=== PATIENT | female | born 1970 | race Caucasian/White ===

== ENCOUNTER 2020-02-25 06:34 | Emergency (ER) | payer SELFPAY ==
[2020-02-25] MEDS ORDERED: DICYCLOMINE HCL INJ 20 MG/2 ML AMPULE IM ONE (08:29)
[2020-02-25] MEDS ORDERED: ONDANSETRON HCL INJ/PF 4 MG/2 ML SDV IV ONE (08:29)
[2020-02-25] MEDS ORDERED: NORMAL SALINE 1000 ML 1,000 ML IV ONE (08:29)
--- NOTE | 2020-02-25 08:30 | ER Document Report ---
ED GI/ - General Chief Complaint: Abdominal Pain Stated Complaint: NAUSEA AND WITHDRAWLS Time Seen by Provider: 02/25/20 08:12 Notes: Patient is a 49-year-old female who presents emergency department with a chief complaint of abdominal pain and right-sided chest pain that has been on and off. Patient states that she also has pain in her back. She reports that she was treated at [facility] for pneumonia, but left AGAINST MEDICAL ADVICE. She states that she has a prescription for antibiotics, but has not picked it up. She is visiting her daughter in the area. Patient has a history of heroin abuse. She states that she has not used heroin for the past 4 days. Patient states that her abdominal pain is generalized. States that she "feels like I am going through withdrawals." Patient has been IV drug user since 2016. Patient also has a history of hypothyroidism. - Related Data Allergies/Adverse Reactions: No Known Allergies Allergy (Unverified 02/25/20 09:16) Home Medications: inhaler Past Medical History - General Information source: Patient - Social History Smoking Status: Current Every Day Smoker Frequency of alcohol use: Rare Drug Abuse: Heroin Family History: Reviewed & Not Pertinent Review of Systems - Review of Systems Notes: REVIEW OF SYSTEMS: CONSTITUTIONAL : Denies recent illness. Denies recent unintentional weight loss. Denies fever, chills, or sweats. EENT: Denies eye, ear, throat, or mouth pain, discharge, or symptoms. Denies nasal or sinus congestion. CARDIOVASCULAR: See HPI. RESPIRATORY: Denies shortness of breath, cough, congestion, difficulty breathing, or wheezing. GASTROINTESTINAL: See HPI. GENITOURINARY: Denies difficulty urinating, burning, blood in urine, urgency or frequency. MUSCULOSKELETAL: Denies neck and back pain. Denies joint pain or swelling. SKIN: Denies rash, itchiness, or lesions HEMATOLOGIC : Denies easy bruising or bleeding. LYMPHATIC: Denies swollen, painful, enlarged glands. NEUROLOGICAL: Denies no numbness or tingling denies weakness. Denies headache. Denies altered mental status. Denies alteration in speech. PSYCHIATRIC: Denies stress, anxiety, alteration in sleep patterns, or depression. All other systems reviewed and negative. Physical Exam - Vital signs Vitals: Temp Pulse Resp BP Pulse Ox 97.6 F 66 18 115/79 98 02/25/20 06:41 02/25/20 06:41 02/25/20 06:41 02/25/20 06:41 02/25/20 06:41 - Notes Notes: PHYSICAL EXAMINATION: GENERAL: Appears well, healthy, well-nourished, no acute distress. HEAD: Normocephalic, atraumatic. EYES: PERRL, conjunctiva normal, all extraocular movements intact, sclera nonicteric ENT: Moist mucous membranes. NECK: Supple, no noticeable swelling, redness, rash. Normal range of motion. LUNGS: Coarse breath sounds noted throughout all lung mulligan. CARDIOVASCULAR: S1-S2, regular rate, regular rhythm. Radial pulses 2+, normal. ABDOMEN: Normoactive bowel sounds. Soft, tender generalized abdomen, no guarding, no rebound tenderness, and no masses palpated. EXTREMITIES: Normal strength and range of motion, no pitting or edema. No cyanosis. NEUROLOGICAL: Moves all extremities upon command. Strength 5/5 in all extremities. PSYCH: Normal mood, normal affect. SKIN: Warm, dry. No rash, lesions, ulcerations noted. Normal skin turgor. Course - Re-evaluation Re-evalutation: 02/25/20 11:01 Patient states that she feels better. Her urinalysis shows protein in her urine. Unremarkable. Toxicology shows opiates, consistent with her heroin use. She also has cocaine and marijuana in her urine. She admitted to using these drugs. Chemistry and hematology are pending at this time. 02/25/20 12:11 Patient is stating that she wants to leave. Joana from mental health evaluated her, but have not touched base with her. Patient is wanting to leave. She denies any suicidal or homicidal ideation. Advised the patient to go to the [facility] crisis [facility]. She is in agreement to do this. We will also give her Reglan and Bentyl. Follow-up precautions were given. Verbal discharge instructions were given to the patient. They verbalized understanding. They are stable for discharge. - Vital Signs Vital signs: Temp Pulse Resp BP Pulse Ox 98.0 F 66 19 113/78 97 02/25/20 09:13 02/25/20 06:41 02/25/20 11:01 02/25/20 11:01 02/25/20 11:01 - Laboratory Result Diagrams: 02/25/20 10:35 02/25/20 10:35 Laboratory results interpreted by me: 02/25/20 02/25/20 02/25/20 09:05 10:35 10:35 RDW 14.1 H BUN 6 L AST 42 H ALT 39 H Lipase 426.2 H Urine Protein 30 H - EKG Interpretation by Me Additional EKG results interpreted by me: 02/25/20 Sinus rated cardia. Rate 53. VT 140; QRS 98; QT 476; QTc 447. No ST elevations or depressions noted. No previous EKG for comparison. Discharge - Discharge Clinical Impression: Abdominal pain, Cocaine abuse, Heroin use, Marijuana use Condition: Stable Disposition: HOME, SELF-CARE Additional Instructions: You were seen today in the emergency department for abdominal pain chest pain. Some of your symptoms may be due to withdrawal symptoms. Please follow-up with [facility] crisis [facility] across the street. You are also being prescribed Bentyl to help with your symptoms. Take that as needed. Take Reglan as needed for nausea. Go [facility] to [facility]. This is across the street from the parking lot of the emergency department. Get your medications and go over there for help with getting clean. Prescriptions: Dicyclomine HCl [Bentyl 20 mg Tablet] 20 mg PO QID PRN #20 tablet PRN Reason: Metoclopramide HCl [Reglan 10 mg Tablet] 1 - 2 tab PO ASDIR PRN #25 tablet PRN Reason:
[2020-02-25] MEDS ORDERED: IPRATROPIUM/ALBUTEROL 0.5-2.5 MG/3 ML AMPUL NEB ONE (08:31)
[2020-02-25 09:52] LABS: AMORPHOUS SEDIMENT,URINE TRACE /HPF; APPEARANCE,URINE TURBID; BILIRUBIN,URINE NEGATIVE (NEGATIVE); COLOR,URINE AMBER; GLUCOSE, URINE NEGATIVE (NEGATIVE); KETONES,URINE NEGATIVE (NEGATIVE); LEUKOCYTE ESTERASE,URINE NEGATIVE (NEGATIVE); NITRITE,URINE NEGATIVE (NEGATIVE); PROTEIN,URINE 30 mg/dL (NEGATIVE); URINE SPECIFIC GRAVITY 1.017; UROBILINOGEN,URINE NEGATIVE mg/dL (<2.0)
[2020-02-25] MEDS ORDERED: KETOROLAC TROMETHAMINE INJ/PF 30 MG/1 ML SDV IV ONE (09:53)
[2020-02-25] MEDS ORDERED: METOCLOPRAMIDE HCL INJ/PF 10 MG/2 ML SDV IV ONE (09:54)
[2020-02-25 10:16] LABS: URINE AMPHETAMINES SCREEN NEGATIVE; URINE BARBITURATES SCREEN NEGATIVE; URINE BENZODIAZEPINES SCREEN NEGATIVE; URINE METHADONE SCREEN NEGATIVE; URINE PHENCYCLIDINE SCREEN NEGATIVE
[2020-02-25 10:17] LABS: URINE COCAINE SCREEN UNCONFIRMED POSITIVE; URINE MARIJUANA (THC) SCREEN UNCONFIRMED POSITIVE
--- NOTE | 2020-02-25 10:40 | RADIOLOGY REPORT (SQ) ---
EXAM DESCRIPTION: CHEST 2 VIEWS IMAGES COMPLETED DATE/TIME: 02/25/2020 10:21 am REASON FOR STUDY: chest pain COMPARISON: None. EXAM PARAMETERS: NUMBER OF VIEWS: two views TECHNIQUE: Digital Frontal and Lateral radiographic views of the chest acquired. RADIATION DOSE: NA LIMITATIONS: none FINDINGS: LUNGS AND PLEURA: Marked scarring in the apices. Retraction of the upper lobes. Appear c hronic. Hyperinflation. MEDIASTINUM AND HILAR STRUCTURES: No masses or contour abnormalities. HEART AND VASCULAR STRUCTURES: Heart normal size. No evidence for failure. BONES: No acute findings. HARDWARE: None in the chest. OTHER: No other significant finding. IMPRESSION: COPD with marked scarring in the apices. TECHNICAL DOCUMENTATION: JOB ID: [id number] [employer]- All Rights Reserved Reading location - IP/workstation name: [email or web address]
[2020-02-25 10:51] LABS: ABSOLUTE EOSINOPHILS # (AUTO) 0.1 10^3/uL (0.0-0.6); ABSOLUTE LYMPHOCYTES (AUTO) 1.8 10^3/uL (0.5-4.7); ABSOLUTE MONOCYTES (AUTO) 0.6 10^3/uL (0.1-1.4); ABSOLUTE NEUT (AUTO) 3.7 10^3/uL (1.7-8.2); BASOPHILS % (AUTO) 0.6 % (0-2); EOSINOPHILS % (AUTO) 1.9 % (0-6); HEMATOCRIT 43.5 % (36.0-47.0); HEMOGLOBIN 15.3 g/dL (12.0-15.5); LYMPHOCYTES % (AUTO) 28.8 % (13-45); MEAN CORPUSCULAR HEMOGLOBIN 31.8 pg (27.0-33.4); MEAN CORPUSCULAR HGB CONC 35.1 g/dL (32.0-36.0); MEAN CORPUSCULAR VOLUME 90 fl (80-97); MONOCYTES % (AUTO) 9.4 % (3-13); PLATELET COUNT 211 10^3/uL (150-450); RED BLOOD COUNT 4.81 10^6/uL (3.72-5.28); RED CELL DISTRIBUTION WIDTH 14.1 % (11.5-14.0); SEGMENTED NEUTROPHILS % (AUTO) 59.3 % (42-78); TOTAL CELLS COUNTED % (AUTO) 100 %; WHITE BLOOD COUNT 6.2 10^3/uL (4.0-10.5)
[2020-02-25 11:18] LABS: ALKALINE PHOSPHATASE 100 U/L (38-126); ANION GAP 11 (5-19); ASPARTATE AMINO TRANSFERASE 42 U/L (14-36); BILIRUBIN,DIRECT 0.3 mg/dL (0.0-0.4); BILIRUBIN,TOTAL 0.6 mg/dL (0.2-1.3); BLOOD UREA NITROGEN 6 mg/dL (7-20); CALCIUM 9.9 mg/dL (8.4-10.2); CARBON DIOXIDE 23 mmol/L (22-30); CHLORIDE 105 mmol/L (98-107); CREATINE KINASE 81 U/L (30-135); GLUCOSE 107 mg/dL (75-110); POTASSIUM 3.8 mmol/L (3.6-5.0); TOTAL PROTEIN 7.2 g/dL (6.3-8.2)
[2020-02-25 12:17] VITALS: BP 113/78
--- NOTE | 2020-02-25 19:17 | EKG REPORT ---
SEVERITY:- BORDERLINE ECG - SINUS BRADYCARDIA BORDERLINE RIGHT AXIS DEVIATION BORDERLINE T ABNORMALITIES, ANTERIOR LEADS : Confirmed by: Jimmy Durant MD 25-Feb-2020 19:16:20
--- NOTE | 2020-02-28 02:18 | PSYCHOLOGICAL NOTE ---
Psych Note - Psych Note Date seen by psych provider: 02/25/20 Time seen by psych provider: 11:23 - Evaluation from [id number]. 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 She reported she had recently been discharged from [facility] for Pneumonia after leaving against medical advice. She still had prescriptions for her antibiotics so was not taking them. She stated she was visiting her daughter in the area.She told medical staff she has a history of Intravenous heroin use, with last use 4-5 days ago, she had been at [facility] for the pneumonia and heroin withdrawal, and since she stopped has experienced nausea/vomiting/general abdominal cramping. Patient reported "I have been on heroin for awhile, I want to get clean, I did it for 9 months before, I can do it again." She stated "I moved from [place] to here to change my life." She identified trauma related to her son who has been 18 and his father being murdered, with son being shot 3 times in the back of the head. She was tearful when talking about this, appropriately so. She declined linkage to voluntary detoxification and stated "I can stay at home, there is no heroin where I am at." Her phone range during evaluation and she stated "I need to take this it's my boyfriend and he is my ride." She ended up telling him she was ready and hung up. Patient denied suicidal and homicidal ideation. She admitted to depression and commented "I want to get better and do better." She identified a Bipolar History. She reported she was last prescribed Zoloft, Klonopin (for anxiety, asthma, COPD), and Seroquel (sleep, nightmares, anger issues). Patient commented "I am Bipolar, I am an addict, and I want to be linked to services locally." She acknowledged she is not sleeping at night and commented "the Seroquel helped with my bad dreams about my son." She was informed this clinician could provide medications and both inpatient and outpatient resources. Patient said "yes please." She was informed her boyfriend may have to wait but all these things could be provided to her. Patient was alert and oriented to self, person, place, time and situation. Mood was euthymic with congruent affect for the most part, except when talking about her son's then she was depressed with tearful affect. She denied current suicidal and homicidal ideation. Patient did not appear to be responding to internal stimuli as evidenced by fair eye contact, answering questions appropriately when addressed, carrying on dialogue conversation, and being engaged in evaluation. Thought processes were linear and organized. Conversational speech was within normal limits for rate, tone and prosody. Intellectual abilities are estimated to be average. Insight, judgment and impulse control were fair as evidenced by being at least in pre-contemplative stage of change as evidenced by wanting to get back on medication for Bipolar and wanting to get sober from heroin. At 1226 Attending ED Physician noted patient asked for Suboxone and was told that cannot be done in emergency department, her ride was present so she wanted to leave, and was informed about [facility]. Clinical Presentation: Polysubstance Use Opioids Cocaine Cannabis Desire for Heroin Sobriety Bipolar history and wanting to get back on medication Desire for local linkage but not detoxification Uncomplicated Bereavement Medication recommendations made by the psychiatric medication provider Dr. Krysta BOTELLO., includes: Zyprexa 2.5MG twice a day for mood stabilization/impulse control Buspar 5MG twice a day for anxiety/calming effect/depression/sleep Propranolol 10MG at night for sleep Impression/Plan: Attending ED Physician noted patient wanted to leave and her ride was present. Since patient did not want to wait she did not get prescriptions for above medications or outpatient resources with the exception of medical staff making her aware of the [facility]. Dr. Tamayo consulted regarding the management and care of patient. Case Management: Made referral to [facility]. Would have made referral to Peer navigator Program at [facility] [place] but patient left. Would also have provided contact information for Health System (outpatient dual diagnosis treatment) and both local mobile crisis numbers. Would have provided her [facility] information as Suboxone/Subutex provider.
== END 2020-02-25 12:17 | disposition home or self-care (01) ==
LOC: ER 06:34
DX: R10.84 Generalized abdominal pain (principal); R10.817 Generalized abdominal tenderness; J18.9 Pneumonia, unspecified organism; T36.96XA Underdosing of unspecified systemic antibiotic, initial encounter; Z91.128 Patient's intentional underdosing of medication regimen for other reason; Z91.14 Patient's other noncompliance with medication regimen; R07.9 Chest pain, unspecified; M54.9 Dorsalgia, unspecified; F11.10 Opioid abuse, uncomplicated; F14.10 Cocaine abuse, uncomplicated; J44.9 Chronic obstructive pulmonary disease, unspecified; F17.200 Nicotine dependence, unspecified, uncomplicated; Z79.899 Other long term (current) drug therapy
CPT/HCPCS: 93005; 94640; 99285; 96372; 96361; 96374; 96375; 36415; 82550; 83690; 83735; 85025; 80053; 81001; 84484; 80307; 71046; 93010; J0500; J1885; J2765; J2405; J7030

== ENCOUNTER 2020-03-26 02:04 | Emergency (ER) | payer SELFPAY ==
--- NOTE | 2020-03-26 03:11 | ER Document Report ---
ED General <DAVID HSIEH - Last Filed: 03/26/20 05:53> <CHARLY KATHLEEN - Last Filed: 03/26/20 11:49> <ARRIAGA,DEEJAY Ankur - Last Filed: 03/26/20 12:30> - General Chief Complaint: Accidental Overdose Stated Complaint: POSSIBIBLE OVERDOSE Time Seen by Provider: 03/26/20 02:39 Primary Care Provider: [facility] [Outside] - Follow up as needed [facility] [Outside] - Follow up in 3-5 days [facility] [Outside] - Follow up as needed - HPI Notes: Patient brought into the emergency department via EMS for apparent overdose. Only meaningful history is obtained from EMS at this time. Evidently they the patient overdosed on heroin, was also using benzodiazepines, alcohol, and perhaps overdosed on Viagra. She was administered IM Narcan at the scene and became more responsive. The patient offers me very little in the way of history. She does admit to heroin use. She states she did not inject it, but also states she did not snort it either. She ignores the question when I asked if she is having suicidal or homicidal thoughts, if she intentionally did this to self-harm. She is trying to get out of the bed repeatedly, and answer some of her questions entirely and appropriately. (DAVID HSIEH) - Related Data Allergies/Adverse Reactions: No Known Allergies Allergy (Unverified 02/25/20 09:16) Past Medical History - General Information source: Emergency Med Personnel, [facility] Records - Social History Smoking Status: Current Every Day Smoker Chew tobacco use (# tins/day): No Frequency of alcohol use: Heavy Drug Abuse: Heroin, Prescription drugs Family History: Reviewed & Not Pertinent Patient has homicidal ideation: No <DAVID HSIEH - Last Filed: 03/26/20 05:53> Review of Systems - Review of Systems -: Yes ROS unobtainable due to patient's medical condition - Patient is markedly intoxicated <DAVID HSIEH - Last Filed: 03/26/20 05:53> Physical Exam <DAVID HSIEH - Last Filed: 03/26/20 05:53> - Vital signs Vitals: BP Pulse Ox 122/97 H 98 03/26/20 02:20 03/26/20 02:20 - Notes Notes: This is a 50-year-old female who appears older than her stated age, in no acute distress. She is drowsy but awakes easily to verbal stimuli. Vital signs reviewed, please refer to chart. Head is normocephalic, atraumatic. Pupils equal round, reactive to light. Neck is supple without meningismus. Heart is regular rate and rhythm. Lungs are clear to auscultation bilaterally. Abdomen is soft, nontender, normoactive bowel sounds throughout. Extremities without cyanosis, clubbing. Posterior calves are nontender. Peripheral pulses are equal. Skin is warm and dry. She has track reynolds up and down upper extremities, without any signs of induration or fluctuant abscess. Patient is drowsy, exhibits slurred speech, consistent with acute intoxication. She tells me she is in "[facility]" and notes that she believes it to be [facility]. She does not answer any further questions appropriately regarding orientation. No gross facial asymmetry. She does move all 4 extremities spontaneously. (DAVID HSIEH) Course - Laboratory Result Diagrams: 03/26/20 02:37 03/26/20 02:37 - Diagnostic Test Radiology reviewed: Reports reviewed <DAVID HSIEH - Last Filed: 03/26/20 05:53> - Laboratory Result Diagrams: 03/26/20 02:37 03/26/20 02:37 <CHARLY KATHLEEN - Last Filed: 03/26/20 11:49> - Laboratory Result Diagrams: 03/26/20 02:37 03/26/20 02:37 <DEEJAY ARRIAGA - Last Filed: 03/26/20 12:30> - Re-evaluation Re-evalutation: 03/26/20 03:09 Patient presents to the emergency department for evaluation via EMS. She is placed on a plant maintenance manager. Laboratory investigations and imaging are ordered. At this point I do believe the patient to be a significant risk to herself. I am unsure as to whether or not she intentionally overdosed, but she has a longstanding history of polysubstance abuse, is incredibly altered, and I do believe a candidate for involuntary evaluation at this time. 24-hour petition signed and placed in the chart. Laboratory investigations are pending at this time, we will continue to monitor. 03/26/20 05:53 During the course of her stay in the emergency department, patient became more awake and alert. She still has intermittent periods where her words are slurred and they do not make sense. She attributes this to her bipolar disorder. She is not currently taking any medications for that. She states she was not doing any drugs, then states she was doing "the pills they gave me." She states she was at her sister's house. She then told me she thought she was at [facility]. I informed the patient that she was in [place], she states "I have never been there before." The patient was in fact here about a month ago. I am still concerned about her mental status and polysubstance abuse. She is still intermittently confused. She is medically cleared at this time. Awaiting psychosocial evaluation. (DAVID HSIEH) - Vital Signs Vital signs: Temp Pulse Resp BP Pulse Ox 97.8 F 86 20 155/89 H 99 03/26/20 05:52 03/26/20 06:43 03/26/20 06:43 03/26/20 06:26 03/26/20 06:43 - Laboratory Laboratory results interpreted by me: 03/26/20 03/26/20 02:37 02:37 Hgb 16.3 H RDW 14.3 H Lymph % (Auto) 49.7 H Seg Neutrophils % 39.5 L ALT 43 H Salicylates < 1.0 L Acetaminophen < 10 L - Diagnostic Test Radiology results interpreted by me: 03/26/20 05:53 Chest X-Ray 03/26/20 03:04 IMPRESSION: No definite pneumonia. No change. Head CT 03/26/20 03:04 IMPRESSION: There is no evidence of acute intracranial pathology. (DAVID HSIEH) - EKG Interpretation by Me Additional EKG results interpreted by me: 03/26/20 05:54 Sinus mechanism with rate of 68 bpm. Borderline right axis deviation. Normal intervals. Nonspecific ST changes, but no acute elevation concerning for infarction. No old studies immediately available for comparison. (DAVID HSIEH) Discharge <DAVID HSIEH - Last Filed: 03/26/20 05:53> <CHARLY KATHLEEN - Last Filed: 03/26/20 11:49> <DEEJAY ARRIAGA - Last Filed: 03/26/20 12:30> - Discharge Clinical Impression: Polysubstance abuse Altered mental status Qualifiers: Altered mental status type: unspecified Qualified Code(s): R41.82 - Altered mental status, unspecified Accidental overdose Qualifiers: Encounter type: initial encounter Qualified Code(s): T50.901A - Poisoning by unspecified drugs, medicaments and biological substances, accidental (unintentional), initial encounter Condition: Stable Disposition: HOME, SELF-CARE Additional Instructions: You have been evaluated both medical and behavioral health teams have been deemed appropriate for discharge. You have declined assistance in detox however confirm you you would take resource information in case you change your mind. You are highly encouraged to follow through with substance use treatment. Please contact [facility] in 3 to 5 days to make an appointment. You have also been provided mobile crisis contact information. ACUTE ALCOHOL INTOXICATION and ALCOHOL ABUSE: Your evaluation revealed very high levels of alcohol. You can from drinking a large amount of alcohol rapidly! Further, there's the risk of falls, traffic accidents, and fights. A high portion (about 50 percent) of the serious injuries seen in hospital emergency rooms are caused by alcohol. Alcohol overdosage is usually due to an underlying emotional or psychiatric problem. You may benefit from counselling. If "binge" drinking is an ongoing problem for you, or if you drink ANY AMOUNT of alcohol EVERY day, you most likely have a tendency to alcoholism. You should avoid alcohol totally. We can refer you for treatment. Persons with alcohol problems are often also prone to other addictions -- you should discuss any use of medications or drugs with the doctor. You should be watched at home for the next several hours by someone who has not been drinking. Get extra fluids for the next 24 hours. Call the doctor if there is repeated vomiting, increasing headache, decreasing level of alertness, or any other worsening. COCAINE ABUSE: Cocaine causes many dangerous medical problems. Problems can occur even with "usual" amounts. Cocaine affects judgement, creating a sense of invulnerability. Cocaine users often make bad decisions that seem "great" at the time. Most cocaine users eventually will be hurt by bad job performance, damaged personal relations, crime, and unsafe sexual practices. Toxic effects of cocaine can include seizures, hallucinations, delusions, high blood pressure, heart damage, or sudden . There's always the risk of a "bad batch." But heart attacks, brain hemorrhages, or cardiac arrest can occur unpredictably even with "normal" use. Injection of cocaine is risky for abscesses, endocarditis (heart infection), pneumonia, and AIDS. Withdrawal from cocaine often causes anxiety and drug cravings. Some users become paranoid and psychotic. Many treatment programs are available, but you must make the decision to quit. Medication can be prescribed to control the symptoms of cocaine toxicity (beta blockers or benzodiazepines). Withdrawal symptoms may require tranquilizers. NARCOTIC / OPIOD ABUSE: Narcotics and opiods are pain-relieving drugs that are often abused. They are addicting. Narcotics cause euphoria, but it often takes increasing amounts to "feel good" and avoid withdrawal symptoms. Overdose of narcotics causes small pupils, coma, and decreased breathing. It's a common cause of . Purity of street narcotics is unpredictable. Injection of narcotics is risky for abscesses, endocarditis (heart infection), pneumonia, and AIDS. Withdrawal from narcotics causes goose bumps, watery mouth, sweating, nasal congestion, muscle aches, abdominal cramps, vomiting, and diarrhea. There's often restlessness and confusion. Treatment programs are available, but you must make the decision to quit. Medication (such as clonidine) can be prescribed to control the symptoms of withdrawal. FOLLOW-UP CARE: If you have been referred to a physician for follow-up care, call the physicians office for an appointment as you were instructed or within the next two days. If you experience worsening or a significant change in your symptoms, notify the physician immediately or return to the Emergency Department at any time for re-evaluation. Referrals: [facility] [Outside] - Follow up in 3-5 days [facility] [Outside] - Follow up as needed [facility] [Outside] - Follow up as needed
[2020-03-26 03:20] LABS: ABSOLUTE BASOPHILS # (AUTO) 0.1 10^3/uL (0.0-0.2); ABSOLUTE EOSINOPHILS # (AUTO) 0.2 10^3/uL (0.0-0.6); ABSOLUTE LYMPHOCYTES (AUTO) 3.4 10^3/uL (0.5-4.7); ABSOLUTE MONOCYTES (AUTO) 0.5 10^3/uL (0.1-1.4); ABSOLUTE NEUT (AUTO) 2.7 10^3/uL (1.7-8.2); BASOPHILS % (AUTO) 0.8 % (0-2); EOSINOPHILS % (AUTO) 2.5 % (0-6); HEMATOCRIT 46.8 % (36.0-47.0); HEMOGLOBIN 16.3 g/dL (12.0-15.5); LYMPHOCYTES % (AUTO) 49.7 % (13-45); MEAN CORPUSCULAR HEMOGLOBIN 31.7 pg (27.0-33.4); MEAN CORPUSCULAR HGB CONC 34.8 g/dL (32.0-36.0); MEAN CORPUSCULAR VOLUME 91 fl (80-97); MONOCYTES % (AUTO) 7.5 % (3-13); PLATELET COUNT 203 10^3/uL (150-450); RED BLOOD COUNT 5.14 10^6/uL (3.72-5.28); RED CELL DISTRIBUTION WIDTH 14.3 % (11.5-14.0); SEGMENTED NEUTROPHILS % (AUTO) 39.5 % (42-78); TOTAL CELLS COUNTED % (AUTO) 100 %; WHITE BLOOD COUNT 6.8 10^3/uL (4.0-10.5)
[2020-03-26 03:26] LABS: ALBUMIN 4.6 g/dL (3.5-5.0); ALCOHOL 180 mg/dL (NONE DETECTED); ALKALINE PHOSPHATASE 94 U/L (38-126); ANION GAP 12 (5-19); ASPARTATE AMINO TRANSFERASE 36 U/L (14-36); BILIRUBIN,DIRECT 0.2 mg/dL (0.0-0.4); BILIRUBIN,TOTAL 0.3 mg/dL (0.2-1.3); BLOOD UREA NITROGEN 9 mg/dL (7-20); CALCIUM 9.7 mg/dL (8.4-10.2); CARBON DIOXIDE 27 mmol/L (22-30); CHLORIDE 104 mmol/L (98-107); GLUCOSE 97 mg/dL (75-110); POTASSIUM 3.9 mmol/L (3.6-5.0); TOTAL PROTEIN 8.2 g/dL (6.3-8.2)
[2020-03-26 03:28] LABS: ACETAMINOPHEN < 10 ug/mL (10-30); SALICYLATE < 1.0 mg/dL (2.0-20.0)
[2020-03-26 03:32] LABS: APPEARANCE,URINE CLEAR; BILIRUBIN,URINE NEGATIVE (NEGATIVE); COLOR,URINE STRAW; GLUCOSE, URINE NEGATIVE (NEGATIVE); KETONES,URINE NEGATIVE (NEGATIVE); LEUKOCYTE ESTERASE,URINE NEGATIVE (NEGATIVE); NITRITE,URINE NEGATIVE (NEGATIVE); PROTEIN,URINE NEGATIVE (NEGATIVE); URINE SPECIFIC GRAVITY 1.003; UROBILINOGEN,URINE NEGATIVE mg/dL (<2.0)
[2020-03-26 03:50] LABS: URINE AMPHETAMINES SCREEN NEGATIVE; URINE BARBITURATES SCREEN NEGATIVE; URINE BENZODIAZEPINES SCREEN NEGATIVE; URINE MARIJUANA (THC) SCREEN NEGATIVE; URINE METHADONE SCREEN NEGATIVE; URINE PHENCYCLIDINE SCREEN NEGATIVE
[2020-03-26 03:53] LABS: URINE COCAINE SCREEN UNCONFIRMED POSITIVE
--- NOTE | 2020-03-26 05:36 | RADIOLOGY REPORT (SQ) ---
CLINICAL HISTORY: overdose COMPARISON: 02/25/2020. 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 Lungs are hyperinflated. There are chronic biapical scarring. There is no pleural effusion. There is no pneumothorax. There are no acute osseous findings. IMPRESSION: No definite pneumonia. No change.
--- NOTE | 2020-03-26 05:39 | RADIOLOGY REPORT (SQ) ---
EXAM: CT head without IV contrast CLINICAL DATA: 50 years Female altered mental status TECHNICAL DATA: Multiple axial CT images of the brain were performed followed by sagittal and coronal reconstructed images. The CT study is performed according to ALARA (as low as reasonably achievable) or ALARA/IMAGE GENTLY, with automatic adjustment of mA and/or kV according to patient size. Performed on: 03/26/2020 at 4:46 AM Comparisons: None. FINDINGS: Brain: There is no evidence of mass, acute mass effect or midline shift. There are no acute extra-axial fluid collections. There is no evidence of acute intracranial hemorrhage. The cerebral sulci and ventricles are normal in size and configuration..There are no focal abnormal areas of increased or decreased attenuation. Paranasal Sinuses and Mastoids: There is mild mucosal thickening of the paranasal sinuses. The mastoid air cells are clear. Orbits: The orbital contents are grossly unremarkable. Bones: No acute osseous abnormalities are identified. Soft Tissues: No focal soft tissue abnormalities are identified. IMPRESSION: There is no evidence of acute intracranial pathology.
--- NOTE | 2020-03-26 07:34 | EKG REPORT ---
SEVERITY:- BORDERLINE ECG - SINUS RHYTHM BORDERLINE RIGHT AXIS DEVIATION LA ABNORMALITY : Confirmed by: Elijah Leggett MD 26-Mar-2020 07:34:03
--- NOTE | 2020-03-26 11:22 | ER Document Report ---
Doctor's Note Notes: 03/26/20 11:21 S: Assumed care of patient from the nighttime provider team. Patient apparently came in last night with a presumed overdose. Potentially she had taken heroin, possibly Viagra, and perhaps some other medicines. Patient apparently was given Narcan at that time and she became more responsive over the nighttime. She would not answer the nighttime physician about suicidal ideation. She states this morning that she feels much better and she does not have any suicidal ideation. She has no HI or hallucinations. She does admit to a headache. When offered Tylenol for her headache she declines it. O: Constitutional: Looks older than stated age, alert and oriented x4 Neck: Supple, no lymphadenopathy Cardio: Normal rate and rhythm, no rubs, gallops, murmurs Pulmonology: Clear to auscultation throughout with no wheezes, rhonchi, rales Psych: Mildly withdrawn. She states that she does not have SI today. A/P: Patient has been seen by behavioral health team. I am awaiting recommendations from them. Patient aware of this current status. 03/26/20 Selected Entries 03/26/20 03/26/20 06:26 06:43 Pulse Rate [ 86 Left Finger] Respiratory 20 Rate Blood Pressure 155/89 H Blood Pressure 111 Mean O2 Sat by Pulse 99 Oximetry 03/26/20 12:30 Patient was seen and evaluated by behavioral health team. She also states then that she does not have suicidal ideation as well as no HI or hallucinations. She was offered detox for polysubstance abuse however she declined. She was also given outpatient services as well. Her IVC paperwork from overnight has been rescinded and she will be discharged home.
--- NOTE | 2020-03-26 11:45 | PSYCHOLOGICAL NOTE ---
Psych Note - Psych Note Date seen by psych provider: 03/26/20 Time seen by psych provider: 10:50 - 1100 Psych Note: Reason for Consult:overdose Consent Permissions: none provided Patient arrived to [facility] ED via EMS for concerns of AMS. Patient was under the influence of multiple substances to include alcohol. Patient reports she is unsure what she took last night but does not think she took viagra; "I drank a few beers last night...I don't think I took viagra...I ...I honestly don't know what I took..." Patient denies this was an attempts to harm herself. Patient reports her daughter is coming home for the holidays and she has to call her today to find out what time she is coming. Patient declines assistance for detox stating she does not need to detox from anything. When reminded she was drinking alcohol, patient confirms and again declined assistance for detox stating 'Na, I'm good. Thank you though." Patient is alert and orientated to person, place, time and circumstance. Mood is currently euthymic with congruent affect. Patient denies suicidal and homicidal ideation. Delusions are absent and behaviors congruent with an intact reality based presentation i.e. organized and linear thought process. Eye contact was well-maintained. Conversational speech is within normal rate, tone and prosody. Intellectual abilities appear to be within the average range. Attention and concentration are currently good. Insight, judgment, impulse control are currently poor due to substance abuse. Clinical Presentation: polysubstance abuse IVC Criteria per [place] GS 122C Dangerous to others Within the relevant past the individual No has inflicted or attempted to inflict or threatened to inflict serious bodily harm on another AND No that there is a reasonable probability that this conduct will be repeated as there is an absence of supervision or structure to prevent. OR No has acted in such a way as to create a substantial risk of serious bodily harm to another AND No that there is a reasonable probability that this conduct will be repeated as there is an absence of supervision or structure to prevent. OR No has engaged in extreme destruction of property AND NO that there is a reasonable probability that this conduct will be repeated as there is an absence of supervision or structure to prevent. Previous episodes of dangerousness to others, when applicable, may be considered when determining reasonable probability of future dangerous conduct. Clear, cogent, and convincing evidence that an individual has committed a homicide in the relevant past is prima facie evidence of dangerousness to others. Dangerous to self Within the relevant past the individual has done any of the following: acted in such a way as to show ALL of the following: No The individual would be unable without care, supervision, and the continued assistance of others not otherwise available, to exercise self- control, judgment, and discretion in the conduct of the individual's daily responsibilities and social relations or to satisfy the individual's need for nourishment, personal or medical care, snf, or self-protection and safety. AND No There is a reasonable probability of the individual suffering serious physical debilitation within the near future unless adequate treatment is given. A showing of behavior that is grossly irrational, of actions that the individual is unable to control, of behavior that is grossly inappropriate to the situati on, or of other evidence of severely impaired insight and judgment shall create a prima facie inference that the individual is unable to care for himself or herself. OR No has attempted suicide or threatened suicide AND No that there is a reasonable probability of suicide unless adequate treatment is given as there is an absence of supervision or structure to prevent suicide of patient who has made an attempt, serious gesture or threat. OR No has mutilated himself or herself or attempted to mutilate himself or herself AND No that there is a reasonable probability of serious self-mutilation unless adequate treatment is given as there is an absence of supervision or structure to prevent. NOTE: Previous episodes of dangerousness to self, when applicable, may be considered when determining reasonable probability of physical debilitation, suicide, or self-mutilation. Impression\\plan: Patient is recommended for rescind and is cleared from acute psychiatric services; paperwork is signed and placed in patient's chart. Patient presented altered after possible overdose. Patient denies attempting to harm herself stating that she is uncertain exactly what she took last night however reports she does remember drinking "a few beers." Patient denies any thoughts of wanting to harm herself or others. At this time there is no indication that patient's overdose was anything other than accidental. Patient declines assistance with detox however was willing to take resource information if she changes her mind. Psychoeducation was provided in the hope patient would seek substance use treatment; probability is poor. Patient reports she can contact her boyfriend for transportation home. Dr. Tamayo was consulted to care management of this patient; attending physicians in agreement with recommendations and disposition.
[2020-03-26 13:12] VITALS: BP 145/88
== END 2020-03-26 13:11 | disposition home or self-care (01) ==
LOC: ER 02:04
DX: T40.1X1A Poisoning by heroin, accidental (unintentional), initial encounter (principal); F19.10 Other psychoactive substance abuse, uncomplicated; R41.82 Altered mental status, unspecified; Y92.009 Unspecified place in unspecified non-institutional (private) residence as the place of occurrence of the external cause
CPT/HCPCS: 36415; 70450; 71045; 80053; 80307; 81001; 84703; 85025; 93005; 93010; 99285

== ENCOUNTER 2020-04-29 12:54 | Emergency (ER) | payer SELFPAY ==
[2020-04-29] MEDS ORDERED: HALOPERIDOL LACTATE INJ 5 MG/1 ML VIAL IV ONE (14:03)
[2020-04-29] MEDS ORDERED: DEXAMETHASONE SOD PHOS INJ 10 MG/1 ML VIAL IV ONE (14:03)
[2020-04-29] MEDS ORDERED: MORPHINE SULFATE 10 MG/ML INJ IV ONE (14:04)
--- NOTE | 2020-04-29 14:04 | ER Document Report ---
ED Neck/Back Problem - General Chief Complaint: Back Pain Stated Complaint: BACK PAIN Time Seen by Provider: 04/29/20 13:53 Mode of Arrival: Medic Information source: Patient Notes: 04/29/20 13:15 - ED Nursing Note by MADELYN STRICKLAND Num: [id number] : 1970 Patient Age: [age] y/o female on stretcher to [facility] via EMS, C/C lumbar area back pain with nu mbness/tingling to R foot that began last night while moving furniture in her home. States she was twisting/bending, when injury occurred. Pain bacame progressively worse, so called EMS. Took Advil 600mg lat 6am today with no relief. No daily meds, NKDA. Pt AOX4, rates pain 5/5 R lower back, dorsalis pedis pulse +2 RLE. EMS staff administered: 1215 100mcg FentanylIV 30mg TOradolIV 1217 4mg ZOfran [id number] Fentanyl 1235 50mcg FentanylIV 1241 1mg Dilaudid 1242 4mg ZofranIV MY NOTES 50-year-old female arrived by EMS after she felt a pop in her right lower back on Wednesday as she was lifting some [employer] tree material and some packages. 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 She is a positive smoker. She denies any prior history of Covid trauma to low back ankylosing spondylitis chlamydia or gonorrhea osteoporosis but does admit to feeling pain and numbness to her right lateral foot that began to be worse last night. She is reports she had to lay on the floor all night and could not make it to the bathroom because of pain. Patient did take Advil 600 mg today. She also received a total of 200 of fentanyl 1 mg of Dilaudid 30 mg of Toradol and 8 mg of Zofran per EMS without resolution of her pain. She reports she had a 10 out of 10 pain prior to the medications EMS gave her and now she has a 8 out of 10 pain. Time at examination was approximately 1400 TRAVEL OUTSIDE OF THE [place] IN LAST 30 DAYS: Yes - HPI Patient complains to provider of: Pain, Injury, Lower back. No: Neck, Upper back Onset: Other - 2 days ago Where: Home. No: Indoors, Neighbor's, [employer], School Onset: Sudden Timing: Constant Quality of pain: Achy, Stabbing Severity: Severe Pain Level: 5 Context: Lifting - While moving [employer] tree and packages this weekend Recent injury: Possibly Associated symptoms: Numbness/tingling - To the right lower extremity and toes pain down right thigh patient points anteriorly and laterally, Radiation to leg, Sensory loss, Lower back pain, Other - Patient laid on floor all night and could not make it to the bathroom because of pain.. denies: Chest pain, Abdominal pain, Chills, Constipation, Fever, Incontinence, Like prior neck/back pain, Radiation to arm, Radiation to chest, Upper back pain - Related Data Allergies/Adverse Reactions: No Known Allergies Allergy (Verified 04/29/20 13:08) Past Medical History - General Information source: Patient - Social History Smoking Status: Current Every Day Smoker Cigarette use (# per day): Yes Chew tobacco use (# tins/day): No Smoking Education Provided: Yes Frequency of alcohol use: Occasional Drug Abuse: None Lives with: Family Family History: Reviewed & Not Pertinent Patient has suicidal ideation: No Patient has homicidal ideation: No Pulmonary Medical History: Reports: Hx COPD Review of Systems - Review of Systems Constitutional: See HPI, Malaise, Weakness. denies: Weight gain, Weight loss, Recent illness EENT: No symptoms reported Cardiovascular: No symptoms reported Respiratory: No symptoms reported Gastrointestinal: No symptoms reported Genitourinary: No symptoms reported Female Genitourinary: No symptoms reported Musculoskeletal: See HPI, Back pain Skin: No symptoms reported Hematologic/Lymphatic: No symptoms reported Neurological/Psychological: No symptoms reported Physical Exam - Vital signs Vitals: Temp Pulse Resp BP Pulse Ox 97.8 F 70 20 115/83 98 04/29/20 13:04 04/29/20 13:04 04/29/20 13:04 04/29/20 13:04 04/29/20 13:04 Interpretation: Normal - General General appearance: Appears well, Alert - HEENT Head: Normocephalic, Atraumatic Eyes: Normal Pupils: PERRL - Respiratory Respiratory status: No respiratory distress Chest status: Nontender Breath sounds: Normal Chest palpation: Normal - Cardiovascular Rhythm: Regular Heart sounds: Normal auscultation Murmur: No - Abdominal Inspection: Normal Distension: No distension Bowel sounds: Normal Tenderness: Nontender Organomegaly: No organomegaly - Rectal Hemorrhoids: Other - Deferred - Genitourinary Bimanuel exam: Other - Deferred - Back Back: Tender - Right SI right sided flank and L to area and perisacral area. Positive straight leg lift greater than 5 degrees. Patient is laying on her left side legs are flexed around 15 degrees. She has positive patellar reflexes bilaterally good sensation to bilateral feet positive dorsalis pedis pulses - Extremities General upper extremity: Normal inspection, Nontender, Normal color, Normal ROM, Normal temperature General lower extremity: Tender - Tender right SI and right lower extremity on range of motion flexion extension greater than 10 degrees., Normal color, Normal ROM, Normal temperature, Normal weight bearing. No: Iris's sign - Neurological Neuro grossly intact: Yes Cognition: Normal Orientation: AAOx4 Princess Coma Scale Eye Opening: Spontaneous Princess Coma Scale Verbal: Oriented Danese Coma Scale Motor: Obeys Commands Princess Coma Scale Total: 15 Speech: Normal Motor strength normal: LUE, RUE, LLE, RLE Sensory: Normal - Psychological Associated symptoms: Normal affect, Normal mood - Skin Skin Temperature: Warm Skin Moisture: Dry Skin Color: Normal Course - Vital Signs Vital signs: Temp Pulse Resp BP Pulse Ox 97.8 F 70 20 115/83 98 04/29/20 13:04 04/29/20 13:04 04/29/20 13:04 04/29/20 13:04 04/29/20 13:04 - Laboratory Results Critical Laboratory Results Reviewed: Yes Attending or Supervising Physician who Reviewed Labs: AVINASH COE JR - Radiology Results Radiology Results Interpreted: 04/29/20 15:10 Dr. uCllen radiologist read both pelvis sacrum coccyx and chest x-ray as negative 04/29/20 17:27 his case was read by radiologist Dr. Vazquez. Critical Radiology Results Reviewed: Yes - Patient had a disc protrusion L4-L5 1.3 cm severe foraminal narrowing and also at L3-L4 ligamentum flavum thickening Attending or Supervising Physician who Reviewed Radiology: AVINASH COE JR Critical Care Note - Critical Care Note Comments: This case was read by radiologist Dr. Vazquez Discharge - Discharge Clinical Impression: Right sciatic nerve pain Low back pain Qualifiers: Chronicity: acute Back pain laterality: midline Sciatica presence: with sciatica Sciatica laterality: sciatica of right side Qualified Code(s): M54.41 - Lumbago with sciatica, right side Condition: Stable Disposition: HOME, SELF-CARE Instructions: Low Back Pain ([facility]), Muscle Strain ([facility]) Additional Instructions: Follow-up with neurosurgeon of choice. Return to ER as needed. Take medicines as directed. Avoid lifting bending or twisting until seen by neurologist personal doctor or neurosurgeon. Return to ER as needed encourage fluids avoid driving or dangerous machinery while using any of the medicines we have written as prescription. Prescriptions: Etodolac [Lodine] 400 mg PO DAILY #10 tablet Chlorzoxazone [Parafon Forte Dsc 500 Mg Tablet] 500 mg PO TID PRN #20 tablet PRN Reason: Pain Scale Of 1
--- NOTE | 2020-04-29 14:53 | RADIOLOGY REPORT (SQ) ---
EXAM DESCRIPTION: PELVIS AP IMAGES COMPLETED DATE/TIME: 04/29/2020 2:45 pm REASON FOR STUDY: lbp COMPARISON: None. NUMBER OF VIEWS: One view TECHNIQUE: AP Pelvis LIMITATIONS: None. FINDINGS: MINERALIZATION: Normal. HIPS: No acute fracture or dislocation. No worrisome bone lesions. PELVIS AND SACRUM: No acute fracture or dislocation. No worrisome bone lesions. PUBIS AND ISCHIUM: No acute fracture. LOWER LUMBAR SPINE: No significant findings as visualized. SOFT TISSUES: No findings. OTHER: No other significant finding. IMPRESSION: NEGATIVE STUDY OF THE PELVIS. COMMENT: Pelvic fractures are often occult on plain radiographs. If strong clinical suspicion for f racture, recommend CT or MR. TECHNICAL DOCUMENTATION: JOB ID: [id number] 2010 [employer]- All Rights Reserved Reading location - IP/workstation name: [email or web address]
--- NOTE | 2020-04-29 14:54 | RADIOLOGY REPORT (SQ) ---
EXAM DESCRIPTION: SACRUM AND COCCYX IMAGES COMPLETED DATE/TIME: 04/29/2020 2:46 pm REASON FOR STUDY: back pain r sciatica COMPARISON: None. NUMBER OF VIEWS: Three views. TECHNIQUE: AP, lateral, and tilt views of the sacrum and coccyx. LIMITATIONS: None. FINDINGS: MINERALIZATION: Normal. BONES: No acute fracture or dislocation. No worrisome bone lesions. SOFT TISSUES: No soft tissue swelling. No foreign body. OTHER: No other significant finding. IMPRESSION: NEGATIVE STUDY OF THE SACRUM AND COCCYX. TECHNICAL DOCUMENTATION: JOB ID: [id number] 2010 [employer]- All Rights Reserved Reading location - IP/workstation name: [email or web address]
--- NOTE | 2020-04-29 14:57 | RADIOLOGY REPORT (SQ) ---
EXAM DESCRIPTION: CHEST 2 VIEWS IMAGES COMPLETED DATE/TIME: 04/29/2020 2:46 pm REASON FOR STUDY: back pain COMPARISON: 03/26/2020 02/25/2020 EXAM PARAMETERS: NUMBER OF VIEWS: two views TECHNIQUE: Digital Frontal and Lateral radiographic views of the chest acquired. RADIATION DOSE: NA LIMITATIONS: none FINDINGS: LUNGS AND PLEURA: Bilateral apical scarring. Hyperexpansion of the lungs. No acute infil trate or effusion. MEDIASTINUM AND HILAR STRUCTURES: No masses or contour abnormalities. HEART AND VASCULAR STRUCTURES: Heart normal size. No evidence for failure. BONES: No acute findings. HARDWARE: None in the chest. OTHER: No other significant finding. IMPRESSION: Chronic lung changes with no acute cardiopulmonary finding. TECHNICAL DOCUMENTATION: JOB ID: [id number] 2010 [employer]- All Rights Reserved Reading location - IP/workstation name: [email or web address]
--- NOTE | 2020-04-29 16:48 | RADIOLOGY REPORT (SQ) ---
EXAM DESCRIPTION: MRI LUMBAR SPINE WITHOUT IMAGES COMPLETED DATE/TIME: 04/29/2020 4:08 pm REASON FOR STUDY: back pain right thigh leg feet pain refer COMPARISON: None. TECHNIQUE: Sagittal and Axial imaging includes T1, T2, STIR and gradient echo sequences. Coronal T2/ HASTE imaging. LIMITATIONS: None. FINDINGS: VISUALIZED UPPER ABDOMEN: Limited evaluation. No acute or suspicious findings suggested. SEGMENTATION: No transitional anatomy. The lowest well-developed disc space is labeled L5-S1. ALIGNMENT: Anatomic. VERTEBRAE: Intact. BONE MARROW: Normal. No marrow replacement or reactive changes. DISC SIGNAL: Disc desiccation at L4-5 and L5-S1. POSTERIOR ELEMENTS: Generally intact. No pars defect evident. HARDWARE: None in the spine. CORD AND CONUS: Normal in size and signal intensity. Conus medullaris terminates at L1. SOFT TISSUES: No aortic aneurysm seen. No bulky retroperitoneal adenopathy or mass. No paraspinal mas s or fluid. L1-L2: No significant spinal stenosis or exit foraminal stenosis. L2-L3: No significant spinal stenosis or exit foraminal stenosis. L3-L4: Small circumferential disc bulge without significant spinal canal stenosis or neural foraminal narrowing. Mild ligamentum flavum thickening. L4-L5: Disc desiccation and height loss with asymmetric circumferential disc protrusion, on the left. There is effacement of the lateral recess with contact of the traversing nerve roots on the left. The disc extends approximately 13 mm in cranial caudal dimension. There is moderate to severe left n eural foraminal narrowing secondary to disc and facet hypertrophy and mild right neural foraminal winsome rowing. L5-S1: Disc desiccation height loss with small circumferential disc bulge. No high-grade spinal opal l stenosis or neural foraminal narrowing. LOWER THORACIC: Incompletely imaged. No stenosis seen. SACRUM: Visualized upper sacrum intact. OTHER: No other significant findings. IMPRESSION: 1. L4-5 Disc desiccation and height loss with asymmetric circumferential disc protrusio n on the left resulting in lateral recess narrowing and contact of the traversing nerve roots. Assoc iated moderate to severe left neural foraminal narrowing secondary to disc and facet disease 2. Mild additional level specific findings as above. TECHNICAL DOCUMENTATION: JOB ID: [id number] [employer]- All Rights Reserved Reading location - IP/workstation name: [email or web address]
[2020-04-29] MEDS ORDERED: METHOCARBAMOL INJ/PF 1000 MG/10 ML SDV IV ONE (16:59)
[2020-04-29 17:45] VITALS: BP 111/54
== END 2020-04-29 17:46 | disposition home or self-care (01) ==
LOC: ER 12:54
DX: S33.141A Dislocation of L4/L5 lumbar vertebra, initial encounter (principal); X50.9XXA Other and unspecified overexertion or strenuous movements or postures, initial encounter; Y92.009 Unspecified place in unspecified non-institutional (private) residence as the place of occurrence of the external cause; F17.210 Nicotine dependence, cigarettes, uncomplicated; J44.9 Chronic obstructive pulmonary disease, unspecified; R53.81 Other malaise; R53.1 Weakness
CPT/HCPCS: 99285; 96375; 96365; 72148; 71046; 72220; 72170; J1630; J2800; J2270; J1100

== ENCOUNTER 2020-05-22 23:06 | Inpatient (IN) | payer BC ==
[2020-05-22] MEDS ORDERED: KETOROLAC TROMETHAMINE INJ/PF 30 MG/1 ML SDV IV ONE (23:37)
[2020-05-22] MEDS ORDERED: NORMAL SALINE 1000 ML 1,000 ML IV ONE ×2 (23:38)
[2020-05-22] MEDS ORDERED: ONDANSETRON HCL INJ/PF 4 MG/2 ML SDV IV ONE (23:38)
--- NOTE | 2020-05-22 23:39 | ER Document Report ---
ED General - General Chief Complaint: Low Back Pain Stated Complaint: BACK PAIN Time Seen by Provider: 05/22/20 23:28 Notes: Patient is a 50-year-old female who comes to the emergency department for chief complaint of lower back pain. She states back pain is severe and she gets spasms. She states that she has trouble getting up and walking because of the pain and her legs feel wobbly. She states that she has been told that she has herniated disks and muscle spasms and she thinks this is the problem. She also states that she vomited twice earlier and had multiple episodes of diarrhea, nonbloody. She denies fever, any trauma. She states she is not currently on any medications and does not the primary care. She denies ever using IV drugs, denies smoking, denies alcohol. TRAVEL OUTSIDE OF THE [place] IN LAST 30 DAYS: Yes - Related Data Allergies/Adverse Reactions: No Known Allergies Allergy (Verified 04/29/20 13:08) Past Medical History - General Information source: Patient - Social History Smoking Status: Current Every Day Smoker Frequency of alcohol use: Occasional Lives with: Family Family History: Reviewed & Not Pertinent Pulmonary Medical History: Reports: Hx COPD, Other - Spontaneous pneumothorax Review of Systems - Review of Systems Constitutional: See HPI EENT: No symptoms reported Cardiovascular: No symptoms reported Respiratory: No symptoms reported Gastrointestinal: No symptoms reported Genitourinary: No symptoms reported Female Genitourinary: No symptoms reported Musculoskeletal: See HPI Skin: No symptoms reported Hematologic/Lymphatic: No symptoms reported Neurological/Psychological: No symptoms reported Physical Exam - Vital signs Vitals: Resp 25 H 05/22/20 23:10 - Notes Notes: GENERAL: Patient is somewhat ill-appearing, appears uncomfortable, restless HEAD: Normocephalic, atraumatic. EYES: Pupils equal, round, and reactive to light. Extraocular movements intact. ENT: Oral mucosa dry, tongue midline. Very poor dentition. Oropharynx unremarkable. Airway patent. NECK: Full range of motion. Supple. Trachea midline. No lymphadenopathy. LUNGS: Decreased breath sounds bilaterally, scattered rhonchi, episodes of congested coughing. No tachypnea or respiratory distress HEART: Borderline tachycardic, normal rhythm, no murmur ABDOMEN: Soft, non-tender. Non-distended. EXTREMITIES: Moves all 4 extremities spontaneously. No edema, normal radial and dorsalis pedis pulses bilaterally. No cyanosis. BACK: no cervical, thoracic, lumbar midline tenderness. No saddle anesthesia, normal distal neurovascular exam. Moves all extremities in full range of motion. NEUROLOGICAL: Alert and oriented x3. Normal speech. Cranial nerves II through XII grossly intact. Strength 5/5 in all extremities. PSYCH: Restless but otherwise unremarkable SKIN: Warm, dry, normal turgor. No rashes or lesions noted. Course - Re-evaluation Re-evalutation: Patient borderline tachycardic, initially hypotensive but this responded immediately to IV fluids to 101 systolic. She reports chronic back pain which is worse than usual. She does not have any neurological deficits. Abdomen is soft. Patient does have intermittent congested coughing episodes with some scattered rhonchi. She is not persistently hypoxic but occasionally will milton aturate down to 90% and was placed on 2 L nasal cannula. On reevaluation blood pressure started to downtrend, she is receiving second liter of normal saline bolus. Chest x-ray showing possible pneumonia, patient started on Rocephin and azithromycin for suspected community-acquired pneumonia. Urinalysis obtained and is borderline. CBC does not show leukocytosis but does show concerning 6% bandemia left shift. Chemistry nonspecific. Lactic acid is elevated at 2.7. Troponin unremarkable. Patient has hypokalemia at 2.9 and hypomagnesemia, both will be replaced. QTc is not prolonged. Drug screen is positive for marijuana, cocaine, but not opiates or benzos. I discussed with patient, will discuss with hospitalist for admission. Patient states agreement. Blood pressure currently improved after second bolus. 05/23/20 01:52 Blood pressure is soft again with map of 68. Dr. Bazzi did see the patient, systolic pressure in the 80s currently, he recommends IV fluid bolus of 1 L, and vancomycin, and let him know. He is concerned patient might need the ICU for septic shock. Patient has decompensated, she will be closely monitored. Patient now having blood pressure consistently in the 70s systolic despite third bolus of normal saline. Map is consistently below 65 now. I did discuss with patient, she is reluctant to line her back because of her chronic back pain, however she agreed to with a small dose of fentanyl so I can perform the central line. This was performed without incident. Patient started on Levophed. Patient will require ICU admission for septic shock. Updated Dr. Morillo and Dr. Bazzi. 05/23/20 Discussed with Mg Grant NP, patient accepted to the ICU. - Vital Signs Vital signs: Temp Pulse Resp BP Pulse Ox 99.1 F 108 H 22 H 73/55 L 93 05/23/20 04:47 05/22/20 23:48 05/23/20 04:40 05/23/20 04:40 05/23/20 04:40 - Laboratory Results Result Diagrams: 05/22/20 23:25 05/22/20 23:25 Laboratory Results Interpreted: 05/22/20 05/22/20 05/22/20 23:25 23:25 23:25 WBC 2.3 L RDW 14.7 H Plt Count 119 L Band Neutrophils % 6 H Abs Neuts (Manual) 1.4 L Sodium 132.6 L Potassium 2.9 L* Anion Gap 3 L Lactic Acid Magnesium 1.3 L Direct Bilirubin 0.5 H AST 95 H ALT 43 H Alkaline Phosphatase 201 H Total Protein 5.7 L Albumin 3.2 L Ur Leukocyte Esterase 05/22/20 05/23/20 23:45 00:11 WBC RDW Plt Count Band Neutrophils % Abs Neuts (Manual) Sodium Potassium Anion Gap Lactic Acid 2.7 H Magnesium Direct Bilirubin AST ALT Alkaline Phosphatase Total Protein Albumin Ur Leukocyte Esterase LARGE H Critical Laboratory Results Reviewed: Yes Attending or Supervising Physician who Reviewed Labs: Dr. Morillo - Radiology Results Critical Radiology Results Reviewed: No Critical Results - EKG Interpretation by Me Additional EKG results interpreted by me: EKG shows sinus rhythm and a rate of 93, minimal ST depression noted inferiorly, no reciprocal changes, no significant T wave inversions or ST segment changes in consecutive leads. QTc 473. Procedures - Central Line Right Internal jugular Consent obtained: Yes Central line pre-insertion: Sterile PPE donned, Chloraprep applied, Sterile drapes applied Central line lumen type: Triple Anesthetic type: 1% Lidocaine mL's of anesthesia: 3 Ultrasound guided: Yes Line secured with sutures: Yes Central line post-insertion: Blood return from lumens, Biopatch applied, Sutured, Sterile dressing applied, Position confirmed w/ CXR Number of attempts: 1 Complications: No Critical Care Note - Critical Care Note Total time excluding time spent on procedures (mins): 45 - Septic shock Comments: Please allow 45 minutes of critical care time for evaluation and management of this critically ill patient excluding time spent on procedures. Interventions included antibiotics, IV fluid resuscitation, and vasopressors for septic shock with pneumonia. Interventions also included electrolyte replacement with potassium and magnesium. Time spent performing multiple reevaluations, discus sing with hospitalist, discussing with patient, discussing with ICU care for admission to the ICU. Discharge - Discharge Clinical Impression: Tachycardia, Hypoxia, Bandemia, Polysubstance abuse, Septic shock, Hypokalemia, Hypomagnesemia Hypotension Qualifiers: Hypotension type: unspecified hypotension type Qualified Code(s): I95.9 - Hypotension, unspecified Pneumonia Qualifiers: Pneumonia type: due to unspecified organism Laterality: left Lung location: lower lobe of lung Qualified Code(s): J18.9 - Pneumonia, unspecified organism Back pain Qualifiers: Back pain location: back pain in unspecified location Chronicity: chronic Back pain laterality: bilateral Qualified Code(s): M54.9 - Dorsalgia, unspecified Condition: Serious Disposition: ADMITTED INPATIENT Admitting Provider: Viola (Cathode Maker) - Mg Grant NP Unit Admitted: ICU
[2020-05-22 23:52] LABS: ALBUMIN 3.2 g/dL (3.5-5.0); ALCOHOL < 10 mg/dL (NONE DETECTED); ALKALINE PHOSPHATASE 201 U/L (38-126); ASPARTATE AMINO TRANSFERASE 95 U/L (14-36); BILIRUBIN,DIRECT 0.5 mg/dL (0.0-0.4); BILIRUBIN,TOTAL 1.2 mg/dL (0.2-1.3); BLOOD UREA NITROGEN 9 mg/dL (7-20); CALCIUM 8.4 mg/dL (8.4-10.2); GLUCOSE 95 mg/dL (75-110); TOTAL PROTEIN 5.7 g/dL (6.3-8.2)
[2020-05-22 23:54] LABS: POTASSIUM 2.9 mmol/L (3.6-5.0)
[2020-05-22 23:56] LABS: CARBON DIOXIDE 26 mmol/L (22-30); CHLORIDE 104 mmol/L (98-107)
[2020-05-22 23:57] LABS: ANION GAP 3 (5-19)
[2020-05-23 00:08] LABS: APPEARANCE,URINE CLOUDY; BILIRUBIN,URINE NEGATIVE (NEGATIVE); COLOR,URINE YELLOW; GLUCOSE, URINE NEGATIVE (NEGATIVE); KETONES,URINE NEGATIVE (NEGATIVE); LEUKOCYTE ESTERASE,URINE LARGE (NEGATIVE); NITRITE,URINE NEGATIVE (NEGATIVE); PROTEIN,URINE NEGATIVE (NEGATIVE); URINE SPECIFIC GRAVITY 1.005; UROBILINOGEN,URINE NEGATIVE mg/dL (<2.0)
[2020-05-23 00:10] LABS: HEMATOCRIT 38.5 % (36.0-47.0); HEMOGLOBIN 13.5 g/dL (12.0-15.5); MEAN CORPUSCULAR HEMOGLOBIN 32.2 pg (27.0-33.4); MEAN CORPUSCULAR VOLUME 92 fl (80-97); PLATELET COUNT 119 10^3/uL (150-450); RED BLOOD COUNT 4.19 10^6/uL (3.72-5.28); RED CELL DISTRIBUTION WIDTH 14.7 % (11.5-14.0); WHITE BLOOD COUNT 2.3 10^3/uL (4.0-10.5)
[2020-05-23 00:23] LABS: URINE BARBITURATES SCREEN NEGATIVE; URINE BENZODIAZEPINES SCREEN NEGATIVE; URINE METHADONE SCREEN NEGATIVE; URINE PHENCYCLIDINE SCREEN NEGATIVE
[2020-05-23 00:24] LABS: VENOUS BLOOD BASE EXCESS -0.6 mmol/L; VENOUS BLOOD HCO3 24.8 mmol/L (20-32); VENOUS BLOOD PCO2 43.9 mmHg (35-63); VENOUS BLOOD PH 7.37 (7.30-7.42)
[2020-05-23 00:25] LABS: URINE COCAINE SCREEN UNCONFIRMED POSITIVE
[2020-05-23 00:26] LABS: URINE MARIJUANA (THC) SCREEN UNCONFIRMED POSITIVE
[2020-05-23 00:29] LABS: ABSOLUTE LYMPHOCYTES# (MANUAL) 0.6 10^3/uL (0.5-4.7); ABSOLUTE MONOCYTES # (MANUAL) 0.3 10^3/uL (0.1-1.4); BAND NEUTROPHILS % (MANUAL) 6 % (3-5); BASOPHILS % (MANUAL) 0 % (0-2); EOSINOPHILS % (MANUAL) 1 % (0-6); LYMPHOCYTES % (MANUAL) 26 % (13-45); MONOCYTES % (MANUAL) 12 % (3-13); SEGMENTED NEUTROPHILS % (MAN) 54 % (42-78); TOTAL CELLS COUNTED 100
[2020-05-23 00:31] LABS: BURR CELLS SLIGHT; PLATELET COMMENT DECREASED; TEAR DROP CELLS SLIGHT; TOXIC GRANULATION SLIGHT; TOXIC VACUOLATION PRESENT
--- NOTE | 2020-05-23 00:31 | RADIOLOGY REPORT (SQ) ---
CLINICAL HISTORY: hypotension, tachycardia COMPARISON: 03/26/2020. TECHNIQUE: XR CHEST 1 VIEW 05/22/2020 11:37 PM SOAP SLABBER FINDINGS: Cardiac silhouette is normal in size. There is possible developing left basilar airspace disease. There is extensive biapical pleural parenchymal scarring. There is no pneumothorax. There are no acute osseous findings. IMPRESSION: Possible developing left basilar pneumonia.
[2020-05-23] MEDS ORDERED: AZITHROMYCIN INJ 500 MG VIAL IV ONE (00:38)
[2020-05-23] MEDS ORDERED: CEFTRIAXONE 1 GM/D5W RTU 1 GM/50 ML RTUPB IV ONE (00:38)
[2020-05-23 00:53] LABS: URINE AMPHETAMINES SCREEN UNCONFIRMED POSITIVE
--- OUTSIDE RECORDS SUMMARY | 2020-05-23 01:31 | XMS REPORT ---
:1970 Author Organization Formerly [facility] Address [address] [place] [address] Care Team Providers Name Role Phone PCP, PER PATIENT Primary Care Physician Unavailable RUPALI Attending Clinician Unavailable CHAYITO SANCHEZ Attending Clinician Unavailable YULI GUAMAN Attending Clinician Unavailable JAY ARANA Attending Clinician Unavailable George SANCHEZ Attending Clinician Unavailable Cierar ROSAS Attending Clinician Unavailable GENARO LOVE Attending Clinician Unavailable GARRETT HAMILTON Attending Clinician Unavailable DENNIS STARK Attending Clinician Unavailable BECKY PINON Attending Clinician Unavailable GALI TIRADO Attending Clinician Unavailable FRANKLIN MCDONALD Attending Clinician Unavailable SAEED POWER Attending Clinician Unavailable CHE LLOYD Attending Clinician Unavailable VICTORINA HERNANDEZ Attending Clinician Unavailable JAYLEEN SHELL Attending Clinician Unavailable BARBARA GOMEZ Attending Clinician Unavailable KENYATTA LUCAS Attending Clinician Unavailable DEEJAY REYES Attending Clinician Unavailable GEORGE MATTHEW Attending Clinician Unavailable CELESTINO SÁNCHEZ Attending Clinician Unavailable Lj COLEY Attending Clinician Unavailable RUPALI Admitting Clinician Unavailable STUART BRAR Admitting Clinician Unavailable Ankur WRAY Admitting Clinician Unavailable ARIELLA MOODY Admitting Clinician Unavailable GARRETT HAMILTON Admitting Clinician Unavailable Allergies, Adverse Reactions, Alerts Allergy Allergy Type Status Severity Reaction(s) Onset Inactive Treat ing Comments Name Date Date Clinician Adhesive Propensity Active Low Rash 2018-04 to adverse -08 reactions 00:00:0 0 Medications Ordered Filled Start Stop Current Ordering Indication Dosage Frequency Signature Comments Components Medication Medication Date Date Medication? Clinician (SIG) Name Name clonidine 2020-1 2020- Yes .05mg 0.05 mg, (CATAPRES) 0-27 10-27 Oral, tablet 0.05 00:00: 23:59 Every 12 mg 00 :00 hours PRN, COWS >11, Starting 02/27/20 at 0000, For 1 day
Hold if SBP <100 or DBP <60 or HR <60. Do not exceed 0.8 mg of clonidine per 24 hr (1.2 mg if pt >90 kg)
clonidine 2019-05 Yes .05mg 0.05 mg, (CATAPRES) 0-25 10-26 Oral, tablet 0.05 00:00: 23:59 Every 6 mg 00 :00 hours PRN, COWS >11, Starting 02/25/20 at 0000, For 2 days<br&gt ;Hold if SBP <100 or DBP <60 or HR <60. Do not exceed 0.8 mg of clonidine per 24 hr (1.2 mg if pt >90 kg)
HYDROmorpho 2019-05 Yes 2mg 2 mg, ne 0-23 Oral, (DILAUDID) 13:48: Every 4 tablet 2 mg 26 hours PRN, severe pain, Starting Wed02/23/20 at 1348 nicotine 2019-05 Yes 2mg 2 mg, polacrilex 0-23 Buccal, As (NICORETTE) 13:48: needed, gum 2 mg 02 smoking cessation, Starting Wed02/23/20 at 1348
No t to exceed 24 pieces/24 hours&nbsp ;Chew slowly until tingles, then park gum between cheek and gum. Repeat process until most of tingle is gone.
thiamine 2019-05- Yes 100mg 100 mg, tablet 100 0- 10-25 Oral, mg 09:00: 08:59 Daily, 00 :00 First dose on Wed02/23/20 at 0900, For 2 doses
d ay 2 and day 3 with food (CIWA)
nicotine 2019-05 Yes 1{patch 1 patch, (NICODERM 0-23 } Transderma CQ) 21 00:30: l, mg/24 hr 1 00 Administer patch over 24 Hours, Daily, First dose (after last modificati on) on Wed02/23/20 at 0030
Ro boyer applicatio n site. Do not cover patch.
vancomycin 2019-05 Yes 1250mg Q12H 1,250 mg, (VANCOCIN) 0-22 Intravenou IVPB 1250 19:30: s, at 200 mg/250 mL 00 mL/hr, NS Every 12 hours, First dose on Tina 02/22/20 at 1930 clonidine 2019-05 2020- No .1mg 0.1 mg, (CATAPRES) 0-22 10-25 Oral, tablet 0.1 15:22: 15:21 Every 6 mg 52 :52 hours PRN, COWS >11, Starting Tina 02/22/20 at 1522, For 3 days
Ho ld if SBP <100 or DBP <60 or HR <60. Do not exceed 0.8 mg of clonidine per 24 hr (1.2 mg if pt >90 kg)
cyclobenzap 2019-05 Yes 10mg 10 mg, rine Oral, (FLEXERIL) 15:22: Every 8 tablet 10 10 hours PRN, mg muscle spasms, Starting Tina 02/22/20 at 1522 diphenhydrA 2019-05 Yes 50mg 50 mg, MINE Oral, (BENADRYL) 15:22: Nightly capsule 50 07 PRN, mg insomnia, Starting Tina 02/22/20 at 1522
Ma y repeat in 1h x 1
loperamide 2019-05 Yes 2mg 2 mg, (IMODIUM) Oral, As capsule 2 15:22: needed, mg 03 diarrhea, Starting Tina 02/22/20 at 1522
Do not exceed 16 mg/day&nbs p;Do not exceed 16 mg/day or 8 capsules/2 4 hours
dicyclomine 2019-05 Yes 10mg 10-20 mg, (BENTYL) 022 Oral, capsule 15:21: Every 6 10-20 mg 57 hours PRN, abdominal cramping, Starting Tina 02/22/20 at 1521 promethazin 2019-05 Yes 12.5mg 12.5 mg, e 022 Oral, (PHENERGAN) 15:21: Every 6 tablet 12.5 51 hours PRN, mg nausea, vomiting, unresponsi ve to ondansetro n, Starting Tina 02/22/20 at 1521 ondansetron 2019-05 Yes 4mg 4 mg, (ZOFRAN) 0 Intravenou injection 4 15:21: s, Every 8 mg 47 hours PRN, nausea, vomiting, if unable to take po ondansetro n, Starting [facility] 02/22/20 at 1521
If route ordered is Intravenou s, give IV push per drug reference guidelines .
ondansetron 2019-05 Yes 4mg 4 mg, (ZOFRAN 0-22 Oral, ODT) 15:21: Every 8 disintegrat 43 hours PRN, ing tablet nausea, 4 mg vomiting, Starting Tina 02/22/20 at 1521 acetaminoph 2019-05 Yes 650mg 650 mg, en 0 Oral, (TYLENOL) 15:21: Every 6 tablet 650 21 hours PRN, mg pain unresponsi ve to ibuprofen, Starting Tina 02/22/20 at 152 ibuprofen 2019-05 Yes 600mg 600 mg, (MOTRIN) 0 Oral, tablet 600 15:21: Every 6 mg 19 hours PRN, mild pain, Starting [facility] 02/22/20 at 1521
Ta ke medication WITH FOOD.
enoxaparin 2019-05 Yes 40mg 40 mg, (LOVENOX) Subcutaneo syringe 40 09:00: us, Daily, mg 00 First dose on Wed02/22/20 at 0900 ipratropium 2019-05 Yes 3mL 3 mL, -albuteroL Nebulizati (DUONEB) 08:00: on, 4 0.5-2.5 00 times mg/3 mL daily nebulizer while solution 3 awake, mL First dose on Tina 02/22/20 at 0800 cefepime 2019-05 No 2g Q12H 2 g, (MAXIPIME) 02-28 Intravenou IV 2 g in 08:00: 08:59 s, at 200 100 mL 00 :00 mL/hr, normal Every 12 saline MBP hours, (connected) First dose on Tina 02/22/20 at 0800, For 7 days vancomycin 2019-05 No 1500mg 1,500 mg, (VANCOCIN) 02-21 Intravenou IVPB 1500 07:30: 09:54 s, at mg/500 mL 00 :00 333.3 NS mL/hr, Once, [facility] 02/22/20 at 0730, For 1 dose
Ph armacy to dose.
thiamine 2019-05- No 100mg 100 mg, (B-1) 002-21 Intravenou injection 06:45: 06:35 s, Once, 100 mg 00 :00 Tina 02/22/20 at 0645, For 1 dose
Da y 1 over 5 min undiluted, prior to any dextrose infusion (CIWA)&nbs p;If route ordered is Intravenou s, give IV push per drug reference guidelines .
LORazepam 2019-05 Yes 2mg 2-4 mg, (ATIVAN) Intravenou injection 06:21: s, Every 2-4 mg 49 30 min PRN, CIWA score >15 (RASS >+1) OR: CIWA 8-15 but unable to take PO/PT, Starting Tina 02/22/20 at 0621
Re assess RASS and CIWA (if able) 30 min after each dose If route ordered is Intravenou s, give IV push per drug reference guidelines .
LORazepam 2019-05 Yes 2mg 2-4 mg, (ATIVAN) 0 Oral, tablet 2-4 06:21: Every 1 mg 49 hour prn, CIWA score 8-15, Starting Tina 02/22/20 at 0621
Re assess RASS and CIWA (if able) 1hr after each dose. If unable to administer PO/PT then use IV PRN order<br&g t; morphine 2019-05- No 2mg 2-4 mg, injection 02-22 Intravenou syringe 2 06:21: 13:49 s, Every 4 mg/mL 28 :17 hours PRN, severe pain, Starting Tina 02/22/20 at 0621, For 5 days<br&gt ;If route ordered is Intravenou s, give IV push per drug reference guidelines .
melatonin 2019-05 Yes 3mg 3 mg, tablet 3 mg 0-22 Oral, 06:11: Nightly 58 PRN, insomnia, Starting Tina 02/22/20 at 0611 magnesium 2019- Yes 30mL 2,400 mg hydroxide 0 (30 mL), (MILK OF 06:11: Oral, MAGNESIA) 32 Every 12 400 mg/5 mL hours PRN, suspension constipati 2,400 mg on, Starting Tina 02/22/20 at 0611 guaifenesin 2019-05 Yes 200mg 200 mg, (ROBITUSSIN 0- Oral, ) syrup 200 06:11: Every 4 mg 28 hours PRN, cough, Starting Tina 02/22/20 at 0611 aluminum-ma 2019-05 Yes 20mL 20 mL, gnesium 0-22 Oral, hydroxide-s 06:11: Every 4 imethicone 25 hours PRN, (MAALOX) indigestio 200-200-20 n, mg/5 mL Starting suspension Tina 20 mL 02/22/20 at 0611
Gi ve 1-2 hours apart from oral drugs.
ondansetron 2019-05 Yes 4mg 4 mg, (ZOFRAN) 0 Intravenou injection 4 06:11: s, Every 6 mg 23 hours PRN, nausea, Starting Tina 02/22/20 at 0611
Vitaly campbell unable to take orally&nbs p;If route ordered is Intravenou s, give IV push per drug reference guidelines .
ipratropium 2019-05 Yes 3mL 3 mL, -albuteroL Nebulizati (DUONEB) 06:10: on, Every 0.5-2.5 29 4 hours mg/3 mL PRN, nebulizer wheezing, solution 3 shortness mL of breath, Starting Tina 02/22/20 at 0610 fentaNYL 2019-05- No 50ug 50 mcg, (PF) 02-21 Intravenou (SUBLIMAZE) 02:36: 03:03 s, Once, injection 00 :00 Tina 50 mcg 02/22/20 at 0236, For 1 dose
If route ordered is Intravenou s, give IV push per drug reference guidelines .
clindamycin 2019-05- No 600mg 600 mg, (CLEOCIN) 002-21 Intravenou 600 mg in 23:16: 00:56 s, at 100 sodium 00 :00 mL/hr, chloride Once, Wed 0.9 % (NS) 02/21/20 100 mL IVPB at 2317, For 1 dose
In dication: Documented beta-lacta m allergy azithromyci 2019-05 No 500mg 500 mg, n 02-21 Intravenou (ZITHROMAX) 23:12: 02:00 s, 500 mg in 00 :00 Administer sodium over 60 chloride Minutes, 0.9 % (NS) Once, Wed 250 mL IVPB 02/21/20 at 2312, For 1 dose ceftriaxone 2019-05 No 1g 1 g, (ROCEPHIN) 02-20 Intravenou injection 1 23:12: 23:55 s, Once, g 00 :00 02/21/20 at 2312, For 1 dose
Fo r IV push admin only: Dilute 1 g vial with 10 mL sterile water and administer over 3-5 minutes.&n bsp;For IM injection, add 2.1 mL of lidocaine 1 % or sterile water to cefTRIAXon e 1 gram vial. Final concentrat ion = 350 mg/mL.<br& gt; iohexoL 2019-05 No 100mL 100 mL, (OMNIPAQUE) 02-20 Intravenou 350 mg 22:34: 22:41 s, Once in iodine/mL 00 :00 radiology, solution Wed 100 mL 02/21/20 at 2234, For 1 dose morphine 2019-05 No 4mg 4 mg, injection 4 02-20 Intravenou mg/mL 21:13: 21:25 s, Once, 00 :00 02/21/20 at 2113, For 1 dose
If route ordered is Intravenou s, give IV push per drug reference guidelines .
doxycycline 2019-05 No pneumonia 100mg 100 mg, (VIBRA-TABS 02-20 Oral, ) 05:57: 06:03 Once, Wed tablet/caps 00 :00 02/21/20 ule 100 mg at 0557, For 1 dose
Gi ve 1 Hour Before or 2 Hours After Food. "DO NOT GIVE WITH: FE, CALCIUM, MAGNESIUM, ALUMINUM, ZINC
ST AT, Indication s: pneumonia iohexoL 2019-05- No 75mL 75 mL, (OMNIPAQUE) 02-20 Intravenou 350 mg 05:34: 05:34 s, Once in iodine/mL 27 :00 imaging, solution 75 contrast, mL Starting 02/21/20 at 0534, For 1 dose
Ro utine lidocaine 2019-05 No 1{appli Topical, 2 (XYLOCAINE) 0-21 cation} times a 5 % 01:00: day, First ointment 1 00 dose on application 02/21/20 at 0100, Until Discontinu ed
Appl y to right chest wall
lidocaine 4 2019-05 Yes 1{patch Place 1 Huong ce 1 % patch 021 } patch on patch on 00:00: the skin the skin 00 daily. daily. doxycycline 2019-05 Pneumonia 100mg Take 1 Ta ke 1 (VIBRAMYCIN 003-02 of right capsule cap randy ) 100 MG 00:00: 23:59 lower lobe (100 mg (10 0 mg capsule 00 :00 due to total) by total) by infectious mouth Two mouth Two organism (2) times (2) leatha es a day for a day for 10 days. 10 days. sulfamethox No skin and 1{tbl} 160 mg of azole-trime 10-21 skin trimethopr thoprim 19:39: 20:02 structure im (1 (BACTRIM 00 :00 infection tablet), DS) 800-160 Oral, mg tablet Once, Sun 160 mg of 10/22/19 at trimethopri 1939, For m 1 dose
ST AT, Indication s: skin and skin structure infection lidocaine-E No 30mL 30 mL, PINEPHrine 10-21 Infiltrati (XYLOCAINE 18:28: 18:34 on, Once, W/EPI) 1 00 :00 Sun %-1:100,000 10/22/19 at injection 1828, For 30 mL 1 dose
Vi al to bedside for procedure< br>STAT ketorolac No 30mg 30 mg, (TORADOL) 10-21 Intramuscu injection 18:28: 18:33 lar, Once, 30 mg 00 :00 10/22/19 at 1828, For 1 dose oxyCODONE-a 2019- No 2{tbl} 2 tablet, cetaminophe 10-21 Oral, n 18:27: 18:33 Once, Sun (PERCOCET) 00 :00 10/22/19 at 5-325 mg 1828, For tablet 2 1 tablet dose
AD ULT MAX: NOT TO EXCEED 4GM ACETAMINOP HEN IN 24HRS
S TAT oxyCODONE-a 2019-0 Yes 1{tbl} Take 1 Take 1 cetaminophe 6-21 tablet by tabl et by n 00:00: mouth mouth (PERCOCET) 00 every four ever y 5-325 mg (4) hours four (4 ) per tablet as needed hours as for pain needed for up to for pain 6 doses. for up to 6 doses. ibuprofen 2019-0 Yes 600mg Take 1 Take 1 (MOTRIN) 6-21 tablet tablet 600 MG 00:00: (600 mg (600 mg tablet 00 total) by total) by mouth mouth every six every six (6) hours (6) hours as needed as needed for pain. for pain. sulfamethox 2020- No Abscess of Take 2 T pretty 2 azole-trime 10-21 left upper tablets t ablets thoprim 00:00: 23:59 extremity (320 mg of (3 20 mg (BACTRIM 00 :00 trimethopr of DS) 800-160 im total) trim ethop mg per by mouth rim tablet Two (2) total) by times a mouth Two day for 10 (2) times days. a day for 10 days. ketorolac 2019- No 15mg 15 mg, (TORADOL) 2-11 02-11 Intravenou injection 12:00: 12:25 s, Once, 15 mg 00 :00 Wed06/13/19 at 1200, For 1 dose sertraline 0 Yes 50mg Take 1 Take 1 (ZOLOFT) 50 2-11 tablet (50 tab let MG tablet 00:00: mg total) (50 m g 00 by mouth total) by daily. mouth daily. levothyroxi 2019-0 Yes Hypothyroid 75ug Take 1 Take 1 ne 2-11 ism, tablet (75 tablet (SYNTHROID) 00:00: unspecified mcg tot al) (75 mcg 75 MCG 00 type by mouth total) by tablet daily. mouth daily. tiotropium 2019-0 Yes 2{puff} Inhale 2 Inh yosi 2 bromide 2-11 puffs once puffs (SPIRIVA 00:00: daily. once RESPIMAT) 00 Take every daily . 2.5 day for Take mcg/actuati COPD every da y on for COPD inhalation mist albuterol 2019-0 Yes 2{puff} Inhale 2 Inha le 2 HFA 90 2-11 puffs puffs mcg/actuati 00:00: every four ev shital on inhaler 00 (4) hours four (4) as needed hours as for needed wheezing. for wheezing. QUEtiapine 2019-0 Yes 100mg Take 1 Take 1 (SEROQUEL) 2-11 tablet tablet 100 MG 00:00: (100 mg (100 mg tablet 00 total) by total) by mouth mouth nightly. nightly. gabapentin 0 Yes 300mg Take 1 Take 1 (NEURONTIN) 2-11 capsule capsul e 300 MG 00:00: (300 mg (300 mg capsule 00 total) by total) b y mouth mouth Three (3) Three (3) times a times a day. day. inhalationa Yes 1{each} 1 each by 1 each by l spacing 2-11 Miscellane Misce llan device 00:00: ous route eous (OPTICHAMBE 00 Take as route R DEIDRA directed. Take a s [facility]) Sp[facility] directed. diclofenac Yes Lumbar back 2g Apply 2 Apply 2 sodium 2-11 pain grams grams (VOLTAREN) 00:00: topically topi fani 1 % gel 00 4 (four) 4 (four) times a times a day as day as needed for needed arthritis for or pain. arthritis or pain. thiamine 2020- No 100mg Take 1 Take 1 (B-1) 100 2-11 02-10 tablet tablet MG tablet 00:00: 23:59 (100 mg (100 mg 00 :00 total) by total) by mouth mouth daily. daily. ondansetron No 4mg 4 mg, (ZOFRAN-ODT 2-10 Oral, ) 14:44: Every 12 disintegrat 07 hours PRN, ing tablet nausea, 4 mg vomiting, Starting 06/12/19 at 1444
Ro utine potassium 2019- 2020- No 40meq 40 mEq, chloride 2-10 02-10 Oral, (KLOR-CON) 10:00: 13:16 Once, Mon CR tablet 00 :00 06/12/19 at 40 mEq 1000, For 1 dose
Ro utine sertraline No 50mg 50 mg, (ZOLOFT) 2 Oral, tablet 50 15:00: Daily mg 00 (standard) , First dose on 06/11/19 at 1500
Ro utine gabapentin 2019-0 No 300mg 300 mg, (NEURONTIN) 06-11 Oral, 3 capsule 300 14:00: times a mg 00 day (standard) , First dose on 06/11/19 at 1400
Ro utine promethazin 2019- No 12.5mg 12.5 mg, e 06-11 02-09 Oral, (PHENERGAN) 14:00: 13:51 Once, Sun tablet 12.5 00 :00 06/11/19 at mg 1400, For 1 dose
Ro utine budesonide- 0 No 2{puff} 2 puff, formoteroL 06-11 Inhalation (SYMBICORT) 11:00: , 2 times 80-4.5 00 daily mcg/actuati (RT), on inhaler First dose 2 puff on 06/11/19 at 1100
Ri nse mouth after administra tion
Ro utine umeclidiniu No 1{puff} 1 puff, m (INCRUSE 06-11 Inhalation ELLIPTA) 11:00: , Daily 62.5 00 (RT), mcg/actuati First dose on inhaler on Sun 1 puff 06/11/19 at 1100
Ro utine LORazepam No 2mg [Order 1 (ATIVAN) 06-11 Start] tablet 2 mg 10:09: Name: 04 LORazepam (ATIVAN) tablet 2 mg Signed Summary: 2 mg, Oral, Every 4 hours PRN, other, CIWA-Ar Score 8 -15 (Mild Symptoms), Starting 06/11/19 at 1009
CI WA-Ar Score 8 -15 (Mild Symptoms) - Symptom Triggered Asse ss sedation level after each dose given (goal CIWA-Ar < 8 and patient calm and alert) Mo nitor respirator y rate with each assessment and hold medication for RR < 12
Ro utine [Order 1 End] [Order 2 Start] Name: LORazepam (ATIVAN) tablet 4 mg Signed Summary: 4 mg, Oral, Every 4 hours PRN, other, CIWA-Ar Score 16 - 25 (Moderate Symptoms), Starting 06/11/19 at 1009
CI WA-Ar Score 16 - 25 (Moderate Symptoms) - Symptom Triggered Asse ss sedation level after each dose given (goal CIWA-Ar < 8 and patient calm and alert) Mo nitor respirator y rate with each assessment and hold medication for RR < 12
Ro utine [Order 2 End] [Order 3 Start] Name: LORazepam (ATIVAN) tablet 4 mg Signed Summary: 4 mg, Oral, Every 30 min PRN, other, CIWA-Ar Score > 25 (RESCUE) x 4 doses, Starting 06/11/19 at 1009
CI WA-Ar Score > 25 (Severe Symptoms) - Symptom-Tr iggered&nb sp;Every 30 minutes prn x 4 doses, then begin every 2 hours prn Asse ss sedation level after each dose given (goal CIWA-Ar < 8 and patient calm and alert) Mo nitor respirator y rate with each assessment and hold medication for RR < 12
Ro utine [Order 3 End] [Order 4 Start] Name: LORazepam (ATIVAN) tablet 4 mg Signed Summary: 4 mg, Oral, Every 2 hours PRN, other, CIWA-Ar Score > 25 (Severe Symptoms), Starting 06/11/19 at 1009
CI WA-Ar Score > 25 (Severe Symptoms) - Symptom-Tr iggered Asse ss sedation level after each dose given (goal CIWA-Ar < 8 and patient calm and alert) Mo nitor respirator y rate with each assessment and hold medication for RR < 12
Ro utine [Order 4 End] enoxaparin No Venous 40mg 40 mg, (LOVENOX) 2-09 Thromboembo Subcutaneo syringe 40 09:00: lism (VTE) us, Every mg 00 Prophylaxis 24 hours, Indication s: Venous Thromboemb olism (VTE) Prophylaxi s, First dose on 06/11/19 at 0900
Gi ve by deep SUBQ injection; alternate injection sites
predniSONE 2019- No 40mg 40 mg, (DELTASONE) 06-11 02-09 Oral, tablet 40 08:00: 10:09 Daily, mg 00 :16 First dose on 06/11/19 at 0800, For 5 doses
a dminister with food or milk
Ro utine cefTRIAXone No bloodstream 1g 1 g, (ROCEPHIN) 06-1110 Intravenou 1 g in 06:00: 15:38 s, at 200 sodium 00 :41 mL/hr, chloride Every 24 0.9 % (NS) hours, 100 mL First dose IVPB-connec on Sun tor bag 06/11/19 at 0600, For 5 doses<br&g t;Activate prior to use
STA T, Indication s: bloodstrea m ibuprofen No 400mg 400 mg, (MOTRIN) 2 Oral, tablet 400 04:00: Every 8 mg 00 hours PRN, pain,mild (1-3), pain,moder ate (4-6), Starting 06/11/19 at 0400
Give with Food or Milk
Ro utine QUEtiapine No 100mg 100 mg, (SEROquel) 06-11 Oral, tablet 100 02:00: Nightly, mg 00 First dose on 06/11/19 at 0200
Ro utine ipratropium No 500ug 500 mcg, (ATROVENT) 2 Nebulizati 0.02 % 01:40: on, Every nebulizer 04 4 hours solution PRN, 500 mcg shortness of breath, Starting 06/11/19 at 0140
Ro utine albuterol No 2.5mg 2.5 mg, 2.5 mg /3 2- Nebulizati mL (0.083 01:39: on, Every %) 54 4 hours nebulizer PRN, solution wheezing, 2.5 mg Starting 06/11/19 at 0139
Ro utine diclofenac 2019- No 2g 2 g, sodium 209 Topical, 4 (VOLTAREN) 01:00: times a 1 % gel 2 g 00 day, First dose on 06/11/19 at 0100
ap ply to chest or other areas of pain.
R outine acetaminoph No 1000mg 1,000 mg, en 06-11 Oral, (TYLENOL) 01:00: Every 8 tablet 00 hours, 1,000 mg First dose on 06/11/19 at 0100
AD ULT MAX: NOT TO EXCEED 4GM ACETAMINOP HEN IN 24HRS
R outine ipratropium 2019- No 500ug 500 mcg, (ATROVENT) 06-11 Nebulizati 0.02 % 01:00: 01:40 on, Every nebulizer 00 :15 4 hours, solution First dose 500 mcg on 06/11/19 at 0100
Ro utine sodium 2019- No 100mL/h 100 mL/hr, chloride 06-10 Intravenou (NS) 0.9 % 22:20: 10:25 s, infusion 00 :00 Continuous , Starting 06/10/19 at 2220, For 12 hours
R outine MORPhine 4 2019- No 4mg 4 mg, mg/mL 06-10 Intravenou injection 4 21:35: 21:52 s, Once, mg 00 :00 06/10/19 at 2135, For 1 dose
ST AT ketorolac 2019- No 15mg 15 mg, (TORADOL) 06-10 Intravenou injection 21:35: 21:51 s, Once, 15 mg 00 :00 06/10/19 at 2135, For 1 dose lactated 2019- No 1000mL 1,000 mL, ringers 06-10 Intravenou bolus 1,000 19:17: 21:35 s, mL 00 :00 Administer over 0.25 Hours, Once, 06/10/19 at 1917, For [address] ease infuse as rapidly as possible<b r>STAT cefepime 2019- No skin and 2g 2 g, (MAXIPIME) 06-10 skin Intravenou 2 g in 19:17: 20:39 structure s, at 200 dextrose 00 :00 infection mL/hr, 100 mL IVPB Once, Sat (premix) 06/10/19 at 1916, For 1 dose
ST AT, Indication s: skin and skin structure infection vancomycin pneumonia 1500mg 1,500 mg, (VANCOCIN) 06-10 Intravenou 1,500 mg in 19:17: 22:26 s, at 370 sodium 00 :00 mL/hr, chloride Once, Sat (NS) 0.9 % 06/10/19 at 500 mL IVPB 1916, For 1 dose
ST AT, Indication s: pneumonia promethazin No 12.5mg 12.5 mg, e 06-10 Intravenou (PHENERGAN) 18:00: 18:27 s, Once, 12.5 mg in 00 :00 06/10/19 sodium at 1800, chloride For 1 (NS) 0.9 % dose
ST 25 mL AT infusion lactated No 1000mL 1,000 mL, ringers 06-10 Intravenou bolus 1,000 17:56: 18:10 s, mL 00 :00 Administer over 0.25 Hours, Once, 06/10/19 at 1756, For [address] ease infuse as rapidly as possible<b r>STAT lactated No 1000mL 1,000 mL, ringers 06-10 Intravenou bolus 1,000 16:30: 17:32 s, mL 00 :00 Administer over 0.25 Hours, Once, 06/10/19 at 1630, For [address] ease infuse as rapidly as possible<b r>STAT iohexol No 75mL 75 mL, (OMNIPAQUE) 06-10 Intravenou 350 mg 15:52: 16:08 s, Once in iodine/mL 44 :00 imaging, solution 75 contrast, mL Starting 06/10/19 at 1552, For 1 dose
Ro utine lactated No 1000mL 1,000 mL, ringers 06-10 Intravenou bolus 1,000 14:19: 15:34 s, mL 00 :00 Administer over 0.25 Hours, Once, 06/10/19 at 1419, For [address] ease infuse as rapidly as possible<b r>STAT acetaminoph 2019-2019- No 1000mg 1,000 mg, en 06-10 Oral, (TYLENOL) 14:04: 14:32 Once, Sat tablet 00 :00 06/10/19 at 1,000 mg 1404, For 1 dose
AD ULT MAX: NOT TO EXCEED 4GM ACETAMINOP HEN IN 24HRS
S TAT ketorolac 2019-2019- No 30mg 30 mg, (TORADOL) 06-10 Intravenou injection 14:04: 14:30 s, Once, 30 mg 00 :00 06/10/19 at 1404, For 1 dose potassium 2019-2019- No 40meq 40 mEq, chloride 06-10 Oral, (KLOR-CON) 13:05: 14:26 Once, Sat packet 40 00 :00 06/10/19 at mEq 1305, For 1 dose
Mi x in 4-5oz of water before administra tion.Flush feeding tube with 15-30mL water before and after administra tion.
S TAT methylPREDN 2019-2019- No 125mg 125 mg, ISolone 06-10 Intravenou sodium 12:52: 13:07 s, Once, succinate 00 :00 06/10/19 (PF) at 1252, (Solu-MEDRO For 1 L) dose
ST injection AT 125 mg sodium 2019-2019- No 1000mL 1,000 mL, chloride 06-10 Intravenou 0.9% (NS 11:50: 14:33 s, BOLUS) 00 :00 Administer bolus 1,000 over 1 mL Hours, Once, 06/10/19 at 1150, For 1 dose
ST AT albuterol 2019-0 No 5mg 5 mg, 2.5 mg /3 06-10 Nebulizati mL (0.083 11:02: on, Once, %) 00 06/10/19 nebulizer at 1102, solution 5 For 1 mg dose
ST AT ipratropium 2019-0 2020- No 500ug 500 mcg, (ATROVENT) 06-10 Nebulizati 0.02 % 11:02: 12:00 on, Once, nebulizer 00 :00 06/10/19 solution at 1102, 500 mcg For 1 dose
ST AT dexAMETHaso 2020-0 2020- No 12mg 12 mg, ne 06-10 Oral, (DECADRON) 11:02: 12:51 Every 12 tablet 12 00 :36 hours mg scheduled, First dose on 06/10/19 at 1102
Suresh bro RCRA: Please see appropriat e institutio nal hazardous medication policy.
Routine albuterol 2019-0 No 5mg 5 mg, 2.5 mg /3 06-10 Nebulizati mL (0.083 10:45: on, Once, %) 00 06/10/19 nebulizer at 1045, solution 5 For 1 mg dose
ST AT ipratropium 2019-0 2020- No 500ug 500 mcg, (ATROVENT) 06-10 Nebulizati 0.02 % 10:45: 10:53 on, Once, nebulizer 00 :00 06/10/19 solution at 1045, 500 mcg For [address] dose
[facility] AT albuterol 2020-0 No 5mg 5 mg, 2.5 mg /3 06-10 Nebulizati mL (0.083 09:48: on, Once, %) 00 06/10/19 nebulizer at 0948, solution 5 For 1 mg dose
ST AT ipratropium 2019-0 2020- No 500ug 500 mcg, (ATROVENT) 06-10 Nebulizati 0.02 % 09:48: 09:54 on, Once, nebulizer 00 :00 06/10/19 solution at 0948, 500 mcg For 1 dose
ST AT Dicyclomine 2019-0 Yes HAYDEE V. 10 TWICE A HCl *+ 2- DANIEL BOTELLO DAY as (Bentyl *+) 00:00: needed for 10 MG 00 abdominal CAPSULE pain Loperamide 2019-0 Yes HAYDEE V. 1 NEEDED HCl/Simethi 2- DANIEL BOTELLO as needed cone 00:00: for (Imodium 00 diarrhea Multi-Sympt om Rel Cplt) 1 EACH TABLET ONDANSETRON Yes HAYDEE V. 4 EVERY 6 HCL *+ 2-02 DANIEL BOTELLO HOURS (Zofran Odt 00:00: NEEDED as *+) 4 MG 00 needed for TAB.RAPDIS NAUSEA PROMETHAZIN Yes HAYDEE V. 25 EVERY 6 E HCL*+ 2-02 DANIEL BOTELLO HOURS as (Phenergan 00:00: needed for *+) 25 MG 00 NAUSEA AND TABLET VOMITING levothyroxi No 75ug 75 mcg, ne 05-09 Oral, (SYNTHROID) 17:03: daily, tablet 75 00 First dose mcg on Wed05/09/19 at 1703
ST AT sodium 1000mL 1,000 mL, chloride 05-09 Intravenou 0.9% (NS 16:57: 19:08 s, BOLUS) 00 :00 Administer bolus 1,000 over 1 mL Hours, Once, Wed05/09/19 at 1657, For 1 dose
ST AT levothyroxi Hypothyroid 75ug Take 1 Take 1 ne 05-09 ism, tablet (75 tablet (SYNTHROID) 00:00: 00:00 unspecified mcg tot al) (75 mcg 75 MCG 00 :00 type by mouth total) by tablet daily. mouth daily. levothyroxi No Hypothyroid 75ug Take 1 Take 1 ne 05-09 ism, tablet (75 tablet (SYNTHROID) 00:00: 00:00 unspecified mcg tot al) (75 mcg 75 MCG 00 :00 type by mouth total) by tablet daily. mouth daily. predniSONE 2018-05- No 20mg 20 mg, (DELTASONE) 003-09 Oral, tablet 20 08:00: 07:59 Daily, mg 00 :00 First dose on Wed03/02/19 at 0800, For 7 days
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
Ro reyna predniSONE 2018-05- No Take 2 Take 2 (DELTASONE) 0-28 03-07 tablets tablet s 20 MG 00:00: 23:59 (40 mg (40 mg tablet 00 :00 total) by total) by mouth mouth daily for daily for 5 days, 5 days, THEN 1 THEN 1 tablet (20 tablet mg total) (20 mg daily for total) 7 days. daily for 7 days. QUEtiapine 2018-05- No 150mg Take 1.5 Take 1.5 (SEROQUEL) 0-11 tablets tablets 100 MG 00:00: 00:00 (150 mg (150 mg tablet 00 :00 total) by total) by mouth mouth nightly. nightly. albuterol 2018-05- No 2{puff} Inhale 2 Inha le 2 HFA 90 006-13 puffs by puffs by mcg/actuati 00:00: 00:00 mouth mouth on inhaler 00 :00 every 4 every 4 hours as hours as needed for needed wheezing. for wheezing. lamoTRIgine 2018-05 No 200mg Take 1 Take 1 (LAMICTAL) 006-13 tablet tablet 200 MG 00:00: 00:00 (200 mg (200 mg tablet 00 :00 total) by total) by mouth mouth daily. daily. tiotropium 2018-05 No 2{puff} Inhale 2 Inh yosi 2 bromide 0-11 puffs puffs (SPIRIVA 00:00: 00:00 daily. daily. RESPIMAT) 00 :00 Take every Take 2.5 day for every day mcg/actuati COPD for COPD on inhalation mist levothyroxi 2018-05- No Hypothyroid 75ug Take 1 Take 1 ne 0-07 ism, tablet (75 tablet (SYNTHROID, 00:00: 00:00 unspecified mcg tot al) (75 mcg LEVOTHROID) 00 :00 type by mouth total ) by 75 MCG daily. mouth tablet daily. buprenorphi 2018-05 No 1{tbl} Place 1 Plac e 1 ne-naloxone 003-03 tablet tablet (SUBOXONE) 00:00: 23:59 under the unde r the 8-2 mg Subl 00 :00 tongue two ton phyllis (2) times two (2) a day. for times a 7 days day. for 7 days lidocaine 2018-05 No 15mL 15 mL, (XYLOCAINE) 0-24 Mouth, 2% viscous 19:21: Every 4 mucosal 44 hours PRN, solution tongue pain, Starting Tina 02/23/19 at 1921
Ro utine predniSONE 2018-05 2019- No 40mg 40 mg, (DELTASONE) 0-24 03-02 Oral, tablet 40 08:00: 07:59 Daily, mg 00 :00 First dose on Tina 02/23/19 at 0800, For 7 doses
a dminister with food or milk
Ro utine ipratropium 2018-05 No 500ug 500 mcg, (ATROVENT) 0-21 Nebulizati 0.02 % 16:39: on, 2 nebulizer 16 times solution daily 500 mcg (RT), First dose (after last modificati on) on 02/20/19 at 2000
Ro utine albuterol 2018-05 No 2.5mg 2.5 mg, 2.5 mg /3 0- Nebulizati mL (0.083 16:38: on, 2 %) 24 times nebulizer daily solution (RT), 2.5 mg First dose (after last modificati on) on 02/20/19 at 2000
Ro utine naproxen 2018-05 No 375mg 375 mg, (NAPROSYN) 0-21 Oral, 2 tablet 375 12:33: times a mg 38 day PRN, pain,mild (1-3), other, or moderate pain (4-7), Starting 02/20/19 at 1233
Wi th meals
R outine polyethylen 2018-05 No 17g 17 g, e glycol 0-20 Oral, 2 (MIRALAX) 18:00: times a packet 17 g 00 day (standard) , First dose (after last modificati on) on 02/19/19 at 1800
Hold for diarrhea&n bsp;Mix in 8 ounces of appropriat e fluid prior to administra tion<br&gt ;Routine hydroxyzine 2018-05 No 50mg 50 mg, (ATARAX) 0-19 Oral, capsule/tab 16:00: Every 6 let 50 mg 00 hours PRN, sleep, anxiety, Starting 02/18/19 at 1600
Ro utine nicotine 2018-05 No 2mg 2 mg, polacrilex 0-19 Buccal, (NICORETTE) 15:31: Every 1 lozenge 2 30 hour prn, mg smoking cessation, Starting 02/18/19 at 1531
Us e second line RCRA: Dispose drug and drug packaging in [facility] nat waste container.
Routin e docusate 2018-05 No 100mg 100 mg, sodium 0-17 Oral, (COLACE) 09:00: Daily capsule 100 00 (standard) mg , First dose (after last modificati on) on Wed02/16/19 at 0900<br&gt ;Routine polyethylen 2018-05- No 17g 17 g, e glycol 0-17 10-20 Oral, 2 (MIRALAX) 09:00: 17:28 times a packet 17 g 00 :45 day (standard) , First dose (after last modificati on) on Wed02/16/19 at 0900
Hold for diarrhea&n bsp;Mix in 8 ounces of appropriat e fluid prior to administra tion<br&gt ;Routine predniSONE 2018-05- No 60mg 60 mg, (DELTASONE) 0-17 10-23 Oral, tablet 60 08:00: 08:28 Daily, mg 00 :00 First dose (after last modificati on) on Wed02/16/19 at 0800, For 7 doses<br&g t;administ er with food or milk
Ro utine albuterol 2018-05- No 2.5mg 2.5 mg, 2.5 mg /3 0- Nebulizati mL (0.083 12:00: 16:40 on, 4 %) 00 :04 times nebulizer daily solution (RT), 2.5 mg First dose (after last modificati on) on Wed02/15/19 at 1200
Ro utine ipratropium 2018-05- No 500ug 500 mcg, (ATROVENT) 0-16 - Nebulizati 0.02 % 12:00: 16:40 on, 4 nebulizer 00 :05 times solution daily 500 mcg (RT), First dose on Wed02/15/19 at 1200
Ro utine ibuprofen 2018-05- No 600mg 600 mg, (ADVIL,MOTR 0-15 10-21 Oral, IN) tablet 14:00: 12:33 Every 8 600 mg 00 :55 hours scheduled, First dose on Wed02/14/19 at 1400
Gi ve with Food or Milk
Ro utine polyethylen 2018-05- No 17g 17 g, e glycol 0-15 10-17 Oral, (MIRALAX) 14:00: 06:24 Daily packet 17 g 00 :20 (standard) , First dose (after last modificati on) on Wed02/14/19 at 1400
Ho ld for diarrhea&n bsp;Mix in 8 ounces of appropriat e fluid prior to administra tion
Ro utine acetaminoph 2018-05 No 650mg 650 mg, en 0-15 Oral, 4 (TYLENOL) 12:00: times a tablet 650 00 day, First mg dose (after last modificati on) on Wed02/14/19 at 1200
AD ULT MAX: NOT TO EXCEED 4GM ACETAMINOP HEN IN 24HRS
R outine famotidine 2018-05 No 20mg 20 mg, (PEPCID) 0-15 Oral, 2 tablet 20 12:00: times a mg 00 day (AC), First dose on Wed02/14/19 at 1200
Ro utine albuterol 2018-05- No 2.5mg 2.5 mg, 2.5 mg /3 0-15 10-16 Nebulizati mL (0.083 08:00: 10:07 on, 2 %) 00 :39 times nebulizer daily solution (RT), 2.5 mg First dose on Wed02/14/19 at 0800
Ro utine cefdinir 2018-05- No community 300mg 300 mg, (OMNICEF) 0-14 10-16 acquired Oral, capsule 300 21:00: 21:00 bacterial Every 12 mg 00 :00 pneumonia hours scheduled, First dose on Wed02/13/19 at 2100, For 5 doses
R outine, Indication s: community acquired bacterial pneumonia predniSONE 2018-05- No 40mg 40 mg, (DELTASONE) 0-14 10-16 Oral, tablet 40 15:00: 09:57 Daily, mg 00 :42 First dose on Wed02/13/19 at 1500, For 5 days
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
Ro utine enoxaparin 2018-05- No Venous 40mg 40 mg, (LOVENOX) 0-14 10- Thromboembo Subcutaneo syringe 40 14:00: 12:00 lism (VTE) us, Every mg 00 :33 Prophylaxis 24 hours scheduled, Indication s: Venous Thromboemb olism (VTE) Prophylaxi s, First dose on Wed02/13/19 at 1400
Gi ve by deep SUBQ injection; alternate injection sites<b r> azithromyci 2018-05- No pneumonia 500mg 500 mg, n 0-14 10-15 Oral, (ZITHROMAX) 14:00: 08:21 Every 24 tablet 500 00 :00 hours mg scheduled, First dose on Wed02/13/19 at 1400, For 2 days
Ro utine, Indication s: pneumonia ketorolac 2018-05- No 15mg 15 mg, (TORADOL) 0-13 02- Intravenou injection 11:44: 13:41 s, Once as 15 mg 52 :00 needed, pain,moder ate (4-6), pain,sever e (7-10), Starting Wed02/13/19 at 1144, For 1 dose azithromyci 2018-05- No respiratory 500mg 500 mg, n 0-13 10-14 , not Intravenou (ZITHROMAX) 16:00: 13:39 pneumonia s, at 280 500 mg in 00 :57 mL/hr, sodium Every 24 chloride hours, (NS) 0.9 % First dose 250 mL IVPB on Wed02/12/19 at 1600, For 2 doses<b r>Routine, Indication s: respirator y, not pneumonia lidocaine 2019 No 1{patch 1 patch, (LIDODERM) 0-13 } Transderma 5 % patch 1 10:00: l, Daily patch 00 (standard) , First dose on Wed02/12/19 at 1000
ap ply to anterior chest for 12 hours only each day (then remove patch)
Routine ketorolac 2018-05- No 15mg 15 mg, (TORADOL) 0-12 02- Intravenou injection 09:27: 10:01 s, Once as 15 mg 14 :00 needed, pain,moder ate (4-6), pain,sever e (7-10), Starting 02/12/19 at 0927, For 1 dose heparin 2018-05- No 5000U 5,000 (porcine) 0-12 10-14 Units, injection 16:00: 13:42 Subcutaneo 5,000 Units 00 :08 us, Every 8 hours, First dose on 02/11/19 at 1600
HI GH ALERT MEDICATION
Routin e sodium 2018-05 No 4mL 4 mL, chloride 3 0-12 Nebulizati % nebulizer 15:29: on, Every solution 4 26 8 hours mL PRN, other, Sputum for afb, Starting [facility] 02/11/19 at 1529
Ro utine nicotine 2018-05 No 1{patch 1 patch, (NICODERM 0-12 } Transderma CQ) 21 09:00: l, mg/24 hr 00 Administer patch 1 over 24 patch Hours, Daily (standard) , First dose on [facility] 02/11/19 at 0900
RCRA: Dispose drug and drug packaging in [facility] [employer] waste container.
ketorolac 2018-05- No 15mg 15 mg, (TORADOL) 0-11 10-11 Intravenou injection 22:00: 23:18 s, Once, 15 mg 00 :00 02/10/19 at 2200, For 1 dose nicotine 2018-05 No 2mg 2 mg, polacrilex 0-11 Buccal, (NICORETTE) 21:41: Every 2 gum 2 mg 52 hours PRN, smoking cessation, Starting Wed02/10/19 at 2141
RC RA: Dispose drug and drug packaging in [facility] [employer] waste container.
Routin e calcium 2018-05 No 200 mg of carbonate 0-11 [place] (TUMS) 21:41: calcium, chewable 05 Oral, 3 tablet 200 times a mg of [place] day PRN, calcium indigestio n, Starting Wed02/10/19 at 2141
50 0 mg calcium carbonate = 200 mg elemental calcium = 1 tablet
Routine simethicone 2018-05 No 80mg 80 mg, (MYLICON) 0-11 Oral, chewable 21:40: Every 6 tablet 80 43 hours PRN, mg gas, Starting Wed02/10/19 at 2140
Ro utine ketorolac 2018-05- No 15mg 15 mg, (TORADOL) 002-10 Intravenou injection 15:00: 14:52 s, Once, 15 mg 00 :00 Wed02/10/19 at 1500, For 1 dose gabapentin 2018-05 No 600mg Take 600 Take 600 (NEURONTIN) 0-11 mg by mg by 600 MG 14:11: mouth mouth tablet 27 Three (3) Three (3) times a times a day. day. cefepime 2018-05- No pneumonia 2g 2 g, (MAXIPIME) 002-13 Intravenou 2 g in 12:00: 13:39 s, at 200 dextrose 00 :57 mL/hr, 100 mL IVPB Every 8 (premix) hours scheduled, First dose (after last modificati on) on Wed02/10/19 at 1200, For 7 days
Ro utine, Indication s: pneumonia vancomycin 2018-05- No pneumonia 1250mg 1,250 mg, (VANCOCIN) 002-12 Intravenou 1,250 mg in 10:00: 18:51 s, at 230 sodium 00 :22 mL/hr, chloride Every 8 (NS) 0.9 % hours, 250 mL IVPB First dose on Wed02/10/19 at 1000, For 7 days
Routine, Indication s: pneumonia levothyroxi 2018-05 No 75ug 75 mcg, ne 0-11 Oral, (SYNTHROID, 09:00: Daily LEVOTHROID) 00 (standard) tablet 75 , First mcg dose on Wed02/10/19 at 0900
Ro utine lamoTRIgine 2018-05 No 200mg 200 mg, (LaMICtal) 0-11 Oral, tablet 200 09:00: Daily mg 00 (standard) , First dose on Wed02/10/19 at 0900
Ro utine cetirizine 2018-05 No 10mg 10 mg, (ZyrTEC) 0-11 Oral, tablet 10 09:00: Daily mg 00 (standard) , First dose on Wed02/10/19 at 0900
Ro utine umeclidiniu 2018-05- No 1{puff} 1 puff, m (INCRUSE 0-11 10-16 Inhalation ELLIPTA) 08:00: 10:08 , Daily 62.5 00 :52 (RT), mcg/actuati First dose on inhaler on Wed 1 puff 02/10/19 at 0800 iohexol 2018-05- No 75mL 75 mL, (OMNIPAQUE) 0-11 10-11 Intravenou 350 mg 04:43: 04:44 s, Once in iodine/mL 39 :00 imaging, solution 75 contrast, mL Starting Wed02/10/19 at 0443, For 1 dose
Ro utine gabapentin 2018-05 No 600mg 600 mg, (NEURONTIN) 0-10 Oral, 3 capsule 600 23:00: times a mg 00 day (standard) , First dose on Tina 02/09/19 at 2300
Ro utine fluticasone 2018-05 No 1{puff} 1 puff, propion-benjy 0-10 Inhalation meterol 23:00: , 2 times (ADVAIR) 00 daily 100-50 (RT), mcg/dose First dose diskus on Wed inhaler 1 02/09/19 puff at 2300
Ro utine buprenorphi 2018-05 No 8mg 8 mg, ne-naloxone 0-10 Sublingual (SUBOXONE) 23:00: , 2 times 8-2 mg SL 00 a day film 8 mg (standard) , First dose on Tina 02/09/[address] ease observe patient until tablet/van m is fully dissolved& nbsp;Disso lve Under Tongue
Routine enoxaparin 2018-05- No Venous 40mg 40 mg, (LOVENOX) 0-10 10-12 Thromboembo Subcutaneo syringe 40 23:00: 09:01 lism (VTE) us, Every mg 00 :47 Prophylaxis 24 hours, Indication s: Venous Thromboemb olism (VTE) Prophylaxi s, First dose on Tina 02/09/19 at 2300
Gi ve by deep SUBQ injection; alternate injection sites
cefepime 2018-05- No pneumonia 2g 2 g, (MAXIPIME) 0-10 10-11 Intravenou 2 g in 23:00: 07:27 s, at 200 dextrose 00 :10 mL/hr, 100 mL IVPB Every 8 (premix) hours, First dose on Tina 02/09/19 at 2300, For 5 days<br&gt ;Routine, Indication s: pneumonia potassium 2018-05- No 40meq 40 mEq, chloride 0-10 10-10 Oral, (KLOR-CON) 23:00: 23:43 Once, Tina CR tablet 00 :00 02/09/19 40 mEq at 2300, For 1 dose
Ro utine hydroxyzine 2018-05- No 50mg 50 mg, (ATARAX) 0-10 10-19 Oral, capsule/tab 22:43: 15:31 Nightly let 50 mg 30 :43 PRN, sleep, anxiety, Starting Tina 02/09/19 at 2243
Ro utine albuterol 2018-05- No 2.5mg 2.5 mg, 2.5 mg /3 0- 10-16 Nebulizati mL (0.083 22:43: 09:55 on, Every %) 29 :19 6 hours nebulizer PRN, solution wheezing, 2.5 mg Starting Tina 02/09/19 at 2243
Ro utine acetaminoph 2018-05- No 650mg 650 mg, en 0-10 10-15 Oral, (TYLENOL) 22:43: 11:46 Every 6 tablet 650 29 :13 hours PRN, mg pain,mild (1-3), Starting Tina 02/09/19 at 2243
AD ULT MAX: NOT TO EXCEED 4GM ACETAMINOP HEN IN 24HRS
R outine ketorolac 2018-05- No 15mg 15 mg, (TORADOL) 0-10 10-10 Intravenou injection 18:30: 18:35 s, Once, 15 mg 00 :00 Tina 02/09/19 at 1830, For 1 dose azithromyci 2018-05- No pneumonia 500mg 500 mg, n 0-10 10-10 Intravenou (ZITHROMAX) 17:21: 20:52 s, at 280 500 mg in 00 :00 mL/hr, sodium Once, Tina chloride 02/09/19 (NS) 0.9 % at 1721, 250 mL IVPB For 1 dose
ST AT, Indication s: pneumonia cefTRIAXone 2018-05- pneumonia 1g 1 g, (ROCEPHIN) 0-10 10-10 Intravenou 1 g in 17:21: 18:44 s, at 200 sodium 00 :00 mL/hr, chloride Once, Tina 0.9 % (NS) 02/09/19 100 mL at 1721, IVPB-connec For 1 tor bag dose
Ac tivate prior to use
STA T, Indication s: pneumonia levothyroxi 2018-05- Hypothyroid 75ug Take 1. 5 Take 1.5 ne 002 10-25 ism, tablets tablets (SYNTHROID, 00:00: 00:00 unspecified (75 mcg (75 mcg LEVOTHROID) 00 :00 type total) by luis gradna) by 50 MCG mouth mouth tablet daily. daily. ibuprofen Lumbar back 800mg Take 1 Ta ke 1 (ADVIL,MOTR 01-30 pain tablet tablet IN) 800 MG 00:00: 23:59 (800 mg (800 m g tablet 00 :00 total) by total) by mouth mouth every every eight (8) eight (8) hours as hours as needed for needed pain. for pain. fluticasone 2019- No COPD with 1{each} Inhale 1 Inhale 1 propion-benjy 01-30 acute inhalation inh alatio meterol 00:00: 00:00 exacerbatio Two (2) n T wo (2) (ADVAIR 00 :00 n ([facility]) times a time s a DISKUS) day. day. 100-50 mcg/dose diskus cetirizine 2019- No Asthma, 10mg Take 1 Take 1 (ZYRTEC) 10 01-30 unspecified tablet ( 10 tablet MG tablet 00:00: 00:00 asthma mg total) (10 mg 00 :00 severity, by mouth total) by unspecified daily. mouth whether daily. complicated , unspecified whether persistent diclofenac 2019- Lumbar back 2g Apply 2 Apply 2 sodium 01-30 pain grams grams (VOLTAREN) 00:00: 00:00 topically topi fani 1 % gel 00 :00 4 (four) 4 (four) times a times a day as day as needed for needed arthritis for or pain. arthritis or pain. guaiFENesin 2018- No Asthma, 600mg Take 1 Take 1 (MUCINEX) 01-30 10-11 unspecified tablet tab let 600 mg 12 00:00: 00:00 asthma (600 mg (600 m g hr tablet 00 :00 severity, total) by to lashonda) by unspecified mouth mouth whether every every complicated twelve twelve , (12) (12) unspecified hours. hours. whether persistent predniSONE No 40mg Take 2 Take 2 (DELTASONE) 01-26 10-11 tablets tablet s 20 MG 00:00: 00:00 (40 mg (40 mg tablet 00 :00 total) by total) by mouth mouth daily. for daily. 3 days For for 3 COPD days For exacerbati COPD on exacerbat ion levoFLOXaci 2018- No pneumonia 750mg Take 1 Ta ke 1 n 01-2611 tablet tablet (LEVAQUIN) 00:00: 00:00 (750 mg (750 m g 750 MG 00 :00 total) by total) by tablet mouth mouth daily. for daily. 2 days For for 2 pneumonia days For pneumonia buprenorphi No 1{film} Place 1 Huong ce 1 ne-naloxone 01-25 Film under Van m (SUBOXONE) 13:40: the tongue und er the 8-2 mg 54 Two (2) tongue sublingual times a Two (2) film day. times a day. busPIRone 2019- No 15mg Take 15 mg Take 15 (BUSPAR) 15 01-25 by mouth mg by MG tablet 13:40: 00:00 Three (3) mouth 54 :00 times a Three (3) day. times a day. hydrOXYzine 2019- No 50mg Take 50 mg Ta ke 50 (ATARAX) 50 01-25 by mouth mg by MG tablet 13:40: 00:00 every six mouth 54 :00 (6) hours every six as needed (6) hours for as needed anxiety. for anxiety. lamoTRIgine 2018- No 200mg Take 200 Take 200 (LAMICTAL) 01-25 1025 mg by mg by 200 MG 13:40: 00:00 mouth mouth tablet 54 :00 daily. daily. tiotropium No 18ug 18 mcg, (SPIRIVA) 01-25 Inhalation 18 mcg 10:00: , Daily inhalation 00 (RT), capsule 18 First dose mcg on Wed01/25/19 at 1000
do not administer via ventilator
Routin e lamoTRIgine No 200mg 200 mg, (LaMICtal) 01-25 Oral, tablet 200 09:00: Daily mg 00 (standard) , First dose on Wed01/25/19 at 0900
Ro utine levothyroxi No 50ug 50 mcg, ne 01-25 Oral, (SYNTHROID, 06:00: daily, LEVOTHROID) 00 First dose tablet 50 on Wed mcg 01/25/19 at 0600
Ro utine albuterol 2019- No 2.5mg Inhale 3 Inhale 3 2.5 mg /3 01-25 mL (2.5 mg mL (2 .5 mL (0.083 00:00: 23:59 total) by mg to lashonda) %) 00 :00 nebulizati by nebulizer on every nebuliz at solution six (6) ion every hours as six (6) needed for hours as wheezing. needed for wheezing. tiotropium 2019- No 18ug Place [address] 1 (SPIRIVA) 01-25 capsule capsule 18 mcg 00:00: 23:59 (18 mcg (18 mcg inhalation 00 :00 total) total) capsule into into inhaler inhaler and inhale and once inhale daily. For once COPD daily. maintenanc For COPD e therapy maintenan ce therapy nicotine 2018- No 1{patch Place [address] 1 (NICODERM 01-25 10-11 } patch on patch o n CQ) 21 00:00: 00:00 the skin the skin mg/24 hr 00 :00 daily. For daily. patch tobacco For cessation. tobacco REMOVE OLD cessation PATH . REMOVE BEFORE OLD PATH APPLYING BEFORE NEW PATCH APPLYING NEW PATCH diclofenac 2019- No 2g Apply 2 g Appl y 2 g sodium 01-2530 topically topically (VOLTAREN) 00:00: 00:00 4 (four) 4 (fo ur) 1 % gel 00 :00 times a times a day as day as needed for needed arthritis for or pain. arthritis or pain. melatonin No 3mg 3 mg, tablet 3 mg 01-25 Oral, 00:00: 23:35 Once, Wed 00 :00 01/25/19 at 0000, For 1 dose
Ro utine busPIRone No 15mg 15 mg, (BUSPAR) 01-24 Oral, 3 tablet 15 21:00: times a mg 00 day (standard) , First dose on Wed01/24/19 at 2100
Ro utine ibuprofen No 600mg 600 mg, (ADVIL,MOTR 01-24 Oral, IN) tablet 17:00: 16:54 Once, e 600 mg 00 :00 01/24/19 at 1700, For 1 dose
Gi ve with Food or Milk
Ro utine gabapentin No 300mg 300 mg, (NEURONTIN) 01-24 Oral, 3 capsule 300 14:00: times a mg 00 day (standard) , First dose on Wed01/24/19 at 1400
Ro utine buprenorphi No 8mg 8 mg, ne-naloxone 01-24 Sublingual (SUBOXONE) 14:00: , 2 times 2-0.5 mg SL 00 a day, film 8 mg First dose on Wed01/24/19 [address] ease observe patient until tablet/van m is fully dissolved& nbsp;Keep under the tongue until film dissolves completely ; film should not be chewed, swallowed or moved after placement. If more than one film is needed, the additional film should be placed under the tongue on the opposite side from the first film.
R outine guaiFENesin No 400mg 400 mg, (HUMIBID 3) 01-24 Oral, tablet 400 12:09: Every 4 mg 43 hours PRN, cough, congestion , Starting Wed01/24/19 at 1209
Ro utine hydrOXYzine No 50mg Take 50 mg Ta ke 50 (VISTARIL) 01-24 by mouth mg by 50 MG 10:48: 00:00 Three (3) mouth capsule 58 :00 times a Three (3) day as times a needed for day as itching. needed for itching. albuterol No 2.5mg 2.5 mg, 2.5 mg /3 01-24 Nebulizati mL (0.083 10:00: on, Every %) 00 6 hours nebulizer (RT), solution First dose 2.5 mg on Wed01/24/19 at 1000
Ro utine loratadine No 10mg 10 mg, (CLARITIN) 01-24 Oral, tablet 10 09:00: Daily mg 00 (standard) , First dose on Wed01/24/19 at 0900
Ro utine enoxaparin No Venous 40mg 40 mg, (LOVENOX) 01-24 Thromboembo Subcutaneo syringe 40 09:00: lism (VTE) us, Every mg 00 Prophylaxis 24 hours, Indication s: Venous Thromboemb olism (VTE) Prophylaxi s, First dose on Wed01/24/19 at 0900
Gi ve by deep SUBQ injection; alternate injection sites
levoFLOXaci No pneumonia 750mg 750 mg, n 01-24 Oral, (LEVAQUIN) 09:00: 08:59 Every 24 tablet 750 00 :00 hours mg scheduled, First dose on Wed01/24/19 at 0900, For 4 days
Ro utine, Indication s: pneumonia predniSONE No 40mg 40 mg, (DELTASONE) 01-24 Oral, tablet 40 08:00: 07:59 Daily, mg 00 :00 First dose on Wed01/24/19 at 0800, For 5 days
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
Ro utine ibuprofen No 600mg 600 mg, (ADVIL,MOTR 01-24 Oral, IN) tablet 01:00: 01:15 Once, Tue 600 mg 00 :00 01/24/19 at 0100, For 1 dose
Gi ve with Food or Milk
Ro utine influenza No .5mL 0.5 mL, vaccine 01-23 Intramuscu quad 20:32: lar, (FLUARIX, 18 During FLULAVAL, hospitaliz FLUZONE) (6 ation, MOS & UP) Starting Wed01/23/19 at 2031, For 1 dose
SH PRETTY WELL; contains egg product, latex-free , preservati ve-free
Routine nicotine No 1{patch 1 patch, (NICODERM 01-23 } Transderma CQ) 14 20:00: l, mg/24 hr 00 Administer patch 1 over 24 patch Hours, Daily (standard) , First dose on Wed01/23/19 at 1999
Offer nicotine gum or lozenge as needed for breakthrou gh nicotine cravings.& nbsp;RCRA: Dispose drug and drug packaging in [facility] waste container.
ipratropium No 500ug 500 mcg, (ATROVENT) 01-23 Nebulizati 0.02 % 20:00: 08:37 on, Every nebulizer 00 :27 6 hours solution (RT), 500 mcg First dose on Wed01/23/19 at 1999
Ro utine nicotine No 2mg [Order 1 polacrilex 01-23 Start] (NICORETTE) 19:54: Name: gum 2 mg 38 nicotine polacrilex (NICORETTE ) gum 2 mg Signed Summary: 2 mg, Buccal, Every 1 hour prn, smoking cessation, Starting Wed01/23/19 at 1953
Us e gum first.&nbs p; If patient does not tolerate gum, use the nicotine lozenge.&n bsp;RCRA: Dispose drug and drug packaging in [facility] waste container.
Routin e [Order 1 End] [Order 2 Start] Name: nicotine polacrilex (NICORETTE ) lozenge 2 mg Signed Summary: 2 mg, Buccal, Every 1 hour prn, smoking cessation, Starting Wed01/23/19 at 1953
Us e gum first.&nbs p; If patient does not tolerate gum, use the nicotine lozenge.&n bsp;RCRA: Dispose drug and drug packaging in [facility] waste container.
Routin e [Order 2 End] acetaminoph No 500mg 500 mg, en 01-23 Oral, (TYLENOL) 19:54: Every 6 tablet 500 37 hours PRN, mg pain,mild (1-3), pain,moder ate (4-6), headache, fever (>38.0), Starting Wed01/23/19 at 1954
AD ULT MAX: NOT TO EXCEED 4GM ACETAMINOP HEN IN 24HRS
R outine levofloxaci No pneumonia 750mg 750 mg, n 01-23 Intravenou (LEVAQUIN) 14:21: 17:02 s, at 100 750 mg/150 00 :00 mL/hr, mL IVPB 750 Once, Mon mg 01/23/19 at 1422, For 1 dose
ST AT, Indication s: pneumonia albuterol No 5mg 5 mg, 2.5 mg /3 01-23 Nebulizati mL (0.083 13:17: on, Once, %) Wed nebulizer 01/23/19 at solution 5 1317, For mg 1 dose
ST AT ipratropium 2018- No 500ug 500 mcg, (ATROVENT) 01-23 Nebulizati 0.02 % 13:17: 14:12 on, Once, nebulizer 00 :00 [facility] solution 01/23/19 at 500 mcg 1317, For 1 dose
ST AT sodium 2018- No 1000mL 1,000 mL, chloride 01-23 Intravenou 0.9% (NS 13:17: 15:14 s, BOLUS) 00 :00 Administer bolus 1,000 over 1 mL Hours, Once, [facility] 01/23/19 at 1317, For [address] ease infuse as rapidly as is practical< br>Routine albuterol No 5mg 5 mg, 2.5 mg /3 01-23 Nebulizati mL (0.083 12:09: on, Once, %) Wed nebulizer 01/23/19 at solution 5 1209, For mg 1 dose
ST AT ipratropium 2018- No 500ug 500 mcg, (ATROVENT) 01-23 Nebulizati 0.02 % 12:09: 12:22 on, Once, nebulizer 00 :00 Mon solution 01/23/19 at 500 mcg 1209, For 1 dose
ST AT inhalationa 2019- No 1{each} 1 each, l spacing 01-07 Inhalation device Spcr 20:05: 20:34 , Once, 1 each 00 :00 01/07/19 at 2005, For 1 dose albuterol No 2{puff} 2 puff, (PROVENTIL 01-07 Inhalation HFA;VENTOLI 20:04: , Every 6 N HFA) 90 05 hours PRN, mcg/actuati wheezing, on inhaler Starting 2 puff 01/07/19 at 2004
Sh pretty Well
Ro utine albuterol No 5mg 5 mg, 2.5 mg /3 01-07 Nebulizati mL (0.083 18:27: on, Once, %) 00 01/07/19 nebulizer at 1827, solution 5 For 1 mg dose
ST AT azithromyci 2018- No respiratory 500mg 500 mg, n 01-07 , not Oral, (ZITHROMAX) 18:27: 18:39 pneumonia Once, Sat tablet 500 00 :00 01/07/19 at mg 1827, For 1 dose
ST AT, Indication s: respirator y, not pneumonia predniSONE 2018- No 60mg 60 mg, (DELTASONE) 01-07 Oral, tablet 60 18:27: 18:39 Once, Sat mg 00 :00 01/07/19 at 1827, For 1 dose
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
ST AT ipratropium 2018- No 500ug 500 mcg, (ATROVENT) 01-07 Nebulizati 0.02 % 18:27: 18:39 on, Once, nebulizer 00 :00 01/07/19 solution at 1827, 500 mcg For 1 dose
ST AT albuterol 5 2019- No 2.5mg Inhale 0.5 In escobar mg/mL 01-07 mL (2.5 mg 0.5 mL nebulizer 00:00: 23:59 total) by (2.5 mg solution 00 :00 nebulizati total) by on every nebulizat six (6) ion every hours as six (6) needed for hours as wheezing. needed for wheezing. albuterol 2018- No 2{puff} Inhale 2 Inha le 2 HFA 90 01-07 puffs by puffs by mcg/actuati 00:00: 00:00 mouth mouth on inhaler 00 :00 every 4 every 4 hours as hours as needed for needed wheezing. for wheezing. gabapentin 2018- No 600mg Take 2 Take 2 (NEURONTIN) 01-07 capsules capsu les 300 MG 00:00: 00:00 (600 mg (600 mg capsule 00 :00 total) by total) b y mouth mouth Three (3) Three (3) times a times a day. day. gabapentin 2018- No 600mg Take 1 Take 1 (NEURONTIN) 01-07 tablet tablet 600 MG 00:00: 23:59 (600 mg (600 mg tablet 00 :00 total) by total) by mouth mouth Three (3) Three (3) times a times a day. day. levothyroxi 2018- No 50ug Take 1 Take 1 ne 01-07 tablet (50 tablet (SYNTHROID, 00:00: 00:00 mcg total) (5 0 mcg LEVOTHROID) 00 :00 by mouth total ) by 50 MCG daily. mouth tablet daily. fluticasone 2018- No 1{puff} Inhale 1 In escobar 1 propion-benjy 01-07 puff Two puff Two meterol 00:00: 00:00 (2) times (2) leatha es (ADVAIR 00 :00 a day. a day. DISKUS) 100-50 mcg/dose diskus ibuprofen 2018- No Fever, 800mg Take 1 Take 1 (ADVIL,MOTR 01-07 unspecified tablet t ablet IN) 800 MG 00:00: 15:41 fever cause (800 mg (800 mg tablet 00 :51 total) by total) by mouth mouth every every eight (8) eight (8) hours as hours as needed for needed pain for pain albuterol 2018- No 2.5mg Inhale 3 Inhale 3 2.5 mg /3 9-07 09-25 mL (2.5 mg mL (2 .5 mL (0.083 00:00: 00:00 total) by mg to lashonda) %) 00 :00 nebulizati by nebulizer on every nebuliz at solution six (6) ion every hours as six (6) needed for hours as wheezing. needed for wheezing. predniSONE 2018- No Take 3 Take 3 (DELTASONE) 01-07 tablets tablet s 20 MG 00:00: 00:00 daily for daily for tablet 00 :00 2 days, 2 2 days, 2 tablets tablets daily for daily for 2 days 2 days then 1 then 1 tablet tablet daily for daily for 2 days 2 days azithromyci 2018- No Take 1 Take 1 n 01-07 tablet by tablet by (ZITHROMAX) 00:00: 00:00 mouth mouth 250 MG 00 :00 daily daily tablet diclofenac No 2g 2 g, sodium 7-15 Topical, 4 (VOLTAREN) 12:00: times a 1 % gel 2 g 00 day, First dose on Wed11/14/18 at 1200
ap ply to left hip
Rou joelle ketorolac 2018- No 15mg 15 mg, (TORADOL) 11-14 Intramuscu injection 10:07: 10:59 lar, Once, 15 mg 00 :00 Wed11/14/18 at 1007, For 1 dose lidocaine 2018- No Topical, (LMX) 4 % 11-14 Once, 1 cream 10:06: 11:00 dose, Wed 00 :00 11/14/18 at 1007
Ap ply to left hip and back
SYNTHROID 2018- No 50ug TAKE 1 TAKE 1 50 mcg 7-15 10-11 TABLET BY TABLET BY tablet 00:00: 00:00 MOUTH ONCE MOUTH 00 :00 DAILY ONCE DAILY diclofenac 2018- No 2g APPLY 2 APPLY 2 sodium 7-15 10-11 GRAMS TO GRAMS TO (VOLTAREN) 00:00: 00:00 AFFECTED AFFEC GINNY 1 % gel 00 :00 AREA(S) 4 AREA(S) 4 TIMES TIMES DAILY DAILY levothyroxi 2018- No 50ug Take 1 Take 1 ne 11-14 tablet (50 tablet (SYNTHROID) 00:00: 00:00 mcg total) (5 0 mcg 50 MCG 00 :00 by mouth total) by tablet daily. mouth daily. diclofenac No 2g Apply 2 g Appl y 2 g sodium 11-14 topically topically (VOLTAREN) 00:00: 00:00 Four (4) Four (4) 1 % gel 00 :00 times a times a day. day. miscellaneo No Mixed Please Please us medical 10-11 stress and provide pr ovide supply Misc 00:00: urge incontinen in contine 00 urinary ce nce incontinenc supplies suppl ies e ibuprofen No 800mg TAKE 1 TAKE 1 (ADVIL,MOTR 10-11 TABLET BY TABL ET BY IN) 800 MG 00:00: 00:00 MOUTH MOUTH tablet 00 :00 EVERY 8 EVERY 8 HOURS HOURS NEEDED FOR NEEDED PAIN FOR PAIN ibuprofen Fever, 800mg Take 1 Take 1 (ADVIL,MOTR 10-11 unspecified tablet t ablet IN) 800 MG 00:00: 00:00 fever cause (800 mg (800 mg tablet 00 :00 total) by total) by mouth mouth every every eight (8) eight (8) hours as hours as needed for needed pain. for for pain. up to 30 for up to doses 30 doses ipratropium No 500ug 500 mcg, (ATROVENT) 10-06 Nebulizati 0.02 % 15:54: on, nebulizer 00 Continuous solution , Starting 500 mcg Tina 10/06/18 at 1554
ST AT albuterol No 10mg 10 mg, nebulizer 10-06 Nebulizati solution 10 15:54: on, mg 00 Continuous , Starting Tina 10/06/18 at 1554
ST AT azithromyci 2018- No 500mg 500 mg, n 10-06 Oral, (ZITHROMAX) 15:54: 16:56 Once, Tina tablet 500 00 :00 10/06/18 at mg 1554, For 1 dose
In dication for use: respirator y, not pneumonia< br>STAT predniSONE 2018- No 40mg 40 mg, (DELTASONE) 10-06 Oral, tablet 40 15:54: 16:56 Once, Tina mg 00 :00 10/06/18 at 1554, For 1 dose
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
ST AT albuterol 2019- No 1{puff} Inhale 1 Inha le 1 HFA 90 10-06 06-05 puff every puff mcg/actuati 00:00: 23:59 six (6) every six on inhaler 00 :00 hours as (6) ho urs needed for as needed wheezing. for wheezing. fluticasone 2018- No 1{puff} INHALE ONE INHALE propion-benjy 10-06 PUFF TWICE ONE PUFF meterol 00:00: 00:00 DAILY TWICE (ADVAIR) 00 :00 DAILY 100-50 mcg/dose diskus albuterol 2019- No 1{puff} INHALE 1 INHA LE 1 HFA 90 10-06-11 PUFF EVERY PUFF mcg/actuati 00:00: 00:00 6 HOURS EV SHITAL 6 on inhaler 00 :00 NEEDED FOR HOUR S WHEEZING NEEDED FOR WHEEZING azithromyci 2019- No TAKE 2 TAKE 2 n 10-06 TABLETS TABLETS (ZITHROMAX) 00:00: 00:00 ONCE ONCE 250 MG 00 :00 TODAY, TODAY, tablet THEN 1 THEN 1 TABLET TABLET ONCE DAILY ONCE DAILY predniSONE 2019- No TAKE 3 TAKE 3 (DELTASONE) 10-06 TABLETS TABLET S 20 MG 00:00: 00:00 (60MG) BY (60MG) BY tablet 00 :00 MOUTH MOUTH DAILY FOR DAILY FOR 2 DAYS 2 DAYS THEN TAKE THEN TAKE 2 TABLETS 2 TABLETS (40MG) BY (40MG) BY MOUTH MOUTH DAILY FOR DAILY FOR 2 DAYS 2 DAYS THEN TAKE THEN TAKE ONE TABLET ONE DAILY FOR TABLET 2 DAYS DAILY FOR 2 DAYS fluticasone 2018- No 1{puff} Inhale 1 In escobar 1 propion-benjy 10-06-07 puff Two puff Two meterol 00:00: 00:00 (2) times (2) leatha es (ADVAIR 00 :00 a day. a day. DISKUS) 100-50 mcg/dose diskus predniSONE 2019-0 2019- No 3 po daily 3 p o (DELTASONE) 10-06 for 2 daily fo r 20 MG 00:00: 00:00 days, then 2 days, tablet 00 :00 2 po daily then 2 p o for 2 daily for days, then 2 days, 1 po daily then 1 po for 2 days daily for 2 days albuterol 2018- No 1{puff} Inhale 1 Inha le 1 HFA 90 10-06 puff every puff mcg/actuati 00:00: 00:00 six (6) every six on inhaler 00 :00 hours as (6) ho urs needed for as needed wheezing. for wheezing. azithromyci 2018- No 250mg Take 1 Take 1 n 10-06 tablet tablet (ZITHROMAX 00:00: 23:59 (250 mg (250 m g Z-DL) 250 00 :00 total) by total ) by MG tablet mouth mouth daily. for daily. 5 days 2 for 5 by mouth days 2 by today the mouth 1 by mouth today the daily for 1 by 4 days mouth daily for 4 days azithromyci No Chronic Take two Ta ke two n 4-02 obstructive pills on pills on (ZITHROMAX) 00:00: pulmonary the first the first 250 MG 00 disease, day and day and tablet unspecified then one then one COPD type pill every pill ([facility] [place] [facility]) day until every day you run until you out. run out. albuterol 2019- No Asthma, 1{puff} Inhale 1-2 Inhale (PROVENTIL 08-02 04- unspecified puffs 1-2 puffs HFA;VENTOLI 00:00: 23:59 asthma every four e very N HFA) 90 00 :00 severity, (4) hours fo ur (4) mcg/actuati unspecified as neede d hours as on inhaler whether for needed complicated wheezing for , or wheezing unspecified shortness or whether of breath. shortne ss persistent of breath. tiotropium 2018- No PLACE [address] PLACE 1 (SPIRIVA) 08-02 CAPSULE CAPSULE 18 mcg 00:00: 00:00 INTO INTO inhalation 00 :00 INHALER INHALER capsule AND INHALE AND ONCE DAILY INHALE ONCE DAILY mometasone 2018- No 1{puff} INHALE 1 INH YOSI 1 220 mcg (60 08-02 PUFF TWICE PUF F doses) AePB 00:00: 00:00 DAILY TWICE 00 :00 DAILY salmeterol No 1{puff} INHALE 1 INH YOSI 1 (SEREVENT) 08-02 PUFF TWICE PUFF 50 mcg/dose 00:00: 00:00 DAILY TWICE diskus 00 :00 DAILY inhaler azithromyci TAKE 2 TAKE 2 n 08-02 TABLETS TABLETS (ZITHROMAX) 00:00: 00:00 ONCE ONCE 250 MG 00 :00 TODAY, TODAY, tablet THEN 1 THEN 1 TABLET TABLET ONCE DAILY ONCE FOR 4 DAYS DAILY FOR 4 DAYS predniSONE 40mg TAKE 2 TAKE 2 (DELTASONE) 08-02 TABLETS BY TAB LETS 20 MG 00:00: 00:00 MOUTH ONCE BY MOUTH tablet 00 :00 DAILY FOR ONCE 5 DAYS DAILY FOR 5 DAYS tiotropium 2018- No Asthma, 18ug Place 1 Plac e 1 (SPIRIVA 08-02 unspecified capsule cap randy WITH 00:00: 00:00 asthma (18 mcg (18 mcg HANDIHALER) 00 :00 severity, total) tot al) 18 mcg unspecified into into inhalation whether inhaler inhal er capsule complicated and inhale a nd , daily. inhale unspecified daily. whether persistent salmeterol No Asthma, 1{puff} Inhale 1 I nhale 1 (SEREVENT 08-02 unspecified puff Two p uff Two DISKUS) 50 00:00: 00:00 asthma (2) times (2) times mcg/dose 00 :00 severity, a day. a day. diskus unspecified inhaler whether complicated , unspecified whether persistent mometasone 2018- No Chronic 1{puff} Inhale 1 I nhale 1 (ASMANEX) 08-02 obstructive puff Two p uff Two 220 mcg (14 00:00: 00:00 pulmonary (2) times (2) times doses) 00 :00 disease, a day. a day. inhaler unspecified COPD type ([facility]) albuterol Asthma, 1{puff} Inhale 1-2 Inhale (PROVENTIL 08-02 unspecified puffs 1-2 puffs HFA;VENTOLI 00:00: 00:00 asthma every four e very N HFA) 90 00 :00 severity, (4) hours fo ur (4) mcg/actuati unspecified as neede d hours as on inhaler whether for needed complicated wheezing for , or wheezing unspecified shortness or whether of breath. shortne ss persistent of breath. azithromyci Chronic Take two Ta ke two n 08-02 obstructive pills on pills on (ZITHROMAX) 00:00: 00:00 pulmonary the first the first 250 MG 00 :00 disease, day and day and tablet unspecified then one then one COPD type pill every pill ([facility] [place]) day until every day you run until you out. run out. predniSONE Chronic 40MG Take 2 Take 2 (DELTASONE) 08-02 obstructive tablets tablets 20 MG 00:00: 23:59 pulmonary (40 mg (40 mg tablet 00 :00 disease, total) by total) by unspecified mouth mouth COPD type daily. for daily . ([facility] [place] [facility]) 5 doses for 5 doses mometasone Asthma, 220ug Inhale 220 I nhale (ASMANEX 08-02 unspecified mcg daily. 220 mcg TWISTHALER) 00:00: 00:00 asthma daily. 110 mcg (30 00 :00 severity, doses) AePB unspecified whether complicated , unspecified whether persistent azithromyci No TAKE 2 TAKE 2 n 2-28 10-11 TABLETS BY TABLETS (ZITHROMAX) 00:00: 00:00 MOUTH ON BY M OUTH 250 MG 00 :00 DAY 1 THEN ON DAY 1 tablet TAKE 1 THEN TAKE TABLET BY 1 TABLET MOUTH ONCE BY MOUTH DAILY ONCE UNTIL DAILY GONE. UNTIL GONE. predniSONE TAKE 3 TAKE 3 (DELTASONE) 2-28 10-11 TABLETS BY TAB LETS 20 MG 00:00: 00:00 MOUTH BY MOUTH tablet 00 :00 DAILY FOR DAILY FOR 2 DAYS , 2 DAYS , TAKE 2 TAKE 2 TABLETS TABLETS DAILY FOR DAILY FOR 2 DAYS , 2 DAYS , TAKE 1 TAKE 1 TABLET TABLET DAILY FOR DAILY FOR 2 DAYS 2 DAYS predniSONE 2019- No 3 po daily 3 p o (DELTASONE) 06-30 for 2 daily fo r 20 MG 00:00: 00:00 days, then 2 days, tablet 00 :00 2 po daily then 2 p o for 2 daily for days, then 2 days, 1 po daily then 1 po for 2 days daily for 2 days azithromyci 2018- No 250MG Take 1 Take 1 n 06-30 tablet tablet (ZITHROMAX) 00:00: 23:59 (250 mg (250 mg 250 MG 00 :00 total) by total) by tablet mouth mouth daily. for daily. 5 days for 5 Take first days Take 2 tablets first 2 together, tablets then 1 together, every day then 1 until every day finished. until finished. azithromyci 2018- No 250MG Take 1 Take 1 n 06-30 tablet tablet (ZITHROMAX) 00:00: 00:00 (250 mg (250 mg 250 MG 00 :00 total) by total) by tablet mouth mouth daily. for daily. 5 days for 5 Take first days Take 2 tablets first 2 together, tablets then 1 together, every day then 1 until every day finished. until finished. predniSONE 2019- No 3 po daily 3 p o (DELTASONE) 06-30 for 2 daily fo r 20 MG 00:00: 00:00 days, then 2 days, tablet 00 :00 2 po daily then 2 p o for 2 daily for days, then 2 days, 1 po daily then 1 po for 2 days daily for 2 days albuterol 2018- No 2{puff} INHALE 2 INHA LE 2 HFA 90 06-11 PUFFS PUFFS mcg/actuati 00:00: 00:00 EVERY 4 EVERY 4 on inhaler 00 :00 HOURS HOURS NEEDED FOR NEEDED WHEEZING FOR WHEEZING doxycycline 2019- No 100mg TAKE 1 TAKE 1 (VIBRAMYCIN 06-11 CAPSULE BY [facility] ) 100 MG 00:00: 00:00 MOUTH BY MOUTH capsule 00 :00 TWICE TWICE DAILY FOR DAILY FOR 10 DAYS 10 DAYS albuterol 2019- No 2{puff} Inhale 2 Inha le 2 (PROVENTIL 2-09 04-02 puffs puffs HFA;VENTOLI 00:00: 00:00 every four ev shital N HFA) 90 00 :00 (4) hours four ( 4) mcg/actuati as needed hour s as on inhaler for needed wheezing. for wheezing. albuterol 2019- No 2{puff} Inhale 2 Inha le 2 (PROVENTIL 06-11 04-02 puffs puffs HFA;VENTOLI 00:00: 00:00 every four ev shital N HFA) 90 00 :00 (4) hours four ( 4) mcg/actuati as needed hour s as on inhaler for needed wheezing. for wheezing. doxycycline 2019- No 100MG Take 1 Take 1 (VIBRAMYCIN 06-11 capsule capsul e ) 100 MG 00:00: 23:59 (100 mg (100 mg capsule 00 :00 total) by total) b y mouth Two mouth Two (2) times (2) times a day. for a day. 10 days for 10 days sertraline 2019- No 150mg TAKE 1 & TAKE 1 & (ZOLOFT) 1-30 02- 1/2 1/2 100 MG 00:00: 00:00 TABLETS BY TABLETS tablet 00 :00 MOUTH ONCE BY MOUTH DAILY ONCE DAILY QUEtiapine 2019- No 150mg TAKE 1 & TAKE 1 & (SEROQUEL) -30 10- 1/2 1/2 100 MG 00:00: 00:00 TABLETS BY TABLETS tablet 00 :00 MOUTH ONCE BY MOUTH DAILY ONCE DAILY albuterol 2019- No 2{puff} INHALE 2 INHA LE 2 HFA 90 1-30 10-11 PUFFS PUFFS mcg/actuati 00:00: 00:00 EVERY 4 EVERY 4 on inhaler 00 :00 HOURS HOURS NEEDED NEEDED hydrOXYzine 2019- No 25mg TAKE 1 TAKE 1 (ATARAX) 25 1-30 10-11 TABLET BY TABL ET BY MG tablet 00:00: 00:00 MOUTH MOUTH 00 :00 EVERY 8 EVERY 8 HOURS HOURS NEEDED NEEDED SYNTHROID 2018- 2019- No 50ug TAKE 1 TAKE 1 50 mcg 1-30 10-11 TABLET BY TABLET BY tablet 00:00: 00:00 MOUTH ONCE MOUTH 00 :00 DAILY IN ONCE THE DAILY IN MORNING THE MORNING fluticasone 2018- No 1{puff} INHALE ONE INHALE propion-benjy 30 10-11 PUFF BY ONE PU FF meterol 00:00: 00:00 MOUTH BY MOUTH (ADVAIR) 00 :00 TWICE TWICE 250-50 DAILY DAILY mcg/dose diskus sertraline 2018- No 150mg Take 1.5 Take 1.5 (ZOLOFT) 1-24 10-11 tablets tablets 100 MG 00:00: 00:00 (150 mg (150 mg tablet 00 :00 total) by total) by mouth mouth daily. for daily. 14 days for 14 days QUEtiapine 2018- No TAKE ONE TAKE ONE (SEROQUEL) 1-24 10-11 AND A HALF AND A 100 MG 00:00: 00:00 TABLETS HALF tablet 00 :00 (150 MG) TABLETS BY MOUTH (150 MG) NIGHTLY BY MOUTH NIGHTLY sertraline 2018- No TAKE ONE TAKE ONE (ZOLOFT) 24 10-11 AND A HALF AND A 100 MG 00:00: 00:00 TABLETS HALF tablet 00 :00 (150 MG ) TABLETS BY MOUTH (150 MG ) ONCE DAILY BY MOUTH ONCE DAILY SYNTHROID 2018- No 50ug TAKE 1 TAKE 1 50 mcg 24 10-11 TABLET BY TABLET BY tablet 00:00: 00:00 MOUTH ONCE MOUTH 00 :00 DAILY ONCE DAILY hydrOXYzine 2018- No 25mg TAKE 1 TAKE 1 (ATARAX) 25 05-26 10-11 TABLET BY TABL ET BY MG tablet 00:00: 00:00 MOUTH MOUTH 00 :00 EVERY 8 EVERY 8 HOURS HOURS NEEDED FOR NEEDED ANXIETY FOR ANXIETY QUEtiapine 2018- No 150mg Take 1.5 Take 1.5 (SEROQUEL) 24 09-24 tablets tablets 100 MG 00:00: 00:00 (150 mg (150 mg tablet 00 :00 total) by total) by mouth mouth nightly. nightly. for 14 for 14 days days hydrOXYzine 2018- No 25mg Take 1 Take 1 (ATARAX) 25 1-24 09-24 tablet (25 tab let MG tablet 00:00: 00:00 mg total) (25 m g 00 :00 by mouth total) by every mouth eight (8) every hours as eight (8) needed for hours as anxiety. needed for anxiety. levothyroxi 2018- No 50ug Take 1 Take 1 ne 24 09-07 tablet (50 tablet (SYNTHROID, 00:00: 00:00 mcg total) (5 0 mcg LEVOTHROID) 00 :00 by mouth total ) by 50 MCG daily. for mouth tablet 14 days daily. for 14 days levothyroxi 2018- No 50ug Take 50 Take 50 ne 03 01-03 mcg by mcg by (SYNTHROID, 17:18: 00:00 mouth mouth LEVOTHROID) 19 :00 daily. daily. 50 MCG tablet hydrOXYzine No 100MG Take 100 Take 100 (ATARAX) 50 05-05 01-03 mg by mg by MG tablet 17:18: 00:00 mouth mouth 19 :00 nightly. nightly. gabapentin 2018- No 600MG Take 600 Take 600 (NEURONTIN) 05-05 01-03 mg by mg by 600 MG 17:18: 00:00 mouth mouth tablet 19 :00 Three (3) Three (3) times a times a day. day. SYNTHROID 2018- No 50ug TAKE 1 TAKE 1 50 mcg 1-03 10-11 TABLET BY TABLET BY tablet 00:00: 00:00 MOUTH ONCE MOUTH 00 :00 DAILY ONCE DAILY hydrOXYzine 2018- No 100mg TAKE 2 TAKE 2 (ATARAX) 50 1-03 10-11 TABLETS BY TAB LETS MG tablet 00:00: 00:00 MOUTH BY MOUTH 00 :00 NIGHTLY NIGHTLY gabapentin 2018- No 600mg TAKE 2 TAKE 2 (NEURONTIN) 1-03 10-11 CAPSULES CAPSU LES 300 MG 00:00: 00:00 BY MOUTH 3 BY MOUT H capsule 00 :00 TIMES 3 TIMES DAILY DAILY predniSONE 2018- No TAKE ONE TAKE ONE (DELTASONE) 1-03 10-11 TABLET TABLET 50 MG 00:00: 00:00 DAILY DAILY tablet 00 :00 PLEASE PLEASE START START TOMORROW TOMORROW START START (05/06/18) (05/06/18) YOU YOU RECEIVED RECEIVED YOUR FIRST YOUR DOSE IN FIRST THE ER DOSE IN TODAY THE ER TODAY albuterol 2018- No INHALE 1 INHALE 1 HFA 90 05-0511 TO 2 PUFFS TO 2 mcg/actuati 00:00: 00:00 BY MOUTH PUFF S BY on inhaler 00 :00 EVERY 4 MOUTH HOURS EVERY 4 NEEDED FOR HOURS WHEEZING NEEDED AND FOR SHORTNESS WHEEZING OF BREATH AND SHORTNESS OF BREATH gabapentin 2019- No 600mg Take 1 Take 1 (NEURONTIN) 05-05 09-07 tablet tablet 600 MG 00:00: 00:00 (600 mg (600 mg tablet 00 :00 total) by total) by mouth mouth Three (3) Three (3) times a times a day. day. albuterol 2019- No 1{puff} Inhale 1-2 In escobar (PROVENTIL 1-03 04-02 puffs 1-2 puffs HFA;VENTOLI 00:00: 00:00 every four ev shital N HFA) 90 00 :00 (4) hours four ( 4) mcg/actuati as needed hour s as on inhaler for needed wheezing for or wheezing shortness or of breath. shortness of breath. albuterol 2018- No 1{puff} Inhale 1-2 In escobar (PROVENTIL -03 04-02 puffs 1-2 puffs HFA;VENTOLI 00:00: 00:00 every four ev shital N HFA) 90 00 :00 (4) hours four ( 4) mcg/actuati as needed hour s as on inhaler for needed wheezing for or wheezing shortness or of breath. shortness of breath. predniSONE 2018- No 50MG Take 1 Take 1 (DELTASONE) 05-05 tablet (50 tab let 50 MG 00:00: 00:00 mg total) (50 mg tablet 00 :00 by mouth total) by daily. mouth Please daily. start Please tomorrow start 05/06/18 as tomorrow you 05/06/18 as received you your first received dose in your the ER first today dose in the ER today hydrOXYzine 2019- No 100MG Take 2 Take 2 (ATARAX) 50 05-05 01-24 tablets tablet s MG tablet 00:00: 00:00 (100 mg (100 mg 00 :00 total) by total) by mouth mouth nightly. nightly. levothyroxi 2019-0 2019- No 50ug Take 1 Take 1 ne 05-05 tablet (50 tablet (SYNTHROID, 00:00: 00:00 mcg total) (5 0 mcg LEVOTHROID) 00 :00 by mouth total ) by 50 MCG daily. mouth tablet daily. gabapentin No 600MG Take 1 Take 1 (NEURONTIN) 05-05 tablet tablet 600 MG 00:00: 00:00 (600 mg (600 mg tablet 00 :00 total) by total) by mouth mouth Three (3) Three (3) times a times a day. for 7 day. for days 7 days hydrOXYzine No 100MG Take 2 Take 2 (ATARAX) 50 05-05 tablets tablet s MG tablet 00:00: 00:00 (100 mg (100 mg 00 :00 total) by total) by mouth mouth nightly. nightly. for 7 days for 7 days levothyroxi No 50ug Take 1 Take 1 ne 05-05 tablet (50 tablet (SYNTHROID, 00:00: 00:00 mcg total) (5 0 mcg LEVOTHROID) 00 :00 by mouth total ) by 50 MCG daily. for mouth tablet 7 days daily. for 7 days ibuprofen 2017-05 No 800mg TAKE 1 TAKE 1 (ADVIL,MOTR 2-18 10-11 TABLET BY TABL ET BY IN) 800 MG 00:00: 00:00 MOUTH MOUTH tablet 00 :00 EVERY 8 EVERY 8 HOURS HOURS NEEDED FOR NEEDED PAIN FOR PAIN predniSONE 2017-05 No TAKE 3 TAKE 3 (DELTASONE) 06-20-11 TABLETS TABLET S 20 MG 00:00: 00:00 DAILY BY DAILY BY tablet 00 :00 MOUTH FOR MOUTH FOR 2 DAYS 2 DAYS THEN TAKE THEN TAKE 2 TABLETS 2 TABLETS DAILY FOR DAILY FOR 2 DAYS 2 DAYS THEN TAKE THEN TAKE 1 TABLET 1 TABLET DAILY FOR DAILY FOR 2 DAYS 2 DAYS ibuprofen 2017-05 No 800mg Take 1 Take 1 (ADVIL,MOTR 2-18 06-11 tablet tablet IN) 800 MG 00:00: 00:00 (800 mg (800 m g tablet 00 :00 total) by total) by mouth mouth every every eight (8) eight (8) hours as hours as needed for needed pain. for for pain. up to 30 for up to doses 30 doses predniSONE 2017-05- No 3 po daily 3 p o (DELTASONE) 06-20-28 for 2 daily fo r 20 MG 00:00: 00:00 days, then 2 days, tablet 00 :00 2 po daily then 2 p o for 2 daily for days, then 2 days, 1 po daily then 1 po for 2 days daily for 2 days buprenorphi 2017-[address] ne-naloxone 06-10 under the unde r the (SUBOXONE) 08:29: 00:00 tongue tongue 2-0.5 mg 46 :00 daily. daily. Subl buprenorphi 2017-05- No 4mg Place [address] bucky 4 ne HCl 06-10 under the mg under (SUBUTEX) 2 08:29: 00:00 tongue Two th e mg Subl SL 46 :00 (2) times tongu e tablet a day. Two (2) times a day. QUEtiapine 2017-05 No 50MG Take 50 mg Connor e 50 (SEROQUEL) 06-10 by mouth mg by 50 MG 08:29: 00:00 nightly. mouth tablet 46 :00 nightly. sertraline 2017-05 No 50MG Take 50 mg Connor e 50 (ZOLOFT) 50 06-10 by mouth mg by MG tablet 08:29: 00:00 daily. mouth 45 :00 daily. azithromyci 2017-05- No TAKE 1/2 TAKE 1/2 n 06-10- TABLET TABLET (ZITHROMAX) 00:00: 00:00 (250 MG (250 MG 500 MG 00 :00 TOTAL) BY TOTAL) BY tablet MOUTH ONCE MOUTH DAILY FOR ONCE 4 DAYS DAILY FOR 4 DAYS predniSONE 2017-05- No 40mg TAKE 2 TAKE 2 (DELTASONE) 06-10-11 TABLETS BY TAB LETS 20 MG 00:00: 00:00 MOUTH BY MOUTH tablet 00 :00 DAILY FOR DAILY FOR 4 DAYS 4 DAYS azithromyci 2017-05- No 250MG Take 1 Take 1 n 06-10 12-12 tablet tablet (ZITHROMAX) 00:00: 23:59 (250 mg (250 mg 250 MG 00 :00 total) by total) by tablet mouth mouth daily. for daily. 4 doses for 4 Take first doses 2 tablets Take together, first 2 then 1 tablets every day together, until then 1 finished. every day until finished. predniSONE 2017-05- No 40MG Take 2 Take 2 (DELTASONE) 06-10 12-12 tablets tablet s 20 MG 00:00: 23:59 (40 mg (40 mg tablet 00 :00 total) by total) by mouth mouth daily. for daily. 4 days for 4 days albuterol 2018- No 5mg Inhale 6 Inhale 6 2.5 mg /3 3- 04-02 mL (5 mg mL (5 m g mL (0.083 00:00: 00:00 total) by total ) by %) 00 :00 nebulizati nebulizat nebulizer on once. ion onc e. solution for 1 dose for 1 dose albuterol 2018- No 2{puff} Inhale 2 Inha le 2 (PROVENTIL 3-06 04-02 puffs puffs HFA;VENTOLI 00:00: 00:00 every four ev shital N HFA) 90 00 :00 (4) hours four ( 4) mcg/actuati as needed hour s as on inhaler for needed wheezing. for wheezing. albuterol 2019- No 2{puff} Inhale 2 Inha le 2 (PROVENTIL 3-06 04-02 puffs puffs HFA;VENTOLI 00:00: 00:00 every four ev shital N HFA) 90 00 :00 (4) hours four ( 4) mcg/actuati as needed hour s as on inhaler for needed wheezing. for wheezing. albuterol 2019- No 2{puff} Inhale 2 Inha le 2 (PROVENTIL 3-06 03-06 puffs puffs HFA;VENTOLI 00:00: 23:59 every four ev shital N HFA) 90 00 :00 (4) hours four ( 4) mcg/actuati as needed hour s as on inhaler for needed wheezing. for wheezing. albuterol 2018- No 2{puff} Q4H Inhale 2 Inha le 2 (PROVENTIL 5-22 05-22 puffs puffs HFA;VENTOLI 00:00: 23:59 every four ev shital N HFA) 90 00 :00 (4) hours four ( 4) mcg/actuati as needed hour s as on inhaler for needed wheezing. for wheezing. albuterol 2017- 2018- No 2{puff} Q4H Inhale 2 Inha le 2 (PROVENTIL 5-22 05-22 puffs puffs HFA;VENTOLI 00:00: 23:59 every four ev shital N HFA) 90 00 :00 (4) hours four ( 4) mcg/actuati as needed hour s as on inhaler for needed wheezing. for wheezing. albuterol 2017- 2018- No 2{puff} Q4H Inhale 2 Inha le 2 (PROVENTIL 5-22 03-06 puffs puffs HFA;VENTOLI 00:00: 00:00 every four ev shital N HFA) 90 00 :00 (4) hours four ( 4) mcg/actuati as needed hour s as on inhaler for needed wheezing. for wheezing. lidocaine 2017- 2017- No 1{patch Q24H Place [address] 1 (LIDODERM) 09-21 } patch on patch on 5 % patch 00:00: 23:59 the skin the sk in 00 :00 daily. daily. Apply to Apply to affected affected area for area for 12 hours 12 hours only each only each day (then day (then remove remove patch) patch) lidocaine 2016- 2017- No 1{patch Q24H Place [address] 1 (LIDODERM) 09-21 } patch on patch on 5 % patch 00:00: 23:59 the skin the sk in 00 :00 daily. daily. Apply to Apply to affected affected area for area for 12 hours 12 hours only each only each day (then day (then remove remove patch) patch) lidocaine 2016- 2017- No 1{patch Q24H Place [address] 1 (LIDODERM) 09-21 } patch on patch on 5 % patch 00:00: 23:59 the skin the sk in 00 :00 daily. daily. Apply to Apply to affected affected area for area for 12 hours 12 hours only each only each day (then day (then remove remove patch) patch) carisoprodo 2016- 2017- No 250MG Take 1 Take 1 l (SOMA) 09-21-25 tablet tablet 250 mg 00:00: 23:59 (250 mg (250 mg tablet 00 :00 total) by total) by mouth Four mouth (4) times Four (4) a day. for times a 3 days day. for 3 days carisoprodo 2016- No 250MG Take 1 Take 1 l (SOMA) 5-22 05-25 tablet tablet 250 mg 00:00: 23:59 (250 mg (250 mg tablet 00 :00 total) by total) by mouth Four mouth (4) times Four (4) a day. for times a 3 days day. for 3 days carisoprodo No 250MG Take 1 Take 1 l (SOMA) 5-22 05-25 tablet tablet 250 mg 00:00: 23:59 (250 mg (250 mg tablet 00 :00 total) by total) by mouth Four mouth (4) times Four (4) a day. for times a 3 days day. for 3 days clonazePAM 2015-05 No .5MG Q.5D Take 1 Take 1 (KLONOPIN) 0-09 tablet tablet 0.5 MG 00:00: (0.5 mg (0.5 mg tablet 00 total) by total) by mouth two mouth two (2) times (2) times a day as a day as needed for needed anxiety. for for up to anxiety. 7 days for up to 7 days clonazePAM 2015-05 No .5MG Q.5D Take 1 Take 1 (KLONOPIN) 0-09 tablet tablet 0.5 MG 00:00: (0.5 mg (0.5 mg tablet 00 total) by total) by mouth two mouth two (2) times (2) times a day as a day as needed for needed anxiety. for for up to anxiety. 7 days for up to 7 days clonazePAM 2015-05- No .5MG Q.5D Take 1 Take 1 (KLONOPIN) 0-09 03-06 tablet tablet 0.5 MG 00:00: 00:00 (0.5 mg (0.5 mg tablet 00 :00 total) by total) by mouth two mouth two (2) times (2) times a day as a day as needed for needed anxiety. for for up to anxiety. 7 days for up to 7 days albuterol 2015-05- No 2{puff} Q4H Inhale 2 Inha le 2 (PROVENTIL 0- 10-09 puffs puffs HFA;VENTOLI 00:00: 23:59 every four ev shital N HFA) 90 00 :00 (4) hours four ( 4) mcg/actuati as needed hour s as on inhaler for needed wheezing. for wheezing. albuterol 2015-05- No 2{puff} Q4H Inhale 2 Inha le 2 (PROVENTIL 0 05-22 puffs puffs HFA;VENTOLI 00:00: 00:00 every four ev shital N HFA) 90 00 :00 (4) hours four ( 4) mcg/actuati as needed hour s as on inhaler for needed wheezing. for wheezing. clonazePAM 2015-05- No .5MG Q.5D Take 1 Take 1 (KLONOPIN) 0-16 tablet tablet 0.5 MG 00:00: 23:59 (0.5 mg (0.5 mg tablet 00 :00 total) by total) by mouth two mouth two (2) times (2) times a day as a day as needed for needed anxiety. for for up to anxiety. 7 days for up to 7 days azithromyci 2015-05- No 250MG Take 1 Take 1 n 0- 10-14 tablet tablet (ZITHROMAX 00:00: 23:59 (250 mg (250 m g Z-DL) 250 00 :00 total) by total ) by MG tablet mouth mouth daily. for daily. 5 days 2 for 5 by mouth days 2 by today the mouth 1 by mouth today the daily for 1 by 4 days mouth daily for 4 days azithromyci 2015-05 No 250MG Take 1 Take 1 n 014 tablet tablet (ZITHROMAX 00:00: 23:59 (250 mg (250 m g Z-DL) 250 00 :00 total) by total ) by MG tablet mouth mouth daily. for daily. 5 days 2 for 5 by mouth days 2 by today the mouth 1 by mouth today the daily for 1 by 4 days mouth daily for 4 days Problems Condition Condition Condition Status Onset Resolution Last Treatin g Comments Name Details Category Date Date Treatment Clinician Date Bronchopneu Bronchopneu 34669349 Active 2019-05 monia monia 0-21 00:00: 00 Abdominal Abdominal Problem Active pain pain 2-02 01:58: 00 Diarrhea Diarrhea Problem Active 06-04 01:58: 00 Opiate Opiate 34156178 Active 2018-052019-06-13 Last misuse misuse 17:03:09 Assessm en 00:00: t & Plan : 00 Care manageme n t to assist patient with pharmacy nuria krueger for ongoing MAT with suboxone . Lumbar back Lumbar back [id number] Active 2019-01-30 Last pain pain 01-30 15:41:19 Assessm en 00:00: t & Plan : 00 2/2 DDD. Stable, well-con t rolled with tylenol and NSAI D therapie s . Continue these medicati o ns and conserva t melissa manageme n t. Consider PT. Tobacco use Tobacco use 12003665 Active 2019-06-12 Last disorder disorder 01-24 13:33:50 Asses smen 00:00: t & Plan : 00 1/2 ppd. Using NR T patches, recommen d continue d use. Declines gum or lozenges . Continue to monitor and support. Consider Nicotine Dependen Joe garcia referral . Pneumonia Pneumonia 54607111 Active 2019-02-10 Last 01-23 08:40:40 Assessm en 00:00: t & Plan : 00 Completi n g abx appropri a tely. Hypoxia Hypoxia [id number] Active 2019-01-2301-23 17:34:33 00:00: 00 Hypothyroid Hypothyroid Condition Active 2019-06-11 Last ism ism 08-02 02:11:50 Assessm en 00:00: t & Plan : 00 Formatti n g of loly s note might be differen t from the original . Lab Results Componen t Value Date TSH 8.900 (H ) 01/24/20 1 9 Increase synthroi d to 75 mc g daily an d recheck TSH in 6 weeks to 3 months . 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 On spiriva and advair maintena n ce therapie s , but recently ran out of advair. Normal O 2 sat in office today. Symptoma t ically improvin g since discharg e .Has not had formal PFTs, bu t has orders i n for these. - Continue spiriva and advair maintena n ce inhalers - Albutero l prn - Antihist a mine - Guaifene s in for cough - Consider singulai r given asthma overlap - Number provided to call and schedule PFTs - Reviewed asthma/C O PD actio n plan - Work not e provided - Follow-u p in 4 weeks with PCP Procedures Procedure Date / Time Performed Performing Clinician Genaro krueger 682 2020-02-23 06:21:00 Milan Turk 854 2020-02-23 06:21:00 BrittneyisaacMilan wilcox 874 2020-02-23 06:21:00 Milan Turk 1698 2020-02-23 06:21:00 Milan Turk [id number] 4931-10-23 06:21:00 Milan Turk ECHO W DOPPLER COMPLETE WO 2020-02-22 12:25:12 Milan Turk ar CONTRAST [id number] 5032-10-21 23:24:00 Naun See CTA CHEST PULMONARY EMBOLISM 2020-02-21 22:48:17 OCarrieChristopheNaun V gely WITH IV CONTRAST ECG 12-LEAD 2020-02-21 21:33:19 FabiChristopheNaun XR CHEST PORTABLE 2020-02-21 21:23:09 ONaun Celisughan 678 2020-02-21 21:16:00 OVimal Naun To 1696 2020-02-21 21:16:00 OVimal Naun To 1736 2020-02-21 21:16:00 O'Naun Saeedughan [id number] 2020-02-21 21:16:00 Naun Seeughan [id number] 1764-10-21 21:16:00 Pedrito Naun [facility] 2020-02-21 20:40:32 Provider, [place] CTA CHEST PE 2020-02-21 05:34:13 Tessie Cruz RAPID INFLUENZA PCR 2020-02-21 02:41:00 Tessie Cruz COVID-19 PCR 2020-02-21 01:52:00 Tessie Cruz ETHANOL 2020-02-21 01:39:00 Tessie Cruz XR CHEST PORTABLE 2020-02-21 00:59:34 Tessie Cruz COMPREHENSIVE METABOLIC PANEL 2020-02-21 00:22:00 Simi Burgess CBC W/ AUTO DIFF 2020-02-21 00:22:00 Carson Burgess TROPONIN I 2020-02-21 00:22:00 Carson Burgess URINALYSIS 2019-06-13 11:54:00 Abran Joy BASIC METABOLIC PANEL 2019-06-13 07:19:00 Joey Pettit CBC 2019-06-13 07:19:00 Joey Pettit ECG 12-LEAD 2019-06-12 10:13:27 Abran Joy BASIC METABOLIC PANEL 2019-06-12 05:47:00 Joey Pettit CBC 2019-06-12 05:47:00 Joey Pettit PERIPHERAL INTRAVENOUS DEVICE 2019-06-11 23:15:14 Wisam Mcmullen BY KAY Hardin VANCOMYCIN, RANDOM 2019-06-11 19:44:00 Antonia Wray RESPIRATORY PATHOGEN PANEL 2019-06-11 12:07:00 Barbara Guadarrama W COLORFLOW 2019-06-11 11:33:56 Rosemary Matson SPECTRAL DOPPLER BASIC METABOLIC PANEL 2019-06-11 06:42:00 Alexandria Matsonecca A HEPATIC FUNCTION PANEL 2019-06-11 06:42:00 Fransisco Matsonca A CBC 2019-06-11 06:42:00 Rosemary Matson PROTIME-INR 2019-06-11 06:42:00 Fransisco Matsonca A APTT 2019-06-11 06:42:00 Rosemary Matson A HEPATITIS B SURFACE ANTIGEN 2019-06-11 06:42:00 Rosemary Matson LACTATE, VENOUS, WHOLE BLOOD 2019-06-11 06:42:00 Rosemary Matson LACTATE, VENOUS, WHOLE BLOOD 2019-06-10 22:24:00 Rosemary Matson BLOOD CULTURE 2019-06-10 20:19:00 Lesly Cummings CRITICAL CARE 2019-06-10 19:51:00 Manuel Hernandez BLOOD CULTURE 2019-06-10 18:46:00 Lesly Cummings LACTATE, VENOUS, WHOLE BLOOD 2019-06-10 18:45:00 Lesly Cummings ECG 12-LEAD 2019-06-10 18:25:07 Lesly Cummings T4, FREE 2019-06-10 18:10:00 Meseret Mcmahon TSH 2019-06-10 18:10:00 Lesly Cummings T3, FREE 2019-06-10 18:10:00 Meseret Mcmahon TROPONIN I 2019-06-10 18:10:00 Lesly Cummings HIV ANTIGEN/ANTIBODY COMBO 2019-06-10 18:10:00 Meseret Mcmahon CTA CHEST PE 2019-06-10 16:07:29 Miguel Rosas BLOOD GAS CRITICAL CARE PANEL, 2019-06-10 15:45:00 Ratna Cummings VENOUS TOXICOLOGY SCREEN, URINE 2019-06-10 15:41:00 Miguel Rosas , URINE 2019-06-10 15:41:00 Miguel Rosas LEGIONELLA ANTIGEN, URINE 2019-06-10 15:41:00 Miguel Rosas BASIC METABOLIC PANEL 2019-06-10 12:12:00 Miguel Rosas HCG QUANTITATIVE, BLOOD 2019-06-10 12:12:00 Miguel Rosas BLOOD CULTURE 2019-06-10 12:12:00 Lesly Cummings TROPONIN I 2019-06-10 12:12:00 Miguel Rosas CBC W/ AUTO DIFF 2019-06-10 12:11:00 Miguel Rosas D-DIMER, QUANTITATIVE 2019-06-10 12:11:00 Miguel Rosas PROTIME-INR 2019-06-10 12:11:00 Miguel Rosas BLOOD GAS CRITICAL CARE PANEL, 2019-06-10 12:11:00 Miguel Rosas VENOUS RAPID INFLUENZA PCR 2019-06-10 11:18:[address] CHEST WO CONTRAST 2019-06-10 10:46:00 Miguel Rosas TOXICOLOGY SCREEN, URINE 2019-05-10 00:47:00 Comfort Obrien URINALYSIS WITH CULTURE REFLEX 2019-05-10 00:47:00 Comfort Obrien michelle ECG 12-LEAD 2019-05-09 21:50:42 Rivera, Leidy Granda COMPREHENSIVE METABOLIC PANEL 2019-05-09 21:27:00 Comfort Obrien Ma charline SALICYLATE LEVEL 2019-05-09 21:27:00 Rivera, Leidy L ACETAMINOPHEN LEVEL 2019-05-09 21:27:00 Rivera, Leidy L ETHANOL 2019-05-09 21:27:00 Rivera, Leidy L LIPASE 2019-05-09 21:27:00 Comfort Obrien T4, FREE 2019-05-09 21:27:00 Miguel Rosas TSH 2019-05-09 21:27:00 Rivera, Leidy L T3 2019-05-09 21:27:00 Miguel Rosas CBC W/ AUTO DIFF 2019-05-09 21:27:00 Comfort Obrien XR TRAUMA HIP RIGHT 2019-05-09 20:18:33 Comfort Obrien BASIC METABOLIC PANEL 2019-02-21 09:45:00 Stefania Mims Kenyatta MAGNESIUM 2019-02-21 09:45:00 Stefania Mims CBC 2019-02-21 09:45:00 Stefania Mims Kenyatta BASIC METABOLIC PANEL 2019-02-20 09:20:00 Stefania Mims Kenyatta MAGNESIUM 2019-02-20 09:20:00 Stefania Mims Kenyatta CBC 2019-02-20 09:20:00 Stefania Mims Kenyatta BASIC METABOLIC PANEL 2019-02-19 08:55:00 Stefania Mims Kenyatta MAGNESIUM 2019-02-19 08:55:00 Stefania Mims Kenyatta CBC 2019-02-19 08:55:00 Stefania Mims Kenyatta BASIC METABOLIC PANEL 2019-02-18 10:08:00 Stefania Mims Kenyatta MAGNESIUM 2019-02-18 10:08:00 Stefania Mims Kenyatta CBC 2019-02-18 10:08:00 Stefania Mims Kenyatta BASIC METABOLIC PANEL 2019-02-17 10:15:00 Stefania Mims Kenyatta MAGNESIUM 2019-02-17 10:15:00 Stefania Mims Kenyatta CBC 2019-02-17 10:15:00 Stefania Mims Kenyatta PNEUMOCYSTIS SMEAR BY DFA 2019-02-16 18:56:00 Michael Fernandez CYTOLOGY - BRONCHOAVEOLAR 2019-02-16 18:56:00 Michael Fernandez LAVAGE RESPIRATORY PATHOGEN PANEL 2019-02-16 18:56:00 Michael Fernandez BODY FLUID CELL COUNT 2019-02-16 18:55:00 Michael Fernandez BRONCHIAL CULTURE 2019-02-16 18:55:00 Michael Fernandez LEGIONELLA CULTURE 2019-02-16 18:55:00 Michael Fernandez AF[employer] SMEAR 2019-02-16 18:55:00 Michael Fernandez ASPERGILLUS GALACTOMANNAN 2019-02-16 18:55:00 Michael Fernandez AG,BAL BRONCHOSCOPY 2019-02-16 17:52:35 Provider, Not In System BRONCHOSCOPY, RIGID OR 2019-02-16 17:30:00 Alycia Crane FLEXIBLE, INCLUDE FLUOROSCOPIC GUIDANCE WHEN PERFORMED; W/BRONCHIAL ALVEOLAR LAVAGE BASIC METABOLIC PANEL 2019-02-16 08:48:00 Stefania Mims Kenyatta MAGNESIUM 2019-02-16 08:48:00 Stefania Mims Kenyatta CBC 2019-02-16 08:48:00 Stefania Mims Kenyatta XR CHEST PA AND LATERAL 2019-02-15 15:01:46 Mery Blanca BASIC METABOLIC PANEL 2019-02-15 09:55:00 Stefania Mims Kenyatta MAGNESIUM 2019-02-15 09:55:00 Stefania Mims Kenyatta CBC 2019-02-15 09:55:00 Stefania Mims Kenyatta BASIC METABOLIC PANEL 2019-02-14 10:13:00 Stefania Mims Kenyatta MAGNESIUM 2019-02-14 10:13:00 Stefania Mims Kenaytta ROSSI 2019-02-14 10:13:00 Mery Blanca CBC 2019-02-14 10:13:00 Stefania Mims Kenyatta EXTRACTABLE NUCLEAR ANTIGEN 2019-02-14 10:13:00 Mery Blanca [employer] SMEAR 2019-02-13 22:21:00 Myrex, Palee L VANCOMYCIN, RANDOM 2019-02-13 19:50:00 Stefania Mims Kenyatta PERIPHERAL INTRAVENOUS DEVICE 2019-02-13 17:33:23 Yariel Mims Kenyatta BY VAT BASIC METABOLIC PANEL 2019-02-13 09:52:00 Stefania Mims Kenyatta MAGNESIUM 2019-02-13 09:52:00 Stefania Mims Kenyatta CBC 2019-02-13 09:52:00 Stefania Mims [employer] [employer] SMEAR 2019-02-12 19:55:00 Myrex, Palee L PERIPHERAL INTRAVENOUS DEVICE 2019-02-12 18:42:52 Yariel Mims Kenyatta BY VAT ECG 12-LEAD 2019-02-12 12:37:05 Mery Blanca BASIC METABOLIC PANEL 2019-02-12 09:35:00 Stefania Mims Kenyatta MAGNESIUM 2019-02-12 09:35:00 Stefania Mims Kenyatta CBC 2019-02-12 09:35:00 Stefania Mims [place] [employer] SMEAR 2019-02-12 09:30:00 Myrex, Palee L VANCOMYCIN, TROUGH 2019-02-11 21:07:00 Stefania Mims AF[employer] SMEAR 2019-02-11 19:11:00 PeñaexTom PERIPHERAL INTRAVENOUS DEVICE 2019-02-11 12:57:35 Yariel Mims BY VAT BASIC METABOLIC PANEL 2019-02-11 09:24:00 Stefania Mims MAGNESIUM 2019-02-11 09:24:00 Stefania Mims CBC 2019-02-11 09:24:00 Stefania Mims LOWER RESPIRATORY CULTURE 2019-02-10 23:57:00 Mery Blanca TOXICOLOGY SCREEN, URINE 2019-02-10 19:10:00 Stefania Mims RESPIRATORY PATHOGEN PANEL 2019-02-10 18:00:00 Leonor Mims ECG 12-LEAD 2019-02-10 13:54:38 Stefania Mims BLOOD GAS, VENOUS 2019-02-10 13:51:00 Stefania Mims LACTATE, VENOUS, WHOLE BLOOD 2019-02-10 13:51:[address] CHEST W CONTRAST 2019-02-10 08:42:31 Abadie, Sepideh QUANTIFERON TB GOLD PLUS 2019-02-10 03:35:00 Stefania Mims BLOOD CULTURE 2019-02-09 22:02:00 Vic Vela XR CHEST PA AND LATERAL 2019-02-09 19:07:31 Kolby Pinon COMPREHENSIVE METABOLIC PANEL 2019-02-09 18:06:00 Lon Stark CBC W/ AUTO DIFF 2019-02-09 18:06:00 Lon Stark HEPATITIS C RNA, QUANTITATIVE, 2019-02-09 18:06:00 Romana Carmona loren PCR HCG QUANTITATIVE, BLOOD 2019-02-09 18:06:00 Mesfin Joy HEPATITIS C ANTIBODY 2019-02-09 18:06:00 Abadie Sepideh HIV ANTIGEN/ANTIBODY COMBO 2019-02-09 18:06:00 Abadie, Sepideh EXTRA TUBES 2019-02-09 18:06:00 Lon Stark LAVENDER EDTA EXTRA TUBE 2019-02-09 18:06:00 Lon Stark PINK EXTRA TUBE 2019-02-09 18:06:00 Lon Stark BASIC METABOLIC PANEL 2019-01-25 10:59:00 Joey Pettit CBC 2019-01-25 10:59:00 Joey Pettit BASIC METABOLIC PANEL 2019-01-24 11:20:00 Joey Pettit E MAGNESIUM 2019-01-24 11:20:00 Joey Pettit T4, FREE 2019-01-24 11:20:00 Joey Pettit CBC 2019-01-24 11:20:00 Joey Pettit TOXICOLOGY SCREEN, URINE 2019-01-24 00:58:00 Joey Pettit LOWER RESPIRATORY CULTURE 2019-01-24 00:58:00 Joey Pettit BLOOD CULTURE 2019-01-23 19:28:00 Alethea Motta ECG 12-LEAD 2019-01-23 18:31:35 Alethea Motta XR CHEST PA AND LATERAL 2019-01-23 18:02:34 Alethea Motta le RAPID INFLUENZA PCR 2019-01-23 16:28:00 Alethea Motta COMPREHENSIVE METABOLIC PANEL 2019-01-23 16:15:00 Alethea Motta BLOOD GAS, VENOUS 2019-01-23 16:15:00 Alethea Motta TSH 2019-01-23 16:15:00 Joey Pettit CBC W/ AUTO DIFF 2019-01-23 16:15:00 Alethea Motta LACTATE, VENOUS, WHOLE BLOOD 2019-01-23 16:15:00 Alethea Motta ichsridhar TROPONIN I 2019-01-23 16:15:00 Alethea Motta PRO-BNP 2019-01-23 16:15:00 Alethea Motta EXTRA TUBES 2019-01-23 16:15:00 Lore Robbins EDTA EXTRA TUBE 2019-01-23 16:15:00 Lore Robbins n ROYAL BLUE EXTRA TUBE 2019-01-23 16:15:00 Lore Robbins ED EKG INTERPRETATION 2019-01-08 00:08:53 Kolby Pinon itt XR CHEST PA AND LATERAL 2019-01-07 21:52:32 Lon Stark XR HIP 2 VIEWS LEFT 2018-11-14 14:34:07 Ruddy Tim COMPREHENSIVE METABOLIC PANEL 2018-10-11 19:18:00 Brigid Chan TSH 2018-10-11 19:18:00 Shanika Chan CBC W/ AUTO DIFF 2018-10-11 19:18:00 Shanika Chan BLOOD CULTURE 2018-10-11 19:18:00 Shanika Chan HEPATITIS C ANTIBODY 2018-10-11 19:18:00 Shanika Chan HIV ANTIGEN/ANTIBODY COMBO 2018-10-11 19:18:00 Shanika Chan URINE CULTURE 2018-10-11 19:08:00 Shanika Chan URINALYSIS WITH CULTURE REFLEX 2018-10-11 19:08:00 Sharon Chan XR CHEST PA AND LATERAL 2018-10-06 20:14:18 Marco Antonio Mcdonald XR CHEST PA AND LATERAL 2018-08-02 20:41:06 Kong Aggarwal COMPREHENSIVE METABOLIC PANEL 2018-06-30 17:48:00 Victorina Grijalva CBC W/ AUTO DIFF 2018-06-30 17:48:00 Victorina Grijalva RAPID INFLUENZA PCR 2018-06-30 17:48:00 Victorina Grijalva XR CHEST PA AND LATERAL 2018-06-30 15:47:44 Victorina Grijalva CBC W/ AUTO DIFF 2018-06-11 16:08:00 Sanjeev West XR CHEST PA AND LATERAL 2018-06-11 16:01:[address] ABDOMEN PELVIS W CONTRAST 2018-06-11 15:54:03 Deangelo West , URINE 2018-06-11 14:16:00 Sanjeev West URINALYSIS WITH CULTURE REFLEX 2018-06-11 14:16:00 Wes West COMPREHENSIVE METABOLIC PANEL 2018-06-11 14:15:00 Reilly West J LIPASE 2018-06-11 14:15:00 Sanjeev West MAGNESIUM 2018-06-11 14:15:00 Sanjeev West RAPID INFLUENZA PCR 2018-06-11 13:48:00 Kolby Moody RAPID INFLUENZA PCR 2018-05-05 16:32:00 Shanna Gomez ECG 12-LEAD 2018-05-05 16:25:24 Shanna Gomez XR CHEST PA AND LATERAL 2018-05-05 15:06:24 Shanna Gomez XR CHEST PA AND LATERAL 2018-04-19 17:39:46 Ninfa Keenan , URINE 2018-04-19 16:05:00 SoraidabeckyNinfa URINALYSIS WITH CULTURE REFLEX 2018-04-19 15:41:00 Reilly Guzman ECG 12-LEAD 2018-04-09 10:10:29 Juanita Horta XR CHEST PA AND LATERAL 2018-04-09 09:11:04 Juanita Horta COMPREHENSIVE METABOLIC PANEL 2018-04-09 08:56:00 Juanita Horta achel CBC W/ AUTO DIFF 2018-04-09 08:56:00 Juanita Horta CTA CHEST PE 2017-07-05 23:26:44 Bill Minor XR CHEST PA AND LATERAL 2017-07-05 20:25:31 Bill Lloyd Results Test Description Test Time Test Comments Text Results Atomic Results Result Comments CMP 2020-02-23 06:57:00 Test Item Value Reference Range Comments Sodium (test code = 2951-2) 140 mmol/L 136-145 Potassium (test code = 2823-3) 3.4 mmol/L 3.5-5.1 Chloride (test code = 2075-0) 109 mmol/L 99-108 CO2 (test code = 1963-8) 24 mmol/L 21-31 BUN (test code = 3094-0) 5 mg/dL 7-25 Creatinine (test code = 2160-0) 0.55 mg/dL 0.51-1 Glucose, Random (test code = 2345-7) 122 mg/dL 70-199 Calcium, Total (test code = 24468-3) 8.7 mg/dL 8.8-10.6 Osmolality (calculated) (test code = 23799-2) 278 27 0 - 295 mOsm/kg Anion Gap (test code = 98769-5) 7 3-11 Albumin (test code = 1751-7) 3.2 g/dL 3.5-5.7 Bilirubin, Total (test code = 1975-2) 0.3 mg/dL 0.3-1 Alkaline Phosphatase (test code = 6768-6) 77 34 - 1 04 IU/L ALT (test code = 1742-6) 19 7 - 52 IU/L AST (test code = 1920-8) 13 13 - 39 IU/L Protein, Total (test code = 2885-2) 6.5 g/dL 6.4-8.9 Albumin/Globulin Ratio (test code = 1759-0) 1.0 1.2- 2.3 Lab Interpretation (test code = 99089-3) Abnormal Magnesium [id number] 06:57:00 Test Item Value Reference Range Comments Magnesium (test code = 48089-5) 1.9 mg/dL 1.6-2.7 [id number] 06:57:00 Test Item Value Reference Range Comments Phosphorus (test code = 2777-1) 4.1 mg/dL 2.5-5 EGFR (MDRD)2020-02-23 06:57:00 Test Item Value Reference Range Comments EGFR (test code = 431) >60 mL/min/1.73m2 Interpret melissa Ranges for Patients with Chronic Kidney D isease: eGFR: >60 mL/min Normal eGFR : 30-59 mL/min Moderately Dec reased eGFR: 15-29 mL/min Severel y Decreased eGFR: <15 mL/min Kidn ey Failure Note: These GFR calculation do not apply in acute situations when GFR is changing rapidly or in patients o n dialysis. See additional infor naye on pathology website. [id number] 06:39:00 Test Item Value Reference Range Comments WBC (test code = 6690-2) 5.2 K/uL 3.6-11.2 RBC (test code = 789-8) 4.18 3.63 - 4.92 M/uL Hemoglobin (test code = 718-7) 13.3 g/dL 11.4-15 Hematocrit (test code = 4544-3) 38 % 31-42 Mean Cell Volume (test code = 787-2) 91 fL 74-96 Mean Cell Hemoglobin (test code = 785-6) 32 pg 26-33 Mean Cell Hemoglobin Concentration (test code = 35 g/dL 33-36 786-4) RDW (test code = 788-0) 14.0 % 12.3-17 Platelet Count (test code = 777-3) 187 K/uL 150-450 Mean Platelet Volume (test code = 46292-8) 7.2 fL 7.5-1 1.2 Lab Interpretation (test code = 57850-2) Abnormal Echo [id number] 12:33:52Patient: IMANI SCHRADER Rec#: [id number] ; Age: 11 1970 49y yr. Proc Date: 02/22/2020 Height: 172.7 cm / 68.0 inAccession#: [id number] Weight: 59 kg / 130.0 lbsSex: F BSA: 1.702 Reading: Russel Garcia, MDSonographer: Cynthia Sanchez Transthoracic Echocardiogram CPT Code(s):* Echocardiogram Comp with Color Flow Doppler and Spectral Doppler(34109) Indication:dyspneaBP: 132/76HR: 57 Summary: 1. The left ventricular chamber size is normal.2. There is normal left ventricular systolic function. The EF isestimated at 55-60%.3. No significant valvular regurgitation Findings Technical C omments:The study quality is fair. Left Ventricle:The left ventricular chamber size is normal. There is normal leftventricular systolic function. Global left ventricular wall motion andcontractility are within normal limits. The EF is estimated at 55-60%. Normal left ventricular diastolic filling is observed. Left Atrium:The left atrial chamber size is normal. Right Ventricle:The rightventricular cavity size is normal. The right ventricularglobal systolic function is normal. Right Atrium:The right atrium is normal. Aortic Valve:There is mild sclerosis of the aortic valve cusps. There is no evidenceof aortic regurgitation. Mitral Valve:The mitral valve leaflets appear normal. There is a trivial amount ofmitral regurgitation. Tricuspid Valve:The tricuspid valve leaflets are morphologically normal. There istrivial tricuspid regurgitation. Pulmonic Valve:The pulmonic valve is not well visualized. There is no evidence ofpulmonic regurgitation. Pericardium:The pericardium appears normal. Aorta:There is no dilatation of the ascending aorta. Pulmonary Artery:The main pulmonary artery is not well visualized. Venous:The inferior vena cava is normal in size with >50% inspiratory collapse,suggestive of a normal right atrial pressure (3mmHg). Measurements ChambersName Value Normal Range IVSd (2D) 0.8 cm (0.6 - 1.1) LVIDd (2D) 3.7 cm - LVIDs (2D) 2.2 cm (2.2 - 4) LVIDs (2D) index 1.29 cm/m2 - LVPWd (2D) 0.8 cm (0.6 - 1.1) Ao root diameter (2D) 2.7 cm - LA dimension 2D 3 cm - LA dimension (2D) index 1.76 cm/m2 (1.5 - 2.3) LA ESV SP 4CH (MOD) 17 ml - LA ESV SP 2CH (MOD) 24 ml - LA ESV BP (MOD) 21 ml - LA ESV BP (MOD) index 12.34 ml/m2 (16 - 28) LV FS (2D) 40.54 % (20 - 80) LV mass (2D) 82.32 g - VolumesName Value Normal Range EF Teichholz (2D) 72.12 % - Interface, Cvpa Results In - 02/22/2020 12:34 PM EDTPatient: IMANI SCHRADER [facility] Rec#: [id number] ; Age: 11 1970 49y yr. Proc Date: 02/22/2020 Height: 172.7 cm / 68.0 in Weight: 59 kg / 130.0 lbs Sex: F BSA: 1.702 Reading: Russel Garcia MD Tongue Carrier: Cynthia Sanchez _ Transthoracic Echocardiogram CPT Code(s): * Echocardiogram Comp with Color Flow Doppler and Spectral Doppler (17520) Indication: dyspnea BP: 132/76 HR: 57 Summary: 1. The left ventricular chamber size is normal. 2. There is normal left ventricular systolic function. The EF is estimated at 55-60%. 3. No significant valvular regurgitation Findings Technical Comments: The study quality is fair. Left Ventricle: The left ventricular chamber size is normal. There is normal left ventricular systolic function. Global left ventricular wall motion and contractility are within normal limits. The EF is estimated at 55-60%. Normal left ventricular diastolic filling is observed. Left Atrium: The left atrial chamber size is normal. Right Ventricle: The right ventricular cavity size is normal. The right ventricular global systolic function isnormal. Right Atrium: The right atrium is normal. Aortic Valve: There is mild sclerosis of the aortic valve cusps. There is no evidence of aortic regurgitation. Mitral Valve: The mitral valve leaflets appear normal. There is a trivial amount of mitral regurgitation. Tricuspid Valve: The tricuspid valve leaflets are morphologically normal. There is trivial tricuspid regurgitation. Pulmonic Valve: The pulmonic valve is not well visualized. There is no evidence of pulmonic regurgitation. Pericardium: The pericardium appears normal. Aorta: There is no dilatation of the ascending aorta. Pulmonary Artery: The main pulmonary artery is not well visualized. Venous: The inferior vena cava is normal in size with >50% inspiratory collapse, suggestive of a normal right atrial pressure (3mmHg). MeasurementsChambers Name Value Normal Range IVSd (2D) 0.8 cm (0.6 - 1.1) LVIDd (2D) 3.7 cm - LVIDs (2D) 2.2 cm (2.2 - 4) LVIDs (2D) index 1.29 cm/m2 - LVPWd (2D) 0.8 cm (0.6 - 1.1) Ao root diameter (2D) 2.7 cm - LA dimension 2D 3 cm - LA dimension (2D) index 1.76 cm/m2 (1.5 - 2.3) LA ESV SP 4CH (MOD) 17 ml - LA ESV SP 2CH (MOD) 24 ml - LA ESV BP (MOD) 21 ml - LA ESV BP (MOD) index 12.34 ml/m2 (16 - 28) LV FS (2D) 40.54 % (20 - 80) LV mass (2D) 82.32 g - Volumes Name Value Normal Range EF Teichholz (2D) 72.12 %- XR Chest [id number] 01:00:23IMPRESSION: Pleural parenchymal opacities with bronchiectatic change in the upper lungs suggesting some fibrotic change with retraction of the ana superiorly. These findings are better characterized on CT chest same date. Please refer to these findings and additional findings on that CT study as well.PORTABLE CHEST X-RAY HISTORY: Productive cough. Back pain. COMPARISON: CT chest 02/21/2020 TECHNIQUE: Portable single view of the chest. FINDINGS:Chest findings better evaluated on CT. RIGHT upper lobe pleural parenchymal opacity with bronchiectatic change. Similar findings at the LEFT upper lung to a lesser degree. The ana are retracted superiorly compatible with scarring. Cardiac silhouette size is within normal limits. No acute fracture evident. Interface, Imaging Results In - 02/22/2020 1:03 AM EDTPORTABLE CHEST X-RAY HISTORY: Productive cough. Back pain. COMPARISON: CT chest 02/21/2020 TECHNIQUE: Portable single view of the chest. FINDINGS: Chest findings better evaluated on CT. RIGHT upper lobe pleural parenchymal opacity with bronchiectatic change. Similar findings at the LEFT upper lung to a lesser degree. The ana are retracted superiorly compatible with scarring. Cardiac silhouette size is within normal limits. No acute fracture evident. IMPRESSION: Pleural parenchymal opacities with bronchiectatic change in the upper lungs suggesting some fibrotic change with retraction of the ana superiorly. These findings are better characterized on CT chest same date. Please refer to thesefindings and additional findings on that CT study as well. Xpert COVID19 [id number] 00:47:00 Test Item Value Reference Range Comments SARS-CoV-2 (test code = NEGATIVE Negative This is a molecular real-time 88279-2) RT-PCR test for the qualitative detection of nuc leic acid from SARS-CoV-2. is test has been authorized by [facility] under an EUA for use by a uthorized laboratories. SARS-CoV-2 RNA Resp Ql [id number]+[id number] 00:00:00 Test Item Value Reference Range Comments SARS-CoV-2 RNA Resp Ql Negative [facility] Case ID: MARKUS+probe (test code = COVID_104 [id number] 45335-3) CTA Chest Pulmonary Embolism With IV [id number] 22:55:31IMPRESSION: 1. No pulmonary embolism.2. Progressive massive fibrosis, with upper lobe fibrotic change architectural distortion, and bronchial dilatation.3. Airspace opacity in the anterior aspectof the RIGHT lower lobe suggestive of acute bronchopneumonia.4. Patchy centrilobular nodularity atthe LEFT base, with mucus filled bronchi may be due to aspiration or infectious bronchiolitis.5. Enlarged subcarinal lymph node and small bilateral hilar lymph nodes likely reactive to underlying lung disease.CTA CHEST, PE PROTOCOL: HISTORY: Chest pain; elevated d dimer COMPARISON: None INTRAVENOUS CONTRAST: 100 mL of Omnipaque 350. TECHNIQUE: Postcontrast angiographic images were obtained of the chest. 3-D images (volume rendered, surface rendered, and/or MIP images) were produced, and stored on PACS. DICOM format image data available to non-affiliated external healthcare facilities or entities on a secure, media free, reciprocally searchable basis with patient authorization for at least a 12 month period after the study. Dose reduction technique was used on this scan by utilizing automated exposure control, adjustment of the mA and/or kV according to the patient size. DLP: 173 mGy-cm. FINDINGS: [employer] Images: [employer] images demonstrate biapical fibrosis. Cardiovascular: The pulmonary arteries are well-opacified, and there are no defects. Heart size is normal. Normal caliber thoracic aorta. Pulmonary: Large regions of fibrosis are noted in both lung apices, with associated traction bronchiectasis, and superior retraction of the a focal region patchy airspace opacity is demonstrated in the anterior aspect of the RIGHT lower lobe. Mucous fills bronchi at the LEFT lung base, with multipleregions of centrilobular nodularity. Mosaic attenuation is noted lungs. Mild centrilobular nodularity demonstrated in the RIGHT lower lobe and lingula. Mediastinum: Tiny hiatal hernia. Mildly enlarged subcarinal lymph node measuring 2.4 cm. Small hilar lymph nodes demonstrated. Thoracic cage: No acuteosseous lesions demonstrated. Upper Abdomen: Gallbladder resected. Interface, Imaging Results In - 02/21/2020 10:58 PM EDTCTA CHEST, PE PROTOCOL: HISTORY: Chest pain; elevated d dimer COMPARISON: None INTRAVENOUS CONTRAST: 100 mL of Omnipaque 350. TECHNIQUE: Postcontrast angiographic images were obtained of the chest. 3-D images (volume rendered, surface rendered, and/or MIP images) were produced, and stored on PACS. DICOM format image data available to non-affiliated external healthcare facilities or entities on a secure, media free, reciprocally searchable basis with patient authorization for at least a 12 month period after the study. Dose reduction technique was used on this scan by utilizing automated exposure control, adjustment of the mA and/or kV according to the patient size. DLP: 173 mGy-cm. FINDINGS: [employer] Images: [employer] images demonstrate biapical fibrosis. Cardiovascular: The pulmonary arteries are well-opacified, and there are no defects. Heart size is normal. Normal caliber thoracic aorta. Pulmonary: Large regions of fibrosis are noted in both lung apices, with associated traction bronchiectasis, and superior retraction of the a focal region patchy airspace opacity is demonstrated in the anterior aspect of the RIGHT lower lobe. Mucous fills bronchi at the LEFT lung base, with multiple regions of centrilobular nodularity. Mosaic attenuation is noted lungs. Mild centrilobular nodularity demonstrated in the RIGHT lower lobe and lingula. Mediastinum: Tiny hiatal hernia. Mildly enlarged subcarinal lymph node measuring 2.4 cm. Small hilar lymph nodes demonstrated. Thoracic cage: No acute osseous lesions demonstrated. Upper Abdomen: Gallbladder resected. IMPRESSION: 1. No pulmonary embolism. 2. Progressive massive fibrosis, with upper lobe fibrotic change architectural distortion, and bronchial dilatation. 3. Airspace opacity in the anterior aspect of the RIGHT lower lobe suggestive of acute bronchopneumonia. 4. Patchy centrilobular nodularity at the LEFT base, with mucus filled bronchi may be due to aspiration or infectious bronchiolitis. 5. Enlarged subcarinal lymph node and small bilateral hilar lymph nodes likely reactive to underlying lung disease. [id number] 21:46:00 Test Item Value Reference Range Comments Troponin-I (test code = 84534-1) <0.03 <0.05 ng/mL [id number] 21:45:00 Test Item Value Reference Range Comments Sodium (test code = 2951-2) 139 mmol/L 136-145 Potassium (test code = 2823-3) 3.5 mmol/L 3.5-5.1 Chloride (test code = 2075-0) 104 mmol/L 99-108 CO2 (test code = 1963-8) 28 mmol/L 21-31 BUN (test code = 3094-0) 7 mg/dL 7-25 Creatinine (test code = 2160-0) 0.58 mg/dL 0.51-1 Glucose, Random (test code = 2345-7) 98 mg/dL 70-199 Calcium, Total (test code = 86098-7) 9.1 mg/dL 8.8-10.6 Osmolality (calculated) (test code = 68756-6) 275 27 0 - 295 mOsm/kg Anion Gap (test code = 55442-3) 7 3-11 EGFR (MDRD)2020-02-21 21:45:00 Test Item Value Reference Range Comments EGFR (test code = 431) >60 mL/min/1.73m2 Interpret melissa Ranges for Patients with Chronic Kidney D isease: eGFR: >60 mL/min Normal eGFR : 30-59 mL/min Moderately Dec reased eGFR: 15-29 mL/min Severel y Decreased eGFR: <15 mL/min Kidn ey Failure Note: These GFR calculation do not apply in acute situations when GFR is changing rapidly or in patients o n dialysis. See additional infor naye on pathology website. D-dimer, [id number] 21:34:00 Test Item Value Reference Range Comments D-Dimer, Quantitative (test 498 <231 ng/mL DDU This is a latex enhanced code = 9535806) immunoassay whic h is FDA approved for use in conjunction with a Clinical Pretest Probabil ity (PTP) Assessment model to exclude venous thromboem bolism (VTE) in outpatients s uspected of deep vein thromb osis (DVT) and pulmonary emboli sm (PE). The cut off value fo r this exclusion is 230 ng/mL DDU. In addition to DVT or PE, elevated D-dimer levels can alsobe found in a number of conditions inclu ding DIC, ,infect ion, trauma, inflammation,car cinoma, hospitalization, and in normal individuals Lab Interpretation (test code Abnormal = 45890-2) ECG 12 lead;2020-02-21 21:33:24Normal sinus rhythmPoor R-wave progressionNo previous ECGs availableConfirmed by NAUN SEE ([id number]) on 02/21/2020 9:33:19 PMVentricular Rate: 61Atrial Rate: 61P-R Interval: 132QRS Duration: 88Q-T Int erval: 426QTC Calculation(Bazett): 428P Esopus: 88R Esopus: 99T Esopus: 78Interface, Olpe Results In - 02/21/2020 9:33 PM EDTVentricular Rate: 61 Atrial Rate: 61 P-R Interval: 132 QRS Duration: 88 Q-T Interval: 426 QTC Calculation(Bazett): 428 P Esopus: 88 R Esopus: 99 T Esopus: 78 Impression: Normal sinus rhythmPoor R-wave progression No previous ECGs available Confirmed by NAUN SEE ([id number]) on 02/21/2020 9:33:19 PMCBC with [id number] 21:25:00 Test Item Value Reference Range Comments Differential Percent (test code = 474) Diff % Differential Absolute (test code = 475) Diff Absolute WBC (test code = 6690-2) 5.3 K/uL 3.6-11.2 RBC (test code = 789-8) 4.68 3.63 - 4.92 M/uL Hemoglobin (test code = 718-7) 14.5 g/dL 11.4-15 Hematocrit (test code = 4544-3) 43 % 31-42 Mean Cell Volume (test code = 787-2) 91 fL 74-96 Mean Cell Hemoglobin (test code = 785-6) 31 pg 26-33 Mean Cell Hemoglobin Concentration (test code 34 g/dL 33 -36 = 786-4) RDW (test code = 788-0) 13.8 % 12.3-17 Platelet Count (test code = 777-3) 188 K/uL 150-450 Mean Platelet Volume (test code = 49063-6) 7.4 fL 7.5-1 1.2 Neutrophils (test code = 65739-1) 56 % 37-80 Lymphocytes (test code = 94819-3) 33 % 10-50 Monocytes (test code = 64553-6) 8 % 0-12 Eosinophils (test code = 83140-2) 2 % 0-7 Basophils (test code = 94778-5) 1 % 0-2 Neutrophils Absolute (test code = 476) 3.0 K/uL 1.3-9 Lymphocytes Absolute (test code = 477) 1.8 K/uL 0.4-5.6 Monocytes Absolute (test code = 478) 0.4 K/uL 0-1.3 Eosinophils Absolute (test code = 479) 0.1 K/uL 0-0.8 Basophils Absolute (test code = 480) 0.1 K/uL 0-0.2 Nucleated RBCS (test code = 99042-9) 0 /100 WBC Lab Interpretation (test code = 66939-6) Abnormal Rapid Influenza PCR (02/21/2020 2:41 AM EDT)2020-02-21 02:41:00 Test Item Value Reference Range Comments Influenza A (test code = Influenza A) Negative Negative Influenza B (test code = Influenza B) Negative Negative COVID-19 PCR (02/21/2020 1:52 AM EDT)2020-02-21 01:52:00 Test Item Value Reference Range Comments SARS-CoV-2 PCR (test code = SARS-CoV-2 PCR) Negative Nega tive Ethanol,Blood (02/21/2020 1:39 AM EDT)2020-02-21 01:39:00 Test Item Value Reference Range Comments Alcohol, Ethyl (test code = Alcohol, Ethyl) <10.0 Unde fined mg/dL Troponin I (02/21/2020 12:22 AM EDT)2020-02-21 00:22:00 Test Item Value Reference Range Comments Troponin I (test code = Troponin I) <0.034 <0.034 ng/mL Comprehensive Metabolic Panel (02/21/2020 12:22 AM EDT)2020-02-21 00:22:00 Test Item Value Reference Range Comments Sodium (test code = Sodium) 140 mmol/L 135 - 145 mmol/L Potassium (test code = Potassium) 3.8 mmol/L 3.5 - 5.0 mmol /L Chloride (test code = Chloride) 101 mmol/L 98 - 107 mmol/L Anion Gap (test code = Anion Gap) 9 mmol/L 7 - 15 mmol/L CO2 (test code = CO2) 30.0 mmol/L 22.0 - 30.0 mmol/L BUN (test code = BUN) 7 mg/dL 7 - 21 mg/dL Creatinine (test code = Creatinine) 0.58 mg/dL 0.60 - 1.00 mg/dL BUN/Creatinine Ratio (test code = 12 BUN/Creatinine Ratio) EGFR CKD-EPI Non-, Female >90 >=60 m L/min/1.73m2 (test code = EGFR CKD-EPI Non-, Female) EGFR CKD-EPI , Female (test >90 >=60 mL/min/1.73m2 code = EGFR CKD-EPI , Female) Glucose (test code = Glucose) 118 mg/dL 70 - 179 mg/dL Calcium (test code = Calcium) 8.6 mg/dL 8.5 - 10.2 mg/dL Albumin (test code = Albumin) 4.0 g/dL 3.5 - 5.0 g/dL Total Protein (test code = Total Protein) 7.1 g/dL 6.5 - 8.3 g/dL Total Bilirubin (test code = Total Bilirubin) 0.5 mg/dL 0. 0 - 1.2 mg/dL AST (test code = AST) 38 U/L 14 - 38 U/L ALT (test code = ALT) 42 U/L <35 U/L Alkaline Phosphatase (test code = Alkaline 91 U/L 38 - 126 U/L Phosphatase) CBC w/ Differential (02/21/2020 12:22 AM EDT)2020-02-21 00:22:00 Test Item Value Reference Range Comments WBC (test code = WBC) 6.9 10*9/L 4.5 - 11.0 10*9/L RBC (test code = RBC) 4.55 10*12/L 4.00 - 5.20 10*12/L HGB (test code = HGB) 14.1 g/dL 12.0 - 16.0 g/dL HCT (test code = HCT) 43.6 % 36.0 - 46.0 % MCV (test code = MCV) 95.7 fL 80.0 - 100.0 fL MCH (test code = MCH) 31.1 pg 26.0 - 34.0 pg MCHC (test code = MCHC) 32.5 g/dL 31.0 - 37.0 g/dL RDW (test code = RDW) 14.6 % 12.0 - 15.0 % MPV (test code = MPV) 7.8 fL 7.0 - 10.0 fL Platelet (test code = Platelet) 217 10*9/L 150 - 440 10*9/L Neutrophils % (test code = Neutrophils %) 62.5 % Lymphocytes % (test code = Lymphocytes %) 25.5 % Monocytes % (test code = Monocytes %) 5.0 % Eosinophils % (test code = Eosinophils %) 4.2 % Basophils % (test code = Basophils %) 0.6 % Absolute Neutrophils (test code = Absolute 4.3 10*9/L 2.0 - 7.5 10*9/L Neutrophils) Absolute Lymphocytes (test code = Absolute 1.8 10*9/L 1.5 - 5.0 10*9/L Lymphocytes) Absolute Monocytes (test code = Absolute 0.4 10*9/L 0.2 - 0 .8 10*9/L Monocytes) Absolute Eosinophils (test code = Absolute 0.3 10*9/L 0.0 - 0.4 10*9/L Eosinophils) Absolute Basophils (test code = Absolute 0.0 10*9/L 0.0 - 0 .1 10*9/L Basophils) Large Unstained Cells (test code = Large 2 % 0 - 4 % Unstained Cells) Macrocytosis (test code = Macrocytosis) Slight Not Pres ent SARS-CoV-2 RNA Resp Ql [id number] 00:00:00 Test Item Value Reference Range Comments SARS-CoV-2 RNA Resp Ql Negative [facility] Case ID: MARKUS+probe (test code = COVID_104 [id number] 59034-5) #[id number] 11:54:00 Test Item Value Reference Range Comments Color, UA (test code = Color, UA) Colorless Clarity, UA (test code = Clarity, UA) Clear Specific [place], UA (test code = Specific 1.008 1.003 -1.030 [place], UA) pH, UA (test code = pH, UA) 7.5 5.0-9.0 Leukocyte Esterase, UA (test code = Leukocyte Negative Ne gative Esterase, UA) Nitrite, UA (test code = Nitrite, UA) Negative Negative Protein, UA (test code = Protein, UA) Negative Negative Glucose, UA (test code = Glucose, UA) Negative Negative Ketones, UA (test code = Ketones, UA) Negative Negative Urobilinogen, UA (test code = Urobilinogen, 0.2 mg/dL 0.2 mg/dL, 1.0 mg/dL UA) Bilirubin, UA (test code = Bilirubin, UA) Negative Negati ve Blood, UA (test code = Blood, UA) Negative Negative RBC, UA (test code = RBC, UA) 1 /HPF <=4 /HPF WBC, UA (test code = WBC, UA) 1 /HPF 0- 5 /HPF Squam Epithel, UA (test code = Squam Epithel, 1 /HPF 0- 5 /HPF UA) Bacteria, UA (test code = Bacteria, UA) None Seen None See n /HPF Mucus, UA (test code = Mucus, UA) Rare None Seen /HPF #[id number] 07:19:00 Test Item Value Reference Range Comments WBC (test code = WBC) 5.2 10*9/L 4.5- 11.0 10*9/L RBC (test code = RBC) 3.76 10*12/L 4.00- 5.20 10*12/L HGB (test code = HGB) 11.4 g/dL 12.0- 16.0 g/dL HCT (test code = HCT) 33.4 % 36.0- 46.0 % MCV (test code = MCV) 89.0 fL 80.0- 100.0 fL MCH (test code = MCH) 30.4 pg 26.0- 34.0 pg MCHC (test code = MCHC) 34.2 g/dL 31.0- 37.0 g/dL RDW (test code = RDW) 14.6 % 12.0- 15.0 % MPV (test code = MPV) 7.2 fL 7.0- 10.0 fL Platelet (test code = Platelet) 208 10*9/L 150- 440 10*9/L #[id number] 07:19:00 Test Item Value Reference Range Comments Sodium (test code = Sodium) 143 mmol/L 135- 145 mmol/L Potassium (test code = Potassium) 3.5 mmol/L 3.5- 5.0 mmol/ L Chloride (test code = Chloride) 111 mmol/L 98- 107 mmol/L CO2 (test code = CO2) 25.0 mmol/L 22.0- 30.0 mmol/L Anion Gap (test code = Anion Gap) 7 mmol/L 7- 15 mmol/L BUN (test code = BUN) 3 mg/dL 7- 21 mg/dL Creatinine (test code = Creatinine) 0.63 mg/dL 0.60- 1.00 m g/dL BUN/Creatinine Ratio (test code = 5 BUN/Creatinine Ratio) EGFR CKD-EPI Non-, Female >90 >=60 m L/min/1.73m2 (test code = EGFR CKD-EPI Non-, Female) EGFR CKD-EPI , Female (test >90 >=60 mL/min/1.73m2 code = EGFR CKD-EPI , Female) Glucose (test code = Glucose) 91 mg/dL 70- 179 mg/dL Calcium (test code = Calcium) 9.0 mg/dL 8.5- 10.2 mg/dL #[id number] 10:13:27 Test Item Value Reference Range Comments EKG Systolic BP (test code = EKG Systolic BP) EKG Diastolic BP (test code = EKG Diastolic BP) EKG Ventricular Rate (test code = EKG Ventricular 55 BPM Rate) EKG Atrial Rate (test code = EKG Atrial Rate) 55 BPM EKG P-R Interval (test code = EKG P-R Interval) 130 ms EKG QRS Duration (test code = EKG QRS Duration) 86 ms EKG Q-T Interval (test code = EKG Q-T Interval) 474 ms EKG QTC Calculation (test code = EKG QTC 453 ms Calculation) EKG Calculated P Esopus (test code = EKG Calculated 68 degrees P Esopus) EKG Calculated R Esopus (test code = EKG Calculated 68 degrees R Esopus) EKG Calculated T Esopus (test code = EKG Calculated 27 degrees T Esopus) QTC Fredericia (test code = QTC Fredericia) 460 ms #[id number] 05:47:00 Test Item Value Reference Range Comments WBC (test code = WBC) 5.9 10*9/L 4.5- 11.0 10*9/L RBC (test code = RBC) 3.43 10*12/L 4.00- 5.20 10*12/L HGB (test code = HGB) 10.4 g/dL 12.0- 16.0 g/dL HCT (test code = HCT) 31.2 % 36.0- 46.0 % MCV (test code = MCV) 90.8 fL 80.0- 100.0 fL MCH (test code = MCH) 30.2 pg 26.0- 34.0 pg MCHC (test code = MCHC) 33.2 g/dL 31.0- 37.0 g/dL RDW (test code = RDW) 14.7 % 12.0- 15.0 % MPV (test code = MPV) 7.6 fL 7.0- 10.0 fL Platelet (test code = Platelet) 199 10*9/L 150- 440 10*9/L #[id number] 05:47:00 Test Item Value Reference Range Comments Sodium (test code = Sodium) 146 mmol/L 135- 145 mmol/L Potassium (test code = Potassium) 3.0 mmol/L 3.5- 5.0 mmol/ L Chloride (test code = Chloride) 116 mmol/L 98- 107 mmol/L CO2 (test code = CO2) 25.0 mmol/L 22.0- 30.0 mmol/L Anion Gap (test code = Anion Gap) 5 mmol/L 7- 15 mmol/L BUN (test code = BUN) 7 mg/dL 7- 21 mg/dL Creatinine (test code = Creatinine) 0.54 mg/dL 0.60- 1.00 m g/dL BUN/Creatinine Ratio (test code = 13 BUN/Creatinine Ratio) EGFR CKD-EPI Non-, Female >90 >=60 m L/min/1.73m2 (test code = EGFR CKD-EPI Non-, Female) EGFR CKD-EPI , Female (test >90 >=60 mL/min/1.73m2 code = EGFR CKD-EPI , Female) Glucose (test code = Glucose) 113 mg/dL 70- 179 mg/dL Calcium (test code = Calcium) 8.5 mg/dL 8.5- 10.2 mg/dL #[id number] 19:44:00 Test Item Value Reference Range Comments Vancomycin Rm (test code = Vancomycin Rm) 15.4 ug/mL Undefi roque ug/mL #[id number] 19:27:48 Test Item Value Reference Range Comments LV Diastolic Diameter PLAX (test code = LV 5.0 cm Diastolic Diameter PLAX) LV Systolic Diameter PLAX (test code = LV Systolic 3.0 cm Diameter PLAX) IVS Diastolic Thickness (test code = IVS Diastolic 0.5 cm Thickness) LVPW Diastolic Thickness (test code = LVPW 0.7 cm Diastolic Thickness) Aortic Root Diameter (test code = Aortic Root 3.1 cm Diameter) LA Systolic Diameter LX (test code = LA Systolic 3.6 cm Diameter LX) LA Area 4C View (test code = LA Area 4C View) 14.3 cm2 LA Area 2C View (test code = LA Area 2C View) 12.9 cm2 LA Volume (test code = LA Volume) 42.4 cm3 AV Peak Velocity (test code = AV Peak Velocity) 1.4 m/s AV Peak Gradient (test code = AV Peak Gradient) 7.5 Mitral E Point Velocity (test code = Mitral E 0.0 m/s Point Velocity) Mitral A Point Velocity (test code = Mitral A 0.0 m/s Point Velocity) Mitral E to A Ratio (test code = Mitral E to A 1.2 Ratio) TR Peak Velocity (test code = TR Peak Velocity) 2.2 m/s PV Peak Velocity (test code = PV Peak Velocity) 0.9 m/s LV E' Lateral Velocity (test code = LV E' Lateral 0.1 m/s Velocity) Pulmonary Artery Systolic Pressure (test code = 19.0 mmHg Pulmonary Artery Systolic Pressure) PV peak gradient (test code = PV peak gradient) 3.41 mmHg #[id number] 12:07:00 Test Item Value Reference Range Comments Adenovirus (test code = Adenovirus) Not Detected Not Detected Coronavirus HKU1 (test code = Coronavirus HKU1) Not Detected Not Detected Coronavirus NL63 (test code = Coronavirus NL63) Not Detected Not Detected Coronavirus 229E (test code = Coronavirus 229E) Not Detected Not Detected Coronavirus OC43 (test code = Coronavirus OC43) Not Detected Not Detected Metapneumovirus (test code = Metapneumovirus) Not Detected No t Detected Rhinovirus/Enterovirus (test code = Not Detected Not Detected Rhinovirus/Enterovirus) Influenza A (test code = Influenza A) Not Detected Not Detect ed Influenza A/H1 (test code = Influenza A/H1) Not Detected Not Detected Influenza A/H3 (test code = Influenza A/H3) Not Detected Not Detected Influenza A/H1-2009 (test code = Influenza Not Detected Not D etected A/H1-2009) Influenza B (test code = Influenza B) Not Detected Not Detect ed Parainfluenza 1 (test code = Parainfluenza 1) Not Detected No t Detected Parainfluenza 2 (test code = Parainfluenza 2) Not Detected No t Detected Parainfluenza 3 (test code = Parainfluenza 3) Not Detected No t Detected Parainfluenza 4 (test code = Parainfluenza 4) Not Detected No t Detected RSV (test code = RSV) Not Detected Not Detected Bordetella pertussis (test code = Bordetella Not Detected Not Detected pertussis) Bordetella parapertussis (test code = Not Detected Not Detect ed Bordetella parapertussis) Chlamydophila (Chlamydia) pneumoniae (test code Not Detected Not Detected = Chlamydophila (Chlamydia) pneumoniae) Mycoplasma pneumoniae (test code = Mycoplasma Not Detected No t Detected pneumoniae) #[id number] 06:42:00 Test Item Value Reference Range Comments Sodium (test code = Sodium) 143 mmol/L 135- 145 mmol/L Potassium (test code = Potassium) 3.6 mmol/L 3.5- 5.0 mmol/ L Chloride (test code = Chloride) 114 mmol/L 98- 107 mmol/L CO2 (test code = CO2) 26.0 mmol/L 22.0- 30.0 mmol/L Anion Gap (test code = Anion Gap) 3 mmol/L 7- 15 mmol/L BUN (test code = BUN) 9 mg/dL 7- 21 mg/dL Creatinine (test code = Creatinine) 0.50 mg/dL 0.60- 1.00 m g/dL BUN/Creatinine Ratio (test code = 18 BUN/Creatinine Ratio) EGFR CKD-EPI Non-, Female >90 >=60 m L/min/1.73m2 (test code = EGFR CKD-EPI Non-, Female) EGFR CKD-EPI , Female (test >90 >=60 mL/min/1.73m2 code = EGFR CKD-EPI , Female) Glucose (test code = Glucose) 161 mg/dL 70- 179 mg/dL Calcium (test code = Calcium) 8.8 mg/dL 8.5- 10.2 mg/dL #[id number] 06:42:00 Test Item Value Reference Range Comments WBC (test code = WBC) 7.0 10*9/L 4.5- 11.0 10*9/L RBC (test code = RBC) 3.51 10*12/L 4.00- 5.20 10*12/L HGB (test code = HGB) 10.8 g/dL 12.0- 16.0 g/dL HCT (test code = HCT) 31.0 % 36.0- 46.0 % MCV (test code = MCV) 88.3 fL 80.0- 100.0 fL MCH (test code = MCH) 30.8 pg 26.0- 34.0 pg MCHC (test code = MCHC) 34.8 g/dL 31.0- 37.0 g/dL RDW (test code = RDW) 14.0 % 12.0- 15.0 % MPV (test code = MPV) 7.6 fL 7.0- 10.0 fL Platelet (test code = Platelet) 181 10*9/L 150- 440 10*9/L #[id number] 06:42:00 Test Item Value Reference Range Comments Lactate, Venous (test code = Lactate, Venous) 1.7 mmol/L 0. 5- 1.8 mmol/L #[id number] 06:42:00 Test Item Value Reference Range Comments Hep B Surface Ag (test code = Hep B Surface Ag) Nonreactive Nonreactive #[id number] 06:42:00 Test Item Value Reference Range Comments Albumin (test code = Albumin) 3.0 g/dL 3.5- 5.0 g/dL Total Protein (test code = Total Protein) 5.7 g/dL 6.5- 8 .3 g/dL Total Bilirubin (test code = Total Bilirubin) 0.1 mg/dL 0. 0- 1.2 mg/dL Bilirubin, Direct (test code = Bilirubin, Direct) <0.10 0.00- 0.40 mg/dL AST (test code = AST) 14 U/L 14- 38 U/L ALT (test code = ALT) 14 U/L <35 U/L Alkaline Phosphatase (test code = Alkaline 55 U/L 38- 1 26 U/L Phosphatase) #[id number] 06:42:00 Test Item Value Reference Range Comments PT (test code = PT) 11.2 sec 10.2- 13.1 sec INR (test code = INR) 0.97 #[id number] 06:42:00 Test Item Value Reference Range Comments APTT (test code = APTT) 28.9 sec 25.9- 39.5 sec Heparin Correlation (test code = Heparin <0.2 Correlation) #[id number] 00:00:00Peripheral Intravenous Device by Vascular Access Team (06/11/2019 11:15 PM EST)NarrativePerformed Claudia Maurer RN 06/11/2019 11:16 PM VENOUS ACCESS ULTRASOUND PROCEDURE NOTE Indications: Poor venous access. The Venous Access Team has assessed this patient for the placement of a PIV. Ultrasound guidance was necessary to obtain access. Procedure Details:Risks, benefits and alternatives discussed with patient. Identity of the patient was confirmed via name, medical record number and date of . The availability of the correct equipment was verified. The vein wasidentified for ultrasound catheter insertion. Field was prepared with necessary supplies and equipment. Probe cover and sterile gel utilized. Insertion site was prepped with chlorhexidine solution and allowed to dry. The catheter extension was primed with normal saline.A(n) 22 g x 1.75 inch catheter was placed in the left forearm with 1 attempt(s). Catheter aspirated, 3 mL blood return present. The catheter was then flushed with 10 mL of normal saline. Insertion site cleansed, and dressing applied per residential concierge guidelines. The catheter was inserted with difficulty due to patient agitation by Nancy Maurer RN. Radha RN was notified. Thank you, Nancy Maurer RN VenousAccess Team [phone] Workup / Procedure Time: 45 minutes See vein image below:#[id number] 22:24:00 Test Item Value Reference Range Comments Lactate, Venous (test code = Lactate, Venous) 1.6 mmol/L 0. 5- 1.8 mmol/L #[id number] 18:45:00 Test Item Value Reference Range Comments Lactate, Venous (test code = Lactate, Venous) 2.8 mmol/L 0. 5- 1.8 mmol/L #[id number] 18:25:07 Test Item Value Reference Range Comments EKG Systolic BP (test code = EKG Systolic BP) EKG Diastolic BP (test code = EKG Diastolic BP) EKG Ventricular Rate (test code = EKG Ventricular 64 BPM Rate) EKG Atrial Rate (test code = EKG Atrial Rate) 64 BPM EKG P-R Interval (test code = EKG P-R Interval) 130 ms EKG QRS Duration (test code = EKG QRS Duration) 88 ms EKG Q-T Interval (test code = EKG Q-T Interval) 496 ms EKG QTC Calculation (test code = EKG QTC 511 ms Calculation) EKG Calculated P Esopus (test code = EKG Calculated 79 degrees P Esopus) EKG Calculated R Esopus (test code = EKG Calculated 71 degrees R Esopus) EKG Calculated T Esopus (test code = EKG Calculated 59 degrees T Esopus) QTC Fredericia (test code = QTC Fredericia) 506 ms #[id number] 18:10:00 Test Item Value Reference Range Comments Troponin I (test code = Troponin I) <0.034 <0.034 ng/mL #[id number] 18:10:00 Test Item Value Reference Range Comments TSH (test code = TSH) 4.446 uIU/mL 0.600- 3.300 uIU/mL #[id number] 18:10:00 Test Item Value Reference Range Comments HIV Antigen/Antibody Combo (test code = HIV Nonreactive Nonr eactive Antigen/Antibody Combo) #[id number] 18:10:00 Test Item Value Reference Range Comments Free T4 (test code = Free T4) 0.88 ng/dL 0.71- 1.40 ng/dL #[id number] 18:10:00 Test Item Value Reference Range Comments T3, Free (test code = T3, Free) 3.39 pg/mL 2.71- 6.16 pg/mL #[id number] 16:42:18CTA Chest W Contrast (06/10/2019 4:07 PM EST)SpecimenImpressionsPerformed At No evidence of pulmonary embolism. No other same-day changes including bilateral lower lobe bronchial wall thickening, nodular and micronodular opacities which may represent infectious bronchiolitis. Stable upper lobe predominant bronchiectasis, architectural distortion and consolidation representing chronic lung disease.[facility] [place] RADNarrativePerformed AtEXAM: CTA CHEST W CONTRASTDATE: 06/10/2019 4:07 PMACCESSION: [id number]: 06/10/2019 4:42 PMINTERPRETATION LOCATION: [facility] CLINICAL INDICATION: 49 years old Female with elevated D - dimer. Patient already had chest CT for PNA however now reports L chest pain ; PE argenis pected, intermediate prob, positive D - dimer COMPARISON: Same day CT of the chest and priors TECHNIQUE: A spiral CTA scan was obtained with IV contrast from the lung apices to the lung bases. Images were reconstructed in the axial plane. Multiplanar reformatted and MIP images were provided. FINDINGS: PULMONARY ARTERIES: No pulmonary embolism. AIRWAYS, LUNGS, PLEURA: Clear central tracheobronchialtree. Similar mild bronchial wall thickening, mucoid impacted airways and scattered nodular/micronodular opacities in bilateral lower lobes. Bilateral upper lobe predominant bronchiectasis, architectural distortion and consolidations, unchanged. No pleural effusion. MEDIASTINUM: Normal heart size. No pericardial effusion. Normal caliber thoracic aorta. Stable mediastinal and inferior paraaorticlymphadenopathy measuring up to 1 cm. IMAGED ABDOMEN: Unremarkable. SOFT TISSUES: Unremarkable. BONES: Unremarkable. [facility] [place] RADProcedure NoteInterface, Rad Results In - 06/10/2019 6:16 PM ESTEXAM: CTA CHEST W CONTRAST DATE: 06/10/2019 4:07 PM DICTATED: 06/10/2019 4:42 PM INTERPRETATION LOCATION: [facility] CLINICAL INDICATION: 49 years old Female with elevated D - dimer. Patient already had chest CT for PNA however now reports L chest pain ; PE suspected, intermediate prob, positive D - dimer COMPARISON: Same day CT of the chest and priors TECHNIQUE: A spiral CTA scan was obtained with IV contrast from the lung apices to the lung bases. Images were reconstructed in the axial plane. Multiplanar reformatted and MIP images were provided. FINDINGS: PULMONARY ARTERIES: No pulmonary embolism. AIRWAYS, LUNGS, PLEURA: Clear central tracheobronchial tree. Similar mild bronchial wall thi ckening, mucoid impacted airways and scattered nodular/micronodular opacities in bilateral lower lobes. Bilateral upper lobe predominant bronchiectasis, architectural distortion and consolidations, unchanged. No pleural effusion. MEDIASTINUM: Normal heart size. No pericardial effusion. Normal caliber thoracic aorta. Stable mediastinal and inferior paraaortic lymphadenopathy measuring up to 1 cm. IMAGED ABDOMEN: Unremarkable. SOFT TISSUES: Unremarkable. BONES: Unremarkable. IMPRESSION: No evidence ofpulmonary embolism. No other same-day changes including bilateral lower lobe bronchial wall thickening, nodular and micronodular opacities which may represent infectious bronchiolitis. Stable upper lobe predominant bronchiectasis, architectural distortion and consolidation representing chronic lung disease.Performing OrganizationAddressCity/State/ZipcodePhone [facility] [id number] [place] [address]#[id number] 15:45:00 Test Item Value Reference Range Comments Specimen Source (test code = Specimen Venous Source) FIO2 Venous (test code = FIO2 Venous) Not Specified pH, Venous (test code = pH, Venous) 7.34 7.32-7.43 pCO2, Giovanni (test code = pCO2, Giovanni) 49 mm Hg 40- 60 mm Hg pO2, Giovanni (test code = pO2, Giovanni) 45 mm Hg 30- 55 mm Hg HCO3, Giovanni (test code = HCO3, Giovanni) 25 mmol/L 22- 27 mmol/L Base Excess, Giovanni (test code = Base Excess, 0.2 -2.0- 2.0 Giovanni) O2 Saturation, Venous (test code = O2 78.0 % 40.0- 85.0 % Saturation, Venous) Sodium Whole Blood (test code = Sodium Whole 139 mmol/L 135 - 145 mmol/L Blood) Potassium, Bld (test code = Potassium, Bld) 3.5 mmol/L 3.4- 4.6 mmol/L Calcium, Ionized Venous (test code = 4.53 mg/dL 4.40- 5.40 mg/dL Calcium, Ionized Venous) Glucose Whole Blood (test code = Glucose 150 mg/dL 70- 179 mg/dL Whole Blood) Lactate, Venous (test code = Lactate, 2.3 mmol/L 0.5- 1.8 m mol/L Venous) Hgb, blood gas (test code = Hgb, blood gas) 12.00 g/dL 12.0 0- 16.00 g/dL #[id number] 15:41:00 Test Item Value Reference Range Comments Legionella, Urinary Antigen (test code = Negative Negativ e Legionella, Urinary Antigen) #[id number] 15:41:00 Test Item Value Reference Range Comments Test, Urine (test code = Test, Negative Negative Urine) #[id number] 15:41:00 Test Item Value Reference Range Comments Amphetamine Screen, Ur (test code = Amphetamine <500 ng/mL Not Applicable Screen, Ur) Barbiturate Screen, Ur (test code = Barbiturate <200 ng/mL Not Applicable Screen, Ur) Benzodiazepine Screen, Urine (test code = =/>200 ng/mL Not Ap plicable Benzodiazepine Screen, Urine) Cannabinoid Scrn, Ur (test code = Cannabinoid =/>20 ng/mL No t Applicable Scrn, Ur) Methadone Screen, Urine (test code = Methadone <300 ng/mL N ot Applicable Screen, Urine) Cocaine(Metab.)Screen, Urine (test code = =/>150 ng/mL Not Ap plicable Cocaine(Metab.)Screen, Urine) Opiate Scrn, Ur (test code = Opiate Scrn, Ur) <300 ng/mL No t Applicable #[id number] 14:25:17CT Chest Wo Contrast (06/10/2019 10:46 AM EST)SpecimenAddendaAddendum by Miah Purdy MD on 06/10/2019 2:25 PM Please note the last line in the addendum is: Stable mediastinal and inferior para-aortic lymphadenopathy measuring up to 1 cm.ImpressionsPerformed AtImproving bilateral patchy groundglass pulmonary parenchymal opacities which are nonspecific however could represent improving inflammation versus atypical infection. Stable upper lobe predominant bronchiectasis, architectural distor tion and consolidation likely representing chronic lung disease. ADDENDUM by Dr.Muthu Rajwinder BOTELLO(06/10/2019 2:17 PM): On review, the following additional findings were noted: New mild bronchial wall thickening, mucoid impacted airways, scattered nodular opacities and micronodules in bilateral lower lobes; this may represent new infectious bronchiolitis. Recommend follow-up CT in 6-8 weeks to ensure clearing. Stable mediastinal and right inferior paratracheal lymphadenopathy measuring up to 1 cm.[facility] [place] RADNarrativePerformed AtEXAM: CT CHEST WO CONTRASTDATE: 06/10/2019 10:46 AMACCESSION: [id number]: 06/10/2019 11:18 AMINTERPRETATION LOCATION: [facility] [place] CLINICAL INDICATION: 49 years old Female with eval bronchiectasis and prior groundglass opacities ; Bronchiectasis COMPARISON: CT of the chest from 02/10/2019 TECHNIQUE: A spiral CT scan was obtained without IV contrast f rom the thoracic inlet through the hemidiaphragms. Images were reconstructed in the axial plane. Coronal and sagittal reformatted images of the chest were also provided for further evaluation of the lung parenchyma. FINDINGS: AIRWAYS, LUNGS, PLEURA: Clear central tracheobronchial tree. Bilateral upper lobe predominant bronchiectasis, architectural distortion and consolidations, similar to prior study. Improved patchy subpleural and peribronchial vascular groundglass opacities. No new lung consolidation. No pleural effusion. MEDIASTINUM: Normal heart size. No pericardial effusion. Normal caliber thoracic aorta. Mediastinal adenopathy measuring up to 0.7 cm in the pretracheal region (2:23),previously 0.8 cm. IMAGED ABDOMEN: Sequelae of cholecystectomy. SOFT TISSUES: Unremarkable. BONES: Unremarkable. [facility] [place]Procedure NoteInterface, Rad Results In - 06/10/2019 2:23 PM ESTEXAM: CT CHEST WOCONTRAST DATE: 06/10/2019 10:46 AM DICTATED: 06/10/2019 11:18 AM INTERPRETATION LOCATION: [facility] CLINICAL INDICATION: 49 years old Female with eval bronchiectasis and prior groundglass opacities ; Bronchiectasis COMPARISON: CT of the chest from 02/10/2019 TECHNIQUE: A spiral CT scan was obtained without IV contrast from the thoracic inlet through the hemidiaphragms. Images were reconstructed in the axial plane. Coronal and sagittal reformatted images of the chest were also provided for further evaluation of the lung parenchyma. FINDINGS: AIRWAYS, LUNGS, PLEURA: Clear central tracheobronchial tree. Bilateral upper lobe predominant bronchiectasis, architectural distortion and consolidations, similar to prior study. Improved patchy subpleural and peribronchial vascular groundglass opacities. No new lung consolidation. No pleural effusion. MEDIASTINUM: Normal heart size. Nopericardial effusion. Normal caliber thoracic aorta. Mediastinal adenopathy measuring up to 0.7 cm in the pretracheal region (2:23), previously 0.8 cm. IMAGED ABDOMEN: Sequelae of cholecystectomy. SOFTTISSUES: Unremarkable. BONES: Unremarkable. IMPRESSION: Improving bilateral patchy groundglass pulmonary parenchymal opacities which are nonspecific however could represent improving inflammation versus atypical infection. Stable upper lobe predominant bronchiectasis, architectural distortion and consolidation likely representing chronic lung disease. ADDENDUM by Dr.Muthu Rajwinder BOTELLO(06/10/2019 2:17 PM): On review, the following additional findings were noted: New mild bronchial wall thickening, mucoid impacted airways, scattered nodular opacities and micronodules in bilateral lower lobes; this may represent new infectious bronchiolitis. Recommend follow-up CT in 6-8 weeks to ensure clearing. Stable mediastinal and right inferior paratracheal lymphadenopathy measuring up to 1 c m.Performing OrganizationAddressCity/State/ZipcodePhone NumberCLAIBORNE COUNTY MED[facility] [id number] [facility] [place] [address]#[id number] 12:12:00 Test Item Value Reference Range Comments Sodium (test code = Sodium) 141 mmol/L 135- 145 mmol/L Potassium (test code = Potassium) 3.2 mmol/L 3.5- 5.0 mmol/ L Chloride (test code = Chloride) 103 mmol/L 98- 107 mmol/L CO2 (test code = CO2) 26.0 mmol/L 22.0- 30.0 mmol/L Anion Gap (test code = Anion Gap) 12 mmol/L 7- 15 mmol/L BUN (test code = BUN) 13 mg/dL 7- 21 mg/dL Creatinine (test code = Creatinine) 0.65 mg/dL 0.60- 1.00 m g/dL BUN/Creatinine Ratio (test code = 20 BUN/Creatinine Ratio) EGFR CKD-EPI Non-, Female >90 >=60 m L/min/1.73m2 (test code = EGFR CKD-EPI Non-, Female) EGFR CKD-EPI , Female (test >90 >=60 mL/min/1.73m2 code = EGFR CKD-EPI , Female) Glucose (test code = Glucose) 116 mg/dL 70- 179 mg/dL Calcium (test code = Calcium) 9.7 mg/dL 8.5- 10.2 mg/dL #[id number] 12:12:00 Test Item Value Reference Range Comments Troponin I (test code = Troponin I) <0.034 <0.034 ng/mL #[id number] 12:12:00 Test Item Value Reference Range Comments hCG Quant, Blood (test code = hCG Quant, Blood) <5.0 0.0- 5.0 IU/L #[id number] 12:11:00 Test Item Value Reference Range Comments Specimen Source (test code = Specimen Source) Venous FIO2 Venous (test code = FIO2 Venous) Room Air pH, Venous (test code = pH, Venous) 7.33 7.32-7.43 pCO2, Giovanni (test code = pCO2, Giovanni) 57 mm Hg 40- 60 mm Hg pO2, Giovanni (test code = pO2, Giovanni) 24 mm Hg 30- 55 mm Hg HCO3, Giovanni (test code = HCO3, Giovanni) 29 mmol/L 22- 27 mmol/L Base Excess, Giovanni (test code = Base Excess, Giovanni) 3.6 -2.0-2.0 O2 Saturation, Venous (test code = O2 43.6 % 40.0- 85.0 % Saturation, Venous) Sodium Whole Blood (test code = Sodium Whole 141 mmol/L 135 - 145 mmol/L Blood) Potassium, Bld (test code = Potassium, Bld) 3.1 mmol/L 3.4- 4.6 mmol/L Calcium, Ionized Venous (test code = Calcium, 5.01 mg/dL 4. 40- 5.40 mg/dL Ionized Venous) Glucose Whole Blood (test code = Glucose Whole 123 mg/dL 7 0- 179 mg/dL Blood) Lactate, Venous (test code = Lactate, Venous) 1.2 mmol/L 0. 5- 1.8 mmol/L Hgb, blood gas (test code = Hgb, blood gas) 14.30 g/dL 12.0 0- 16.00 g/dL #[id number] 12:11:00 Test Item Value Reference Range Comments PT (test code = PT) 11.7 sec 10.2- 13.1 sec INR (test code = INR) 1.02 #[id number] 12:11:00 Test Item Value Reference Range Comments WBC (test code = WBC) 6.7 10*9/L 4.5- 11.0 10*9/L RBC (test code = RBC) 4.45 10*12/L 4.00- 5.20 10*12/L HGB (test code = HGB) 13.6 g/dL 12.0- 16.0 g/dL HCT (test code = HCT) 40.1 % 36.0- 46.0 % MCV (test code = MCV) 90.0 fL 80.0- 100.0 fL MCH (test code = MCH) 30.6 pg 26.0- 34.0 pg MCHC (test code = MCHC) 34.0 g/dL 31.0- 37.0 g/dL RDW (test code = RDW) 14.3 % 12.0- 15.0 % MPV (test code = MPV) 7.3 fL 7.0- 10.0 fL Platelet (test code = Platelet) 243 10*9/L 150- 440 10*9/L Neutrophils % (test code = Neutrophils %) 66.9 % Lymphocytes % (test code = Lymphocytes %) 26.3 % Monocytes % (test code = Monocytes %) 2.4 % Eosinophils % (test code = Eosinophils %) 1.9 % Basophils % (test code = Basophils %) 0.2 % Absolute Neutrophils (test code = Absolute 4.5 10*9/L 2.0- 7.5 10*9/L Neutrophils) Absolute Lymphocytes (test code = Absolute 1.8 10*9/L 1.5- 5.0 10*9/L Lymphocytes) Absolute Monocytes (test code = Absolute 0.2 10*9/L 0.2- 0. 8 10*9/L Monocytes) Absolute Eosinophils (test code = Absolute 0.1 10*9/L 0.0- 0.4 10*9/L Eosinophils) Absolute Basophils (test code = Absolute 0.0 10*9/L 0.0- 0. 1 10*9/L Basophils) Large Unstained Cells (test code = Large 2 % 0- 4 % Unstained Cells) #[id number] 12:11:00 Test Item Value Reference Range Comments D-Dimer (test code = D-Dimer) 278 ng/mL DDU <230 ng/mL DDU #[id number] 11:18:00 Test Item Value Reference Range Comments Influenza A (test code = Influenza A) Negative Negative Influenza B (test code = Influenza B) Negative Negative #[id number] 00:00:00CRITICAL CARE (06/10/2019 7:51 PM EST)NarrativePerformed AtManuel Hernandez MD 06/10/2019 7:51 PMCritical CarePerformed by: Manuel Hernandez MDAuthorized by: Manuel Hernandez MD Critical care provider statement: Critical care time (minutes): 34 Critical care time was exclusive of: Separately billable procedures and treating other patients and teaching time Critical care was necessary to treat or prevent imminent or life-threatening deterioration of the following conditions: Shock and sepsis Critical care was time spent personally by me on the following activities: Blood draw for specimens, development of treatment plan with patient or surrogate, discussions with consultants, evaluation of patient's response to treatment, examination of patient, obtaining history from patient or surrogate, interpretation of cardiac output measurements, ordering and performing treatments and interventions, ordering and review of laboratory studies, ordering and reviewof radiographic studies, pulse oximetry, re-evaluation of patient's condition and review of old charts I assumed direction of critical care for this patient from another provider in my specialty: no [facility] POINT OF CARE TESTINGPerforming OrganizationAddressCity/State/ZipcodePhone NumberF[facility] POINT OF CARE [id number] [place] [phone] - Color of Urine by Auto 2019-06-04 01:24:00 Test Item Value Reference Range Comments Color of Urine by Auto (test code = 00456-6) Straw Lab - Urine clarity by refractometry [id number] 01:24:00 Test Item Value Reference Range Comments Urine clarity by refractometry automated (test code = Clear CLEAR 17497-6) Lab - Specific gravity by [id number] 01:24:00 Test Item Value Reference Range Comments Specific gravity by refractometry (test code = 1.021 1 .003-1.030 50634-7) Lab - Urine glucose detection by test [id number] 01:24:00 Test Item Value Reference Range Comments Urine glucose detection by test strip (test code = Negative NEGATIVE 72591-8) Lab - Urine total bilirubin detection by automated test [id number] 01:24:00 Test Item Value Reference Range Comments Urine total bilirubin detection by automated test Negative NEGATIVE strip (test code = 71667-3) Lab - Urine ketones detection by automated test [id number] 01:24:00 Test Item Value Reference Range Comments Urine ketones detection by automated test strip Negative NEGATIVE (test code = 50005-3) Lab - Urine erythrocytes count by automated test strip (number/volume)2019-06-04 01:24:00 Test Item Value Reference Range Comments Urine erythrocytes count by automated test strip Negative NEGATIVE (number/volume) (test code = 95768-6) Lab - Urine pH measurement by automated test [id number] 01:24:00 Test Item Value Reference Range Comments Urine pH measurement by automated test strip (test 5.0 5.0-8.0 code = 10997-1) Lab - Urine protein detection by automated test [id number] 01:24:00 Test Item Value Reference Range Comments Urine protein detection by automated test strip Negative NEGATIVE (test code = 10035-8) Lab - Urine urobilinogen detection by automated test [id number] 01:24:00 Test Item Value Reference Range Comments Urine urobilinogen detection by automated test strip < 2.0 0.2-8.0 (test code = 41526-7) Lab - Urine nitrite detection by automated test [id number] 01:24:00 Test Item Value Reference Range Comments Urine nitrite detection by automated test strip Negative NEGATIVE (test code = 90836-5) Lab - Urine leukocyte esterase detection by automated test [id number] 01:24:00 Test Item Value Reference Range Comments Urine leukocyte esterase detection by automated Negative NEGATIVE test strip (test code = 62547-3) Lab - Automated urine sediment leukocyte count by microscopy (number/high power field)2019-06-04 01:24:00 Test Item Value Reference Range Comments Automated urine sediment leukocyte count by microscopy 0-5 0-5 (number/high power field) (test code = 5821-4) Lab - Automated urine sediment erythrocyte count by microscopy (number/high power field)2019-06-04 01:24:00 Test Item Value Reference Range Comments Automated urine sediment erythrocyte count by 0-5 NO NE SEEN microscopy (number/high power field) (test code = 44445-5) Lab - Automated squamous epithelial cells count in urine sediment (number/area) 2019-06-04 01:24:00 Test Item Value Reference Range Comments Automated squamous epithelial cells count in urine 0-5 0-5 sediment (number/area) (test code = 08786-7) Lab - Urine sediment bacteria count by microscopy (number/high power field) 2019-06-04 01:24:00 Test Item Value Reference Range Comments Urine sediment bacteria count by microscopy NONE SEEN NONE SEEN (number/high power field) (test code = 5769-5) Lab - Microscopic analysis of urine for mucous yiylahq8015-76-98:24:00 Test Item Value Reference Range Comments Microscopic analysis of urine for mucous threads (test TRACE NONE SEEN code = XCJ2238) Lab - Serum or plasma chloride measurement (moles/volume)2019-06-03 23:44:00 Test Item Value Reference Range Comments Serum or plasma chloride measurement 100 mmol/L 98-107 (moles/volume) (test code = 2075-0) Lab - Carbon dioxide measurement (moles/volume)2019-06-03 23:44:00 Test Item Value Reference Range Comments Carbon dioxide measurement (moles/volume) (test 23.3 mmol/L - code = 02217-4) Lab - Serum or plasma glucose measurement (mass/volume)2019-06-03 23:44:00 Test Item Value Reference Range Comments Serum or plasma glucose measurement (mass/volume) 97 mg/dL 70-120 (test code = 2345-7) Lab - Serum or plasma urea nitrogen measurement (mass/volume)2019-06-03 23:44:00 Test Item Value Reference Range Comments Serum or plasma urea nitrogen measurement 10 mg/dL 6-20 (mass/volume) (test code = 3094-0) Lab - Serum or plasma creatinine measurement (mass/volume)2019-06-03 23:44:00 Test Item Value Reference Range Comments Serum or plasma creatinine measurement 0.8 mg/dL 0.5-1.0 (mass/volume) (test code = 2160-0) Lab - Serum or plasma urea nitrogen/creatinine mass [id number] 23:44:00 Test Item Value Reference Range Comments Serum or plasma urea nitrogen/creatinine mass 12.50 mg/dL 12 .00-20.00 ratio (test code = 3097-3) Lab - Serum or plasma calcium measurement (mass/volume)2019-06-03 23:44:00 Test Item Value Reference Range Comments Serum or plasma calcium measurement (mass/volume) 9.1 mg/dL 8.4-10.6 (test code = 24611-6) Lab - Serum or plasma alkaline phosphatase measurement (enzymatic activity/volume)2019-06-03 23:44:00 Test Item Value Reference Range Comments Serum or plasma alkaline phosphatase measurement 82 U/L 35-104 (enzymatic activity/volume) (test code = 6768-6) Lab - Serum or plasma aspartate aminotransferase measurement with P-5'-P (enzymatic activity/volume)2019-06-03 23:44:00 Test Item Value Reference Range Comments Serum or plasma aspartate aminotransferase 12 U/L 9-37 measurement with P-5'-P (enzymatic activity/volume) (test code = 70215-6) Lab - Serum or plasma alanine aminotransferase measurement with P-5'-P (enzymatic activity/volume)2019-06-03 23:44:00 Test Item Value Reference Range Comments Serum or plasma alanine aminotransferase measurement 13 U/L 8-54 with P-5'-P (enzymatic activity/volume) (test code = 1743-4) Lab - Serum or plasma total bilirubin measurement (mass/volume)2019-06-03 23:44:00 Test Item Value Reference Range Comments Serum or plasma total bilirubin measurement 0.29 mg/dL 0.00 -1.00 (mass/volume) (test code = 1975-2) Lab - Serum or plasma protein measurement (mass/volume)2019-06-03 23:44:00 Test Item Value Reference Range Comments Serum or plasma protein measurement (mass/volume) 7.4 g/dL 6.4-8.2 (test code = 2885-2) Lab - Serum or plasma albumin measurement by bromocresol purple (BCP) dye binding method (mass/volume)2019-06-03 23:44:00 Test Item Value Reference Range Comments Serum or plasma albumin measurement by bromocresol 4.2 g/dL 3.5-5.2 purple (BCP) dye binding method (mass/volume) (test code = 92214-4) Lab - Serum globulin measurement by calculation (mass/volume)2019-06-03 23:44:00 Test Item Value Reference Range Comments Serum globulin measurement by calculation 3.2 mg/dL 2.3-3. 5 (mass/volume) (test code = 70498-1) Lab - Serum or plasma albumin/globulin mass [id number] 23:44:00 Test Item Value Reference Range Comments Serum or plasma albumin/globulin mass ratio (test 1.0 g/dL 1.1-1.9 code = 1759-0) Lab - Serum or plasma anion [id number] 23:44:00 Test Item Value Reference Range Comments Serum or plasma anion gap (test code = 40086-8) 19.0 mmol/L Lab - Osmolality of Serum or Plasma by dqonlqlgovx5433-15-20 23:44:00 Test Item Value Reference Range Comments Osmolality of Serum or Plasma by calculation 274.0 mOsm/kg 285 -295 (test code = 51172-1) Lab - Serum or plasma lipase measurement (enzymatic activity/volume)2019-06-03 23:44:00 Test Item Value Reference Range Comments Serum or plasma lipase measurement (enzymatic 75 U/L 0- 60 activity/volume) (test code = 3040-3) Lab - Estimated glomerular filtration rate (GFR) izivfarpaymrc3888-34-32 23:44:00 Test Item Value Reference Range Comments Estimated glomerular filtration rate (GFR) 81.4 RATIO determination (test code = 44721-8) NORMAL GFR SHOULD BE >60MLS/MIN/AVERAGE BODY SURFACE AREALab - SPECIMEN LIPEMIC OR ICTERUS?2019-06-03 23:44:00 Test Item Value Reference Range Comments SPECIMEN LIPEMIC OR ICTERUS? (test code = SPECIMEN NO LIPEMIC OR ICTERUS?) Lab - Automated blood leukocyte count (number/volume)2019-06-03 23:44:00 Test Item Value Reference Range Comments Automated blood leukocyte count (number/volume) 7.40 10^3/uL 3.5-10.30 (test code = 6690-2) Lab - Automated blood nucleated erythrocyte count (count/volume)2019-06-03 23:44:00 Test Item Value Reference Range Comments Automated blood nucleated erythrocyte count 0.00 10^3/uL (count/volume) (test code = 771-6) Lab - Blood erythrocytes automated count (number/volume)2019-06-03 23:44:00 Test Item Value Reference Range Comments Blood erythrocytes automated count 4.73 10^6/uL 3.70-5.20 (number/volume) (test code = 789-8) Lab - Blood hemoglobin measurement (mass/volume)2019-06-03 23:44:00 Test Item Value Reference Range Comments Blood hemoglobin measurement (mass/volume) (test 14.40 g/dL 10.90-15.20 code = 718-7) Lab - Hct VFr [id number] 23:44:00 Test Item Value Reference Range Comments Hct VFr Bld (test code = 17787-0) 41.50 % 33.60-46.60 Lab - Automated erythrocyte mean corpuscular volume (MCV) cogvxtiznza4495-46-97 23:44:00 Test Item Value Reference Range Comments Automated erythrocyte mean corpuscular volume (MCV) 87.80 fL 81.10-97.60 measurement (test code = 787-2) Lab - Automated erythrocyte mean corpuscular hemoglobin (mass per erythrocyte) 2019-06-03 23:44:00 Test Item Value Reference Range Comments Automated erythrocyte mean corpuscular 30.40 pg/cell 26.50-32. 20 hemoglobin (mass per erythrocyte) (test code = 785-6) Lab - Automated erythrocyte mean corpuscular hemoglobin concentration measurement (mass/volume)2019-06-03 23:44:00 Test Item Value Reference Range Comments Automated erythrocyte mean corpuscular hemoglobin 34.60 g/dL 33.00-37.00 concentration measurement (mass/volume) (test code = 786-4) Lab - Automated blood platelet count (count/volume)2019-06-03 23:44:00 Test Item Value Reference Range Comments Automated blood platelet count (count/volume) 223 10^3/uL 14 6-400 (test code = 777-3) Lab - Automated blood platelet mean volume bsnfdnwncvp7062-90-45 23:44:00 Test Item Value Reference Range Comments Automated blood platelet mean volume measurement 7.5 fL 7.0-10.1 (test code = 87200-3) Lab - Automated erythrocyte distribution width zdkla1976-32-87 23:44:00 Test Item Value Reference Range Comments Automated erythrocyte distribution width ratio (test 14.2 % 11.4-16.4 code = 788-0) Lab - Automated blood neutrophil count as percentage of total leukocytes 2019-06-03 23:44:00 Test Item Value Reference Range Comments Automated blood neutrophil count as percentage of 54.1 % 39-79 total leukocytes (test code = 770-8) Lab - Automated blood lymphocyte count as percentage of total leukocytes 2019-06-03 23:44:00 Test Item Value Reference Range Comments Automated blood lymphocyte count as percentage of 38.5 % 14-47 total leukocytes (test code = 736-9) Lab - Automated blood monocyte count as percentage of total yzjxjjkprh6583-31-07 23:44:00 Test Item Value Reference Range Comments Automated blood monocyte count as percentage of total 5.3 % 4-12 leukocytes (test code = 5905-5) Lab - Automated blood eosinophil count as percentage of total leukocytes 2019-06-03 23:44:00 Test Item Value Reference Range Comments Automated blood eosinophil count as percentage of 1.6 % 0-6 total leukocytes (test code = 713-8) Lab - Automated blood basophil count as percentage of total hwofktquhz5209-79-86 23:44:00 Test Item Value Reference Range Comments Automated blood basophil count as percentage of total 0.5 % 0-1 leukocytes (test code = 706-2) Lab - Absolute monocyte ixsyz1581-57-24 23:44:00 Test Item Value Reference Range Comments Absolute monocyte count (test code = RRI0243) 0.4 10^3/uL 0. 3-0.9 Lab - Absolute lymphocyte count by flow weswbsfeh5886-37-05 23:44:00 Test Item Value Reference Range Comments Absolute lymphocyte count by flow cytometry 2.9 10^3/uL 0.9- 2.9 (test code = 86385-1) Lab - Automated blood eosinophil sebwl8814-15-50 23:44:00 Test Item Value Reference Range Comments Automated blood eosinophil count (test code = 0.1 10^3/uL 0. 1-0.5 711-2) Lab - Automated absolute basophil cubnr0204-30-60 23:44:00 Test Item Value Reference Range Comments Automated absolute basophil count (test code = 0.0 10^3/uL 0 .0-0.3 704-7) Lab - Blood prothrombin time (PT) by coagulation xmjgu6716-10-44 23:44:00 Test Item Value Reference Range Comments Blood prothrombin time (PT) by coagulation assay 11.2 SEC 9.4-13.8 (test code = 5964-2) Lab - INR [id number] 23:44:00 Test Item Value Reference Range Comments INR PPP (test code = 6301-6) 0.93 0.84-1.16 Lab - Serum or plasma sodium measurement (moles/volume)2019-06-03 23:44:00 Test Item Value Reference Range Comments Serum or plasma sodium measurement (moles/volume) 138 mmol/L 136-145 (test code = 2951-2) Lab - Serum or plasma potassium measurement (moles/volume)2019-06-03 23:44:00 Test Item Value Reference Range Comments Serum or plasma potassium measurement 3.7 mmol/L 3.5-5.1 (moles/volume) (test code = 2823-3) #[id number] 19:47:00 Test Item Value Reference Range Comments Color, UA (test code = Color, UA) Colorless Clarity, UA (test code = Clarity, UA) Clear Specific [place], UA (test code = Specific 1.004 1.003 -1.030 [place], UA) pH, UA (test code = pH, UA) 5.5 5.0-9.0 Leukocyte Esterase, UA (test code = Leukocyte Negative Ne gative Esterase, UA) Nitrite, UA (test code = Nitrite, UA) Negative Negative Protein, UA (test code = Protein, UA) Negative Negative Glucose, UA (test code = Glucose, UA) Negative Negative Ketones, UA (test code = Ketones, UA) Negative Negative Urobilinogen, UA (test code = Urobilinogen, 0.2 mg/dL 0.2 mg/dL, 1.0 mg/dL UA) Bilirubin, UA (test code = Bilirubin, UA) Negative Negati ve Blood, UA (test code = Blood, UA) Negative Negative RBC, UA (test code = RBC, UA) <1 <=4 /HPF WBC, UA (test code = WBC, UA) <1 0- 5 /HPF Squam Epithel, UA (test code = Squam Epithel, 1 /HPF 0- 5 /HPF UA) Bacteria, UA (test code = Bacteria, UA) None Seen None See n /HPF #[id number] 19:47:00 Test Item Value Reference Range Comments Amphetamine Screen, Ur (test code = Amphetamine <500 ng/mL Not Applicable Screen, Ur) Barbiturate Screen, Ur (test code = Barbiturate <200 ng/mL Not Applicable Screen, Ur) Benzodiazepine Screen, Urine (test code = <200 ng/mL Not Ap plicable Benzodiazepine Screen, Urine) Cannabinoid Scrn, Ur (test code = Cannabinoid =/>20 ng/mL No t Applicable Scrn, Ur) Methadone Screen, Urine (test code = Methadone <300 ng/mL N ot Applicable Screen, Urine) Cocaine(Metab.)Screen, Urine (test code = =/>150 ng/mL Not Ap plicable Cocaine(Metab.)Screen, Urine) Opiate Scrn, Ur (test code = Opiate Scrn, Ur) =/>300 ng/mL No t Applicable #[id number] 16:50:42 Test Item Value Reference Range Comments EKG Systolic BP (test code = EKG Systolic BP) EKG Diastolic BP (test code = EKG Diastolic BP) EKG Ventricular Rate (test code = EKG Ventricular 43 BPM Rate) EKG Atrial Rate (test code = EKG Atrial Rate) 43 BPM EKG P-R Interval (test code = EKG P-R Interval) 140 ms EKG QRS Duration (test code = EKG QRS Duration) 86 ms EKG Q-T Interval (test code = EKG Q-T Interval) 504 ms EKG QTC Calculation (test code = EKG QTC 425 ms Calculation) EKG Calculated P [place] (test code = EKG Calculated 77 degrees P [place]) EKG Calculated R [place] (test code = EKG Calculated 82 degrees R [place]) EKG Calculated T [place] (test code = EKG Calculated 50 degrees T [place]) QTC Fredericia (test code = QTC Fredericia) 451 ms #[id number] 16:27:00 Test Item Value Reference Range Comments Sodium (test code = Sodium) 138 mmol/L 135- 145 mmol/L Potassium (test code = Potassium) 4.2 mmol/L 3.5- 5.0 mmol/ L Chloride (test code = Chloride) 101 mmol/L 98- 107 mmol/L CO2 (test code = CO2) 27.0 mmol/L 22.0- 30.0 mmol/L BUN (test code = BUN) 8 mg/dL 7- 21 mg/dL Creatinine (test code = Creatinine) 0.68 mg/dL 0.60- 1.00 m g/dL BUN/Creatinine Ratio (test code = 12 BUN/Creatinine Ratio) EGFR CKD-EPI Non-, Female >90 >=60 m L/min/1.73m2 (test code = EGFR CKD-EPI Non-, Female) EGFR CKD-EPI , Female (test >90 >=60 mL/min/1.73m2 code = EGFR CKD-EPI , Female) Glucose (test code = Glucose) 86 mg/dL 70- 179 mg/dL Calcium (test code = Calcium) 9.5 mg/dL 8.5- 10.2 mg/dL Albumin (test code = Albumin) 4.3 g/dL 3.5- 5.0 g/dL Total Protein (test code = Total Protein) 7.7 g/dL 6.5- 8 .3 g/dL Total Bilirubin (test code = Total Bilirubin) 0.6 mg/dL 0. 0- 1.2 mg/dL AST (test code = AST) 31 U/L 14- 38 U/L ALT (test code = ALT) 16 U/L <35 U/L Alkaline Phosphatase (test code = Alkaline 74 U/L 38- 1 26 U/L Phosphatase) Anion Gap (test code = Anion Gap) 10 mmol/L 7- 15 mmol/L #[id number] 16:27:00 Test Item Value Reference Range Comments Lipase (test code = Lipase) 76 U/L 44- 232 U/L #[id number] 16:27:00 Test Item Value Reference Range Comments WBC (test code = WBC) 6.4 10*9/L 4.5- 11.0 10*9/L RBC (test code = RBC) 5.06 10*12/L 4.00- 5.20 10*12/L HGB (test code = HGB) 15.2 g/dL 12.0- 16.0 g/dL HCT (test code = HCT) 46.5 % 36.0- 46.0 % MCV (test code = MCV) 92.0 fL 80.0- 100.0 fL MCH (test code = MCH) 30.0 pg 26.0- 34.0 pg MCHC (test code = MCHC) 32.6 g/dL 31.0- 37.0 g/dL RDW (test code = RDW) 15.7 % 12.0- 15.0 % MPV (test code = MPV) 8.2 fL 7.0- 10.0 fL Platelet (test code = Platelet) 246 10*9/L 150- 440 10*9/L Neutrophils % (test code = Neutrophils %) 48.9 % Lymphocytes % (test code = Lymphocytes %) 39.9 % Monocytes % (test code = Monocytes %) 4.6 % Eosinophils % (test code = Eosinophils %) 2.7 % Basophils % (test code = Basophils %) 1.1 % Absolute Neutrophils (test code = Absolute 3.1 10*9/L 2.0- 7.5 10*9/L Neutrophils) Absolute Lymphocytes (test code = Absolute 2.5 10*9/L 1.5- 5.0 10*9/L Lymphocytes) Absolute Monocytes (test code = Absolute 0.3 10*9/L 0.2- 0. 8 10*9/L Monocytes) Absolute Eosinophils (test code = Absolute 0.2 10*9/L 0.0- 0.4 10*9/L Eosinophils) Absolute Basophils (test code = Absolute 0.1 10*9/L 0.0- 0. 1 10*9/L Basophils) Large Unstained Cells (test code = Large 3 % 0- 4 % Unstained Cells) #[id number] 16:27:00 Test Item Value Reference Range Comments Alcohol, Ethyl (test code = Alcohol, Ethyl) <10.0 Unde fined mg/dL #[id number] 16:27:00 Test Item Value Reference Range Comments Salicylate Lvl (test code = Salicylate Lvl) <10.0 <300 .0 ug/mL #[id number] 16:27:00 Test Item Value Reference Range Comments Acetaminophen Level (test code = Acetaminophen Level) <10.0 <=30.0 ug/ml #[id number] 16:27:00 Test Item Value Reference Range Comments TSH (test code = TSH) 39.160 uIU/mL 0.600- 3.300 uIU/mL #[id number] 16:27:00 Test Item Value Reference Range Comments Free T4 (test code = Free T4) 0.63 ng/dL 0.71- 1.40 ng/dL #[id number] 16:27:00 Test Item Value Reference Range Comments T3, Total (test code = T3, Total) 1.3 ng/mL 1.0- 1.7 ng/mL #[id number] 15:21:43XR Trauma Hip Right (05/09/2019 3:18 PM EST)SpecimenImpressionsPerformed AtNo acute osseous abnormality of the right hip.[facility] [place]NarrativePerformed AtEXAM: XR TRAUMA HIP RIGHTDATE: 05/09/2019 3:18 PMACCESSION: [id number]: 05/09/2019 3:21 PMINTERPRETATION LOCATION: [facility] CLINICAL INDICATION: 49 years old Female with fall COMPARISON: Left hip radiograph dated 11/14/2018 TECHNIQUE: AP views of the pelvis and right femur and cross table lateral views of the right femur. FINDINGS: Inferior AP pelvis is overpenetrated. No acute fracture. Bone density is preserved. The bilateral sacroiliac joints, hip joints, pubic symphysis, and right knee are approximated. There is mild bilateral hip joint space narrowing with associated degenerative acetabular osseous overgrowth, which is similar to prior exam. No soft tissue abnormality. Mild colonic stool burden. [facility] [place]Procedure NoteInterface, Rad Results In - 05/09/2019 3:32 PM ESTEXAM: XR TRAUMA HIP RIGHT DATE: 05/09/2019 3:18 PM DICTATED: 05/09/2019 3:21 PM INTERPRETATION LOCATION: [facility] CLINICAL INDICATION: 49 years old Female with fall COMPARISON: Left hip radiograph dated 11/14/2018 TECHNIQUE: AP views of the pelvis and right femur and cross table lateral views of the right femur. FINDINGS: Inferior AP pelvis is overpenetrated. No acute fracture. Bone density is preserved. The bilateral sacroiliac joints, hip join ts, pubic symphysis, and right knee are approximated. There is mild bilateral hip joint space narrowing with associated degenerative acetabular osseous overgrowth, which is similar to prior exam. No soft tissue abnormality. Mild colonic stool burden. IMPRESSION: No acute osseous abnormality of the right hip.Performing OrganizationAddressCity/State/ZipcodePhone [facility] [id number] [facility] [place] [address]#[id number] 05:45:00 Test Item Value Reference Range Comments Magnesium (test code = Magnesium) 2.0 mg/dL 1.6- 2.2 mg/dL #[id number] 05:45:00 Test Item Value Reference Range Comments Sodium (test code = Sodium) 139 mmol/L 135- 145 mmol/L Potassium (test code = Potassium) 4.1 mmol/L 3.5- 5.0 mmol/ L Chloride (test code = Chloride) 99 mmol/L 98- 107 mmol/L CO2 (test code = CO2) 30.0 mmol/L 22.0- 30.0 mmol/L Anion Gap (test code = Anion Gap) 10 mmol/L 7- 15 mmol/L BUN (test code = BUN) 19 mg/dL 7- 21 mg/dL Creatinine (test code = Creatinine) 0.69 mg/dL 0.60- 1.00 m g/dL BUN/Creatinine Ratio (test code = 28 BUN/Creatinine Ratio) EGFR CKD-EPI Non-, Female >90 >=60 m L/min/1.73m2 (test code = EGFR CKD-EPI Non-, Female) EGFR CKD-EPI , Female (test >90 >=60 mL/min/1.73m2 code = EGFR CKD-EPI , Female) Glucose (test code = Glucose) 81 mg/dL 65- 179 mg/dL Calcium (test code = Calcium) 9.2 mg/dL 8.5- 10.2 mg/dL #[id number] 05:45:00 Test Item Value Reference Range Comments WBC (test code = WBC) 12.5 10*9/L 4.5- 11.0 10*9/L RBC (test code = RBC) 3.97 10*12/L 4.00- 5.20 10*12/L HGB (test code = HGB) 11.6 g/dL 12.0- 16.0 g/dL HCT (test code = HCT) 36.8 % 36.0- 46.0 % MCV (test code = MCV) 92.7 fL 80.0- 100.0 fL MCH (test code = MCH) 29.2 pg 26.0- 34.0 pg MCHC (test code = MCHC) 31.5 g/dL 31.0- 37.0 g/dL RDW (test code = RDW) 16.1 % 12.0- 15.0 % MPV (test code = MPV) 7.4 fL 7.0- 10.0 fL Platelet (test code = Platelet) 333 10*9/L 150- 440 10*9/L #[id number] 05:20:00 Test Item Value Reference Range Comments Magnesium (test code = Magnesium) 2.0 mg/dL 1.6- 2.2 mg/dL #[id number] 05:20:00 Test Item Value Reference Range Comments Sodium (test code = Sodium) 139 mmol/L 135- 145 mmol/L Potassium (test code = Potassium) 4.2 mmol/L 3.5- 5.0 mmol/ L Chloride (test code = Chloride) 101 mmol/L 98- 107 mmol/L CO2 (test code = CO2) 29.0 mmol/L 22.0- 30.0 mmol/L Anion Gap (test code = Anion Gap) 9 mmol/L 7- 15 mmol/L BUN (test code = BUN) 17 mg/dL 7- 21 mg/dL Creatinine (test code = Creatinine) 0.71 mg/dL 0.60- 1.00 m g/dL BUN/Creatinine Ratio (test code = 24 BUN/Creatinine Ratio) EGFR CKD-EPI Non-, Female >90 >=60 m L/min/1.73m2 (test code = EGFR CKD-EPI Non-, Female) EGFR CKD-EPI , Female (test >90 >=60 mL/min/1.73m2 code = EGFR CKD-EPI , Female) Glucose (test code = Glucose) 90 mg/dL 65- 179 mg/dL Calcium (test code = Calcium) 9.1 mg/dL 8.5- 10.2 mg/dL #[id number] 05:20:00 Test Item Value Reference Range Comments WBC (test code = WBC) 12.0 10*9/L 4.5- 11.0 10*9/L RBC (test code = RBC) 3.89 10*12/L 4.00- 5.20 10*12/L HGB (test code = HGB) 11.4 g/dL 12.0- 16.0 g/dL HCT (test code = HCT) 35.5 % 36.0- 46.0 % MCV (test code = MCV) 91.4 fL 80.0- 100.0 fL MCH (test code = MCH) 29.3 pg 26.0- 34.0 pg MCHC (test code = MCHC) 32.1 g/dL 31.0- 37.0 g/dL RDW (test code = RDW) 16.0 % 12.0- 15.0 % MPV (test code = MPV) 6.8 fL 7.0- 10.0 fL Platelet (test code = Platelet) 338 10*9/L 150- 440 10*9/L #[id number] 04:55:00 Test Item Value Reference Range Comments Magnesium (test code = Magnesium) 2.1 mg/dL 1.6- 2.2 mg/dL #[id number] 04:55:00 Test Item Value Reference Range Comments Sodium (test code = Sodium) 138 mmol/L 135- 145 mmol/L Potassium (test code = Potassium) 4.1 mmol/L 3.5- 5.0 mmol/ L Chloride (test code = Chloride) 101 mmol/L 98- 107 mmol/L CO2 (test code = CO2) 30.0 mmol/L 22.0- 30.0 mmol/L Anion Gap (test code = Anion Gap) 7 mmol/L 7- 15 mmol/L BUN (test code = BUN) 13 mg/dL 7- 21 mg/dL Creatinine (test code = Creatinine) 0.67 mg/dL 0.60- 1.00 m g/dL BUN/Creatinine Ratio (test code = 19 BUN/Creatinine Ratio) EGFR CKD-EPI Non-, Female >90 >=60 m L/min/1.73m2 (test code = EGFR CKD-EPI Non-, Female) EGFR CKD-EPI , Female (test >90 >=60 mL/min/1.73m2 code = EGFR CKD-EPI , Female) Glucose (test code = Glucose) 111 mg/dL 65- 179 mg/dL Calcium (test code = Calcium) 9.3 mg/dL 8.5- 10.2 mg/dL #[id number] 04:55:00 Test Item Value Reference Range Comments WBC (test code = WBC) 11.7 10*9/L 4.5- 11.0 10*9/L RBC (test code = RBC) 3.88 10*12/L 4.00- 5.20 10*12/L HGB (test code = HGB) 11.5 g/dL 12.0- 16.0 g/dL HCT (test code = HCT) 35.7 % 36.0- 46.0 % MCV (test code = MCV) 91.9 fL 80.0- 100.0 fL MCH (test code = MCH) 29.6 pg 26.0- 34.0 pg MCHC (test code = MCHC) 32.2 g/dL 31.0- 37.0 g/dL RDW (test code = RDW) 15.5 % 12.0- 15.0 % MPV (test code = MPV) 7.6 fL 7.0- 10.0 fL Platelet (test code = Platelet) 327 10*9/L 150- 440 10*9/L #[id number] 06:08:00 Test Item Value Reference Range Comments Magnesium (test code = Magnesium) 2.0 mg/dL 1.6- 2.2 mg/dL #[id number] 06:08:00 Test Item Value Reference Range Comments Sodium (test code = Sodium) 137 mmol/L 135- 145 mmol/L Potassium (test code = Potassium) 4.2 mmol/L 3.5- 5.0 mmol/ L Chloride (test code = Chloride) 100 mmol/L 98- 107 mmol/L CO2 (test code = CO2) 30.0 mmol/L 22.0- 30.0 mmol/L Anion Gap (test code = Anion Gap) 7 mmol/L 7- 15 mmol/L BUN (test code = BUN) 15 mg/dL 7- 21 mg/dL Creatinine (test code = Creatinine) 0.67 mg/dL 0.60- 1.00 m g/dL BUN/Creatinine Ratio (test code = 22 BUN/Creatinine Ratio) EGFR CKD-EPI Non-, Female >90 >=60 m L/min/1.73m2 (test code = EGFR CKD-EPI Non-, Female) EGFR CKD-EPI , Female (test >90 >=60 mL/min/1.73m2 code = EGFR CKD-EPI , Female) Glucose (test code = Glucose) 99 mg/dL 65- 179 mg/dL Calcium (test code = Calcium) 9.0 mg/dL 8.5- 10.2 mg/dL #[id number] 06:08:00 Test Item Value Reference Range Comments WBC (test code = WBC) 9.8 10*9/L 4.5- 11.0 10*9/L RBC (test code = RBC) 3.88 10*12/L 4.00- 5.20 10*12/L HGB (test code = HGB) 11.3 g/dL 12.0- 16.0 g/dL HCT (test code = HCT) 34.9 % 36.0- 46.0 % MCV (test code = MCV) 90.1 fL 80.0- 100.0 fL MCH (test code = MCH) 29.1 pg 26.0- 34.0 pg MCHC (test code = MCHC) 32.3 g/dL 31.0- 37.0 g/dL RDW (test code = RDW) 15.5 % 12.0- 15.0 % MPV (test code = MPV) 6.9 fL 7.0- 10.0 fL Platelet (test code = Platelet) 327 10*9/L 150- 440 10*9/L #[id number] 06:15:00 Test Item Value Reference Range Comments Magnesium (test code = Magnesium) 2.0 mg/dL 1.6- 2.2 mg/dL #[id number] 06:15:00 Test Item Value Reference Range Comments Sodium (test code = Sodium) 139 mmol/L 135- 145 mmol/L Potassium (test code = Potassium) 3.7 mmol/L 3.5- 5.0 mmol/ L Chloride (test code = Chloride) 103 mmol/L 98- 107 mmol/L CO2 (test code = CO2) 31.0 mmol/L 22.0- 30.0 mmol/L Anion Gap (test code = Anion Gap) 5 mmol/L 7- 15 mmol/L BUN (test code = BUN) 17 mg/dL 7- 21 mg/dL Creatinine (test code = Creatinine) 0.67 mg/dL 0.60- 1.00 m g/dL BUN/Creatinine Ratio (test code = 25 BUN/Creatinine Ratio) EGFR CKD-EPI Non-, Female >90 >=60 m L/min/1.73m2 (test code = EGFR CKD-EPI Non-, Female) EGFR CKD-EPI , Female (test >90 >=60 mL/min/1.73m2 code = EGFR CKD-EPI , Female) Glucose (test code = Glucose) 113 mg/dL 65- 179 mg/dL Calcium (test code = Calcium) 8.9 mg/dL 8.5- 10.2 mg/dL #[id number] 06:15:00 Test Item Value Reference Range Comments WBC (test code = WBC) 7.5 10*9/L 4.5- 11.0 10*9/L RBC (test code = RBC) 3.99 10*12/L 4.00- 5.20 10*12/L HGB (test code = HGB) 11.6 g/dL 12.0- 16.0 g/dL HCT (test code = HCT) 36.3 % 36.0- 46.0 % MCV (test code = MCV) 90.9 fL 80.0- 100.0 fL MCH (test code = MCH) 29.2 pg 26.0- 34.0 pg MCHC (test code = MCHC) 32.1 g/dL 31.0- 37.0 g/dL RDW (test code = RDW) 15.3 % 12.0- 15.0 % MPV (test code = MPV) 7.2 fL 7.0- 10.0 fL Platelet (test code = Platelet) 317 10*9/L 150- 440 10*9/L #[id number] 14:56:00 Test Item Value Reference Range Comments Pneumocystis Smear, DFA (test code = NOT DETECTED Pneumocystis Smear, DFA) #[id number] 14:56:00 Test Item Value Reference Range Comments Case Report (test code = Case Report) Final Diagnosis (test code = Final Diagnosis) Gross Description (test code = Gross Description) Microscopic Description (test code = Microscopic Description) EMBEDDED IMAGES (test code = EMBEDDED IMAGES) Specimen Adequacy (test code = Satisfactory for evaluation Specimen Adequacy) Disclaimer (test code = Disclaimer) #[id number] 14:56:00 Test Item Value Reference Range Comments Adenovirus (test code = Adenovirus) Not Detected Not Detected Coronavirus HKU1 (test code = Coronavirus HKU1) Not Detected Not Detected Coronavirus NL63 (test code = Coronavirus NL63) Not Detected Not Detected Coronavirus 229E (test code = Coronavirus 229E) Not Detected Not Detected Coronavirus OC43 (test code = Coronavirus OC43) Not Detected Not Detected Metapneumovirus (test code = Metapneumovirus) Not Detected No t Detected Rhinovirus/Enterovirus (test code = Not Detected Not Detected Rhinovirus/Enterovirus) Influenza A (test code = Influenza A) Not Detected Not Detect ed Influenza A/H1 (test code = Influenza A/H1) Not Detected Not Detected Influenza A/H3 (test code = Influenza A/H3) Not Detected Not Detected Influenza A/H1-2009 (test code = Influenza Not Detected Not D etected A/H1-2008) Influenza B (test code = Influenza B) Not Detected Not Detect ed Parainfluenza 1 (test code = Parainfluenza 1) Not Detected No t Detected Parainfluenza 2 (test code = Parainfluenza 2) Not Detected No t Detected Parainfluenza 3 (test code = Parainfluenza 3) Not Detected No t Detected Parainfluenza 4 (test code = Parainfluenza 4) Not Detected No t Detected RSV (test code = RSV) Not Detected Not Detected Chlamydophila (Chlamydia) pneumoniae (test code Not Detected Not Detected = Chlamydophila (Chlamydia) pneumoniae) Mycoplasma pneumoniae (test code = Mycoplasma Not Detected No t Detected pneumoniae) #[id number] 14:55:00 Test Item Value Reference Range Comments Aspergillus AG, BAL Specimen (test code = Aspergillus <0.5 <0.5 AG, BAL Specimen) #[id number] 14:55:00 Test Item Value Reference Range Comments Fluid Type (test code = Fluid Type) Lavage, Bronchial Color, Fluid (test code = Color, Fluid) Straw Appearance, Fluid (test code = Appearance, Hazy Fluid) Nucleated Cells, Fluid (test code = 300 ul Undefined ul Nucleated Cells, Fluid) RBC, Fluid (test code = RBC, Fluid) 296 ul Neutrophil %, Fluid (test code = 1.0 % Neutrophil %, Fluid) [place]/Macro % , Fluid (test code = 84.0 % [place]/Macro % , Fluid) Eosinophils %, Fluid (test code = 2.0 % Eosinophils %, Fluid) Other Cells %, Fluid (test code = Other 13.0 % Cells %, Fluid) #Cells Counted BF Diff (test code = #Cells 100 Counted BF Diff) Fluid Comments (test code = Fluid Comments) #[id number] 14:55:00 Test Item Value Reference Range Comments Quantitative Bronchial Culture (test code NO GROWTH = Quantitative Bronchial Culture) Gram Stain Result (test code = Gram Stain No organisms seen Result) #[id number] 14:55:00 Test Item Value Reference Range Comments AFB Smear (test code = NO ACID FAST BACILLI SEEN- No Acid Fast B acilli Seen AFB Smear) 3 negative smears do not exclude pulmonary TB. If active pulmonary TB is suspected, continue airborne isolation until pulmonary disease is excluded by negative cultures. #[id number] 14:55:00 Test Item Value Reference Range Comments Legionella Culture (test code = Legionella NOT DETECTED Culture) #[id number] 13:52:35Bronchoscopy (02/16/2019 1:52 PM EDT)SpecimenNarrativePerformed At Patient Name: Imani Schrader Procedure Date: 02/16/2019 1:52 PMMRN: [id number] of : 1970 Admit Type: InpatientAge: 48 Room: [facility]Gender: Female Note Status: FinalizedAttending MD: ALYCIA CRANE M.D. Instrument Name: [id number] Procedure: BronchoscopyIndications: Bilateral infiltrateProviders: ALYCIA CRANE M.D. (Doctor), MICHAEL FERNANDEZ, Kellie Cerda, Kelley LEDBETTER MD: Medicines: Midazolam 12 mg IV, Fentanyl 100 mcg IV, Lidocaine applied to nares and subglottic spaceRequesting Physician:Complications: No immediate complications Procedure: Pre-Anesthesia Assessment: - A History and Physical has been performed. Patient meds and allergies have been reviewed. The risks and benefits of theprocedure and the sedation options and risks were discussed with thepatient. All questions were answered and informed consent was obtained. Patient identification and proposed procedure were verified prior to the procedure by the physician, the nurse and the medical technician assistant in the procedure room. Mental Status Examination: alert and oriented. Airway Examination: Mallampati Class II (the uvula but not tonsillar pillars visualized). Respiratory Examination: expiratory wheezes. CV Examination: normal. ASA Grade Assessment: III - A patient with severe systemic disease. After reviewing the risks and benefits, the patient was deemed in satisfactory condition to undergo the procedure. The anesthes ia plan was to use moderate sedation / analgesia (conscious sedation). Immediately prior to administration of medications, the patient was re-assessed for adequacy to receive sedatives. The heart rate, respiratory rate, oxygen saturations, blood pressure, adequacy of pulmonary ventilation, and response to care were monitored throughout the procedure. The physical status of the patient was re-assessed after the procedure. After obtaining informed consent, the Bronchoscope was introduced through the right nostril and advanced to the tracheobronchial tree of both lungs. The procedure was accomplished with ease. The patient tolerated the procedure well. The total duration of the procedure w as 7 minutes.Findings: . The patient was not adequately sedated on the above mentioned sedation medication (prob related to prior substance abuse and poor response to standard dosing of midazolam and fentanyl). Only a quick airway check was performed before BAL was obtained. The nasopharynx/oropharynx appears normal. The larynx appears normal. The vocal cords appear normal. The subglottic space is normal. The trachea is of normal caliber. The blake is sharp. The tracheobronchial tree was examined however all segmental beonchi were not visualised due to patient being awake and coughing. Bronchial mucosa and anatomy are normal; there are no endobronchial lesions. Right Lung Abnormalities: Mucus, plugging the airway, was found in the right mainstem bronchus and in the right middle lobe. The mucus was copious, mucoid and tenacious. The underlying mucosa is normal. BAL was performed in the RML medial segment (B5) of the lung and sent for cell count, bacterial culture, viral smears T culture, and fungal T AFB analysis and cytology. 150 mL of fluid were instilled. 60 mL were returned. The return was cellular, clear, cloudy and mucoid. Mucous plugs were presentin the return fluid.Impression: - The airway examination was normal. - Some mucous plugs with secretions was found in the right mainstem bronchus and in the right middle lobe. - Bronchoalveolar lavage was performed.Recommendation: - [facility] for [facility] care. - Await BAL results.Procedure Code(s): --- Professional --- 33329, Bronchoscopy, rigid or flexible, including fluoroscopic guidance, when performed; with bronchial alveola r lavage CPT copyright 2018 [employer]. All rights reserved. The codes documented in this report are preliminary and upon sr. vendor management associate review may be revised to meet current compliance requirements.Attending Participation: I was present and participated during the entire procedure, including non- lafleur portions. Electronically Signed by Nathan Crane MD ALYCIA CRANE M.D.02/16/2019 3:08:58 PMThe attending physician was present throughout the entire procedural suite including insertion, viewing, and removal. MICHAEL FERNANDEZ, Number of Addenda: 0 Note Initiated On: 02/16/2019 1:52 [facility] RADProcedure NoteInterface, Rad Results In- 02/16/2019 3:10 PM EDT __ Patient Name: Imani Schrader Procedure Date: 02/16/2019 1:52 PM Date of : 1970 Admit Type: Inpatient Age: 48 Room: [facility] Gender: Female Note Status: Finalized Attending MD: ALYCIA CRANE M.D. Instrument Name: [id number] Procedure: Bronchoscopy Indications: Bilateral infiltrate Providers: ALYCIA CRANE M.D. (Doctor), MICHAEL FERNANDEZ, Kellie Cerda, JOVANNY SHEARER, Viviane Parra Referring MD: Medicines: Midazolam 12 mg IV, Fentanyl 100 mcg IV, Lidocaine applied to nares and subglottic space Requesting Physician: Complications: No immediate complications Procedure: Pre-Anesthesia Assessment: - A History and Physical has been performed. Patient meds and allergies have been reviewed. The risks and benefits of the procedure and the sedation options and risks were discussed with the patient. All questions were answered and informed consent was obtained. Patient identification and proposed procedure were verified prior to the procedure by the physician, the nurse and the medical technician assistant in the procedure room. Mental Status Examination: alert and oriented.Airway Examination: Mallampati Class II (the uvula but not tonsillar pillars visualized). Respiratory Examination: expiratory wheezes. CV Examination: normal. ASA Grade Assessment: III - A patient with severe systemic disease. After reviewing the risks and benefits, the patient was deemed in satisfactory condition to undergo the procedure. The anesthesia plan was to use moderate sedation / analgesia (conscious sedation). Immediately prior to administration of medications, the patient was re-assessedfor adequacy to receive sedatives. The heart rate, respiratory rate, oxygen saturations, blood pressure, adequacy of pulmonary ventilation, and response to care were monitored throughout the procedure.The physical status of the patient was re-assessed after the procedure. After obtaining informed consent, the Bronchoscope was introduced through the right nostril and advanced to the tracheobronchial tree of both lungs. The procedure was accomplished with ease. The patient tolerated the procedure well. The total duration of the procedure was 7 minutes. Findings: . The patient was not adequately sedated on the above mentioned sedation medication (prob related to prior substance abuse and poor response to standard dosing of midazolam and fentanyl). Only a quick airway check was performed before BAL was obtained. The nasopharynx/oropharynx appears normal. The larynx appears normal. The vocal cords appear normal. The subglottic space is normal. The trachea is of normal caliber. The blake is sharp. The tracheobronchial tree was examined however all segmental beonchi were not visualised due to patient being awake and coughing. Bronchial mucosa and anatomy are normal; there are no endobronchial lesions. Right Lung Abnormalities: Mucus, plugging the airway, was found in the right mainstem bronchus and in the right middle lobe. The mucus was copious, mucoid and tenacious. The underlying mucosa is normal. BAL was performed in the RML medial segment (B5) of the lung and sent for cell count, bacterialculture, viral smears T culture, and fungal T AFB analysis and cytology. 150 mL of fluid were instilled. 60 mL were returned. The return was cellular, clear, cloudy and mucoid. Mucous plugs were present in the return fluid. Impression: - The airway examination was normal. - Some mucous plugs with secretions was found in the right mainstem bronchus and in the right middle lobe. - Bronchoalveolar lavage was performed. Recommendation: - Return patient to [facility] for [facility] care. - Await BAL results. Procedure Code(s): --- Professional --- 29392, Bronchoscopy, rigid or flexible, including fluoroscopic guidance, when performed; with bronchial alveolar lavage CPT copyright 2018 [employer]. All rights reserved. The codes documented in this report are preliminary and upon sr. vendor management associate review may be revised to meet current compliance requirements. Attending Participation: I was present and participated during the entire procedure, including non-lafleur portions. Electronically Signed by Nathan Crane MD ALYCIA CRANE M.D. 02/16/2019 3:08:58 PM The attending physician was present throughout the entire procedural suite including insertion, viewing, and removal. MICHAEL FERNANDEZ, Number of Addenda: 0 Note Initiated On: 02/16/2019 1:52 P MPerforming OrganizationAddressCity/State/ZipcodePhone Number[facility] [id number] [place] [address]#[id number] 04:48:00 Test Item Value Reference Range Comments Magnesium (test code = Magnesium) 2.2 mg/dL 1.6- 2.2 mg/dL #[id number] 04:48:00 Test Item Value Reference Range Comments Sodium (test code = Sodium) 139 mmol/L 135- 145 mmol/L Potassium (test code = Potassium) 4.1 mmol/L 3.5- 5.0 mmol/ L Chloride (test code = Chloride) 103 mmol/L 98- 107 mmol/L CO2 (test code = CO2) 33.0 mmol/L 22.0- 30.0 mmol/L Anion Gap (test code = Anion Gap) 3 mmol/L 7- 15 mmol/L BUN (test code = BUN) 14 mg/dL 7- 21 mg/dL Creatinine (test code = Creatinine) 0.63 mg/dL 0.60- 1.00 m g/dL BUN/Creatinine Ratio (test code = 22 BUN/Creatinine Ratio) EGFR CKD-EPI Non-, Female >90 >=60 m L/min/1.73m2 (test code = EGFR CKD-EPI Non-, Female) EGFR CKD-EPI , Female (test >90 >=60 mL/min/1.73m2 code = EGFR CKD-EPI , Female) Glucose (test code = Glucose) 91 mg/dL 65- 179 mg/dL Calcium (test code = Calcium) 8.9 mg/dL 8.5- 10.2 mg/dL #[id number] 04:48:00 Test Item Value Reference Range Comments WBC (test code = WBC) 8.0 10*9/L 4.5- 11.0 10*9/L RBC (test code = RBC) 3.77 10*12/L 4.00- 5.20 10*12/L HGB (test code = HGB) 11.1 g/dL 12.0- 16.0 g/dL HCT (test code = HCT) 33.8 % 36.0- 46.0 % MCV (test code = MCV) 89.7 fL 80.0- 100.0 fL MCH (test code = MCH) 29.3 pg 26.0- 34.0 pg MCHC (test code = MCHC) 32.7 g/dL 31.0- 37.0 g/dL RDW (test code = RDW) 15.1 % 12.0- 15.0 % MPV (test code = MPV) 7.4 fL 7.0- 10.0 fL Platelet (test code = Platelet) 283 10*9/L 150- 440 10*9/L #[id number] 11:05:04XR Chest 2 views (02/15/2019 11:01 AM EDT)SpecimenImpressionsPerformed At Patchy airspace opacities,similar to prior.[facility] [place] RADNarrativePerformed AtEXAM: XR CHEST 2 VIEWSDATE: 02/15/2019 11:01 AMACCESSION: [id number]: 02/15/2019 11:05 AMINTERPRETATION LOCATION: [facility] CLINICAL INDICATION: 48 years old Female with SHORTNESS OF BREATH COMPARISON: 02/10/2019 CT; 02/09/2019 radiograph TECHNIQUE: PA and Lateral Chest Radiographs. FINDINGS: Bilateral upper lobe scarring and bronchiectasis, similar to prior. Stable hazy right and left lower middle lobe opacities. No pleural effusion or pneumothorax. Unremarkable cardiomediastinal silhouette. [facility] [place] RADProcedure NoteInterface, Rad Results In- 02/15/2019 11:14 AM EDTEXAM: XR CHEST 2 VIEWS DATE: 02/15/2019 11:01 AM DICTATED: 02/15/2019 11:05 AM INTERPRETATION LOCATION: [facility] CLINICAL INDICATION: 48 years old Female with SHORTNESS OF BREATH COMPARISON: 02/10/2019 CT; 02/09/2019 radiograph TECHNIQUE: PA and Lateral Chest Radiographs. FINDINGS: Bilateral upper lobe scarring and bronchiectasis, similar to prior.Stable hazy right and left lower middle lobe opacities. No pleural effusion or pneumothorax. Unremark able cardiomediastinal silhouette. IMPRESSION: Patchy airspace opacities, similar to prior.Performing OrganizationAddressCity/State/ZipcodePhone Number[facility] [id number] [facility] [place] [address]#[id number] 05:55:00 Test Item Value Reference Range Comments Magnesium (test code = Magnesium) 2.0 mg/dL 1.6- 2.2 mg/dL #[id number] 05:55:00 Test Item Value Reference Range Comments Sodium (test code = Sodium) 141 mmol/L 135- 145 mmol/L Potassium (test code = Potassium) 3.6 mmol/L 3.5- 5.0 mmol/ L Chloride (test code = Chloride) 107 mmol/L 98- 107 mmol/L CO2 (test code = CO2) 30.0 mmol/L 22.0- 30.0 mmol/L Anion Gap (test code = Anion Gap) 4 mmol/L 7- 15 mmol/L BUN (test code = BUN) 10 mg/dL 7- 21 mg/dL Creatinine (test code = Creatinine) 0.66 mg/dL 0.60- 1.00 m g/dL BUN/Creatinine Ratio (test code = 15 BUN/Creatinine Ratio) EGFR CKD-EPI Non-, Female >90 >=60 m L/min/1.73m2 (test code = EGFR CKD-EPI Non-, Female) EGFR CKD-EPI , Female (test >90 >=60 mL/min/1.73m2 code = EGFR CKD-EPI , Female) Glucose (test code = Glucose) 102 mg/dL 65- 179 mg/dL Calcium (test code = Calcium) 8.7 mg/dL 8.5- 10.2 mg/dL #[id number] 05:55:00 Test Item Value Reference Range Comments WBC (test code = WBC) 6.7 10*9/L 4.5- 11.0 10*9/L RBC (test code = RBC) 3.85 10*12/L 4.00- 5.20 10*12/L HGB (test code = HGB) 11.2 g/dL 12.0- 16.0 g/dL HCT (test code = HCT) 34.3 % 36.0- 46.0 % MCV (test code = MCV) 89.1 fL 80.0- 100.0 fL MCH (test code = MCH) 29.1 pg 26.0- 34.0 pg MCHC (test code = MCHC) 32.6 g/dL 31.0- 37.0 g/dL RDW (test code = RDW) 14.9 % 12.0- 15.0 % MPV (test code = MPV) 7.1 fL 7.0- 10.0 fL Platelet (test code = Platelet) 258 10*9/L 150- 440 10*9/L #[id number] 06:13:00 Test Item Value Reference Range Comments Magnesium (test code = Magnesium) 2.0 mg/dL 1.6- 2.2 mg/dL #[id number] 06:13:00 Test Item Value Reference Range Comments Sodium (test code = Sodium) 138 mmol/L 135- 145 mmol/L Potassium (test code = Potassium) 3.8 mmol/L 3.5- 5.0 mmol/ L Chloride (test code = Chloride) 103 mmol/L 98- 107 mmol/L CO2 (test code = CO2) 27.0 mmol/L 22.0- 30.0 mmol/L Anion Gap (test code = Anion Gap) 8 mmol/L 7- 15 mmol/L BUN (test code = BUN) 9 mg/dL 7- 21 mg/dL Creatinine (test code = Creatinine) 0.55 mg/dL 0.60- 1.00 m g/dL BUN/Creatinine Ratio (test code = 16 BUN/Creatinine Ratio) EGFR CKD-EPI Non-, Female >90 >=60 m L/min/1.73m2 (test code = EGFR CKD-EPI Non-, Female) EGFR CKD-EPI , Female (test >90 >=60 mL/min/1.73m2 code = EGFR CKD-EPI , Female) Glucose (test code = Glucose) 118 mg/dL 65- 179 mg/dL Calcium (test code = Calcium) 8.7 mg/dL 8.5- 10.2 mg/dL #[id number] 06:13:00 Test Item Value Reference Range Comments WBC (test code = WBC) 7.2 10*9/L 4.5- 11.0 10*9/L RBC (test code = RBC) 3.79 10*12/L 4.00- 5.20 10*12/L HGB (test code = HGB) 11.1 g/dL 12.0- 16.0 g/dL HCT (test code = HCT) 33.4 % 36.0- 46.0 % MCV (test code = MCV) 88.0 fL 80.0- 100.0 fL MCH (test code = MCH) 29.2 pg 26.0- 34.0 pg MCHC (test code = MCHC) 33.2 g/dL 31.0- 37.0 g/dL RDW (test code = RDW) 14.9 % 12.0- 15.0 % MPV (test code = MPV) 7.4 fL 7.0- 10.0 fL Platelet (test code = Platelet) 277 10*9/L 150- 440 10*9/L #[id number] 06:13:00 Test Item Value Reference Range Comments GUILLERMO Screen (test code = GUILLERMO Screen) 0.30 GUILLERMO Units <0.70 GUILLERMO Un its #[id number] 06:13:00 Test Item Value Reference Range Comments Antinuclear Antibodies (ROSSI) (test code = Positive Negati ve Antinuclear Antibodies (ROSSI)) ROSSI Pattern 1 (test code = ROSSI Pattern 1) Speckled ROSSI Titer 1 (test code = ROSSI Titer 1) 1:80 ROSSI Pattern 2 (test code = ROSSI Pattern 2) Homogenous ROSSI Titer 2 (test code = ROSSI Titer 2) 1:80 #[id number] 18:21:00 Test Item Value Reference Range Comments AFB Smear (test code = NO ACID FAST BACILLI SEEN- No Acid Fast B acilli Seen AFB Smear) 3 negative smears do not exclude pulmonary TB. If active pulmonary TB is suspected, continue airborne isolation until pulmonary disease is excluded by negative cultures. #[id number] 15:50:00 Test Item Value Reference Range Comments Vancomycin Rm (test code = Vancomycin Rm) 18.0 ug/mL Undefi roque ug/mL #[id number] 05:52:00 Test Item Value Reference Range Comments Magnesium (test code = Magnesium) 1.9 mg/dL 1.6- 2.2 mg/dL #[id number] 05:52:00 Test Item Value Reference Range Comments Sodium (test code = Sodium) 138 mmol/L 135- 145 mmol/L Potassium (test code = Potassium) 3.7 mmol/L 3.5- 5.0 mmol/ L Chloride (test code = Chloride) 107 mmol/L 98- 107 mmol/L CO2 (test code = CO2) 28.0 mmol/L 22.0- 30.0 mmol/L Anion Gap (test code = Anion Gap) 3 mmol/L 7- 15 mmol/L BUN (test code = BUN) 8 mg/dL 7- 21 mg/dL Creatinine (test code = Creatinine) 0.57 mg/dL 0.60- 1.00 m g/dL BUN/Creatinine Ratio (test code = 14 BUN/Creatinine Ratio) EGFR CKD-EPI Non-, Female >90 >=60 m L/min/1.73m2 (test code = EGFR CKD-EPI Non-, Female) EGFR CKD-EPI , Female (test >90 >=60 mL/min/1.73m2 code = EGFR CKD-EPI , Female) Glucose (test code = Glucose) 105 mg/dL 65- 179 mg/dL Calcium (test code = Calcium) 8.6 mg/dL 8.5- 10.2 mg/dL #[id number] 05:52:00 Test Item Value Reference Range Comments WBC (test code = WBC) 5.0 10*9/L 4.5- 11.0 10*9/L RBC (test code = RBC) 3.81 10*12/L 4.00- 5.20 10*12/L HGB (test code = HGB) 11.2 g/dL 12.0- 16.0 g/dL HCT (test code = HCT) 33.6 % 36.0- 46.0 % MCV (test code = MCV) 88.3 fL 80.0- 100.0 fL MCH (test code = MCH) 29.4 pg 26.0- 34.0 pg MCHC (test code = MCHC) 33.3 g/dL 31.0- 37.0 g/dL RDW (test code = RDW) 14.9 % 12.0- 15.0 % MPV (test code = MPV) 7.4 fL 7.0- 10.0 fL Platelet (test code = Platelet) 240 10*9/L 150- 440 10*9/L #[id number] 00:00:00Peripheral Intravenous Device by Vascular Access Team (02/13/2019 1:33 PM EDT)NarrativePerformed Minh Estevez RN 02/13/2019 1:34 PMOrder was placed for a "PIV by Venous Access Team (VAT)". Patient was assessed for placement of a PIV. Access was obtained. Blood return noted. Dressing intact and device well secured. Flushed with normal saline. Pt advised to inform RN of any s/sof discomfort at the PIV site. Workup / Procedure Time: 15 minutes Vanita RICHTER was notified. Thank you, Celine Estevez RN Venous Access Team#[id number] 2019-02-12 15:55:00 Test Item Value Reference Range Comments AFB Smear (test code = NO ACID FAST BACILLI SEEN- No Acid Fast B acilli Seen AFB Smear) 3 negative smears do not exclude pulmonary TB. If active pulmonary TB is suspected, continue airborne isolation until pulmonary disease is excluded by negative cultures. #[id number] 08:37:05 Test Item Value Reference Range Comments EKG Systolic BP (test code = EKG Systolic BP) EKG Diastolic BP (test code = EKG Diastolic BP) EKG Ventricular Rate (test code = EKG Ventricular 59 BPM Rate) EKG Atrial Rate (test code = EKG Atrial Rate) 59 BPM EKG P-R Interval (test code = EKG P-R Interval) 130 ms EKG QRS Duration (test code = EKG QRS Duration) 84 ms EKG Q-T Interval (test code = EKG Q-T Interval) 440 ms EKG QTC Calculation (test code = EKG QTC 435 ms Calculation) EKG Calculated P Esopus (test code = EKG Calculated 59 degrees P Esopus) EKG Calculated R Esopus (test code = EKG Calculated 45 degrees R Esopus) EKG Calculated T Esopus (test code = EKG Calculated 45 degrees T Esopus) QTC Fredericia (test code = QTC Fredericia) 437 ms #[id number] 05:35:00 Test Item Value Reference Range Comments Magnesium (test code = Magnesium) 1.9 mg/dL 1.6- 2.2 mg/dL #[id number] 05:35:00 Test Item Value Reference Range Comments Sodium (test code = Sodium) 139 mmol/L 135- 145 mmol/L Potassium (test code = Potassium) 3.7 mmol/L 3.5- 5.0 mmol/ L Chloride (test code = Chloride) 103 mmol/L 98- 107 mmol/L CO2 (test code = CO2) 31.0 mmol/L 22.0- 30.0 mmol/L Anion Gap (test code = Anion Gap) 5 mmol/L 7- 15 mmol/L BUN (test code = BUN) 10 mg/dL 7- 21 mg/dL Creatinine (test code = Creatinine) 0.65 mg/dL 0.60- 1.00 m g/dL BUN/Creatinine Ratio (test code = 15 BUN/Creatinine Ratio) EGFR CKD-EPI Non-, Female >90 >=60 m L/min/1.73m2 (test code = EGFR CKD-EPI Non-, Female) EGFR CKD-EPI , Female (test >90 >=60 mL/min/1.73m2 code = EGFR CKD-EPI , Female) Glucose (test code = Glucose) 101 mg/dL 65- 179 mg/dL Calcium (test code = Calcium) 8.7 mg/dL 8.5- 10.2 mg/dL #[id number] 05:35:00 Test Item Value Reference Range Comments WBC (test code = WBC) 5.8 10*9/L 4.5- 11.0 10*9/L RBC (test code = RBC) 4.00 10*12/L 4.00- 5.20 10*12/L HGB (test code = HGB) 11.7 g/dL 12.0- 16.0 g/dL HCT (test code = HCT) 35.4 % 36.0- 46.0 % MCV (test code = MCV) 88.6 fL 80.0- 100.0 fL MCH (test code = MCH) 29.2 pg 26.0- 34.0 pg MCHC (test code = MCHC) 33.0 g/dL 31.0- 37.0 g/dL RDW (test code = RDW) 15.2 % 12.0- 15.0 % MPV (test code = MPV) 7.5 fL 7.0- 10.0 fL Platelet (test code = Platelet) 279 10*9/L 150- 440 10*9/L #[id number] 05:30:00 Test Item Value Reference Range Comments AFB Smear (test code = NO ACID FAST BACILLI SEEN- No Acid Fast B acilli Seen AFB Smear) 3 negative smears do not exclude pulmonary TB. If active pulmonary TB is suspected, continue airborne isolation until pulmonary disease is excluded by negative cultures. #[id number] 00:00:00Peripheral Intravenous Device by Vascular Access Team (02/12/2019 2:42 PM EDT)NarrativePerformed Shivani Sosa RN 02/12/2019 2:43 PMOrder was placed for PIV by Venous Access Team (VAT). Patient was assessed for placement of a PIV. Access was obtained. Blood return noted. Dressingintact and device well secured. Flushed with normal saline. Pt advised to inform RN of any s/s of discomfort at the PIV site. Workup / Procedure Time: 30 minutes The primary RN was notified. Thank you, Patricia Guaman RN Venous Access Team#[id number] 2019-02-11 17:07:00 Test Item Value Reference Range Comments Vancomycin Tr (test code = Vancomycin Tr) 18.3 ug/mL 10.0- 20.0 ug/mL #[id number] 15:11:00 Test Item Value Reference Range Comments AFB Smear (test code = NO ACID FAST BACILLI SEEN- No Acid Fast B acilli Seen AFB Smear) 3 negative smears do not exclude pulmonary TB. If active pulmonary TB is suspected, continue airborne isolation until pulmonary disease is excluded by negative cultures. #[id number] 05:24:00 Test Item Value Reference Range Comments Magnesium (test code = Magnesium) 2.0 mg/dL 1.6- 2.2 mg/dL #[id number] 05:24:00 Test Item Value Reference Range Comments Sodium (test code = Sodium) 139 mmol/L 135- 145 mmol/L Potassium (test code = Potassium) 3.6 mmol/L 3.5- 5.0 mmol/ L Chloride (test code = Chloride) 103 mmol/L 98- 107 mmol/L CO2 (test code = CO2) 29.0 mmol/L 22.0- 30.0 mmol/L Anion Gap (test code = Anion Gap) 7 mmol/L 7- 15 mmol/L BUN (test code = BUN) 7 mg/dL 7- 21 mg/dL Creatinine (test code = Creatinine) 0.64 mg/dL 0.60- 1.00 m g/dL BUN/Creatinine Ratio (test code = 11 BUN/Creatinine Ratio) EGFR CKD-EPI Non-, Female >90 >=60 m L/min/1.73m2 (test code = EGFR CKD-EPI Non-, Female) EGFR CKD-EPI , Female (test >90 >=60 mL/min/1.73m2 code = EGFR CKD-EPI , Female) Glucose (test code = Glucose) 113 mg/dL 65- 179 mg/dL Calcium (test code = Calcium) 8.5 mg/dL 8.5- 10.2 mg/dL #[id number] 05:24:00 Test Item Value Reference Range Comments WBC (test code = WBC) 5.9 10*9/L 4.5- 11.0 10*9/L RBC (test code = RBC) 4.07 10*12/L 4.00- 5.20 10*12/L HGB (test code = HGB) 11.9 g/dL 12.0- 16.0 g/dL HCT (test code = HCT) 35.9 % 36.0- 46.0 % MCV (test code = MCV) 88.0 fL 80.0- 100.0 fL MCH (test code = MCH) 29.3 pg 26.0- 34.0 pg MCHC (test code = MCHC) 33.3 g/dL 31.0- 37.0 g/dL RDW (test code = RDW) 15.4 % 12.0- 15.0 % MPV (test code = MPV) 6.7 fL 7.0- 10.0 fL Platelet (test code = Platelet) 275 10*9/L 150- 440 10*9/L #[id number] 00:00:00Peripheral Intravenous Device by Vascular Access Team (02/11/2019 8:57 AM EDT)NarrativePerformed John Jean RN 02/11/2019 9:00 AMOrder was placed for a "PIV by Venous Access Team (VAT)". Patient was assessed for placement of a PIV. Access was obtained. Blood return noted. Dressing intact and device well secured. Flushed with normal saline. Pt advised to inform RN of any s/s of discomfort at the PIV site. Workup / Procedure Time: 30 minutes Thank you, Flora Jean RN Venous Access Team#[id number] 19:57:00 Test Item Value Reference Range Comments Lower Respiratory Culture Specimen Not Processed (test code = Lower Respiratory Culture) Gram Stain (test code = Gram Unacceptable for Culture, Stain) Smear Results Suggest Poor Specimen Quality #[id number] 15:10:00 Test Item Value Reference Range Comments Amphetamine Screen, Ur (test code = Amphetamine <500 ng/mL Not Applicable Screen, Ur) Barbiturate Screen, Ur (test code = Barbiturate <200 ng/mL Not Applicable Screen, Ur) Benzodiazepine Screen, Urine (test code = <200 ng/mL Not Ap plicable Benzodiazepine Screen, Urine) Cannabinoid Scrn, Ur (test code = Cannabinoid <20 ng/mL No t Applicable Scrn, Ur) Methadone Screen, Urine (test code = Methadone <300 ng/mL N ot Applicable Screen, Urine) Cocaine(Metab.)Screen, Urine (test code = <150 ng/mL Not Ap plicable Cocaine(Metab.)Screen, Urine) Opiate Scrn, Ur (test code = Opiate Scrn, Ur) <300 ng/mL No t Applicable #[id number] 14:00:00 Test Item Value Reference Range Comments Adenovirus (test code = Adenovirus) Not Detected Not Detected Coronavirus HKU1 (test code = Coronavirus HKU1) Not Detected Not Detected Coronavirus NL63 (test code = Coronavirus NL63) Not Detected Not Detected Coronavirus 229E (test code = Coronavirus 229E) Not Detected Not Detected Coronavirus OC43 (test code = Coronavirus OC43) Not Detected Not Detected Metapneumovirus (test code = Metapneumovirus) Not Detected No t Detected Rhinovirus/Enterovirus (test code = Not Detected Not Detected Rhinovirus/Enterovirus) Influenza A (test code = Influenza A) Not Detected Not Detect ed Influenza A/H1 (test code = Influenza A/H1) Not Detected Not Detected Influenza A/H3 (test code = Influenza A/H3) Not Detected Not Detected Influenza A/H1-2009 (test code = Influenza Not Detected Not D etected A/H1-2009) Influenza B (test code = Influenza B) Not Detected Not Detect ed Parainfluenza 1 (test code = Parainfluenza 1) Not Detected No t Detected Parainfluenza 2 (test code = Parainfluenza 2) Not Detected No t Detected Parainfluenza 3 (test code = Parainfluenza 3) Not Detected No t Detected Parainfluenza 4 (test code = Parainfluenza 4) Not Detected No t Detected RSV (test code = RSV) Not Detected Not Detected Bordetella pertussis (test code = Bordetella Not Detected Not Detected pertussis) Bordetella parapertussis (test code = Not Detected Not Detect ed Bordetella parapertussis) Chlamydophila (Chlamydia) pneumoniae (test code Not Detected Not Detected = Chlamydophila (Chlamydia) pneumoniae) Mycoplasma pneumoniae (test code = Mycoplasma Not Detected No t Detected pneumoniae) #[id number] 09:54:38 Test Item Value Reference Range Comments EKG Systolic BP (test code = EKG Systolic BP) EKG Diastolic BP (test code = EKG Diastolic BP) EKG Ventricular Rate (test code = EKG Ventricular 55 BPM Rate) EKG Atrial Rate (test code = EKG Atrial Rate) 55 BPM EKG P-R Interval (test code = EKG P-R Interval) 144 ms EKG QRS Duration (test code = EKG QRS Duration) 88 ms EKG Q-T Interval (test code = EKG Q-T Interval) 486 ms EKG QTC Calculation (test code = EKG QTC 464 ms Calculation) EKG Calculated P Esopus (test code = EKG Calculated 74 degrees P Esopus) EKG Calculated R Esopus (test code = EKG Calculated 52 degrees R Esopus) EKG Calculated T Esopus (test code = EKG Calculated 42 degrees T Esopus) QTC Fredericia (test code = QTC Fredericia) 472 ms #[id number] 09:51:00 Test Item Value Reference Range Comments Lactate, Venous (test code = Lactate, Venous) 1.5 mmol/L 0. 5- 1.8 mmol/L #[id number] 09:51:00 Test Item Value Reference Range Comments Specimen Source (test code = Specimen Source) Venous FIO2 Venous (test code = FIO2 Venous) 2L pH, Venous (test code = pH, Venous) 7.37 7.32-7.43 pCO2, Giovanni (test code = pCO2, Giovanni) 50 mm Hg 40- 60 mm Hg pO2, Giovanni (test code = pO2, Gioavnni) 51 mm Hg 30- 55 mm Hg HCO3, Giovanni (test code = HCO3, Giovanni) 28 mmol/L 22- 27 mmol/L Base Excess, Giovanni (test code = Base Excess, Giovanni) 3.2 -2.0-2.0 O2 Saturation, Venous (test code = O2 Saturation, 83.9 % 40.0- 85.0 % Venous) #[id number] 05:10:47CT Chest W Contrast (02/10/2019 4:42 AM EDT)SpecimenImpressionsPerformed AtStable appearing upper lobe predominant bronchiectasis, consolidation and architectural distortion likely representing chroniclung disease. Differential includes sarcoidosis, mycobacterial infection including tuberculosis, chronic hypersensitivity pneumonitis. Bilateral patchy groundglass pulmonary parenchymal opacities along likely represent atypical infection. Pulmonary edema is less likely given absence of pleural effusion normal heart size. Recommend follow-up chest CT in 4-8 weeks to document resolution.[facility] [place] RADNarrativePerformed AtEXAM: CT CHEST W CONTRASTDATE: 02/10/2019 4:42 AMACCESSION: [id number]: 02/10/2019 5:10 AMINTERPRETATION LOCATION: [facility] [place] CLINICAL INDICATION: 48 years old Female with recurrent pna, h/o bronchiectasis COMPARISON: CTA of the chest 07/05/2017 TECHNIQUE: A spiral CT scan wasobtained with IV contrast from the thoracic inlet through the hemidiaphragms. Images were reconstructed in the axial plane. Coronal and sagittal reformatted images of the chest were also provided forfurther evaluation of the lung parenchyma. FINDINGS: AIRWAYS, LUNGS, PLEURA: Bilateral upper lobe predominant bronchiectasis and architectural parenchymal distortion and upper lobe predominant consolidations are again noted. Patchy groundglass opacities are noted without pleural effusions, new from prior MEDIASTINUM: Normal heart size. No pericardial effusion. Normal caliber thoracic aorta. Mediastinal adenopathy, measuring up to 4.3 cm. IMAGED ABDOMEN: Sequela of cholecystectomy SOFT TISSUES: BONES: Unremarkable. [facility] [place] RADProcedure NoteInterface, Rad Results In - 02/10/2019 10:33 AM EDTEXAM: CT CHEST W CONTRAST DATE: 02/10/2019 4:42 AM DICTATED: 02/10/2019 5:10 AM INTERPRETATION LOCATION: [facility] [place] CLINICAL INDICATION: 48 years old Female with recurrent pna, h/o bronchiectasis COMPARISON: CTA of the chest 07/05/2017 TECHNIQUE: A spiral CT scan was obtained with IV contrast from the thoracic inlet through the hemidiaphragms. Images were reconstructed in the axial plane. Coronal and sagittal reformatted images of the chest were also provided for further evaluation ofthe lung parenchyma. FINDINGS: AIRWAYS, LUNGS, PLEURA: Bilateral upper lobe predominant bronchiectasis and architectural parenchymal distortion and upper lobe predominant consolidations are again noted. Patchy groundglass opacities are noted without pleural effusions, new from prior MEDIASTINUM: Normal heart size. No pericardial effusion. Normal caliber thoracic aorta. Mediastinal adenopathy, measuring up to 4.3 cm. IMAGED ABDOMEN: Sequela of cholecystectomy SOFT TISSUES: BONES: Unremarkable. IMPRESS ION: Stable appearing upper lobe predominant bronchiectasis, consolidation and architectural distortion likely representing chronic lung disease. Differential includes sarcoidosis, mycobacterial infection including tuberculosis, chronic hypersensitivity pneumonitis. Bilateral patchy groundglass pulmonary parenchymal opacities along likely represent atypical infection. Pulmonary edema is less likely given absence of pleural effusion normal heart size. Recommend follow-up chest CT in 4-8 weeks to document resolution.Performing OrganizationAddressCity/State/ZipcodePhone Number[facility] [place] [address] [place] [address]#[id number] 23:35:00 Test Item Value Reference Range Comments Quantiferon TB Gold (test code = Quantiferon TB Negative Negative Gold) Quantiferon NIL Value (test code = Quantiferon 1.29 IU/mL NIL Value) Quantiferon Mitogen Minus Nil (test code = 3.46 IU/mL Quantiferon Mitogen Minus Nil) Quantiferon Antigen Minus Nil (test code = -0.51 IU/mL Quantiferon Antigen Minus Nil) Quantiferon Antigen 2 minus NIL (test code = -0.14 IU/mL Quantiferon Antigen 2 minus NIL) #[id number] 18:02:00 Test Item Value Reference Range Comments Blood Culture, Routine (test code = No Growth at 5 days Blood Culture, Routine) #[id number] 18:02:00 Test Item Value Reference Range Comments Blood Culture, Routine (test code = No Growth at 5 days Blood Culture, Routine) #[id number] 15:22:22XR Chest 2 views (02/09/2019 3:07 PM EDT)SpecimenImpressionsPerformed At Right middle lobe pneumonicconsolidation. Recommend follow-up chest radiograph after treatment to ensure resolution.[facility] [place] RADNarrativePerformed AtEXAM: XR CHEST 2 VIEWSDATE: 02/09/2019 3:07 PMACCESSION: [id number]: 02/09/2019 3:22 PMINTERPRETATION LOCATION: [facility] CLINICAL INDICATION: 48 years old Female with SHORTNESS OF BREATH COMPARISON: 01/23/2019 TECHNIQUE: PA and Lateral Chest Radiographs. FINDINGS: Focalright middle lobe opacity. Bilateral upper lobe scarring, as previously noted. No pleural effusion or pneumothorax. Unremarkable cardiomediastinal silhouette. [facility] [place] RADProcedure NoteInterface, Rad Results In - 02/09/2019 3:29 PM EDTEXAM: XR CHEST 2 VIEWS DATE: 02/09/2019 3:07 PM 02/09/2019 3:22 PM INTERPRETATION LOCATION: [facility] CLINICAL INDICATION: 48 years old Female with SHORTNESS OF BREATH COMPARISON: 01/23/2019 TECHNIQUE: PA and Lateral Chest Radiographs. FINDINGS: Focal right middle lobe opacity. Bilateral upper lobe scarring, as previously noted. No pleural effusion or pneumothorax. Unremarkable cardiomediastinal silhouette. IMPRESSION: Right middle lobepneumonic consolidation. Recommend follow-up chest radiograph after treatment to ensure resolution.Performing OrganizationAddressCity/State/ZipcodePhone Number[facility] [place] [id number] [facility] [place] [address]#[id number] 14:06:00 Test Item Value Reference Range Comments Sodium (test code = Sodium) 136 mmol/L 135- 145 mmol/L Potassium (test code = Potassium) 3.2 mmol/L 3.5- 5.0 mmol/ L Chloride (test code = Chloride) 98 mmol/L 98- 107 mmol/L CO2 (test code = CO2) 28.0 mmol/L 22.0- 30.0 mmol/L BUN (test code = BUN) 4 mg/dL 7- 21 mg/dL Creatinine (test code = Creatinine) 0.59 mg/dL 0.60- 1.00 m g/dL BUN/Creatinine Ratio (test code = 7 BUN/Creatinine Ratio) EGFR CKD-EPI Non-, Female >90 >=60 m L/min/1.73m2 (test code = EGFR CKD-EPI Non-, Female) EGFR CKD-EPI , Female (test >90 >=60 mL/min/1.73m2 code = EGFR CKD-EPI , Female) Glucose (test code = Glucose) 106 mg/dL 65- 179 mg/dL Calcium (test code = Calcium) 8.8 mg/dL 8.5- 10.2 mg/dL Albumin (test code = Albumin) 4.1 g/dL 3.5- 5.0 g/dL Total Protein (test code = Total Protein) 7.4 g/dL 6.5- 8 .3 g/dL Total Bilirubin (test code = Total Bilirubin) 0.5 mg/dL 0. 0- 1.2 mg/dL AST (test code = AST) 31 U/L 14- 38 U/L ALT (test code = ALT) 24 U/L 15- 48 U/L Alkaline Phosphatase (test code = Alkaline 100 U/L 38- 1 26 U/L Phosphatase) Anion Gap (test code = Anion Gap) 10 mmol/L 7- 15 mmol/L #[id number] 14:06:00 Test Item Value Reference Range Comments WBC (test code = WBC) 9.9 10*9/L 4.5- 11.0 10*9/L RBC (test code = RBC) 4.53 10*12/L 4.00- 5.20 10*12/L HGB (test code = HGB) 13.5 g/dL 12.0- 16.0 g/dL HCT (test code = HCT) 39.0 % 36.0- 46.0 % MCV (test code = MCV) 86.1 fL 80.0- 100.0 fL MCH (test code = MCH) 29.8 pg 26.0- 34.0 pg MCHC (test code = MCHC) 34.6 g/dL 31.0- 37.0 g/dL RDW (test code = RDW) 15.3 % 12.0- 15.0 % MPV (test code = MPV) 6.6 fL 7.0- 10.0 fL Platelet (test code = Platelet) 379 10*9/L 150- 440 10*9/L Variable HGB Concentration (test code = Slight Not Pres ent Variable HGB Concentration) Neutrophils % (test code = Neutrophils %) 78.3 % Lymphocytes % (test code = Lymphocytes %) 14.0 % Monocytes % (test code = Monocytes %) 2.9 % Eosinophils % (test code = Eosinophils %) 1.5 % Basophils % (test code = Basophils %) 1.6 % Absolute Neutrophils (test code = Absolute 7.8 10*9/L 2.0- 7.5 10*9/L Neutrophils) Absolute Lymphocytes (test code = Absolute 1.4 10*9/L 1.5- 5.0 10*9/L Lymphocytes) Absolute Monocytes (test code = Absolute 0.3 10*9/L 0.2- 0. 8 10*9/L Monocytes) Absolute Eosinophils (test code = Absolute 0.2 10*9/L 0.0- 0.4 10*9/L Eosinophils) Absolute Basophils (test code = Absolute 0.2 10*9/L 0.0- 0. 1 10*9/L Basophils) Large Unstained Cells (test code = Large 2 % 0- 4 % Unstained Cells) #[id number] 14:06:00 Test Item Value Reference Range Comments HIV Antigen/Antibody Combo (test code = HIV Nonreactive Nonr eactive Antigen/Antibody Combo) #[id number] 14:06:00 Test Item Value Reference Range Comments Hepatitis C Ab (test code = Hepatitis C Ab) Reactive Nonr eactive #[id number] 14:06:00 Test Item Value Reference Range Comments hCG Quant, Blood (test code = hCG Quant, Blood) <5.0 0.0- 5.0 IU/L #[id number] 14:06:00 Test Item Value Reference Range Comments HCV RNA (test code = HCV RNA) Not Detected HCV RNA (IU) (test code = HCV RNA (IU)) HCV RNA Log(10) (test code = HCV RNA Log(10)) HCV RNA Comment (test code = HCV RNA Comment) #[id number] 14:06:00LIGHT BLUE CITRATE EXTRA TUBE (02/09/2019 2:06 PM EDT)SpecimenBloodNarrativePerformed AtCollected and received in lab.[facility] [employer] LABORATORIESPerforming OrganizationAddressCity/State/ZipcodePhone NumberUN[facility] [employer] [place] [address] [phone] #[id number] 14:06:00PINK EXTRA TUBE (02/09/2019 2:06 PM EDT)SpecimenBloodNarrativePerformed AtCollected and received in lab.[facility] [employer] LABORATORIESPerforming OrganizationAddressCity/State/ZipcodePhone NumberTRAN[facility] [address] [place] [address] [phone] #[id number] 06:59:00 Test Item Value Reference Range Comments WBC (test code = WBC) 7.5 10*9/L 4.5- 11.0 10*9/L RBC (test code = RBC) 3.94 10*12/L 4.00- 5.20 10*12/L HGB (test code = HGB) 11.8 g/dL 12.0- 16.0 g/dL HCT (test code = HCT) 34.8 % 36.0- 46.0 % MCV (test code = MCV) 88.4 fL 80.0- 100.0 fL MCH (test code = MCH) 29.8 pg 26.0- 34.0 pg MCHC (test code = MCHC) 33.8 g/dL 31.0- 37.0 g/dL RDW (test code = RDW) 16.1 % 12.0- 15.0 % MPV (test code = MPV) 7.2 fL 7.0- 10.0 fL Platelet (test code = Platelet) 168 10*9/L 150- 440 10*9/L #[id number] 06:59:00 Test Item Value Reference Range Comments Sodium (test code = Sodium) 139 mmol/L 135- 145 mmol/L Potassium (test code = Potassium) 3.0 mmol/L 3.5- 5.0 mmol/ L Chloride (test code = Chloride) 106 mmol/L 98- 107 mmol/L CO2 (test code = CO2) 26.0 mmol/L 22.0- 30.0 mmol/L Anion Gap (test code = Anion Gap) 7 mmol/L 9- 15 mmol/L BUN (test code = BUN) 10 mg/dL 7- 21 mg/dL Creatinine (test code = Creatinine) 0.48 mg/dL 0.60- 1.00 m g/dL BUN/Creatinine Ratio (test code = 21 BUN/Creatinine Ratio) EGFR CKD-EPI Non-, Female >90 >=60 m L/min/1.73m2 (test code = EGFR CKD-EPI Non-, Female) EGFR CKD-EPI , Female (test >90 >=60 mL/min/1.73m2 code = EGFR CKD-EPI , Female) Glucose (test code = Glucose) 127 mg/dL 65- 179 mg/dL Calcium (test code = Calcium) 8.4 mg/dL 8.5- 10.2 mg/dL #[id number] 07:20:00 Test Item Value Reference Range Comments WBC (test code = WBC) 7.6 10*9/L 4.5- 11.0 10*9/L RBC (test code = RBC) 4.16 10*12/L 4.00- 5.20 10*12/L HGB (test code = HGB) 12.7 g/dL 12.0- 16.0 g/dL HCT (test code = HCT) 37.3 % 36.0- 46.0 % MCV (test code = MCV) 89.8 fL 80.0- 100.0 fL MCH (test code = MCH) 30.4 pg 26.0- 34.0 pg MCHC (test code = MCHC) 33.9 g/dL 31.0- 37.0 g/dL RDW (test code = RDW) 16.2 % 12.0- 15.0 % MPV (test code = MPV) 7.2 fL 7.0- 10.0 fL Platelet (test code = Platelet) 149 10*9/L 150- 440 10*9/L #[id number] 07:20:00 Test Item Value Reference Range Comments Sodium (test code = Sodium) 138 mmol/L 135- 145 mmol/L Potassium (test code = Potassium) 3.8 mmol/L 3.5- 5.0 mmol/ L Chloride (test code = Chloride) 106 mmol/L 98- 107 mmol/L CO2 (test code = CO2) 26.0 mmol/L 22.0- 30.0 mmol/L Anion Gap (test code = Anion Gap) 6 mmol/L 9- 15 mmol/L BUN (test code = BUN) 11 mg/dL 7- 21 mg/dL Creatinine (test code = Creatinine) 0.54 mg/dL 0.60- 1.00 m g/dL BUN/Creatinine Ratio (test code = 20 BUN/Creatinine Ratio) EGFR CKD-EPI Non-, Female >90 >=60 m L/min/1.73m2 (test code = EGFR CKD-EPI Non-, Female) EGFR CKD-EPI , Female (test >90 >=60 mL/min/1.73m2 code = EGFR CKD-EPI , Female) Glucose (test code = Glucose) 95 mg/dL 65- 179 mg/dL Calcium (test code = Calcium) 8.6 mg/dL 8.5- 10.2 mg/dL #[id number] 07:20:00 Test Item Value Reference Range Comments Magnesium (test code = Magnesium) 2.2 mg/dL 1.6- 2.2 mg/dL #[id number] 07:20:00 Test Item Value Reference Range Comments Free T4 (test code = Free T4) 0.71 ng/dL 0.71- 1.40 ng/dL #[id number] 20:58:00 Test Item Value Reference Range Comments Amphetamine Screen, Ur (test code = Amphetamine <500 ng/mL Not Applicable Screen, Ur) Barbiturate Screen, Ur (test code = Barbiturate <200 ng/mL Not Applicable Screen, Ur) Benzodiazepine Screen, Urine (test code = <200 ng/mL Not Ap plicable Benzodiazepine Screen, Urine) Cannabinoid Scrn, Ur (test code = Cannabinoid <20 ng/mL No t Applicable Scrn, Ur) Methadone Screen, Urine (test code = Methadone <300 ng/mL N ot Applicable Screen, Urine) Cocaine(Metab.)Screen, Urine (test code = <150 ng/mL Not Ap plicable Cocaine(Metab.)Screen, Urine) Opiate Scrn, Ur (test code = Opiate Scrn, Ur) <300 ng/mL No t Applicable #[id number] 14:31:35 Test Item Value Reference Range Comments EKG Systolic BP (test code = EKG Systolic BP) EKG Diastolic BP (test code = EKG Diastolic BP) EKG Ventricular Rate (test code = EKG Ventricular 77 BPM Rate) EKG Atrial Rate (test code = EKG Atrial Rate) 77 BPM EKG P-R Interval (test code = EKG P-R Interval) 130 ms EKG QRS Duration (test code = EKG QRS Duration) 82 ms EKG Q-T Interval (test code = EKG Q-T Interval) 410 ms EKG QTC Calculation (test code = EKG QTC 463 ms Calculation) EKG Calculated P Esopus (test code = EKG Calculated 67 degrees P Esopus) EKG Calculated R Esopus (test code = EKG Calculated 66 degrees R Esopus) EKG Calculated T Esopus (test code = EKG Calculated -2 degrees T Esopus) QTC Fredericia (test code = QTC Fredericia) 445 ms #[id number] 13:58:30XR Chest 2 views (01/23/2019 2:02 PM EDT)SpecimenImpressionsPerformed At New left apical opacification and patchy left lower lobe opacities suggestive of infection.[facility] [place] RADNarrativePerformed AtEXAM: XR CHEST 2 VIEWSDATE: 01/23/2019 1:58 PMINTERPRETATION LOCATION: [facility] CLINICAL INDICATION: 48 years old Female with COUGH COMPARISON: 01/07/2019. TECHNIQUE: PA and Lateral Chest Radiographs. FINDINGS: Extensive collateral upper lobe scarring with volume loss. Interval worsening of left apical opacification and patchy left lower lobe opacities. No pleural effusion or pneumothorax. Unremarkable cardiomediastinal silhouette. [facility] [place] RADProcedure NoteInterface, Rad Results In - 01/23/2019 2:04 PM EDTEXAM: XR CHEST 2 VIEWS DATE: DICTATED: 01/23/2019 1:58 PM INTERPRETATION LOCATION: [facility] CLINICAL INDICATION: 48 years old Female with COUGH COMPARISON: 01/07/2019. TECHNIQUE: PA and Lateral Chest Radiographs. FINDINGS: Extensive collateral upper lobe scarring with volume loss. Interval worsening of left apical opacification and patchy left lower lobe opacities. No pleural effusion or pneumothorax. Unremarkable cardiomediastinal silhouette. IMPRESSION: New left apical opacification and patchy left lower lobe opacities suggestive of infection.Performing OrganizationAddressCity/State/ZipcodePhone Number[facility] [place] [id number] [place] [address]#[id number] 12:28:00 Test Item Value Reference Range Comments Influenza A (test code = Influenza A) Negative Negative Influenza B (test code = Influenza B) Negative Negative #[id number] 12:15:00 Test Item Value Reference Range Comments Sodium (test code = Sodium) 137 mmol/L 135- 145 mmol/L Potassium (test code = Potassium) 3.7 mmol/L 3.5- 5.0 mmol/ L Chloride (test code = Chloride) 108 mmol/L 98- 107 mmol/L CO2 (test code = CO2) 23.0 mmol/L 22.0- 30.0 mmol/L BUN (test code = BUN) 10 mg/dL 7- 21 mg/dL Creatinine (test code = Creatinine) 0.63 mg/dL 0.60- 1.00 m g/dL BUN/Creatinine Ratio (test code = 16 BUN/Creatinine Ratio) EGFR CKD-EPI Non-, Female >90 >=60 m L/min/1.73m2 (test code = EGFR CKD-EPI Non-, Female) EGFR CKD-EPI , Female (test >90 >=60 mL/min/1.73m2 code = EGFR CKD-EPI , Female) Glucose (test code = Glucose) 104 mg/dL 65- 179 mg/dL Calcium (test code = Calcium) 8.0 mg/dL 8.5- 10.2 mg/dL Albumin (test code = Albumin) 3.6 g/dL 3.5- 5.0 g/dL Total Protein (test code = Total Protein) 6.5 g/dL 6.5- 8 .3 g/dL Total Bilirubin (test code = Total Bilirubin) 0.5 mg/dL 0. 0- 1.2 mg/dL AST (test code = AST) 36 U/L 14- 38 U/L ALT (test code = ALT) 22 U/L 15- 48 U/L Alkaline Phosphatase (test code = Alkaline 84 U/L 38- 1 26 U/L Phosphatase) Anion Gap (test code = Anion Gap) 6 mmol/L 9- 15 mmol/L #[id number] 12:15:00 Test Item Value Reference Range Comments Lactate, Venous (test code = Lactate, Venous) 0.7 mmol/L 0. 5- 1.8 mmol/L #[id number] 12:15:00 Test Item Value Reference Range Comments WBC (test code = WBC) 8.7 10*9/L 4.5- 11.0 10*9/L RBC (test code = RBC) 3.89 10*12/L 4.00- 5.20 10*12/L HGB (test code = HGB) 11.6 g/dL 12.0- 16.0 g/dL HCT (test code = HCT) 34.4 % 36.0- 46.0 % MCV (test code = MCV) 88.5 fL 80.0- 100.0 fL MCH (test code = MCH) 29.7 pg 26.0- 34.0 pg MCHC (test code = MCHC) 33.6 g/dL 31.0- 37.0 g/dL RDW (test code = RDW) 16.1 % 12.0- 15.0 % MPV (test code = MPV) 7.4 fL 7.0- 10.0 fL Platelet (test code = Platelet) 156 10*9/L 150- 440 10*9/L Neutrophils % (test code = Neutrophils %) 75.9 % Lymphocytes % (test code = Lymphocytes %) 15.1 % Monocytes % (test code = Monocytes %) 5.1 % Eosinophils % (test code = Eosinophils %) 1.3 % Basophils % (test code = Basophils %) 0.6 % Absolute Neutrophils (test code = Absolute 6.6 10*9/L 2.0- 7.5 10*9/L Neutrophils) Absolute Lymphocytes (test code = Absolute 1.3 10*9/L 1.5- 5.0 10*9/L Lymphocytes) Absolute Monocytes (test code = Absolute 0.5 10*9/L 0.2- 0. 8 10*9/L Monocytes) Absolute Eosinophils (test code = Absolute 0.1 10*9/L 0.0- 0.4 10*9/L Eosinophils) Absolute Basophils (test code = Absolute 0.1 10*9/L 0.0- 0. 1 10*9/L Basophils) Large Unstained Cells (test code = Large 2 % 0- 4 % Unstained Cells) Anisocytosis (test code = Anisocytosis) Slight Not Pres ent #[id number] 12:15:00 Test Item Value Reference Range Comments Troponin I (test code = Troponin I) <0.034 <0.034 ng/mL #[id number] 12:15:00 Test Item Value Reference Range Comments PRO-BNP (test code = PRO-BNP) 259.0 pg/mL 0.0- 192.0 pg/mL #[id number] 12:15:00 Test Item Value Reference Range Comments Specimen Source (test code = Specimen Source) Venous FIO2 Venous (test code = FIO2 Venous) Not Specified pH, Venous (test code = pH, Venous) 7.36 7.32-7.43 pCO2, Giovanni (test code = pCO2, Giovanni) 43 mm Hg 40- 60 mm Hg pO2, Giovanni (test code = pO2, Giovanni) 61 mm Hg 30- 55 mm Hg HCO3, Giovanni (test code = HCO3, Giovanni) 23 mmol/L 22- 27 mmol/L Base Excess, Giovanni (test code = Base Excess, -1.2 -2.0- 2.0 Giovanni) O2 Saturation, Venous (test code = O2 93.1 % 40.0- 85.0 % Saturation, Venous) #[id number] 12:15:00 Test Item Value Reference Range Comments TSH (test code = TSH) 8.900 uIU/mL 0.600- 3.300 uIU/mL #[id number] 12:15:00LIGHT BLUE CIT[place] EXTRA TUBE (01/23/2019 12:15 PM EDT)SpecimenBloodNarrativePerformed AtCollected and received in lab.[facility] LABORATORIESPerforming OrganizationAddressCity/State/ZipcodePhone NumberUN[facility] LTAQHBAOWTBL[address] [place] [address] [phone] #[id number] 12:15:00ROYAL BLUE EXTRA TUBE (01/23/2019 12:15 PM EDT)SpecimenBloodNarrativePerformed AtCollected and received in lab.[facility] LABORATORIESPerforming OrganizationAddressCity/State/ZipcodePhone NumberUN[facility] [id number] [place] [address] [phone] #[id number] 18:21:01XR Chest 2 views (01/07/2019 5:52 PM EDT)SpecimenImpressionsPerformed At -Similar appearance of biapical scarring, bronchiectasis, architectural distortion and fibrosis. -No definite focal consolidation.[facility] [place] RADNarrativePerformed AtEXAM: XR CHEST 2 VIEWSDATE: 01/07/2019 5:52 PMACCESSION: [id number]: 01/07/2019 6:21 PMINTERPRETATION LOCATION: [facility] CLINICAL INDICATION: 48 years old Female with SHORTNESS OF BREATH COMPARISON: Chest radiographs on 10/06/[address] dated 07/05/2017. TECHNIQUE: PA and Lateral Chest Radiographs. FINDINGS: Similar appearance of biapical scarring, bronchiectasis, architectural distortion and fibrosis. No pleural effusion. No definite focal consolidation. No pneumothorax. Stable cardiomediastinal silhouette. No soft tissue abnormality. No acute osseous abnormality. [facility] [place] RADProcedure NoteInterface, Rad Results In - 01/07/2019 7:20 PM EDTEXAM: XR CHEST 2 VIEWS DATE: 01/07/2019 5:52 PM DICTATED: 01/07/2019 6:21 PM INTERPRETATION LOCATION: [facility] CLINICAL INDICATION: 48 years old Female with SHORTNESS OF BREATH COMPARISON: Chest radiographs on 10/06/[address] dated 07/05/2017. TECHNIQUE: PA and Lateral Chest Radiographs. FINDINGS: Similar appearance of biapical scarring, bronchiectasis, architectural distortion and fibrosis. No pleuraleffusion. No definite focal consolidation. No pneumothorax. Stable cardiomediastinal silhouette. No soft tissue abnormality. No acute osseous abnormality. IMPRESSION: -Similar appearance of biapical scarring, bronchiectasis, architectural distortion and fibrosis. -No definite focal consolidation.Performing OrganizationAddressVeterans Health Administration/State/ZipcodePhone [facility] [address]BV[address] [place] [address]#[id number] 00:00:00EKG Interpretation (01/07/2019 8:08 PM EDT)NarrativePerformed AtJAIME De La Cruz 01/07/20198:09 PMEKG InterpretationDate/Time: 01/07/2019 8:08 PMPerformed by: EDUARDO De La Cruzuthorized by: JAIME De La Cruz Previous ECG: Previous ECG:Compared to currentRate: ECG rate:68ECG rate assessment: normalRhythm: Rhythm: sinus rhythmEctopy: Ectopy: noneConduction: Conduction: normalST segments: ST segments:NormalT waves: T waves: normalF[facility]FI[facility] POINT OF CARE TESTINGPerforming OrganizationAddress City/State/ZipcodePhone NumberF[facility] POINT OF CARE [address] [place] [phone]#[id number] 10:33:28XR Hip 2 Views Left (11/14/2018 10:34 AM EDT)SpecimenImpressionsPerformed At No acute osseous abnormality of the left hip.[facility] [place] RADNarrativePerformed AtEXAM: XR HIP 2 VIEWS LEFTDATE: 11/14/2018ACCESSION: [id number]: 11/14/2018 10:33 AMINTERPRETATION LOCATION: [facility] CLINICAL INDICATION: 48years old Female with hip pain COMPARISON: None. TECHNIQUE: Supine AP views of the pelvis and left hip and frog leg lateral view of the left hip. FINDINGS: Left hip: No soft tissue swelling. No acute fracture or dislocation. Left hip joint space is normal. Mild acetabular osseous overgrowth. Partially imaged right hip demonstrates mild acetabular osseous overgrowth, otherwise, unremarkable. Sacroi liac joints and pubic symphysis are approximated. Degenerative changes of the pubic symphysis. [facility] RADProcedure NoteInterface, Rad Results In - 11/14/2018 10:52 AM EDTEXAM: XR HIP 2 VIEWS LEFT DATE: 11/14/2018 DICTATED: 11/14/2018 10:33 AM INTERPRETATION LOCATION: [facility] CLINICAL INDICATION: 48 years old Female with hip pain COMPARISON: None. TECHNIQUE: Supine AP views of the pelvis and left hip and frog leg lateral view of the left hip. FINDINGS: Left hip: No soft tissueswelling. No acute fracture or dislocation. Left hip joint space is normal. Mild acetabular osseous overgrowth. Partially imaged right hip demonstrates mild acetabular osseous overgrowth, otherwise, unremarkable. Sacroiliac joints and pubic symphysis are approximated. Degenerative changes of the pubicsymphysis. IMPRESSION: No acute osseous abnormality of the left hip.Performing OrganizationAddressCit y/State/ZipcodePhone Number[facility] [place] [id number] [facility] [place] [address] #[id number] 15:18:00 Test Item Value Reference Range Comments Sodium (test code = Sodium) 138 mmol/L 135- 145 mmol/L Potassium (test code = Potassium) 4.5 mmol/L 3.5- 5.0 mmol/ L Chloride (test code = Chloride) 101 mmol/L 98- 107 mmol/L CO2 (test code = CO2) 28.0 mmol/L 22.0- 30.0 mmol/L BUN (test code = BUN) 10 mg/dL 7- 21 mg/dL Creatinine (test code = Creatinine) 0.62 mg/dL 0.60- 1.00 m g/dL BUN/Creatinine Ratio (test code = 16 BUN/Creatinine Ratio) EGFR MDRD Non Af Amer (test code = EGFR MDRD >=60 >=6 0 mL/min/1.73m2 Non Af Amer) EGFR MDRD Af Amer (test code = EGFR MDRD Af >=60 >=60 mL/min/1.73m2 Amer) Anion Gap (test code = Anion Gap) 9 mmol/L 9- 15 mmol/L Glucose (test code = Glucose) 121 mg/dL 65- 179 mg/dL Calcium (test code = Calcium) 9.0 mg/dL 8.5- 10.2 mg/dL Albumin (test code = Albumin) 4.0 g/dL 3.5- 5.0 g/dL Total Protein (test code = Total Protein) 7.5 g/dL 6.5- 8 .3 g/dL Total Bilirubin (test code = Total Bilirubin) 0.6 mg/dL 0. 0- 1.2 mg/dL AST (test code = AST) 23 U/L 14- 38 U/L ALT (test code = ALT) 18 U/L 15- 48 U/L Alkaline Phosphatase (test code = Alkaline 103 U/L 38- 1 26 U/L Phosphatase) #[id number] 15:18:00Hepatitis C AbREACTIVE (A)NonreactiveUNCH [facility] [employer]#[id number] 2018-10-11 15:18:00 Test Item Value Reference Range Comments TSH (test code = TSH) 15.410 uIU/mL 0.600- 3.300 uIU/mL #[id number] 15:18:00 Test Item Value Reference Range Comments HIV Antigen/Antibody Combo (test code = HIV Nonreactive Nonr eactive Antigen/Antibody Combo) #[id number] 15:18:00 Test Item Value Reference Range Comments WBC (test code = WBC) 10.9 10*9/L 4.5- 11.0 10*9/L RBC (test code = RBC) 4.56 10*12/L 4.00- 5.20 10*12/L HGB (test code = HGB) 13.8 g/dL 12.0- 16.0 g/dL HCT (test code = HCT) 42.9 % 36.0- 46.0 % MCV (test code = MCV) 94.3 fL 80.0- 100.0 fL MCH (test code = MCH) 30.2 pg 26.0- 34.0 pg MCHC (test code = MCHC) 32.1 g/dL 31.0- 37.0 g/dL RDW (test code = RDW) 13.8 % 12.0- 15.0 % MPV (test code = MPV) 6.0 fL 7.0- 10.0 fL Platelet (test code = Platelet) 272 10*9/L 150- 440 10*9/L Neutrophils % (test code = Neutrophils %) 88.8 % Lymphocytes % (test code = Lymphocytes %) 7.0 % Monocytes % (test code = Monocytes %) 1.8 % Eosinophils % (test code = Eosinophils %) 1.4 % Basophils % (test code = Basophils %) 0.2 % Neutrophil Left Shift (test code = 1+ Not Present Neutrophil Left Shift) Absolute Neutrophils (test code = Absolute 9.6 10*9/L 2.0- 7.5 10*9/L Neutrophils) Absolute Lymphocytes (test code = Absolute 0.8 10*9/L 1.5- 5.0 10*9/L Lymphocytes) Absolute Monocytes (test code = Absolute 0.2 10*9/L 0.2- 0. 8 10*9/L Monocytes) Absolute Eosinophils (test code = Absolute 0.2 10*9/L 0.0- 0.4 10*9/L Eosinophils) Absolute Basophils (test code = Absolute 0.0 10*9/L 0.0- 0. 1 10*9/L Basophils) Large Unstained Cells (test code = Large 1 % 0- 4 % Unstained Cells) Hypochromasia (test code = Hypochromasia) Slight Not Pr esent #[id number] 15:08:00 Test Item Value Reference Range Comments Color, UA (test code = Color, UA) Yellow Clarity, UA (test code = Clarity, UA) Clear Specific [place], UA (test code = Specific 1.020 1.003 -1.029 [place], UA) pH, UA (test code = pH, UA) 6.5 5.0-9.0 Leukocyte Esterase, UA (test code = Leukocyte Negative Ne gative Esterase, UA) Nitrite, UA (test code = Nitrite, UA) Negative Negative Protein, UA (test code = Protein, UA) Trace Negative Glucose, UA (test code = Glucose, UA) Negative Negative Ketones, UA (test code = Ketones, UA) Trace Negative Urobilinogen, UA (test code = Urobilinogen, >=8 mg/dL 0.2 mg/dL, 1.0 mg/dL UA) Bilirubin, UA (test code = Bilirubin, UA) Small Negati ve Blood, UA (test code = Blood, UA) Negative Negative RBC, UA (test code = RBC, UA) 2 /HPF <4 /HPF WBC, UA (test code = WBC, UA) 2 /HPF 0- 5 /HPF Squam Epithel, UA (test code = Squam Epithel, 5 /HPF 0- 5 /HPF UA) Bacteria, UA (test code = Bacteria, UA) Moderate None See n /HPF Trans Epithel, UA (test code = Trans Epithel, 1 /HPF 0- 2 /HPF UA) Ca Oxalate Crystal, UA (test code = Ca None Seen Oxalate Crystal, UA) Hyaline Casts, UA (test code = Hyaline Casts, 1 /LPF <= 0 /LPF UA) Mucus, UA (test code = Mucus, UA) Many None Seen /HPF #[id number] 15:08:00 Test Item Value Reference Range Comments Urine Culture, Comprehensive (test code = Urine NO GROWTH Culture, Comprehensive) #[id number] 16:23:02XR Chest 2 views (10/06/2018 4:14 PM EDT)SpecimenImpressionsPerformed At Unchanged biapical scarring, bronchiectasis, architectural distortion and fibrosis No new consolidation.[facility] [place] RADNarrativePerformed AtEXAM: XR CHEST 2 VIEWSDATE: 10/06/2018 4:14 PMACCESSION: [id number]: 10/06/2018 4:23 PMINTERPRETATION LOCATION: [facility] CLINICAL INDICATION: 48 years old Female with COMPARISON: 08/02/2018 TECHNIQUE: PA and Lateral Chest Radiographs. FINDINGS: Unchanged biapical scarring, bronchiectasis, architectural distortion and fibrosis No pleural effusion or pneumothorax. Unremarkable cardiomediastinal silhouette. [facility] [place] RADProcedure NoteInterface, Rad Results In - 10/06/2018 4:24 PM EDTEXAM: XR CHEST2 VIEWS DATE: 10/06/2018 4:14 PM DICTATED: 10/06/2018 4:23 PM INTERPRETATION LOCATION: [facility] CLINICAL INDICATION: 48 years old Female with COMPARISON: 08/02/2018 TECHNIQUE: PA and Lateral Chest Radiographs. FINDINGS: Unchanged biapical scarring, bronchiectasis, architectural distortion and fibrosis No pleural effusion or pneumothorax. Unremarkable cardiomediastinal silhouette. IMPRESSION: Unchanged biapical scarring, bronchiectasis, architectural distortion and fibrosis No new consolidation.Performing OrganizationAddressCity/State/ZipcodePhone [facility] [id number], [place] [address]SZ Chest 2 [id number] 16:50:59XR Chest 2 views (08/02/2018 4:41 PM)ImpressionsPerformed AtStable appearing biapical pulmonary parenchymal opacities with bronchiectasis.. [facility] RADNarrativePerformed AtEXAM: XR CHEST 2 VIEWSDATE: 08/02/2018 4:41 PMACCESSION: [id number]: 08/02/2018 4:50 PMINTERPRETATION LOCATION: [facility] CLINICAL INDICATION: 48 years old Female with DYSPNEA-J44.9-Chronic obstructive pulmonary disease, unspecified COPD type ([facility]-HCC) COMPARISON: 06/30/2018 TECHNIQUE: PA and Lateral Chest Radiographs. FINDINGS: Lateral apical pulmonary parenchymal opacities with bronchiectasis, similar to previous study.The lungs are hyperinflated. No new pulmonary parenchymal opacities seen. No pleural effusion [facility] RADProcedure NoteInterface, Rad Results In - 08/02/2018 4:57 PM EDTEXAM: XR CHEST 2 VIEWS DATE: 08/02/2018 4:41 PM DICTATED: 08/02/2018 4:50 PM INTERPRETATION LOCATION: [facility] CLINICAL INDICATION: 48 years old Female with DYSPNEA-J44.9-Chronic obstructive pulmonary disease, unspecified COPD type ([facility]- HCC) COMPARISON: 06/30/2018 TECHNIQUE: PA and Lateral Chest Radiographs. FINDING S: Lateral apical pulmonary parenchymal opacities with bronchiectasis, similar to previous study. The lungs are hyperinflated. No new pulmonary parenchymal opacities seen. No pleural effusion IMPRESSION: Stable appearing biapical pulmonary parenchymal opacities with bronchiectasis.. Performing Organiza tionAddressCity/State/ZipcodePhone [facility] [id number] [facility] [place] [address]#[id number] 16:50:59XR Chest 2 views (08/02/2018 4:41 PM EDT)SpecimenImpressionsPerformed AtStable appearing biapical pulmonary parenchymal opacities with bronchiectasis.. [facility] RADNarrativePerformed AtEXAM: XR CHEST 2 VIEWSDATE: 08/02/2018 4:41 PMACCESSION: [id number]: 08/02/2018 4:50 PMINTERPRETATION LOCATION: [facility] CLINICAL INDICATION: 48 years old Female with DYSPNEA-J44.9-Chronic obstructive pulmonary disease, unspecified COPD type ([facility]-HCC) COMPARISON: 06/30/2018 TECHNIQUE: PA and Lateral Chest Radiographs. FINDINGS: Lateral apical pulmonary parenchymal opacities with bronchiectasis, similar to previous study. The lungs are hyperinflated. No new pulmonary parenchymal opacities seen. No pleural effusion [facility] RADProcedure NoteInterface, Rad Results In - 08/02/2018 4:57 PM EDTEXAM: XR CHEST 2 VIEWS DA TE: 08/02/2018 4:41 PM DICTATED: 08/02/2018 4:50 PM INTERPRETATION LOCATION: [facility] CLINICAL INDICATION: 48 years old Female with DYSPNEA-J44.9-Chronic obstructive pulmonary disease, unspecified COPD type ([facility]-HCC) COMPARISON: 06/30/2018 TECHNIQUE: PA and Lateral Chest Radiographs. FINDINGS: Lateral apical pulmonary parenchymal opacities with bronchiectasis, similar to previous study. The lungs are hyperinflated. No new pulmonary parenchymal opacities seen. No pleural effusion IMPRESSION: Stable appearing biapical pulmonary parenchymal opacities with bronchiectasis.. Performing OrganizationAddressCity/State/ZipcodePhone Number[facility] [id number] [facility].[place], [place] [address]Smrwtwjimpmcq metabolic [id number] 17:48:00 Test Item Value Reference Range Comments Sodium (test code = Sodium) 138 mmol/L 135- 145 mmol/L Potassium (test code = Potassium) 4.2 mmol/L 3.5- 5.0 mmol/ L Chloride (test code = Chloride) 103 mmol/L 98- 107 mmol/L CO2 (test code = CO2) 29.0 mmol/L 22.0- 30.0 mmol/L BUN (test code = BUN) 3 mg/dL 7- 21 mg/dL Creatinine (test code = Creatinine) 0.67 mg/dL 0.60- 1.00 m g/dL BUN/Creatinine Ratio (test code = 4 BUN/Creatinine Ratio) EGFR MDRD Non Af Amer (test code = EGFR MDRD >=60 >=6 0 mL/min/1.73m2 Non Af Amer) EGFR MDRD Af Amer (test code = EGFR MDRD Af >=60 >=60 mL/min/1.73m2 Amer) Anion Gap (test code = Anion Gap) 6 mmol/L 9- 15 mmol/L Glucose (test code = Glucose) 88 mg/dL 65- 179 mg/dL Calcium (test code = Calcium) 9.0 mg/dL 8.5- 10.2 mg/dL Albumin (test code = Albumin) 3.9 g/dL 3.5- 5.0 g/dL Total Protein (test code = Total Protein) 6.6 g/dL 6.5- 8 .3 g/dL Total Bilirubin (test code = Total Bilirubin) 0.4 mg/dL 0. 0- 1.2 mg/dL AST (test code = AST) 21 U/L 14- 38 U/L ALT (test code = ALT) 25 U/L 15- 48 U/L Alkaline Phosphatase (test code = Alkaline 79 U/L 38- 1 26 U/L Phosphatase) Rapid Influenza [id number] 17:48:00 Test Item Value Reference Range Comments Influenza A (test code = Influenza A) Negative Negative Influenza B (test code = Influenza B) Negative Negative CBC w/ [id number] 17:48:00 Test Item Value Reference Range Comments WBC (test code = WBC) 9.1 10*9/L 4.5- 11.0 10*9/L RBC (test code = RBC) 3.89 10*12/L 4.00- 5.20 10*12/L HGB (test code = HGB) 11.9 g/dL 12.0- 16.0 g/dL HCT (test code = HCT) 36.6 % 36.0- 46.0 % MCV (test code = MCV) 94.0 fL 80.0- 100.0 fL MCH (test code = MCH) 30.7 pg 26.0- 34.0 pg MCHC (test code = MCHC) 32.7 g/dL 31.0- 37.0 g/dL RDW (test code = RDW) 14.6 % 12.0- 15.0 % MPV (test code = MPV) 7.2 fL 7.0- 10.0 fL Platelet (test code = Platelet) 236 10*9/L 150- 440 10*9/L Neutrophils % (test code = Neutrophils %) 73.1 % Lymphocytes % (test code = Lymphocytes %) 18.3 % Monocytes % (test code = Monocytes %) 4.4 % Eosinophils % (test code = Eosinophils %) 1.9 % Basophils % (test code = Basophils %) 0.2 % Absolute Neutrophils (test code = Absolute 6.6 10*9/L 2.0- 7.5 10*9/L Neutrophils) Absolute Lymphocytes (test code = Absolute 1.7 10*9/L 1.5- 5.0 10*9/L Lymphocytes) Absolute Monocytes (test code = Absolute 0.4 10*9/L 0.2- 0. 8 10*9/L Monocytes) Absolute Eosinophils (test code = Absolute 0.2 10*9/L 0.0- 0.4 10*9/L Eosinophils) Absolute Basophils (test code = Absolute 0.0 10*9/L 0.0- 0. 1 10*9/L Basophils) Large Unstained Cells (test code = Large 2 % 0- 4 % Unstained Cells) Macrocytosis (test code = Macrocytosis) Slight Not Pres ent XR Chest 2 [id number] 15:56:20XR Chest 2 views (06/30/2018 3:47 PM) Impressions Performed At - Unchanged biapical predominant cystic change with architectural distortion, nodular opacities and bronchiectasis. -No new consolidation.[facility] Narrative Performed At EXAM: XR CHEST 2 VIEWS DATE: 06/30/2018 3:47 PM DICTATED: 06/30/2018 3:56 PM INTERPRETATION LOCATION: [facility] CLINICAL INDICATION: 48 years oldFemale with SHORTNESS OF BREATH- COMPARISON: Chest radiograph 06/11/2018. TECHNIQUE: PA and Lateral Chest Radiographs. FINDINGS: Unchanged apical predominant cystic changes with architectural distortion, bronchiectasis, and superior retraction of the ana. Bilateral reticular and nodular opacities most pronounced in the apices. No new pulmonary opacities. No pleural effusion or pneumothorax. Cardiom ediastinal silhouette is within normal limits. [facility] [facility] Procedure Note Interface, Rad Results In - 06/30/2018 4:19 PM EST EXAM: XR CHEST 2 VIEWS DATE: 06/30/2018 3:47 PM DICTATED: 06/30/2018 3:56 PM INTERPRETATION LOCATION: [facility] [place] CLINICAL INDICATION: 48 years old Female with SHORTNESS OF BREATH- COMPARISON: Chest radiograph 06/11/2018. TECHNIQUE: PA and Lateral Chest Radiographs. FINDINGS: Unchanged apical predominant cystic changes with architectural distortion, bronchiectasis, and superior retraction of the ana. Bilateral reticular and nodular opacities most pronounced in the apices. No new pulmonary opacities. No pleural effusion or pneumothorax. Cardiomediastinal silh ouette is within normal limits. IMPRESSION: - Unchanged biapical predominant cystic change with architectural distortion, nodular opacities and bronchiectasis. -No new consolidation. Performing Organization Address City/State/Zipcode Phone Number [facility] [address] [facility]. [place], [place] [address]RVS w/ [id number] 16:08:00 Test Item Value Reference Range Comments WBC (test code = WBC) 5.8 10*9/L 4.5- 11.0 10*9/L RBC (test code = RBC) 4.01 10*12/L 4.00- 5.20 10*12/L HGB (test code = HGB) 12.7 g/dL 12.0- 16.0 g/dL HCT (test code = HCT) 38.2 % 36.0- 46.0 % MCV (test code = MCV) 95.3 fL 80.0- 100.0 fL MCH (test code = MCH) 31.8 pg 26.0- 34.0 pg MCHC (test code = MCHC) 33.3 g/dL 31.0- 37.0 g/dL RDW (test code = RDW) 13.8 % 12.0- 15.0 % MPV (test code = MPV) 8.9 fL 7.0- 10.0 fL Platelet (test code = Platelet) 59 10*9/L 150- 440 10*9/L Neutrophils % (test code = Neutrophils %) 79.9 % Lymphocytes % (test code = Lymphocytes %) 13.0 % Monocytes % (test code = Monocytes %) 2.2 % Eosinophils % (test code = Eosinophils %) 1.8 % Basophils % (test code = Basophils %) 0.5 % Neutrophil Left Shift (test code = 2+ Not Present Neutrophil Left Shift) Absolute Neutrophils (test code = Absolute 4.6 10*9/L 2.0- 7.5 10*9/L Neutrophils) Absolute Lymphocytes (test code = Absolute 0.8 10*9/L 1.5- 5.0 10*9/L Lymphocytes) Absolute Monocytes (test code = Absolute 0.1 10*9/L 0.2- 0. 8 10*9/L Monocytes) Absolute Eosinophils (test code = Absolute 0.1 10*9/L 0.0- 0.4 10*9/L Eosinophils) Absolute Basophils (test code = Absolute 0.0 10*9/L 0.0- 0. 1 10*9/L Basophils) Large Unstained Cells (test code = Large 3 % 0- 4 % Unstained Cells) Urinalysis with Culture [id number] 14:16:00 Test Item Value Reference Range Comments Color, UA (test code = Color, UA) Yellow Clarity, UA (test code = Clarity, UA) Clear Specific [place], UA (test code = Specific 1.004 1.003 -1.030 [place], UA) pH, UA (test code = pH, UA) 5.0 5.0-9.0 Leukocyte Esterase, UA (test code = Leukocyte Negative Ne gative Esterase, UA) Nitrite, UA (test code = Nitrite, UA) Negative Negative Protein, UA (test code = Protein, UA) Negative Negative Glucose, UA (test code = Glucose, UA) Negative Negative Ketones, UA (test code = Ketones, UA) Negative Negative Urobilinogen, UA (test code = Urobilinogen, 0.2 mg/dL 0.2 mg/dL, 1.0 mg/dL UA) Bilirubin, UA (test code = Bilirubin, UA) Negative Negati ve Blood, UA (test code = Blood, UA) Negative Negative RBC, UA (test code = RBC, UA) <1 <=4 /HPF WBC, UA (test code = WBC, UA) <1 0- 5 /HPF Squam Epithel, UA (test code = Squam Epithel, 2 /HPF 0- 5 /HPF UA) Bacteria, UA (test code = Bacteria, UA) Rare None See n /HPF Mucus, UA (test code = Mucus, UA) Rare None Seen /HPF Qualitative, Urine (Sent to lab)2018-06-11 14:16:00 Test Item Value Reference Range Comments Test, Urine (test code = Test, Negative Negative Urine) Comprehensive Metabolic [id number] 14:15:00 Test Item Value Reference Range Comments Sodium (test code = Sodium) 138 mmol/L 135- 145 mmol/L Potassium (test code = Potassium) 3.5- 5.0 mmol/ L Chloride (test code = Chloride) 105 mmol/L 98- 107 mmol/L CO2 (test code = CO2) 27.0 mmol/L 22.0- 30.0 mmol/L BUN (test code = BUN) 5 mg/dL 7- 21 mg/dL Creatinine (test code = Creatinine) 0.55 mg/dL 0.60- 1.00 m g/dL BUN/Creatinine Ratio (test code = 9 BUN/Creatinine Ratio) EGFR MDRD Non Af Amer (test code = EGFR MDRD >=60 >=6 0 mL/min/1.73m2 Non Af Amer) EGFR MDRD Af Amer (test code = EGFR MDRD Af >=60 >=60 mL/min/1.73m2 Amer) Anion Gap (test code = Anion Gap) 6 mmol/L 9- 15 mmol/L Glucose (test code = Glucose) 82 mg/dL 65- 179 mg/dL Calcium (test code = Calcium) 8.8 mg/dL 8.5- 10.2 mg/dL Albumin (test code = Albumin) 3.5- 5.0 g/dL Total Protein (test code = Total Protein) 6.5- 8 .3 g/dL Total Bilirubin (test code = Total Bilirubin) 0. 0- 1.2 mg/dL AST (test code = AST) 14- 38 U/L ALT (test code = ALT) 15- 48 U/L Alkaline Phosphatase (test code = Alkaline 38- 1 26 U/L Phosphatase) Lipase [id number] 14:15:00 Test Item Value Reference Range Comments Lipase (test code = Lipase) 82 U/L 44- 232 U/L Magnesium [id number] 14:15:00 Test Item Value Reference Range Comments Magnesium (test code = Magnesium) 1.9 mg/dL 1.6- 2.2 mg/dL Rapid Influenza [id number] 13:48:00 Test Item Value Reference Range Comments Influenza A (test code = Influenza A) Negative Negative Influenza B (test code = Influenza B) Negative Negative Rapid Influenza (Flu A/B)2018-05-05 16:32:00 Test Item Value Reference Range Comments Influenza A (test code = Influenza A) Negative Negative Influenza B (test code = Influenza B) Negative Negative XR Chest 2 [id number] 15:09:24XR Chest 2 views (05/05/2018 3:06 PM) Impressions Performed At No acute airspace disease. [facility] Narrative Performed At EXAM: XR CHEST 2 VIEWS DATE: 05/05/2018 3:06 PM DICTATED:05/05/2018 3:09 PM INTERPRETATION LOCATION: [facility] CLINICAL INDICATION: 48 years old Female with COUGH-- COMPARISON: 07/05/[address] TECHNIQUE: PA and Lateral Chest Radiographs. FINDINGS: Apical predominant architecture distortion, scarring and bronchiectasis with cephalad hilar retraction, unchanged. No new or enlarging airspace opacities. No pleural effusion or pneumothorax. Unremarkable cardiomediastinal silhouette. [facility] Procedure Note Interface, Rad Results In - 05/05/2018 3:28 PM EST EXAM: XR CHEST 2 VIEWS DATE: 05/05/2018 3:06 PM DICTATED: 05/05/2018 3:09 PM INTERPRETATION LOCATION: [facility] CLINICAL INDICATION: 48 years old Female with COUGH-- COMPARISON:07/05/[address] TECHNIQUE: PA and Lateral Chest Radiographs. FINDINGS: Apical predominant architecture distortion, scarring and bronchiectasis with cephalad hilar retraction, unchanged. No new or enlarging airspace opacities. No pleural effusion or pneumothorax. Unremarkable cardiomediastinal silhouette. IMPRESSION: No acute airspace disease. Performing Organization Address City/State/Zipcode PhoneNumber [facility] [address] [facility]. [place], [place] [address]RT Chest 2 [id number] 17:46:31XR Chest 2 views (04/19/2018 5:39 PM) Impressions Performed At Fibrotic lung apices, unchanged. No acute airspace disease. [facility] Narrative Performed At EXAM: XR CHEST 2 VIEWS DATE: 04/19/2018 5:39 PMACCESSION: [id number] DICTATED: 04/19/2018 5:46 PM INTERPRETATION LOCATION: [facility] CLINICAL INDICATION: 48 years old Female with COUGH-abnormal breath sounds right mid/low lung mulligan- COMPARISON: 04/09/2018 chest radiograph and earlier TECHNIQUE: PA and Lateral Chest Radiographs. FINDINGS:Apical predominant fibrosis/scarring, unchanged. No new or enlarging consolidation. No pleural effusion or pneumothorax. Unremarkable cardiomediastinal silhouette. [facility] Procedure Note Interface, RadResults In - 04/19/2018 6:05 PM EST EXAM: XR CHEST 2 VIEWS DATE: 04/19/2018 5:39 PM DICTATED: 04/19/2018 5:46 PM INTERPRETATION LOCATION: [facility] CLINICAL INDICATION: 48 years old Female with COUGH-abnormal breath sounds right mid/low lung mulligan- COMPARISON: 04/09/2018 chest radiograph and earlier TECHNIQUE: PA and Lateral Chest Radiographs. FINDINGS: Apical predominant fibrosis/scarring, unchanged. No new or enlarging consolidation. No pleural effusion or pneumothorax. Unremarkable cardiomediastinal silhouette. IMPRESSION: Fibrotic lung apices, unchanged. No acute airspace disease. Performing Organization Address City/State/Zipcode Phone Number [facility] [address] [place], [place] [address]Qohubxldw Qualitative, Urine (Sent to lab) 2018-04-19 16:05:00 Test Item Value Reference Range Comments Test, Urine (test code = Test, Negative Negative Urine) Urinalysis with Culture [id number] 15:41:00 Test Item Value Reference Range Comments Color, UA (test code = Color, UA) Yellow Clarity, UA (test code = Clarity, UA) Clear Specific [place], UA (test code = Specific 1.016 1.003 -1.030 [place], UA) pH, UA (test code = pH, UA) 7.0 5.0-9.0 Leukocyte Esterase, UA (test code = Leukocyte Negative Ne gative Esterase, UA) Nitrite, UA (test code = Nitrite, UA) Negative Negative Protein, UA (test code = Protein, UA) Negative Negative Glucose, UA (test code = Glucose, UA) Negative Negative Ketones, UA (test code = Ketones, UA) Negative Negative Urobilinogen, UA (test code = Urobilinogen, 2.0 mg/dL 0.2 mg/dL, 1.0 mg/dL UA) Bilirubin, UA (test code = Bilirubin, UA) Negative Negati ve Blood, UA (test code = Blood, UA) Negative Negative RBC, UA (test code = RBC, UA) <1 <4 /HPF WBC, UA (test code = WBC, UA) 1 /HPF 0- 5 /HPF Squam Epithel, UA (test code = Squam Epithel, <1 0- 5 /HPF UA) Bacteria, UA (test code = Bacteria, UA) None Seen None See n /HPF XR Chest 2 [id number] 09:28:50XR Chest 2 views (04/09/2018 9:11 AM) Impressions Performed At No acute airspace disease. [facility] Narrative Performed At EXAM: XR CHEST 2 VIEWS DATE: 04/09/2018 9:11 AM DICTATED: 04/09/2018 9:28 AM INTERPRETATION LOCATION: [facility] CLINICAL INDICATION: 48 years old Female with COUGH-- COMPARISON: 07/05/2017 chest radiographs and earlier TECHNIQUE: PA and Lateral Chest Radiographs. FINDINGS: Fibrosis of the lung apices and bilateral pleural thickening is unchanged. No focal consolidation. Cardiomediastinal silhouette are within normal limits. No pleural effusion or pneumothorax. [facility] Procedure Note Interface, Rad Results In - 04/09/2018 9:58 AM EST EXAM: XR CHEST 2 VIEWS DATE: 04/09/2018 9:11 AM DICTATED: 04/09/2018 9:28 AM INTERPRETATION LOCATION: [facility] CLINICAL INDICATION: 48 years old Female with COUGH-- COMPARISON: 07/05/2017 chest radiographs and earlier TECHNIQUE: PA and Lateral Chest Radiographs. FINDINGS: Fibrosis of the lung apices and bilateral pleural thickening is unchanged. No focal consolidation. Cardiomediastinal silhouette are within normal limits. No pleural effusion or pneumothorax. IMPRESSION: No acute airspace disease. Performing Organization Address City/State/Zipcode Phone Number [facility] [address] [place], [place] [address]Qxvpaazsbjmqy Metabolic Panel 2018-04-09 08:56:00 Test Item Value Reference Range Comments Sodium (test code = Sodium) 139 mmol/L 135- 145 mmol/L Potassium (test code = Potassium) 4.0 mmol/L 3.5- 5.0 mmol/ L Chloride (test code = Chloride) 101 mmol/L 98- 107 mmol/L CO2 (test code = CO2) 29.0 mmol/L 22.0- 30.0 mmol/L BUN (test code = BUN) 6 mg/dL 7- 21 mg/dL Creatinine (test code = Creatinine) 0.57 mg/dL 0.60- 1.00 m g/dL BUN/Creatinine Ratio (test code = 11 BUN/Creatinine Ratio) EGFR MDRD Non Af Amer (test code = EGFR MDRD >=60 >=6 0 mL/min/1.73m2 Non Af Amer) EGFR MDRD Af Amer (test code = EGFR MDRD Af >=60 >=60 mL/min/1.73m2 Amer) Anion Gap (test code = Anion Gap) 9 mmol/L 9- 15 mmol/L Glucose (test code = Glucose) 97 mg/dL 65- 179 mg/dL Calcium (test code = Calcium) 8.8 mg/dL 8.5- 10.2 mg/dL Albumin (test code = Albumin) 4.3 g/dL 3.5- 5.0 g/dL Total Protein (test code = Total Protein) 7.5 g/dL 6.5- 8 .3 g/dL Total Bilirubin (test code = Total Bilirubin) 0.7 mg/dL 0. 0- 1.2 mg/dL AST (test code = AST) 26 U/L 14- 38 U/L ALT (test code = ALT) 36 U/L 15- 48 U/L Alkaline Phosphatase (test code = Alkaline 93 U/L 38- 1 26 U/L Phosphatase) CBC w/ [id number] 08:56:00 Test Item Value Reference Range Comments WBC (test code = WBC) 8.9 10*9/L 4.5- 11.0 10*9/L RBC (test code = RBC) 4.09 10*12/L 4.00- 5.20 10*12/L HGB (test code = HGB) 13.4 g/dL 12.0- 16.0 g/dL HCT (test code = HCT) 39.4 % 36.0- 46.0 % MCV (test code = MCV) 96.4 fL 80.0- 100.0 fL MCH (test code = MCH) 32.9 pg 26.0- 34.0 pg MCHC (test code = MCHC) 34.1 g/dL 31.0- 37.0 g/dL RDW (test code = RDW) 13.4 % 12.0- 15.0 % MPV (test code = MPV) 7.3 fL 7.0- 10.0 fL Platelet (test code = Platelet) 193 10*9/L 150- 440 10*9/L Absolute Neutrophils (test code = Absolute 6.5 10*9/L 2.0- 7.5 10*9/L Neutrophils) Absolute Lymphocytes (test code = Absolute 1.4 10*9/L 1.5- 5.0 10*9/L Lymphocytes) Absolute Monocytes (test code = Absolute 0.3 10*9/L 0.2- 0. 8 10*9/L Monocytes) Absolute Eosinophils (test code = Absolute 0.4 10*9/L 0.0- 0.4 10*9/L Eosinophils) Absolute Basophils (test code = Absolute 0.0 10*9/L 0.0- 0. 1 10*9/L Basophils) Large Unstained Cells (test code = Large 3 % 0- 4 % Unstained Cells) Macrocytosis (test code = Macrocytosis) Slight Not Pres ent Rapid Influenza (Flu A/B)2017-07-05 22:50:00 Test Item Value Reference Range Comments Influenza A (test code = Influenza A) Negative Negative Influenza B (test code = Influenza B) Negative Negative [id number] 22:02:00 Test Item Value Reference Range Comments PT (test code = PT) 11.0 sec 10.3- 13.3 sec INR (test code = INR) 0.94 [id number] 22:02:00 Test Item Value Reference Range Comments APTT (test code = APTT) 29.7 sec 25.1- 36.0 sec Heparin Correlation (test code = Heparin <0.2 Correlation) Basic Metabolic [id number] 20:51:00 Test Item Value Reference Range Comments Sodium (test code = Sodium) 142 mmol/L 135- 145 mmol/L Potassium (test code = Potassium) 4.3 mmol/L 3.5- 5.0 mmol/ L Chloride (test code = Chloride) 103 mmol/L 98- 107 mmol/L CO2 (test code = CO2) 25.0 mmol/L 22.0- 30.0 mmol/L BUN (test code = BUN) 10 mg/dL 7- 21 mg/dL Creatinine (test code = Creatinine) 0.63 mg/dL 0.60- 1.00 m g/dL BUN/Creatinine Ratio (test code = 16 BUN/Creatinine Ratio) GFR MDRD Non Af Amer (test code = GFR MDRD >=60 >=60 mL/min/1.73m2 Non Af Amer) GFR MDRD Af Amer (test code = GFR MDRD Af >=60 >=60 m L/min/1.73m2 Amer) Anion Gap (test code = Anion Gap) 14 mmol/L 9- 15 mmol/L Glucose (test code = Glucose) 109 mg/dL 65- 179 mg/dL Calcium (test code = Calcium) 9.5 mg/dL 8.5- 10.2 mg/dL Troponin [id number] 20:51:00 Test Item Value Reference Range Comments Troponin I (test code = Troponin I) <0.034 <0.034 ng/mL CBC w/ [id number] 20:51:00 Test Item Value Reference Range Comments WBC (test code = WBC) 10.1 10*9/L 4.5- 11.0 10*9/L RBC (test code = RBC) 4.66 10*12/L 4.00- 5.20 10*12/L HGB (test code = HGB) 14.7 g/dL 12.0- 16.0 g/dL HCT (test code = HCT) 44.0 % 36.0- 46.0 % MCV (test code = MCV) 94.4 fL 80.0- 100.0 fL MCH (test code = MCH) 31.6 pg 26.0- 34.0 pg MCHC (test code = MCHC) 33.4 g/dL 31.0- 37.0 g/dL RDW (test code = RDW) 13.0 % 12.0- 15.0 % MPV (test code = MPV) 8.1 fL 7.0- 10.0 fL Platelet (test code = Platelet) 287 10*9/L 150- 440 10*9/L Absolute Neutrophils (test code = Absolute 7.2 10*9/L 2.0- 7.5 10*9/L Neutrophils) Absolute Lymphocytes (test code = Absolute 2.0 10*9/L 1.5- 5.0 10*9/L Lymphocytes) Absolute Monocytes (test code = Absolute 0.4 10*9/L 0.2- 0. 8 10*9/L Monocytes) Absolute Eosinophils (test code = Absolute 0.2 10*9/L 0.0- 0.4 10*9/L Eosinophils) Absolute Basophils (test code = Absolute 0.1 10*9/L 0.0- 0. 1 10*9/L Basophils) Large Unstained Cells (test code = Large 3 % 0- 4 % Unstained Cells) , hCG QUANTitative, [id number] 20:51:00 Test Item Value Reference Range Comments hCG Quant, Blood (test code = hCG Quant, Blood) <5.0 0.0- 5.0 IU/L CBC w/ [id number] 20:51:00CBC w/ Differential (07/05/2017 8:51 PM) Specimen Performing Laboratory Blood [facility] Narrative The following orders were created for panel order CBC w/ Differential. Procedure Abnormality Status --------- ------ CBC w/ Differential[[id number]] NormalFinal result Please view results for these tests on the individual orders.XR Chest PA and [id number] 20:25:31XR Chest PA and Lateral (07/05/2017 8:25 PM) Specimen Performing Laboratory [facility] [address] [facility] [place] [address] Impressions -No acute airspace disease. -Chronic bilateral upper lobe fibrotic changes, similar prior. Narrative EXAM: CHEST TWO VIEW DATE: 07/05/2017 8:25 PM DICTATED: 07/05/2017 8:55 PM INTERPRETATION LOCATION: [facility] CLINICAL INDICATION: 47 years old Female with DYSPNEA-- COMPARISON: 02/09/2016 and multiple other priors TECHNIQUE:PA and lateral views of the chest. FINDINGS: Hyperinflated lungs with fibrotic bilateral upper lobe scarring. Biapical pleural thickening and apical predominant traction bronchiectasis. No focal consolidation. The cardiac and mediastinal contours are within normal limits. No pleural effusion or pneumothorax. Surgical clipsoverlying the left lateral neck Procedure Note Interface, Rad Results In - 07/05/2017 8:58 PM EST EXAM: CHEST TWO VIEW DATE: 07/05/2017 8:25 PM DICTATED: 07/05/2017 8:55 PM INTERPRE TATION LOCATION: [facility] [place] CLINICAL INDICATION: 47 years old Female with DYSPNEA-- COMPARISON: 02/09/2016 and multiple other priors TECHNIQUE:PA and lateral views of the chest. FINDINGS: Hyperinflatedlungs with fibrotic bilateral upper lobe scarring. Biapical pleural thickening and apical predominant traction bronchiectasis. No focal consolidation. The cardiac and mediastinal contours are within normal limits. No pleural effusion or pneumothorax. Surgical clips overlying the left lateral neck IMPRESSION: -No acute airspace disease. - Chronic bilateral upper lobe fibrotic changes, similar prior.CBC w/ Differential 2016-09-21 12:26:00 Test Item Value Reference Range Comments WBC (test code = WBC) 13.9 10*9/L 4.5-11.0 10*9/L RBC (test code = RBC) 4.76 10*12/L 4.00-5.20 10*12/L HGB (test code = HGB) 15.6 g/dL 12.0-16.0 g/dL HCT (test code = HCT) 44.9 % 36.0-46.0 % MCV (test code = MCV) 94.2 fL 80.0-100.0 fL MCH (test code = MCH) 32.7 pg 26.0-34.0 pg MCHC (test code = MCHC) 34.8 g/dL 31.0-37.0 g/dL RDW (test code = RDW) 14.2 % 12.0-15.0 % MPV (test code = MPV) 7.7 fL 7.0-10.0 fL Platelet (test code = Platelet) 188 10*9/L 150-440 10*9/L Absolute Neutrophils (test code = Absolute 10.8 10*9/L 2.0-7 .5 10*9/L Neutrophils) Absolute Lymphocytes (test code = Absolute 1.9 10*9/L 1.5-5 .0 10*9/L Lymphocytes) Absolute Monocytes (test code = Absolute 0.5 10*9/L 0.2-0.8 10*9/L Monocytes) Absolute Eosinophils (test code = Absolute 0.3 10*9/L 0.0-0 .4 10*9/L Eosinophils) Absolute Basophils (test code = Absolute 0.1 10*9/L 0.0-0.1 10*9/L Basophils) Large Unstained Cells (test code = Large 3 % 0-4 % Unstained Cells) CBC w/ [id number] 12:26:00CBC w/ Differential (09/21/2016 12:26 PM) Specimen Blood Narrative The following orders were createdfor panel order CBC w/ Differential. Procedure? Abnormality? Status? ---------? ------? CBC w/ Differential[[id number]]? Abnormal?Final result? Please view results for these tests on the individual orders.ED Extra Lab [id number] 12:26:00ED Extra Lab Tubes (09/21/2016 12:26 PM) Specimen Blood Narrative The following orders were created for panel order ED Extra Lab Tubes. Procedure? Abnormality? Status? ---------? ------? GOLD SST EXTRA TUBE[[id number]]? Normal?Final result? Please view results for these tests on the individual orders.GOLD SST EXTRA [id number] 12:26:00GOLD SST EXTRA TUBE (09/21/2016 12:26 PM) Specimen Blood Narrative Collected and received in lab. Urinalysis with Culture [id number] 12:10:00 Test Item Value Reference Range Comments Color, UA (test code = Color, UA) Yellow Clarity, UA (test code = Clarity, UA) Clear pH, UA (test code = pH, UA) 5.5 5.0-9.0 Leukocyte Esterase, UA (test code = Leukocyte Trace Ne gative Esterase, UA) Nitrite, UA (test code = Nitrite, UA) Negative Negative Protein, UA (test code = Protein, UA) Trace Negative Glucose, UA (test code = Glucose, UA) Negative Negative Bilirubin, UA (test code = Bilirubin, UA) Negative Negati ve RBC, UA (test code = RBC, UA) 1 /HPF <4 /HPF WBC, UA (test code = WBC, UA) 1 /HPF 0-5 /HPF Squam Epithel, UA (test code = Squam Epithel, <1 0- 5 /HPF UA) Bacteria, UA (test code = Bacteria, UA) None Seen None See n /HPF Specific [place], UA (test code = Specific 1.016 1.003 -1.030 [place], UA) Ketones, UA (test code = Ketones, UA) Negative Negative Urobilinogen, UA (test code = Urobilinogen, 0.2 mg/dL 0.2 mg/dL, 1.0 mg/dL UA) Blood, UA (test code = Blood, UA) Negative Negative Hyaline Casts, UA (test code = Hyaline Casts, 2 /LPF 0 /LPF UA) Mucus, UA (test code = Mucus, UA) Rare None Seen /HPF , [id number] 12:10:00 Test Item Value Reference Range Comments Preg Test, Ur (test code = Preg Test, Ur) Negative Negati ve Rapid Influenza (Flu A/B)2016-02-09 18:27:00 Test Item Value Reference Range Comments Influenza A (test code = Influenza A) Negative Negative Influenza B (test code = Influenza B) Negative Negative Comprehensive Metabolic [id number] 18:20:00 Test Item Value Reference Range Comments Sodium (test code = Sodium) 137 mmol/L 135-145 mmol/L Potassium (test code = Potassium) 4.1 mmol/L 3.5-5.0 mmol/L Chloride (test code = Chloride) 100 mmol/L 98-107 mmol/L CO2 (test code = CO2) 28.0 mmol/L 22.0-30.0 mmol/L BUN (test code = BUN) 7 mg/dL 7-21 mg/dL Creatinine (test code = Creatinine) 0.69 mg/dL 0.60-1.00 mg /dL BUN/Creatinine Ratio (test code = 10 BUN/Creatinine Ratio) GFR MDRD Non Af Amer (test code = GFR MDRD >=60 >=60 mL/min/1.73m2 Non Af Amer) GFR MDRD Af Amer (test code = GFR MDRD Af >=60 >=60 m L/min/1.73m2 Amer) Anion Gap (test code = Anion Gap) 9 mmol/L 9-15 mmol/L Glucose (test code = Glucose) 81 mg/dL 65-179 mg/dL Calcium (test code = Calcium) 8.8 mg/dL 8.5-10.2 mg/dL Albumin (test code = Albumin) 3.7 g/dL 3.5-5.0 g/dL Total Protein (test code = Total Protein) 7.0 g/dL 6.6-8. 0 g/dL Total Bilirubin (test code = Total Bilirubin) 0.5 mg/dL 0. 0-1.2 mg/dL AST (test code = AST) 92 U/L 14-38 U/L ALT (test code = ALT) 105 U/L 15-48 U/L Alkaline Phosphatase (test code = Alkaline 102 U/L 38-12 6 U/L Phosphatase) Troponin [id number] 18:20:00 Test Item Value Reference Range Comments Troponin I (test code = Troponin I) <0.034 <0.034 ng/mL Lipase [id number] 18:20:00 Test Item Value Reference Range Comments Lipase (test code = Lipase) 59 U/L 44-232 U/L CBC w/ [id number] 18:20:00 Test Item Value Reference Range Comments WBC (test code = WBC) 16.8 10*9/L 4.5-11.0 10*9/L RBC (test code = RBC) 4.46 10*12/L 4.00-5.20 10*12/L HGB (test code = HGB) 15.1 g/dL 12.0-16.0 g/dL HCT (test code = HCT) 43.8 % 36.0-46.0 % MCV (test code = MCV) 98.1 fL 80.0-100.0 fL MCH (test code = MCH) 33.8 pg 26.0-34.0 pg MCHC (test code = MCHC) 34.5 g/dL 31.0-37.0 g/dL RDW (test code = RDW) 13.3 % 12.0-15.0 % MPV (test code = MPV) 7.9 fL 7.0-10.0 fL Platelet (test code = Platelet) 168 10*9/L 150-440 10*9/L Neutrophil Left Shift (test code = Neutrophil 1+ No t Present Left Shift) Absolute Neutrophils (test code = Absolute 14.7 10*9/L 2.0-7 .5 10*9/L Neutrophils) Absolute Lymphocytes (test code = Absolute 1.2 10*9/L 1.5-5 .0 10*9/L Lymphocytes) Absolute Monocytes (test code = Absolute 0.4 10*9/L 0.2-0.8 10*9/L Monocytes) Absolute Eosinophils (test code = Absolute 0.2 10*9/L 0.0-0 .4 10*9/L Eosinophils) Absolute Basophils (test code = Absolute 0.1 10*9/L 0.0-0.1 10*9/L Basophils) Large Unstained Cells (test code = Large 1 % 0-4 % Unstained Cells) Macrocytosis (test code = Macrocytosis) Slight Not Pres ent CBC and [id number] 18:20:00CBC and differential (02/09/2016 6:20 PM) Specimen Blood Narrative The following orders were createdfor panel order CBC and differential. Procedure Abnormality Status --------- ------ CBC w/ Differential[[id number]] AbnormalFinal result Please view results for these tests on the individual orders.Urinalysis with Culture [id number] 18:19:00 Test Item Value Reference Range Comments Color, UA (test code = Color, UA) Yellow Clarity, UA (test code = Clarity, UA) Hazy pH, UA (test code = pH, UA) 5.0 5.0-9.0 Leukocyte Esterase, UA (test code = Leukocyte Negative Ne gative Esterase, UA) Nitrite, UA (test code = Nitrite, UA) Negative Negative Protein, UA (test code = Protein, UA) Negative Negative Glucose, UA (test code = Glucose, UA) Negative Negative Bilirubin, UA (test code = Bilirubin, UA) Negative Negati ve RBC, UA (test code = RBC, UA) <1 <4 /HPF WBC, UA (test code = WBC, UA) 1 /HPF 0-5 /HPF Squam Epithel, UA (test code = Squam Epithel, 5 /HPF 0- 5 /HPF UA) Bacteria, UA (test code = Bacteria, UA) Rare None See n /HPF Specific [place], UA (test code = Specific 1.003 1.003 -1.030 [place], UA) Ketones, UA (test code = Ketones, UA) Negative Negative Urobilinogen, UA (test code = Urobilinogen, 0.2 mg/dL 0.2 mg/dL, 1.0 mg/dL UA) Blood, UA (test code = Blood, UA) Negative Negative Mucus, UA (test code = Mucus, UA) Rare None Seen /HPF Toxicology screen, [id number] 18:19:00 Test Item Value Reference Range Comments Amphetamine Screen, Ur (test code = Amphetamine <500 ng/mL Not Applicable Screen, Ur) Barbiturate Screen, Ur (test code = Barbiturate <200 ng/mL Not Applicable Screen, Ur) Benzodiazepine Screen, Urine (test code = <200 ng/mL Not Ap plicable Benzodiazepine Screen, Urine) Cannabinoid Scrn, Ur (test code = Cannabinoid =/>20 ng/mL No t Applicable Scrn, Ur) Methadone Screen, Urine (test code = Methadone <300 ng/mL N ot Applicable Screen, Urine) Cocaine(Metab.)Screen, Urine (test code = =/>150 ng/mL Not Ap plicable Cocaine(Metab.)Screen, Urine) Opiate Scrn, Ur (test code = Opiate Scrn, Ur) =/>300 ng/mL No t Applicable XR Chest PA and [id number] 17:10:06XR Chest PA and Lateral (02/09/2016 5:10 PM) Narrative EXAM: CHEST TWO VIEW DATE: 02/09/16 17:10:06 DICTATED: 02/09/16 17:12:19 INTERPRETATION LOCATION: [facility] CLINICAL INDICATION: 45 Year Old (F):- .COUGH Patient shielded COMPARISON: 05/24/13. TECHNIQUE:Upright PAand lateral views of the chest. FINDINGS: The lungs are hyperinflated with flattening of the diaphragms, fibrotic bilateral upper lobe scarring, cephalad traction bronchiectasis extending from the ana, and biapical pleural thickening, which appears unchanged. The cardiomediastinal silhouette is within normal limits. There is no evidence for new consolidation, pulmonary edema, pleural effusion, or pne umothorax. No acute osseous abnormalities.Surgical clips are noted in left lower neck. IMPRESSION: No new consolidation or pulmonary edema. Chronic bilateral upper lobe architectural distortion, unchanged. Procedure Note Interface, Rad Results In - Sun Feb 09, 2016 5:14 PM EDT EXAM: CHEST TWO VIEW D ATE: 02/09/16 17:10:06 DICTATED: 02/09/16 17:12:19 INTERPRETATION LOCATION:[facility] CLINICAL INDICATION: 45 Year Old (F): - .COUGH Patient shielded COMPARISON: 05/24/13. TECHNIQUE:Upright PA and lateral views of the chest. FINDINGS: The lungs are hyperinflated with flattening of the diaphragms, fibrotic bilateral upper lobe scarring, cephalad traction bronchiectasis extending from the ana, and biapical pleural thickening, which appears unchanged. The cardiomediastinal silhouette is within normal limits. There is no evidence for new consolidation, pulmonary edema, pleural effusion, or pneumothorax. No acute osseous abnormalities. Surgical clips are noted in left lower neck. IMPRESSION: No new consolidation or pulmonary edema. Chronic bilateral upper lobe architectural distortion, unchanged.US Breast Biopsy VABB Needle Core [id number] 12:10:16US Breast Biopsy VABB Needle Core Left (07/11/2015 12:10 PM) Narrative EXAM INFO: [id number] 07/10?12:10:[id number] ([facility]) : US BREAST BIOPSY VABB NEEDLE CORE LEFT [id number] 07/11/15?11:49:[id number] ([facility]) : MAMMO DIGITAL DIAGNOSTIC LEFT DICTATED: 07/11/15 14:40:58 INTERPRETATION LOCATION:?[facility] CLINICAL INDICATION: Palpable left upper outer breast mass? TECHNIQUE: The procedure and risks of ultrasound-guided vacuum-assisted core biopsy and placement of metallic localizer clip of left breast mass were discussed in full with the patient. Both oral and written consents were obtained. A time-out was performed immediately prior to the procedures. VACCUM ASSISTED CORE NEEDLE BIOPSY: With u ltrasound guidance, aseptic technique, 1% lidocaine local anesthetic for the skin wheel and 1% lidocaine with epinephrine 1:100,000 at the target biopsy site, the mass of concern was sampled 4 times with the 12g Enspire vacuum- assisted device.?Immediately thereafter, with ultrasound guidance, a metallic localizer clip was placed within the mass.?Direct pressure was applied to the site immediately post procedure and hemostasis was achieved. The site was bandaged with antibiotic ointment. The patient tolerated the procedure without complication. She was given oral and written wound care instructions.POST PROCEDURE MAMMOGRAM: The clip is at the original biopsy site in the expected location of the breast mass. Dr. Guadarrama performed the procedures. IMPRESSION: Ultrasound-guided vacuum assisted core needle biopsy and localizer clip placement of left breast mass. The patient will follow up with Catalina Sánchez in the [facility] for her results.Mammo Diagnostic [id number] 11:49:13Mammo Diagnostic Left (07/11/2015 11:49 AM) Narrative EXAM INFO: [id number] 07/11/15?12:10:[id number] ([facility]) : US BREAST BIOPSY VABB NEEDLE CORE LEFT [id number] 07/11/15?11:49:[id number] ([facility]) : MAMMO DIGITAL DIAGNOSTIC LEFT DICTATED: 07/11/15 14:40:58 INTERPRETATION LOCATION:?[facility] CLINICALINDICATION: Palpable left upper outer breast mass? TECHNIQUE: The procedure and risks of ultrasound-guided vacuum-assisted core biopsy and placement of metallic localizer clip of left breast mass were discussed in full with the patient. Both oral and written consents were obtained. A time-out was performed immediately prior to the procedures. VACCUM ASSISTED CORE NEEDLE BIOPSY: With ultrasound guidance, aseptic technique, 1% lidocaine local anesthetic for the skin wheel and 1% lidocaine with epinephrine 1:100,000 at the target biopsy site, the mass of concern was sampled 4 times with the 12g Enspire vacuum-assisted device.?Immediately thereafter, with ultrasound guidance, a metallic localizer clipwas placed within the mass.?Direct pressure was applied to the site immediately post procedure and hemostasis was achieved. The site was bandaged with antibiotic ointment. The patient tolerated the proc edure without complication. She was given oral and written wound care instructions. POST PROCEDURE MAMMOGRAM: The clip is at the original biopsy site in the expected location of the breast mass. Dr. Guadarrama performed the procedures. IMPRESSION: Ultrasound-guided vacuum assisted core needle biopsy and localizer clip placement of left breast mass. The patient will follow up with Catalina Sánchez in the [facility] for her results.US Breast Limited [id number] 14:10:38US Breast Limited Bilateral (07/09/2015 2:10 PM) Narrative EXAM: MAMMO DIGITAL DIAGNOSTIC BILATERAL DATE: 07/09/15 12:37:46 DICTATED: 07/09/15 15:06:46 INTERPRETAT ION LOCATION: [facility] CLINICAL INDICATION: 45 Year Old (F): N63 - Lump of breast, left. TECHNIQUE: Full field and compression magnification digital mammograms and targeted bilateral breast ultrasound BREAST COMPOSITION: c. The breasts are heterogeneously dense, which may obscure small masses. FINDINGS: MAMMOGRAM: A metallic Bb reynolds the site of palpable concern in the upper outer left breast. There is an oval, mass with indistinct margins in the left breast, upper outer quadrant, posterior depthat the site of palpable abnormality. This measures 1.9 x 2.5 cm.?There are no associated microcalcifications. There is a 1.6 cm focal asymmetry in the 12:00 right breast, posterior depth and a 5.0 x 2.0 asymmetry in the inferior right breast, middle depth.? No suspicious calcifications, architectural distortion, asymmetries, or masses are otherwise identified in either breast. ULTRASOUND: Targeted ultrasound of the left breast area of palpable abnormality demonstrates a corresponding 2.3 x 1.1 x 1.8cm mass located at 2:00 with oval shape, parallel orientation, and circumscribed margins. 2 incidental subcentimeter anechoic circumscribed masses at 2:00 and 3:00 are compatible with benign simple cysts. Target ultrasound of the right breast, 12:00 is negative for suspicious mass or shadowing to correspond to the focal asymmetry. This is probably benign and 6 month f/u is recommended to confirm baseline normal breast tissue.?Targeted ultraosund revealed dense glandular tissue at the 6-7:00 positionfelt to correspond to the mammographic asymmetry. 6 month follow up is recommended to establish baseline appearance. COMPARISON: No prior mammograms. ASSESSMENT: BI-RADS CATEGORY 4: SUSPICIOUS. -- Leftbreast upper outer quadrant mass is low suspicion for malignancy.?Differential considerations include fibroadenoma, complicated cyst, or less likely malignancy. Recommend biopsy. -- Right breast 12:00 and inferior breast focal asymmetry without sonographic abnormality.?A 6 month follow up is recommended to confirm stability of these probably benign findings. MANAGEMENT RECOMMENDATIONS: Biopsy of palpable left breast mass should be performed in the absence of clinical contraindications. Ultrasound-guided core needle biopsy and localizer clip placement of left breast upper outer quadrant mass are luba mmended. These results and recommendations were discussed with the patient. She was given pre-biopsyverbal and written instructions and contact information for the [facility]. Procedure Note Interface, Rad Results In - Tue Jul 09, 2015 5:25 PM EST EXAM: MAMMO DIGITAL DIAGNOSTIC BILATERAL DATE: 07/09/15 12:37:46 DICTATED: 07/09/15 15:06:46 INTERPRETATION LOCATION: [facility] CLINICAL INDICATION: 45 Year Old (F): N63 - Lump of breast, left. TECHNIQUE: Full field and compression magnification digital mammograms and targeted bilateral breast ultrasound BREAST COMPOSITION: c. The breasts are heterogeneously dense, which may obscure small masses. FINDINGS: MAMMOGRAM: A metallic Bb reynolds the site of palpable concern in the upper outer left breast. There is an oval, mass with indistinct margins in the left breast, upper outer quadrant, posterior depth at the site of palpable abnormality. This measures 1.9 x 2.5 cm. There are no associated microcalcifications. There is a 1.6 cm focal asymmetry in the 12:00 right breast, posterior depth and a 5.0 x 2.0 asymmetry in the inferior right breast, middle depth. No suspicious calcifications, architectural distortion, asymmetries, or masses are otherwise identified in either breast. ULTRASOUND: Targeted ultrasound of the left breast area of palpable abnormality demonstrates a corresponding 2.3 x 1.1 x 1.8 cm mass located at 2:00 with oval shape, parallel orientation, and circumscribed margins. 2 incidental subcentimeter anechoic circumscribed masses at 2:00 and 3:00 are compatible with benign simple cysts. Target ultrasound of the right breast, 12:00 is negative for suspicious mass or shadowing to correspond to the focal asymmetry. This is probably benign and 6 month f/u is recommended to confirm baseline normal breast tissue. Targeted ultraosund revealed dense glandular tissue at the 6-7:00 position felt to correspond to the mammographic asymmetry. 6 month follow up is recommended to establish baseline appearance. COMPARISON: No prior mammograms. ASSESSMENT: BI- RADS CATEGORY 4: SUSPICIOUS. -- Left breastupper outer quadrant mass is low suspicion for malignancy. Differential considerations include fibroadenoma, complicated cyst, or less likely malignancy. Recommend biopsy. -- Right breast 12:00 and inferior breast focal asymmetry without sonographic abnormality. A 6 month follow up is recommended to confirm stability of these probably benign findings. MANAGEMENT RECOMMENDATIONS: Biopsy of palpable left breast mass should be performed in the absence of clinical contraindications. Ultrasound-guided core needle biopsy and localizer clip placement of left breast upper outer quadrant mass are recommended. These results and recommendations were discussed with the patient. She was given pre-biopsy verbaland written instructions and contact information for the [facility].Mammo Diagnostic Bilateral 2015-07-09 12:37:46Mammo Diagnostic Bilateral (07/09/2015 12:37 PM) Narrative EXAM: MAMMO DIGITAL DIAGNOSTIC BILATERAL DATE: 07/09/15 12:37:46 DICTATED: 07/09/15 15:06:46 INTERPRETATION LOCATION: [facility] CLINICAL INDICATION: 45 Year Old (F): N63 - Lump of breast, left. TECHNIQUE: Full field and compression magnification digital mammograms and targeted bilateral breast ultrasound BREAST COMPOSITION: c. The breasts are heterogeneously dense, which may obscure small masses. FINDINGS: MAMMOGRAM: A metallic Bb reynolds the site of palpable concern in the upper outer left breast. There is an oval, mass with indistinct margins in the left breast, upper outer quadrant, posterior depthat the site of palpable abnormality. This measures 1.9 x 2.5 cm.?There are no associated microcalcifications. There is a 1.6 cm focal asymmetry in the 12:00 right breast, posterior depth and a 5.0 x 2.0 asymmetry in the inferior right breast, middle depth.? No suspicious calcifications, architectural distortion, asymmetries, or masses are otherwise identified in either breast. ULTRASOUND: Targeted ultrasound of the left breast area of palpable abnormality demonstrates a corresponding 2.3 x 1.1 x 1.8cm mass located at 2:00 with oval shape, parallel orientation, and circumscribed margins. 2 incidental subcentimeter anechoic circumscribed masses at 2:00 and 3:00 are compatible with benign simple cysts. Target ultrasound of the right breast, 12:00 is negative for suspicious mass or shadowing to correspond to the focal asymmetry. This is probably benign and 6 month f/u is recommended to confirm baseline normal breast tissue.?Targeted ultraosund revealed dense glandular tissue at the 6-7:00 positionfelt to correspond to the mammographic asymmetry. 6 month follow up is recommended to establish baseline appearance. COMPARISON: No prior mammograms. ASSESSMENT: BI-RADS CATEGORY 4: SUSPICIOUS. -- Leftbreast upper outer quadrant mass is low suspicion for malignancy.?Differential considerations include fibroadenoma, complicated cyst, or less likely malignancy. Recommend biopsy. -- Right breast 12:00 and inferior breast focal asymmetry without sonographic abnormality.?A 6 month follow up is recommended to confirm stability of these probably benign findings. MANAGEMENT RECOMMENDATIONS: Biopsy of palpable left breast mass should be performed in the absence of clinical contraindications. Ultrasound-guided core needle biopsy and localizer clip placement of left breast upper outer quadrant mass are luba mmended. These results and recommendations were discussed with the patient. She was given pre-biopsyverbal and written instructions and contact information for the [facility]. Procedure Note Interface, Rad Results In - Zeke Jul 09, 2015 5:25 PM EST EXAM: MAMMO DIGITAL DIAGNOSTIC BILATERAL DATE: 07/09/15 12:37:46 DICTATED: 07/09/15 15:06:46 INTERPRETATION LOCATION: [facility] CLINICAL INDICATION: 45 Year Old (F): N63 - Lump of breast, left. TECHNIQUE: Full field and compression magnification digital mammograms and targeted bilateral breast ultrasound BREAST COMPOSITION: c. The breasts are heterogeneously dense, which may obscure small masses. FINDINGS: MAMMOGRAM: A metallic Bb reynolds the site of palpable concern in the upper outer left breast. There is an oval, mass with indistinct margins in the left breast, upper outer quadrant, posterior depth at the site of palpable abnormality. This measures 1.9 x 2.5 cm. There are no associated microcalcifications. There is a 1.6 cm focal asymmetry in the 12:00 right breast, posterior depth and a 5.0 x 2.0 asymmetry in the inferior right breast, middle depth. No suspicious calcifications, architectural distortion, asymmetries, or masses are otherwise identified in either breast. ULTRASOUND: Targeted ultrasound of the left breast area of palpable abnormality demonstrates a corresponding 2.3 x 1.1 x 1.8 cm mass located at 2:00 with oval shape, parallel orientation, and circumscribed margins. 2 incidental subcentimeter anechoic circumscribed masses at 2:00 and 3:00 are compatible with benign simple cysts. Target ultrasound of the right breast, 12:00 is negative for suspicious mass or shadowing to correspond to the focal asymmetry. This is probably benign and 6 month f/u is recommended to confirm baseline normal breast tissue. Targeted ultraosund revealed dense glandular tissue at the 6-7:00 position felt to correspond to the mammographic asymmetry. 6 month follow up is recommended to establish baseline appearance. COMPARISON: No prior mammograms. ASSESSMENT: BI- RADS CATEGORY 4: SUSPICIOUS. -- Left breastupper outer quadrant mass is low suspicion for malignancy. Differential considerations include fibroadenoma, complicated cyst, or less likely malignancy. Recommend biopsy. -- Right breast 12:00 and inferior breast focal asymmetry without sonographic abnormality. A 6 month follow up is recommended to confirm stability of these probably benign findings. MANAGEMENT RECOMMENDATIONS: Biopsy of palpable left breast mass should be performed in the absence of clinical contraindications. Ultrasound-guided core needle biopsy and localizer clip placement of left breast upper outer quadrant mass are recommended. These results and recommendations were discussed with the patient. She was given pre-biopsy verbaland written instructions and contact information for the [facility]. Assessments Condition Name Status Diagnosis Date Treating Clinici an RIGHT LOWER QUADRANT PAIN Active Encounters Start End Encounter Admission Attending Care Care Encounter ID Date/Time Date/Time Type Type Clinicians Facility Department 2019-06-[address] [facility] [id number]_ [id number] 10:57:37 [id number] 2020-02-26 2020-02-26 Outpatient [facility] [id number] 00:00:00 00:00:00 2020-02-21 2020-02-23 Inpatient X Kenny ZAPIEN Rita [id number] 21:07:00 19:20:00 [facility] 2020-02-21 2020-02-[address] [facility] [id number] 95_[id number] 05:21:01 23:59:00 [id number] 2020-02-21 2020-02-[address] [facility] [id number] 95_[id number] 00:32:30 23:59:00 [id number] 2020-02-21 2020-02-21 Emergency ER [facility] [id number] 95_[id number] 00:03:00 06:29:00 DANIELA [id number] 2020-02-21 2020-02-21 Emergency [facility] [id number] 00:03:00 06:29:00 2020-02-20 2020-02-20 Emergency ER [facility] [id number] 95_[id number] 22:30:00 22:30:00 [id number] 2020-02-20 2020-02-20 Emergency [facility] [id number] 19:53:00 19:55:00 [id number] 2020-02-20 2020-02-20 Emergency [facility] [id number] 19:53:00 19:55:00 2020-02-20 2020-02-20 Emergency ER [facility] [id number] 57_[id number] 17:50:00 17:50:00 [id number] 2020-02-20 2020-02-20 Emergency [facility] [id number] 57_[id number] 00:00:00 00:00:00 [id number] 2020-02-20 2020-02-20 Emergency [facility] [id number] 00:00:00 00:00:00 [id number] 2019-12-13 2019-12-13 Outpatient [facility] [id number] 00:00:00 00:00:00 2019-10-24 2019-10-24 Outpatient [facility] [id number] 00:00:00 00:00:00 2019-10-23 2019-10-23 [facility]patient [facility] [id number] 00:00:00 00:00:00 2019-10-22 2019-10-22 Emergency ER GUAMAN, [facility] [id number] 18:07:56 20:35:00 KARON [id number] 2019-10-22 2019-10-22 Emergency [facility] [id number] 18:07:56 20:35:00 2019-10-22 2019-10-22 Emergency [facility] [id number] 17:50:00 17:50:00 [id number] 2019-06-20 2019-06-20 Outpatient [facility] [id number] 00:00:00 00:00:00 2019-06-19 2019-06-19 Outpatient [facility] [id number] 00:00:00 23:59:00 [id number] 2019-06-15 2019-06-15 [facility]patient [facility] [id number] 00:00:00 00:00:00 2019-06-14 2019-06-14 [facility] [id number] 00:00:00 00:00:00 2019-06-10 2019-06-13 Inpatient ER YASMEEN, [facility] [id number] 97_2 09:23:07 17:55:00 JAYDEN [id number] 2019-06-10 2019-06-13 Inpatient [facility] [id number] 09:23:07 17:55:00 2019-06-10 2019-06-10 Emergency [facility] [id number] 15:45:05 15:45:05 [id number] 2019-06-10 2019-06-10 Emergency [facility] [id number] 97_[id number] 10:33:14 10:33:14 [id number] 2019-06-10 2019-06-10 Emergency [facility] [id number] 97_[id number] 09:17:00 09:17:00 [id number] 2019-06-03 2019-06-04 Emergency UR DANIEL [facility] [id number] 23:12:00 02:37:00 HAYDEE 2019-05-18 2019-05-18 Outpatient [facility] [id number] 00:00:00 23:59:00 [id number] 2019-05-18 2019-05-18 Outpatient [facility] [id number] 00:00:00 23:59:00 [id number] 2019-05-18 2019-05-18 [facility]patient [facility] [id number] 00:00:00 00:00:00 2019-05-09 2019-05-09 Emergency ER RALPH, [facility] [id number] 40_[id number] 16:05:04 22:32:00 MIGUEL [id number] 2019-05-09 2019-05-09 Emergency [facility] [id number] 16:05:04 22:32:00 2019-05-09 2019-05-09 Emergency [facility] [id number] 40_[id number] 15:05:29 15:05:29 [id number] 2019-05-09 2019-05-09 Emergency [facility] [id number] 15:05:27 15:05:27 [id number] 2019-05-09 2019-05-09 Emergency [facility] [id number] 13:48:00 13:48:00 [id number] 2019-05-09 2019-05-09 Emergency [facility] [id number] 00:00:00 00:00:00 [id number] 2019-03-03 2019-03-03 [facility]patient [facility] [id number] 00:00:00 00:00:00 2019-03-02 2019-03-02 [facility] [id number] 00:00:00 00:00:00 2019-03-01 2019-03-01 Outpatient [facility] [id number] 00:00:00 23:59:00 [id number] 2019-02-28 2019-02-28 [facility]patient [facility] [id number] 00:00:00 00:00:00 2019-02-09 2019-02-24 Inpatient ER IVAN, [facility] [id number] 16:42:31 14:21:00 KARSON [id number] 2019-02-09 2019-02-24 [facility]patient [facility] [id number] 16:42:31 14:21:00 2019-02-24 2019-02-24 [facility] [id number] 00:00:00 00:00:00 2019-02-15 2019-02-15 Inpatient [facility] [id number] 22_2 10:44:32 23:59:00 [id number] 2019-02-10 2019-02-10 Inpatient [facility] [id number] 22_[id number] 04:38:20 23:59:00 [id number] 2019-02-09 2019-02-09 Emergency [facility] [id number] 22_2 17:12:21 23:59:00 [id number] 2019-02-09 2019-02-09 Emergency [facility] [id number] 22_2 14:58:55 23:59:00 [id number] 2019-02-09 2019-02-09 Emergency [facility] [id number] 22_[id number] 13:16:00 13:16:00 [id number] 2019-01-30 2019-01-30 Outpatient [facility] [id number] 15:02:41 23:59:00 [id number] 2019-01-30 2019-01-30 Outpatient [facility] [id number] 14:56:04 23:59:00 [id number] 2019-01-30 2019-01-30 [facility] [id number] 14:56:04 15:16:04 2019-01-30 2019-01-30 Outpatient [facility] [id number] 00:00:00 00:00:00 [id number] 2019-01-26 2019-01-26 [facility] [id number] 00:00:00 00:00:00 2019-01-26 2019-01-26 [facility] [id number] 00:00:00 00:00:00 2019-01-23 2019-01-25 Inpatient ER ALFONSO, [facility] [id number] 11:55:15 16:25:09 ROBERT [id number] 2019-01-23 2019-01-25 Inpatient [facility] [id number] 11:55:15 16:25:09 2019-01-23 2019-01-23 Emergency [facility] [id number] 13:47:30 13:47:30 [id number] 2019-01-23 2019-01-23 Emergency ER [facility] [id number] 11:50:00 11:50:00 [id number] 2019-01-18 2019-01-18 Outpatient EL [facility] [id number] 00:00:00 23:59:00 [id number] 2019-01-09 2019-01-09 Outpatient [facility] [id number] 00:00:00 00:00:00 2019-01-07 2019-01-07 Emergency GOLIKE, [facility] [id number] 44_[id number] 17:45:29 23:59:00 LON [id number] 2019-01-07 2019-01-07 Emergency ER KATHRIN, [facility] [id number] 17:56:50 20:51:00 KOLBY [id number] 2019-01-07 2019-01-07 Emergency [facility] [id number] 17:56:50 20:51:00 2019-01-07 2019-01-07 Emergency ER [facility] [id number] 16:44:00 16:44:00 [id number] 2018-11-14 2018-11-14 Emergency [facility] [id number] 10:25:37 23:59:00 [id number] 2018-11-14 2018-11-14 Emergency ER CANDIDA, [facility] [id number] 09:37:18 12:37:00 DORA [id number] 2018-11-14 2018-11-14 Emergency [facility] [id number] 09:37:18 12:37:00 2018-11-14 2018-11-14 Emergency ER [facility] [id number] 09:26:00 09:26:00 [id number] 2018-10-18 2018-10-18 Outpatient [facility] [id number] 00:00:00 00:00:00 2018-10-13 2018-10-13 Outpatient [facility] [id number] 00:00:00 23:59:00 [id number] 2018-10-11 2018-10-11 Outpatient [facility] [id number] 13:58:37 23:59:00 [id number] 2018-10-11 2018-10-11 Outpatient [facility] [id number] 13:58:37 14:18:37 2018-10-11 2018-10-11 Outpatient [facility] [id number] 00:00:00 00:00:00 [id number] 2018-10-06 2018-10-06 Emergency EL [facility] [id number] 15:54:38 23:59:00 [id number] 2018-10-06 2018-10-06 Emergency ER KATE, [facility] [id number] 14:59:26 18:29:00 MARCO ANTONIO [id number] 2018-10-06 2018-10-06 Emergency [facility] [id number] 14:59:26 18:29:00 2018-10-06 2018-10-06 Emergency ER [facility] [id number] 14:08:00 14:08:00 [id number] 2018-09-28 2018-09-28 Outpatient [facility] [id number] 00:00:00 23:59:00 [id number] 2018-09-19 2018-09-19 Outpatient [facility] [id number] 00:00:00 00:00:00 [id number] 2018-09-05 2018-09-05 Outpatient [facility] [id number] 00:00:00 00:00:00 ANDIE [id number] 2018-08-16 2018-08-16 Outpatient [facility] [id number] 00:00:00 00:00:00 ANDIE [id number] 2018-08-15 2018-08-15 Outpatient [facility] [id number] 00:00:00 23:59:00 [id number] 2018-08-08 2018-08-08 Outpatient [facility] [id number] 00:00:00 23:59:00 [id number] 2018-08-02 2018-08-02 Outpatient [facility] [id number] 16:31:15 23:59:00 2018-08-02 2018-08-02 Outpatient [facility] [id number] 16:03:42 16:55:02 [id number] 2018-08-02 2018-08-02 Outpatient [facility] [id number] 16:03:42 16:55:02 2018-08-02 2018-08-02 Outpatient [facility] [id number] 16:31:14 16:31:14 ANDIE [id number] 2018-08-02 2018-08-02 Outpatient [facility] [id number] 00:00:00 00:00:00 [id number] 2018-06-30 2018-06-30 Emergency [facility] [id number] 15:42:07 23:59:00 [id number] 2018-06-30 2018-06-30 Emergency [facility] [id number] 17:30:30 20:13:00 2018-06-30 2018-06-30 Emergency ER PREMA, [facility] [id number] 17:30:30 20:13:00 BILL [id number] 2018-06-30 2018-06-30 Emergency [facility] [id number] 15:08:30 15:08:30 [id number] 2018-06-30 2018-06-30 Emergency ER [facility] [id number] 14:57:00 14:57:00 [id number] 2018-06-30 2018-06-30 Emergency [facility] [id number] 00:00:00 00:00:00 [id number] 2018-06-11 2018-06-11 Emergency [facility] [id number] 15:48:57 23:59:00 [id number] 2018-06-11 2018-06-11 Emergency EL [facility] [id number] 15:37:02 23:59:00 [id number] 2018-06-11 2018-06-11 Emergency [facility] [id number] 13:34:45 16:58:00 2018-06-11 2018-06-11 Emergency ER DAVID, [facility] [id number] 13:34:45 16:58:00 MANUEL [id number] 2018-06-11 2018-06-11 Emergency ER [facility] [id number] 13:29:00 13:29:00 [id number] 2018-05-26 2018-05-26 Emergency ER SHELL, [facility] [id number] 19:22:30 19:23:00 CLEMENTINE [id number] 2018-05-26 2018-05-26 Emergency [facility] [id number] 19:22:30 19:23:00 2018-05-26 2018-05-26 Emergency ER SHELL, [facility] [id number] 18:20:00 18:20:00 CLEMENTINE [id number] 2018-05-05 2018-05-05 Emergency ER PATRICIA [facility] [id number] 14:44:03 17:48:00 SHANNA [id number] 2018-05-05 2018-05-05 Emergency [facility] [id number] 14:44:03 17:48:00 2018-05-05 2018-05-05 Emergency EL [facility] [id number] 15:02:22 15:02:22 [id number] 2018-05-05 2018-05-05 Emergency ER [facility] [id number] 14:38:00 14:38:00 [id number] 2018-04-19 2018-04-19 Emergency ER LANCE, [facility] [id number] 15:06:32 18:59:00 SHANIKA [id number] 2018-04-19 2018-04-19 Emergency [facility] [id number] 15:06:32 18:59:00 2018-04-19 2018-04-19 Emergency EL [facility] [id number] 17:31:54 17:31:54 [id number] 2018-04-19 2018-04-19 Emergency ER [facility] [id number] 15:03:00 15:03:00 [id number] 2018-04-09 2018-04-09 Emergency ER KATE, [facility] [id number] 08:30:54 11:14:00 MARCO ANTONIO [id number] 2018-04-09 2018-04-09 Emergency [facility] [id number] 08:30:54 11:14:00 2018-04-09 2018-04-09 Emergency [facility] [id number] 09:05:15 09:05:15 [id number] 2018-04-09 2018-04-09 Emergency ER [facility] [id number] 08:22:00 08:22:00 [id number] 2018-04-06 2018-04-06 Outpatient [facility] [id number] 00:00:00 00:00:00 [id number] 2017-12-27 2017-12-27 Outpatient [facility] [id number] 00:00:00 00:00:00 2017-09-30 2017-09-30 Outpatient [facility] [id number] 00:00:00 23:59:00 [id number] 2017-08-23 2017-08-23 Outpatient [facility] [id number] 00:00:00 23:59:00 [id number] 2017-07-05 2017-07-06 Emergency ER BOOGIEACCSARAN, [facility] [id number] 20:11:37 02:17:00 MANUEL [id number] 2017-07-05 2017-07-06 Emergency [facility] [id number] 20:11:37 02:17:00 2017-07-05 2017-07-05 Emergency [facility] [id number] 23:14:04 23:14:04 [id number] 2017-07-05 2017-07-05 Emergency [facility] [id number] 20:16:44 20:16:44 [id number] 2017-07-05 2017-07-05 Emergency ER [facility] [id number] 19:41:00 19:41:00 [id number] 2016-09-24 2016-09-24 Emergency ER [facility] [id number] 20:08:32 20:09:00 [id number] 2016-09-24 2016-09-24 Outpatient [facility] [id number] 20:08:32 20:09:00 2016-09-24 2016-09-24 Emergency ER [facility] [id number] 16:21:00 16:21:00 [id number] 2016-09-21 2016-09-21 Emergency ER REYES, [facility] [id number] 12:01:42 13:55:00 ANNITA [id number] 2016-09-21 2016-09-21 Outpatient [facility] [id number] 12:01:42 13:55:00 2016-09-21 2016-09-21 Emergency ER [facility] [id number] 11:43:00 11:43:00 [id number] 2016-02-09 2016-02-09 Emergency ER TIFF, [facility] [id number] 16:53:49 21:13:00 AMADEO [id number] 2016-02-09 2016-02-09 Outpatient [facility] [id number] 16:53:49 21:13:00 2016-02-09 2016-02-09 Emergency [facility] [id number] 17:02:20 17:02:20 [id number] 2016-02-09 2016-02-09 Emergency ER [facility] [id number] 16:25:00 16:25:00 [id number] 2015-09-04 2015-09-04 Outpatient [facility] [id number] 00:00:00 23:59:00 [id number] 2015-07-11 2015-07-11 Outpatient [facility] [id number] 11:07:05 23:59:00 [id number] 2015-07-11 2015-07-11 Outpatient [facility] [id number] 11:07:05 23:59:00 2015-07-11 2015-07-11 Outpatient [facility] [id number] 10:53:25 23:59:00 [id number] 2015-07-11 2015-07-11 Outpatient [facility] [id number] 10:53:25 23:59:00 2015-07-11 2015-07-11 Outpatient EL SÁNCHEZ, [facility] [id number] 00:00:00 00:00:00 BEATRICE [id number] 2015-07-09 2015-07-09 Outpatient [facility] [id number] 14:09:34 23:59:00 [id number] 2015-07-09 2015-07-09 Outpatient [facility] [id number] 14:09:34 23:59:00 2015-07-09 2015-07-09 Outpatient [facility] [id number] 11:44:57 23:59:00 [id number] 2015-07-09 2015-07-09 Outpatient [facility] [id number] 11:44:57 23:59:00 2015-07-09 2015-07-09 Outpatient EL VIANCA, [facility] [id number] 11:47:09 16:01:01 HICKMAN [id number] Immunizations Ordered Immunization Filled Immunization Date Status Commen ts Refusal Name Name Reason Influenza Vaccine 2019-01-30 Completed Quad (IIV4 PF) 6mo+ 00:00:00 injectable Influenza Vaccine 2019-01-25 Cancelled Quad (IIV4 PF) 6mo+ 00:00:00 injectable PNEUMOCOCCAL 2018-08-02 Completed POLYSACCHARIDE 23 00:00:00 Influenza Virus 2018-03-23 Completed Vaccine, unspecified 00:00:00 formulation TdaP 2010-10-26 Completed 00:00:00 INFLUENZA TIV (TRI) 2008-02-03 Completed PF (IM) 00:00:00 Tetanus: Unknown Completed Influenza: Unknown Completed Pneumococcal: Unknown Completed Payers Payer Name Policy Type Policy Number Effective Date Expiration D ate [employer]ICAID [place] [id number] 2018 00:00:00 PLANNING Plan of Treatment Planned Activity Planned Date Details Comments Future Scheduled Test [code = ] Future Scheduled Test [code = ] Future Scheduled Test [code = ] Future Scheduled Test [code = ] Future Scheduled Test [code = ] Future Scheduled Test [code = ] Future Scheduled Test [code = ] Future Scheduled Test [code = ] Future Scheduled Test [code = ] Future Scheduled Test [code = ] Future Scheduled Test [code = ] Future Scheduled Test [code = ] Future Scheduled Test [code = ] Future Scheduled Test [code = ] Future Scheduled Test [code = ] Future Scheduled Test [code = ] Future Scheduled Test [code = ] Future Scheduled Test [code = ] Future Scheduled Test [code = ] Future Scheduled Test [code = ] Future Scheduled Test [code = ] Future Scheduled Test [code = ] Future Scheduled Test [code = ] Future Scheduled Test [code = ] Future Scheduled Test [code = ] Future Scheduled Test [code = ] Future Scheduled Test [code = ] Future Scheduled Test [code = ] Future Scheduled Test [code = ] Future Scheduled Test [code = ] Future Scheduled Test [code = ] Future Scheduled Test [code = ] Future Scheduled Test [code = ] Future Scheduled Test [code = ] Future Scheduled Test [code = ] Future Scheduled Test [code = ] Future Scheduled Test [code = ] Future Scheduled Test [code = ] Future Scheduled Test [code = ] Future Scheduled Test [code = ] Future Scheduled Test [code = ] Future Scheduled Test [code = ] Future Scheduled Test [code = ] Future Scheduled Test [code = ] Future Scheduled Test [code = ] Future Scheduled Test [code = ] Future Scheduled Test [code = ] Future Scheduled Test [code = ] Future Scheduled Test [code = ] Future Scheduled Test [code = ] Future Scheduled Test [code = ] Future Scheduled Test [code = ] Future Scheduled Test [code = ] Future Scheduled Test [code = ] Future Scheduled Test [code = ] Future Scheduled Test [code = ] Future Scheduled Test [code = ] Future Scheduled Test [code = ] Future Scheduled Test [code = ] Future Scheduled Test [code = ] Future Scheduled Test [code = ] Future Scheduled Test [code = ] Future Scheduled Test [code = ] Future Scheduled Test [code = ] Future Scheduled Test [code = ] Future Scheduled Test [code = ] Future Scheduled Test [code = ] Future Scheduled Test [code = ] Future Scheduled Test [code = ] Future Scheduled Test [code = ] Future Scheduled Test [code = ] Future Scheduled Test [code = ] Future Scheduled Test [code = ] Future Scheduled Test [code = ] Social History Social Habit Start Date Stop Date Comments History of tobacco use Tobacco use and exposure 2020-02-22 00:00:00 2020-02-22 00:00:00 Alcohol intake 2020-02-22 00:00:00 2020-02-22 00:00:00 Tobacco smoking status LAIS 2020-02-20 00:00:00 2020-02-20 00:00 :00 Cigarettes smoked current (pack per 2020-02-20 00:00:00 00:00:00 day) - Reported Tobacco Comment 2019-06-12 00:00:00 2019-06-12 00:00:00 History SDOH Stress 2019-06-11 00:00:00 2019-06-11 00:00:00 History SDOH Financial 2019-06-11 00:00:00 2019-06-11 00:00:00 History SDOH Food Worry 2019-06-11 00:00:00 2019-06-11 00:00:00 History SDOH Food Scarcity 2019-06-11 00:00:00 2019-06-11 00:00: 00 History SDOH Transport Med 2019-06-11 00:00:00 2019-06-11 00:00: 00 History SDOH Transport Non-Med 2019-06-11 00:00:00 2019-06-11 00 :00:00 Cigarette pack-years 2019-01-30 00:00:00 2019-01-30 00:00:00 ASSERTION 2016-09-24 00:00:00 2016-09-24 00:00:00 Smoking Status Start Date Stop Date Current some day smoker 2020-02-22 00:00:00 2020-02-22 00:00 :00 Vital Signs Vital Name Observation Time Observation Value Comments Respiratory rate 2020-02-23 18:45:00 18 /min Heart rate 2020-02-23 16:35:00 64 /min Oxygen saturation in Arterial blood 2020-02-23 16:35:00 99 % by Pulse oximetry Systolic blood pressure 2020-02-23 16:09:00 109 mm[Hg] Diastolic blood pressure 2020-02-23 16:09:00 64 mm[Hg] Body temperature 2020-02-23 16:09:00 36.56 Jewels Body weight 2020-02-21 21:10:00 58.968 kg BMI 2020-02-21 21:10:00 19.77 kg/m2 Body height 2020-02-21 21:10:00 172.7 cm HEIGHT 2019-06-03 23:12:00 172.72 centimeters WEIGHT 2019-06-03 23:12:00 79.83 kilos HEIGHT 2019-06-03 22:31:00 172.72 centimeters WEIGHT 2019-06-03 22:31:00 79.83 kilos Systolic blood pressure 2020-02-21 06:00:00 104 mm[Hg] Diastolic blood pressure 2020-02-21 06:00:00 66 mm[Hg] Heart rate 2020-02-21 06:00:00 63 /min Respiratory rate 2020-02-21 06:00:00 19 /min Oxygen saturation in Arterial blood 2020-02-21 06:00:00 96 % by Pulse oximetry Body temperature 2020-02-20 22:38:00 37.11 Jewels Systolic blood pressure 2020-02-20 17:56:00 110 mm[Hg] Diastolic blood pressure 2020-02-20 17:56:00 71 mm[Hg] Heart rate 2020-02-20 17:56:00 79 /min Body temperature 2020-02-20 17:56:00 36.72 Jewels Respiratory rate 2020-02-20 17:56:00 20 /min Oxygen saturation in Arterial blood 2020-02-20 17:56:00 98 % by Pulse oximetry Systolic blood pressure 2019-10-22 20:02:00 106 mm[Hg] Diastolic blood pressure 2019-10-22 20:02:00 62 mm[Hg] Heart rate 2019-10-22 20:02:00 54 /min Body temperature 2019-10-22 20:02:00 36.22 Jewels Respiratory rate 2019-10-22 20:02:00 14 /min Oxygen saturation in Arterial blood 2019-10-22 20:02:00 97 % by Pulse oximetry Body height 2019-10-22 17:55:00 172.7 cm Body weight 2019-10-22 17:55:00 58.968 kg Systolic blood pressure 2019-06-13 15:00:00 146 mm[Hg] Diastolic blood pressure 2019-06-13 15:00:00 74 mm[Hg] Heart rate 2019-06-13 15:00:00 60 /min Body temperature 2019-06-13 15:00:00 35.72 Jewels Respiratory rate 2019-06-13 15:00:00 17 /min Oxygen saturation in Arterial blood 2019-06-13 15:00:00 94 % by Pulse oximetry Body weight 2019-06-11 09:43:00 79.153 kg Body height 2019-06-10 23:50:00 172.7 cm Systolic blood pressure 2019-05-09 22:12:00 121 mm[Hg] Diastolic blood pressure 2019-05-09 22:12:00 87 mm[Hg] Heart rate 2019-05-09 22:12:00 57 /min Respiratory rate 2019-05-09 22:12:00 8 /min Oxygen saturation in Arterial blood 2019-05-09 22:12:00 95 % by Pulse oximetry Body temperature 2019-05-09 20:00:00 36.44 Jewels Systolic blood pressure 2019-02-24 13:35:00 141 mm[Hg] Diastolic blood pressure 2019-02-24 13:35:00 66 mm[Hg] Heart rate 2019-02-24 13:35:00 80 /min Body temperature 2019-02-24 13:35:00 36.5 Jewels Respiratory rate 2019-02-24 13:35:00 18 /min Oxygen saturation in Arterial blood 2019-02-24 13:35:00 97 % by Pulse oximetry Body height 2019-02-09 21:55:00 172.7 cm Body weight 2019-02-09 21:55:00 75.116 kg Oxygen saturation in Arterial blood 2019-01-30 15:32:00 94 % by Pulse oximetry Systolic blood pressure 2019-01-30 15:04:00 112 mm[Hg] Diastolic blood pressure 2019-01-30 15:04:00 70 mm[Hg] Heart rate 2019-01-30 15:04:00 60 /min Body temperature 2019-01-30 15:04:00 36.89 Jewels Body height 2019-01-30 15:04:00 172.7 cm Body weight 2019-01-30 15:04:00 80.559 kg Systolic blood pressure 2019-01-25 11:38:00 116 mm[Hg] Diastolic blood pressure 2019-01-25 11:38:00 52 mm[Hg] Heart rate 2019-01-25 11:38:00 72 /min Body temperature 2019-01-25 11:38:00 36.22 Jewels Respiratory rate 2019-01-25 11:38:00 18 /min Oxygen saturation in Arterial blood 2019-01-25 11:38:00 95 % by Pulse oximetry Body height 2019-01-24 06:43:00 172.7 cm Body weight 2019-01-24 06:43:00 76.885 kg Systolic blood pressure 2019-01-07 20:15:00 138 mm[Hg] Diastolic blood pressure 2019-01-07 20:15:00 78 mm[Hg] Heart rate 2019-01-07 20:15:00 88 /min Body temperature 2019-01-07 20:15:00 36.67 Jewels Respiratory rate 2019-01-07 20:15:00 18 /min Oxygen saturation in Arterial blood 2019-01-07 18:40:00 94 % by Pulse oximetry Systolic blood pressure 2018-11-14 11:35:00 112 mm[Hg] Diastolic blood pressure 2018-11-14 11:35:00 48 mm[Hg] Heart rate 2018-11-14 11:35:00 56 /min Body temperature 2018-11-14 11:35:00 36.72 Jewels Respiratory rate 2018-11-14 11:35:00 16 /min Oxygen saturation in Arterial blood 2018-11-14 11:35:00 95 % by Pulse oximetry Systolic blood pressure 2018-10-11 14:02:00 109 mm[Hg] Diastolic blood pressure 2018-10-11 14:02:00 60 mm[Hg] Heart rate 2018-10-11 14:02:00 62 /min Body temperature 2018-10-11 14:02:00 36.89 Jewels Body height 2018-10-11 14:02:00 170.7 cm Body weight 2018-10-11 14:02:00 71.759 kg Systolic blood pressure 2018-10-06 18:29:00 111 mm[Hg] Diastolic blood pressure 2018-10-06 18:29:00 72 mm[Hg] Heart rate 2018-10-06 18:29:00 62 /min Body temperature 2018-10-06 18:29:00 36.78 Jewels Respiratory rate 2018-10-06 18:29:00 20 /min Oxygen saturation in Arterial blood 2018-10-06 18:29:00 93 % by Pulse oximetry HEART RATE 2018-08-02 16:15:00 69 /min BODY TEMPERATURE 2018-08-02 16:15:00 37 Jewels HEIGHT 2018-08-02 16:15:00 170.7 cm WEIGHT 2018-08-02 16:15:00 73.755 kg SYSTOLIC BLOOD PRESSURE 2018-08-02 16:15:00 116 mm[Hg] DIASTOLIC BLOOD PRESSURE 2018-08-02 16:15:00 73 mm[Hg] SYSTOLIC BLOOD PRESSURE 2018-06-30 19:03:00 119 mm[Hg] DIASTOLIC BLOOD PRESSURE 2018-06-30 19:03:00 50 mm[Hg] HEART RATE 2018-06-30 19:03:00 74 /min BODY TEMPERATURE 2018-06-30 19:03:00 37.39 Jewels RESPIRATORY RATE 2018-06-30 19:03:00 16 /min OXYGEN SATURATION 2018-06-30 19:03:00 94 % SYSTOLIC BLOOD PRESSURE 2018-06-11 16:52:00 107 mm[Hg] DIASTOLIC BLOOD PRESSURE 2018-06-11 16:52:00 64 mm[Hg] HEART RATE 2018-06-11 16:52:00 70 /min BODY TEMPERATURE 2018-06-11 16:52:00 36.72 Jewels RESPIRATORY RATE 2018-06-11 16:52:00 20 /min OXYGEN SATURATION 2018-06-11 16:52:00 96 % SYSTOLIC BLOOD PRESSURE 2018-05-26 18:22:00 125 mm[Hg] DIASTOLIC BLOOD PRESSURE 2018-05-26 18:22:00 72 mm[Hg] HEART RATE 2018-05-26 18:22:00 71 /min BODY TEMPERATURE 2018-05-26 18:22:00 36.22 Jewels RESPIRATORY RATE 2018-05-26 18:22:00 21 /min OXYGEN SATURATION 2018-05-26 18:22:00 98 % SYSTOLIC BLOOD PRESSURE 2018-05-05 17:46:00 112 mm[Hg] DIASTOLIC BLOOD PRESSURE 2018-05-05 17:46:00 61 mm[Hg] HEART RATE 2018-05-05 17:46:00 63 /min RESPIRATORY RATE 2018-05-05 17:46:00 16 /min BODY TEMPERATURE 2018-05-05 14:41:00 36.5 Jewels OXYGEN SATURATION 2018-05-05 14:41:00 94 % SYSTOLIC BLOOD PRESSURE 2018-04-19 18:24:00 107 mm[Hg] DIASTOLIC BLOOD PRESSURE 2018-04-19 18:24:00 50 mm[Hg] BODY TEMPERATURE 2018-04-19 18:24:00 36.61 Jewels RESPIRATORY RATE 2018-04-19 18:24:00 16 /min OXYGEN SATURATION 2018-04-19 18:24:00 95 % HEART RATE 2018-04-19 15:13:00 70 /min SYSTOLIC BLOOD PRESSURE 2018-04-09 10:37:00 111 mm[Hg] DIASTOLIC BLOOD PRESSURE 2018-04-09 10:37:00 41 mm[Hg] HEART RATE 2018-04-09 10:37:00 74 /min BODY TEMPERATURE 2018-04-09 10:37:00 36.83 Jewels RESPIRATORY RATE 2018-04-09 10:37:00 18 /min OXYGEN SATURATION 2018-04-09 10:37:00 94 % SYSTOLIC BLOOD PRESSURE 2017-07-05 23:43:00 111 mm[Hg] DIASTOLIC BLOOD PRESSURE 2017-07-05 23:43:00 55 mm[Hg] HEART RATE 2017-07-05 23:43:00 69 /min BODY TEMPERATURE 2017-07-05 23:43:00 36.56 Jewels RESPIRATORY RATE 2017-07-05 23:43:00 18 /min OXYGEN SATURATION 2017-07-05 23:43:00 98 % SYSTOLIC BLOOD PRESSURE 2016-09-24 16:37:00 108 mm[Hg] DIASTOLIC BLOOD PRESSURE 2016-09-24 16:37:00 85 mm[Hg] HEART RATE 2016-09-24 16:37:00 63 /min BODY TEMPERATURE 2016-09-24 16:37:00 36.61 Jewels RESPIRATORY RATE 2016-09-24 16:37:00 16 /min OXYGEN SATURATION 2016-09-24 16:37:00 97 % SYSTOLIC BLOOD PRESSURE 2016-09-21 11:51:00 97 mm[Hg] DIASTOLIC BLOOD PRESSURE 2016-09-21 11:51:00 59 mm[Hg] HEART RATE 2016-09-21 11:51:00 83 /min BODY TEMPERATURE 2016-09-21 11:51:00 35.78 Jewels RESPIRATORY RATE 2016-09-21 11:51:00 20 /min WEIGHT 2016-09-21 11:51:00 55.339 kg SYSTOLIC BLOOD PRESSURE 2016-02-09 16:30:00 122 mm[Hg] DIASTOLIC BLOOD PRESSURE 2016-02-09 16:30:00 74 mm[Hg] HEART RATE 2016-02-09 16:30:00 74 /min BODY TEMPERATURE 2016-02-09 16:30:00 36.61 Jewels RESPIRATORY RATE 2016-02-09 16:30:00 24 /min WEIGHT 2016-02-09 16:30:00 55.792 kg OXYGEN SATURATION 2016-02-09 16:30:00 98 % Hospital Discharge Instructions No hospital discharge instructions.
[2020-05-23] MEDS: MAGNESIUM SULFATE/D5W 1 GM/100 ML RTUPB IV SCH ×3 (01:42→06:46)
[2020-05-23] MEDS: POTASSI CL 20 MEQ/50 ML RIDER 20 MEQ/50 ML RTUPB IV SCH ×2 (01:43→04:15)
[2020-05-23] MEDS ORDERED: VANCOMYCIN HCL INJ 1000 MG VIAL IV ONE (01:51)
[2020-05-23] MEDS ORDERED: NORMAL SALINE 1000 ML 1,000 ML IV ONE (01:51)
[2020-05-23] MEDS ORDERED: FENTANYL CITRATE INJ/PF 100 MCG/2 ML AMPUL IV ONE (03:18)
[2020-05-23] MEDS ORDERED: DEXTROSE 5%-WATER 250 ML with NOREPINEPHRINE BITARTRATE 4 MG IV PRN ×4 (03:18→09:52)
[2020-05-23] MEDS ORDERED: NOREPINEPHRINE BITARTRATE INJ/PF 4 MG/4 ML SDV IV ONE ×2 (03:38→09:42)
[2020-05-23] MEDS ORDERED: ONDANSETRON HCL INJ/PF 4 MG/2 ML SDV IV PRN (04:42)
[2020-05-23] MEDS ORDERED: RINGERS SOLUTION,LACTATED 1,000 ML IV PRN ×2 (04:42→04:59)
--- NOTE | 2020-05-23 04:45 | RADIOLOGY REPORT (SQ) ---
EXAM DESCRIPTION: X-ray single view chest. CLINICAL HISTORY: 50 years Female, s/p central line for placement COMPARISON: 05/22/2020 and 04/29/2020 TECHNIQUE: Single portable x-ray view of the chest performed on 05/23/2020 at 3:56 AM FINDINGS: The lungs are well-expanded. There is chronic biapical pleural parenchymal scarring. There is increasing opacification in the left inferior hemithorax and possibly right inferior hemithorax concerning for pneumonia. The lateral costophrenic sulci are grossly clear. There is no evidence of a pneumothorax. The cardiac silhouette is normal in size and configuration. The mediastinal contours are normal. No acute osseous abnormality is identified. No acute soft tissue abnormalities are seen. Lines and tubes: The right IJ central venous catheter tip overlies the region of the superior vena cava. Free air: None IMPRESSION: 1. Chronic biapical pleural parenchymal scarring. 2. Increasing opacification in the left inferior hemithorax and possibly right inferior hemithorax concerning for pneumonia. 3. The tip of the right IJ central venous catheter overlies the region of the superior vena cava.
[2020-05-23] MEDS ORDERED: FAMOTIDINE INJ/PF 20 MG/2 ML SDV IV SCH (05:00)
--- NOTE | 2020-05-23 05:29 | CRITICAL CARE ADMISSION REPORT ---
HPI Date:: 05/23/20 Time:: 05:17 Reason for ICU Reason:: hypoptesnion, PNA Admission Date/Time & PCP: Admission Date/Time: 05/23/20 01:56 Primary Care Provider: 05/23/[address] Rod HPI: 50-year-old female who presented to the ER tonight with complaints of back pain. She denies any past medical history other than herniated disc. She denies being on any home medication and has no primary care physician. Patient denies any recreational drug use however she was positive on urine drug screen for a mphetamines marijuana and cocaine. Patient was evaluated by the ER provider and chest x-ray revealed pneumonia left lower lobe. The patient became hypotensive in the ER and the ER provider started her on Levophed. She was giving 3 L of normal saline bolus with no response to her blood pressure. The ER provider also gave her 25 mics of fentanyl due to her complaints of back pain. Critical care was consulted for admission and management of this patient. - Diagnosis/Plan (1) Back pain Qualifiers: Back pain location: back pain in unspecified location Chronicity: chronic Back pain laterality: bilateral Qualified Code(s): M54.9 - Dorsalgia, unspecified; G89.29 - Other chronic pain Is this a current diagnosis for this admission?: Yes (2) Hypotension Qualifiers: Hypotension type: unspecified hypotension type Qualified Code(s): I95.9 - Hypotension, unspecified Is this a current diagnosis for this admission?: Yes Plan: Continue Levophed drip continue with fluid hydration echocardiogram this a.m. to evaluate EF and rule out any vegetation. (3) Pneumonia Qualifiers: Pneumonia type: due to unspecified organism Laterality: left Lung location: lower lobe of lung Qualified Code(s): J18.9 - Pneumonia, unspecified organism Is this a current diagnosis for this admission?: Yes Plan: Treatment for community-acquired pneumonia azithromycin/Rocephin (4) Polysubstance abuse Is this a current diagnosis for this admission?: Yes Plan: Avoid any sedating medications (5) Septic shock Is this a current diagnosis for this admission?: Yes Plan: Continue fluid hydration and Levophed for blood pressure support (6) Tachycardia Is this a current diagnosis for this admission?: Yes Plan: Patient positive for amphetamines continue IV fluids Past Medical History Pulmonary Medical History: Reports: Chronic Obstructive Pulmonary Disease (COPD) Musculoskeltal Medical History: Reports: Other - Per patient she has herniated disc Psychiatric Medical History: Reports: Substance Abuse, Tobacco Dependency Social/Family History - Social History Smoking Status: Current Every Day Smoker Frequency of Alcohol Use: Occasional Hx Recreational Drug Use: Yes Drugs: Cocaine, Marijuana, Other - Amphetamines - Medication/Allergies Home Medications: Dicyclomine HCl [Bentyl 20 mg Tablet] 20 mg PO QID PRN #20 tablet 02/25/20 Metoclopramide HCl [Reglan 10 mg Tablet] 1 - 2 tab PO ASDIR PRN #25 tablet 02/25/20 Chlorzoxazone [Parafon Forte Dsc 500 Mg Tablet] 500 mg PO TID PRN #20 tablet 04/29/20 Etodolac [Lodine] 400 mg PO DAILY #10 tablet 04/29/20 Allergies/Adverse Reactions: No Known Allergies Allergy (Verified 04/29/20 13:08) Review of Systems Constitutional: PRESENT: headache(s) Respiratory: PRESENT: dyspnea - With exertion Physical Exam Vital Signs: Temp Pulse Resp BP Pulse Ox 99.1 F 108 H 22 H 73/55 L 93 05/23/20 04:47 05/22/20 23:48 05/23/20 04:40 05/23/20 04:40 05/23/20 04:40 Intake & Output 05/21/20 05/22/20 05/23/20 06:59 06:59 06:59 Intake Total 3325 Balance 3325 Weight 58.967 kg Weight/Height Weight 58.967 kg Height 5 ft 8 in General appearance: PRESENT: no acute distress Head exam: PRESENT: atraumatic, normocephalic Eye exam: PRESENT: conjunctiva pink Mouth exam: PRESENT: dry mucosa, neck supple Neck exam: PRESENT: full ROM Respiratory exam: PRESENT: decreased breath sounds Cardiovascular exam: PRESENT: +S1, +S2, tachycardia Pulses: PRESENT: normal radial pulses, +2 pedal pulses bilateral GI/Abdominal exam: PRESENT: normal bowel sounds, soft Rectal exam: PRESENT: deferred Extremities exam: PRESENT: full ROM Musculoskeletal exam: PRESENT: full ROM Neurological exam: PRESENT: oriented to person, oriented to place, oriented to time, CN II-XII grossly intact Psychiatric exam: PRESENT: appropriate affect Skin exam: PRESENT: dry, intact, warm Tubes/Lines: PRESENT: Central Line Laboratory/Radiographs Laboratory Results: 05/22/20 23:25 05/22/20 23:25 05/22/20 05/22/20 05/22/20 23:25 23:25 23:25 WBC 2.3 L RBC 4.19 Hgb 13.5 Hct 38.5 MCV 92 MCH 32.2 MCHC 35.0 RDW 14.7 H Plt Count 119 L Seg Neutrophils % Not Reportable VBG pH VBG pCO2 VBG HCO3 VBG Base Excess Sodium 132.6 L Potassium 2.9 L* Chloride 104 Carbon Dioxide 26 Anion Gap 3 L BUN 9 Creatinine 0.86 Est GFR ( Amer) > 60 Glucose 95 Lactic Acid Calcium 8.4 Magnesium Total Bilirubin 1.2 AST 95 H Alkaline Phosphatase 201 H Total Protein 5.7 L Albumin 3.2 L Serum HCG, Qual NEGATIVE Urine Color Urine Appearance Urine pH Ur Specific [place] Urine Protein Urine Glucose (UA) Urine Ketones Urine Blood Urine Nitrite Ur Leukocyte Esterase Urine WBC (Auto) Urine RBC (Auto) 05/22/20 05/22/20 05/23/20 23:25 23:45 00:11 WBC RBC Hgb Hct MCV MCH MCHC RDW Plt Count Seg Neutrophils % VBG pH VBG pCO2 VBG HCO3 VBG Base Excess Sodium Potassium Chloride Carbon Dioxide Anion Gap BUN Creatinine Est GFR ( Amer) Glucose Lactic Acid 2.7 H Calcium Magnesium 1.3 L Total Bilirubin AST Alkaline Phosphatase Total Protein Albumin Serum HCG, Qual Urine Color YELLOW Urine Appearance CLOUDY Urine pH 5.0 Ur Specific [place] 1.005 Urine Protein NEGATIVE Urine Glucose (UA) NEGATIVE Urine Ketones NEGATIVE Urine Blood NEGATIVE Urine Nitrite NEGATIVE Ur Leukocyte Esterase LARGE H Urine WBC (Auto) 26 Urine RBC (Auto) 42 05/23/20 00:11 WBC RBC Hgb Hct MCV MCH MCHC RDW Plt Count Seg Neutrophils % VBG pH 7.37 VBG pCO2 43.9 VBG HCO3 24.8 VBG Base Excess -0.6 Sodium Potassium Chloride Carbon Dioxide Anion Gap BUN Creatinine Est GFR ( Amer) Glucose Lactic Acid Calcium Magnesium Total Bilirubin AST Alkaline Phosphatase Total Protein Albumin Serum HCG, Qual Urine Color Urine Appearance Urine pH Ur Specific [place] Urine Protein Urine Glucose (UA) Urine Ketones Urine Blood Urine Nitrite Ur Leukocyte Esterase Urine WBC (Auto) Urine RBC (Auto) 05/22/20 23:25 Troponin I < 0.012 Impressions: Chest X-Ray 05/23/20 03:48 IMPRESSION: 1. Chronic biapical pleural parenchymal scarring. 2. Increasing opacification in the left inferior hemithorax and possibly right inferior hemithorax concerning for pneumonia. 3. The tip of the right IJ central venous catheter overlies the region of the superior vena cava. All labs, radiographs, diagnostic studies and EKGs were personally reviewed: Yes In addition, reports of radiographic and diagnostic studies were read: Yes Critical Time Critical Time (minutes): 55 -: The care of a critically ill patient is dynamic. This note represents a static moment in the admission process. Orders and treatments may be given simultaneously and urgently, and time is not traffic representative of the treatment process. This patient requires Critical Care secondary to life threatening organ or limb dysfunction. Without Critical Care services, the patient is at risk for increased mortality and morbidity.
[2020-05-23 06:01] LABS: INTERNATIONAL RATION (INR) 1.23; PROTHROMBIN TIME 15.7 SEC (11.4-15.4)
[2020-05-23] MEDS: IPRATROPIUM/ALBUTEROL 0.5-2.5 MG/3 ML AMPUL NEB SCH ×3 (06:05→14:15)
[2020-05-23] MEDS: HEPARIN SOD (PORCINE) 5,000 UNIT/ML 1 ML VIAL SUBCUT SCH ×4 (06:05→21:06)
[2020-05-23 06:08] LABS: ABSOLUTE LYMPHOCYTES (AUTO) 1.3 10^3/uL (0.5-4.7); ABSOLUTE MONOCYTES (AUTO) 0.1 10^3/uL (0.1-1.4); ABSOLUTE NEUT (AUTO) 4.7 10^3/uL (1.7-8.2); BASOPHILS % (AUTO) 0.2 % (0-2); EOSINOPHILS % (AUTO) 0.2 % (0-6); HEMATOCRIT 32.3 % (36.0-47.0); LYMPHOCYTES % (AUTO) 21.2 % (13-45); MEAN CORPUSCULAR HEMOGLOBIN 32.7 pg (27.0-33.4); MEAN CORPUSCULAR HGB CONC 34.9 g/dL (32.0-36.0); MEAN CORPUSCULAR VOLUME 94 fl (80-97); MONOCYTES % (AUTO) 2.2 % (3-13); RED BLOOD COUNT 3.44 10^6/uL (3.72-5.28); RED CELL DISTRIBUTION WIDTH 15.1 % (11.5-14.0); SEGMENTED NEUTROPHILS % (AUTO) 76.2 % (42-78); TOTAL CELLS COUNTED % (AUTO) 100 %
[2020-05-23 06:12] LABS: ALBUMIN 2.3 g/dL (3.5-5.0); ALKALINE PHOSPHATASE 113 U/L (38-126); ASPARTATE AMINO TRANSFERASE 397 U/L (14-36); BILIRUBIN,DIRECT 0.7 mg/dL (0.0-0.4); BILIRUBIN,TOTAL 1.1 mg/dL (0.2-1.3); BLOOD UREA NITROGEN 8 mg/dL (7-20); CARBON DIOXIDE 25 mmol/L (22-30); CHLORIDE 113 mmol/L (98-107); CREATINE KINASE 45 U/L (30-135); GLUCOSE 197 mg/dL (75-110); PHOSPHORUS 1.6 mg/dL (2.5-4.5); POTASSIUM 3.8 mmol/L (3.6-5.0); TOTAL PROTEIN 4.3 g/dL (6.3-8.2)
[2020-05-23 06:26] LABS: FREE T4 (FREE THYROXINE) 0.9 ng/dL (0.78-2.19)
[2020-05-23 06:32] LABS: ARTERIAL BLOOD BASE EXCESS -5.3 mmol/L; ARTERIAL BLOOD H2CO3 1.18 mmol/L (1.05-1.35); ARTERIAL BLOOD HCO3 20.2 mmol/L (20-24); ARTERIAL BLOOD O2 SATURATION 96.6 % (94-98); ARTERIAL BLOOD PCO2 39.3 mmHg (35-45); ARTERIAL BLOOD PH 7.33 (7.35-7.45); ARTERIAL BLOOD PO2 92.4 mmHg (80-100); ARTERIAL BLOOD TOTAL CO2 21.4 mmol/L (21-25)
[2020-05-23 06:38] LABS: HEMOGLOBIN 11.3 g/dL (12.0-15.5); WHITE BLOOD COUNT 6.1 10^3/uL (4.0-10.5)
[2020-05-23 06:40] LABS: THYROID STIMULATING HORMONE 4.53 uIU/mL (0.47-4.68)
[2020-05-23 06:40] LABS: PLATELET COUNT 80 10^3/uL (150-450)
[2020-05-23 06:56] LABS: ANION GAP -1 (5-19)
[2020-05-23 06:58] LABS: ARTERIAL BLOOD FIO2 2L
--- NOTE | 2020-05-23 07:22 | EKG REPORT ---
SEVERITY:- ABNORMAL ECG - SINUS RHYTHM RIGHT AXIS DEVIATION MINIMAL ST DEPRESSION, DIFFUSE LEADS, NEW, COMPARED TO 03/26/20 EKG. : Confirmed by: Elijah Leggett MD 23-May-2020 07:21:47
[2020-05-23] MEDS: CEFTRIAXONE 2 GM/D5W RTU 2 GM/50 ML RTUPB IV SCH (09:36)
[2020-05-23] MEDS ORDERED: AZITHROMYCIN INJ 500 MG VIAL IV SCH (10:00)
[2020-05-23] MEDS: AZITHROMYCIN 500 MG in DEXTROSE 5%-WATER 250 ML IV SCH (10:47)
[2020-05-23] MEDS ORDERED: ALBUTEROL SULFATE HFA (90 MCG/PUFF) 8 GM MDI (1 MDI/ER DISP) IH PRN ×2 (10:51→16:33)
[2020-05-23] MEDS: ACETAMINOPHEN 325 MG TABLET PO PRN (14:15)
[2020-05-23] MEDS ORDERED: PROMETHAZINE HCL INJ 25 MG/1 ML VIAL ONE (16:08)
[2020-05-23] MEDS ORDERED: PROMETHAZINE HCL INJ 25 MG/1 ML VIAL IV ONE (16:10)
[2020-05-23] MEDS: OXYCODONE-ACETAMINOPHEN 5-325 MG TABLET PO PRN ×2 (16:13→21:06)
[2020-05-23] MEDS: THIAMINE HCL 100 MG TABLET PO SCH (16:20)
[2020-05-23] MEDS: FOLIC ACID 1 MG TABLET PO SCH (16:20)
[2020-05-23] MEDS: POTASSI CL 20 MEQ/D5-1/2NS 1L 1,000 ML IV PRN (16:23)
--- NOTE | 2020-05-23 16:32 | Progress Note ---
Provider Note Provider Note: Imani Carmen is 50-year-old female with past medical history of hepatitis C, IV drug abuse, right pneumothorax, who recently moved from [place] to [facility] to be with her boyfriend who presented to ED yesterday complaining of back pain, subsequently was found to have pneumonia and hypotension, patient had to be started on empiric IV antibiotics and pressors and was admitted under ICU care. Patient vitals have been stable since that and care transitions under hospitalist. Patient is stating prior to ED visit about a week ago she started snorting cocaine, couple of days before admission she started having generalized fatigue and a cough was having shortness of breath, yesterday she started being worsening back pain therefore she called EMS and they brought her to ED. Patient is stating that she is feeling much better but still having back pain and nausea. We will continue empiric IV antibiotics, thiamine, folic acid, IV fluids and antiemetics.
[2020-05-23] MEDS ORDERED: PROMETHAZINE HCL 6.25 MG/5 ML SYRUP 60 ML PO PRN (16:35)
[2020-05-23] MEDS ORDERED: CALCIUM ACETATE 667 MG CAPSULE PO SCH (17:00)
[2020-05-23] MEDS ORDERED: ALBUTEROL SULFATE HFA (90 MCG/PUFF) 8 GM MDI (1 MDI/ER DISP) IH SCH (18:00)
[2020-05-23] MEDS ORDERED: ALBUTEROL SULFATE HFA (90 MCG/PUFF) 8 GM MDI IH PRN (18:12)
[2020-05-23] MEDS ORDERED: ASPIRIN 325 MG TABLET PO ONE (18:26)
[2020-05-23] MEDS ORDERED: NITROGLYCERIN 0.4 MG/TAB 25 TAB/BOTTLE SL PRN (18:28)
[2020-05-23] MEDS: METHOCARBAMOL 750 MG TABLET PO SCH ×2 (18:58→21:08)
[2020-05-23] MEDS: MULTIVITS W-MIN/IRON SOLN 60 ML PO SCH (18:59)
[2020-05-23] MEDS: ATORVASTATIN CALCIUM 40 MG TABLET PO SCH (21:06)
[2020-05-23] MEDS: PHOSPHORUS #1 250 MG TABLET PO SCH (21:08)
[2020-05-23] MEDS ORDERED: CEFTRIAXONE 2 GM/D5W RTU 2 GM/50 ML RTUPB IV SCH (22:00)
[2020-05-23] MEDS ORDERED: AZITHROMYCIN 500 MG in DEXTROSE 5%-WATER 250 ML IV SCH (22:00)
[2020-05-23] MEDS: PROMETHAZINE HCL INJ 25 MG/1 ML VIAL IV PRN (23:21)
[2020-05-24] MEDS ORDERED: NORMAL SALINE 1000 ML 1,000 ML IV ONE ×2 (00:15→01:40)
[2020-05-24] MEDS: POTASSI CL 20 MEQ/D5-1/2NS 1L 1,000 ML IV PRN ×3 (01:21→18:31)
[2020-05-24] MEDS: OXYCODONE-ACETAMINOPHEN 5-325 MG TABLET PO PRN ×4 (01:22→20:01)
--- NOTE | 2020-05-24 01:32 | Progress Note ---
Provider Note Provider Note: I was called to evaluate patient for possible need for transfer to ICU. Upon my assessment of the patient she was alert oriented x 4 she was hypotensive after fluid bolus however patient states her BP is low normally. The patient had just voided in the bedpan and wa complaining of back pain. I suggested giving the patient albumin and starting her on midodrine for BP support. The ICU team will be avaialble if further assistance is needed.
[2020-05-24] MEDS: GUAIFENESIN/D-METHORPHAN (200-20 MG) SYRUP 10 ML PO PRN ×3 (02:06→20:01)
[2020-05-24] MEDS: ALBUMIN HUMAN 12.5 GM/50 ML RTUINJ IV SCH ×2 (02:17→03:25)
[2020-05-24] MEDS: HEPARIN SOD (PORCINE) 5,000 UNIT/ML 1 ML VIAL SUBCUT SCH ×3 (05:09→21:51)
[2020-05-24 06:14] LABS: ABSOLUTE LYMPHOCYTES (AUTO) 2.4 10^3/uL (0.5-4.7); ABSOLUTE MONOCYTES (AUTO) 0.6 10^3/uL (0.1-1.4); ABSOLUTE NEUT (AUTO) 6.1 10^3/uL (1.7-8.2); BASOPHILS % (AUTO) 0.2 % (0-2); EOSINOPHILS % (AUTO) 0.5 % (0-6); HEMATOCRIT 30.1 % (36.0-47.0); HEMOGLOBIN 10.3 g/dL (12.0-15.5); MEAN CORPUSCULAR HEMOGLOBIN 32.3 pg (27.0-33.4); MEAN CORPUSCULAR HGB CONC 34.1 g/dL (32.0-36.0); MEAN CORPUSCULAR VOLUME 95 fl (80-97); MONOCYTES % (AUTO) 6.1 % (3-13); RED BLOOD COUNT 3.18 10^6/uL (3.72-5.28); RED CELL DISTRIBUTION WIDTH 15.2 % (11.5-14.0); SEGMENTED NEUTROPHILS % (AUTO) 67.2 % (42-78); TOTAL CELLS COUNTED % (AUTO) 100 %
[2020-05-24 06:38] LABS: PLATELET COUNT 72 10^3/uL (150-450)
[2020-05-24 06:51] LABS: ALBUMIN 2.4 g/dL (3.5-5.0); ALKALINE PHOSPHATASE 106 U/L (38-126); ASPARTATE AMINO TRANSFERASE 136 U/L (14-36); BILIRUBIN,DIRECT 0.4 mg/dL (0.0-0.4); BILIRUBIN,TOTAL 0.8 mg/dL (0.2-1.3); BLOOD UREA NITROGEN 10 mg/dL (7-20); CARBON DIOXIDE 25 mmol/L (22-30); CHLORIDE 117 mmol/L (98-107); GLUCOSE 123 mg/dL (75-110); POTASSIUM 3.8 mmol/L (3.6-5.0); TOTAL PROTEIN 4.6 g/dL (6.3-8.2)
[2020-05-24 07:13] LABS: ANION GAP 0 (5-19)
[2020-05-24] MEDS ORDERED: INFLUENZA QUAD (6MOS+) 2020-21 VAC 0.5 ML SYR IM ONE (08:00)
[2020-05-24] MEDS ORDERED: CALCIUM GLUCONATE 1000 MG/10 ML INJ IV ONE (08:02)
[2020-05-24] MEDS: ACETAMINOPHEN 325 MG TABLET PO PRN ×2 (08:59→14:49)
[2020-05-24] MEDS: PROMETHAZINE HCL INJ 25 MG/1 ML VIAL IV PRN (09:04)
[2020-05-24] MEDS ORDERED: CALCIUM GLUCONATE 1 GM/NS 50 ML RTU IV ONE (09:15)
[2020-05-24] MEDS: CEFTRIAXONE 2 GM/D5W RTU 2 GM/50 ML RTUPB IV SCH (09:43)
[2020-05-24] MEDS: METHOCARBAMOL 750 MG TABLET PO SCH ×4 (09:44→21:52)
[2020-05-24] MEDS: ASPIRIN 81 MG TABLET, CHEWABLE PO SCH (09:44)
[2020-05-24] MEDS: FOLIC ACID 1 MG TABLET PO SCH (09:44)
[2020-05-24] MEDS: THIAMINE HCL 100 MG TABLET PO SCH (09:44)
[2020-05-24] MEDS: PHOSPHORUS #1 250 MG TABLET PO SCH ×4 (09:46→21:51)
[2020-05-24] MEDS: MULTIVITS W-MIN/IRON SOLN 60 ML PO SCH (09:48)
--- NOTE | 2020-05-24 10:08 | XCELERA REPORT ---
[address] [address] Transthoracic Echocardiogram Report Name: DANISHA SCHRADER Age: 50 yrs Gender: Female : 1970 Patient Status: Inpatient Patient [address]: [address] Study Date: 05/23/2020 08:32 AM Height: 68 in Weight: 130 lb BSA: 1.7 m2 Procedure: A complete two-dimensional transthoracic echocardiogram was performed (2D, M-mode, spectral and color flow Doppler). The study was technically good with many images being of high quality. Reason For Study: hx of cocaine abuse evaluate EF Ordering Physician: GALI PEDROZA Performed By: Chyna Cochran Interpretation Summary The left ventricle is normal in size. Left ventricular systolic function is normal. LV EF is 55%. Doppler measurements suggest impaired left ventricular relaxation, which is associated with grade I/IV or mild diastolic dysfunction. Paradoxical septal motion is consistent with right ventricular volume overload. Trace MR, trace to mild TR. Mild to moderately elevated pulmonary pressures between 48 and 53 mmHg. The pulmonic valve was not well visualized therefore cannot assess for vegetation. No clear evidence of vegetation in the mitral or aortic valves however a transthoracic study will miss small vegetations therefore consider transesophageal echocardiogram if clinically indicated. The tricuspid valve is thickened, cannot completely rule out a small vegetation, please consider transesophageal echocardiogram if clinically indicated. No prior studies for comparison. MMode/2D Measurements & Calculations RVDd: 2.0 cm LVIDd: 5.2 cm FS: 28.2 % Ao root diam: 2.7 cm IVSd: 0.72 cm LVIDs: 3.7 cm EDV(Teich): 129.4 ml Ao root area: 5.7 cm2 LVPWd: 0.72 cm ESV(Teich): 59.4 ml EF(Teich): 54.1 % Doppler Measurements & Calculations MV E max anny: MV dec slope: Ao V2 max: LV V1 max P.1 cm/sec 438.1 cm/sec2 139.7 cm/sec 5.0 mmHg MV A max anny: MV dec time: 0.19 secAo max PG: LV V1 max: 105.7 cm/sec 7.8 mmHg 111.4 cm/sec MV E/A: 0.81 PA V2 max: TR max anny: 76.8 cm/sec 286.1 cm/sec PA max P.4 mmHg TR max P.8 mmHg Left Ventricle The left ventricle is normal in size. Left ventricular systolic function is normal. LV EF is 55%. Doppler measurements suggest impaired left ventricular relaxation, which is associated with grade I/IV or mild diastolic dysfunction. Paradoxical septal motion is consistent with right ventricular volume overload. Right Ventricle The right ventricle is grossly normal size. The right ventricular systolic function is normal. Atria The right atrium is normal. The left atrial size is normal. Interarterial septum not well visualized and not well dopplered. Cannot comment on ASD/PFO presence. Mitral Valve The mitral valve leaflets appear thickened, but open well. There is a trace amount of mitral regurgitation. Aortic Valve The aortic valve is sclerotic, but shows no functional abnormality. No aortic regurgitation is present. Tricuspid Valve thickened, possible veg?. There is a trace to mild amount of tricuspid regurgitation. There is mild to moderate pulmonary hypertension by echo. Best estimated RVSP is approximately 48-53 mm/Hg. Pulmonic Valve The pulmonic valve is not well visualized. There is no pulmonic valvular regurgitation. Great Vessels The inferior vena cava appeared dilated and decreased < 50% with respiration (RAP 15-20 mmHg). : GALI PEDROZA Antonio
[2020-05-24] MEDS: AZITHROMYCIN 500 MG in DEXTROSE 5%-WATER 250 ML IV SCH (10:35)
--- NOTE | 2020-05-24 13:08 | PDOC PROGRESS REPORT ---
Subjective Date:: 05/24/20 Subjective:: Imani Blul is 50-year-old female with past medical history of hepatitis C, IV drug abuse, right pneumothorax, who recently moved from [place] to [facility] to be with her boyfriend who presented to ED yesterday complaining of back pain, subsequently was found to have pneumonia and hypotension, patient had to be started on empiric IV antibiotics and pressors and was admitted under ICU care. Patient vitals have been stable since that and care transitions under hospitalist. Patient is stating prior to ED visit about a week ago she started snorting cocaine, couple of days before admission she started having generalized fatigue and a cough was having shortness of breath, yesterday she started being worsening back pain therefore she called EMS and they brought her to ED. 05/24/2020. Patient complaining of headache and left upper extremity pain and swelling of her left fingers, patient states that she cannot move her upper extremity but at the same time she is touching her head and show me her swollen fingers without any problem, on palpation of the entire left upper extremity no tenderness appreciated and patient states a deep pain, otherwise patient denies any fever, chest pain, shortness of breath, nausea, vomiting. Reason For Visit: PNA, SEPSIS Physical Exam Vital Signs: Temp Pulse Resp BP Pulse Ox 97.6 F 67 18 102/63 97 05/24/20 11:29 05/24/20 11:29 05/24/20 11:29 05/24/20 11:29 05/24/20 11:29 Intake & Output 05/23/20 05/24/20 05/25/20 06:59 06:59 06:59 Intake Total 3375 4945 Output Total 400 Balance 3375 4545 Weight 58.967 kg 71.7 kg General appearance: PRESENT: no acute distress, well-developed, well-nourished, other - Tearful and complaining of headache and left upper extremity pain. Head exam: PRESENT: atraumatic, normocephalic Teeth exam: PRESENT: dental caries, poor dentation Neck exam: ABSENT: carotid bruit, JVD, lymphadenopathy, thyromegaly Respiratory exam: PRESENT: clear to auscultation coral. ABSENT: rales, rhonchi, wheezes Cardiovascular exam: PRESENT: RRR. ABSENT: diastolic murmur, rubs, systolic murmur GI/Abdominal exam: PRESENT: normal bowel sounds, soft. ABSENT: distended, guarding, mass, organolmegaly, rebound, tenderness Extremities exam: PRESENT: full ROM. ABSENT: calf tenderness, clubbing, pedal edema Neurological exam: PRESENT: alert, awake, oriented to person, oriented to place, CN II-XII grossly intact. ABSENT: motor sensory deficit Results Laboratory Results: 05/24/20 05:20 05/24/20 05:20 05/23/20 05/24/20 05/24/20 16:43 05:20 05:20 WBC 9.0 RBC 3.18 L Hgb 10.3 L Hct 30.1 L MCV 95 MCH 32.3 MCHC 34.1 RDW 15.2 H Plt Count 72 L Seg Neutrophils % 67.2 Sodium 142.1 Potassium 3.8 Chloride 117 H Carbon Dioxide 25 Anion Gap 0 L BUN 10 Creatinine 0.67 Est GFR ( Amer) > 60 Glucose 123 H Calcium 7.0 L* Total Bilirubin 0.8 AST 136 H Alkaline Phosphatase 106 Total Protein 4.6 L Albumin 2.4 L Prealbumin 8.8 L 05/22/20 05/23/20 05/23/20 23:25 05:16 05:16 Creatine Kinase 45 Troponin I < 0.012 < 0.012 NT-Pro-B Natriuret Pep 05/23/20 05/23/20 05/23/20 05:26 11:09 16:43 Creatine Kinase Troponin I < 0.012 0.014 NT-Pro-B Natriuret Pep 1420 H 05/24/20 05:20 Creatine Kinase Troponin I < 0.012 NT-Pro-B Natriuret Pep Impressions: Chest X-Ray 05/23/20 03:48 IMPRESSION: 1. Chronic biapical pleural parenchymal scarring. 2. Increasing opacification in the left inferior hemithorax and possibly right inferior hemithorax concerning for pneumonia. 3. The tip of the right IJ central venous catheter overlies the region of the superior vena cava. Assessment and Plan - Diagnosis (1) Septic shock Is this a current diagnosis for this admission?: Yes Plan: Presented with hypotension and needed to be placed on pressors. Multifactorial, likely a combination of septic shock and hypovolemic shock. Patient endorsed history of very low p.o. for intake several days prior to admission. On admission she had leukopenia, bandemia, elevated lactic acid, elevated liver chemistries, chest x-ray positive for pneumonia and UA positive for leukocyte esterase. Currently normotensive. Alert and oriented. Day 2 IV antibiotics. Day 2 IV ceftriaxone. Day 2 IV azithromycin. Received 1 dose of vancomycin on admission. Urine and blood culture no growth since admission. 2D echo negative for any vegetation except for tricuspid valve thickening. Continue empiric IV antibiotics, will consider DALILA if no improvement. (2) UTI (urinary tract infection) Qualifiers: Urinary tract infection type: acute cystitis Is this a current diagnosis for this admission?: Yes Plan: Likely due to gram-negative rods including E. coli. Currently on empiric IV antibiotics for septic shock. Continue current treatment. Follow-up urine culture. (3) Chronic back pain Qualifiers: Back pain location: low back pain Is this a current diagnosis for this admission?: Yes Plan: Chronic back pain. Due to degenerative disc disease. MRI lumbar spine 04/29/2020 L4-L5 disc herniation resulting in moderate to severe left neural foraminal narrowing. Complains of chronic back pain. Denies any saddle paresthesia, urinary retention or bowel incontinence. Supportive measures, physical therapy, outpatient PT and pain management follow- up. (4) Left upper arm pain Is this a current diagnosis for this admission?: Yes Plan: Complaining of left upper extremity diffuse pain with finger swelling. Physical examination no rash, no focal tenderness, no joint effusion, no sign of infection. Left upper extremity neurovascularly intact. Given history of IV drug abuse will do left upper extremity ultrasound to rule out any acute DVT. Continue supportive care. (5) Pneumonia Qualifiers: Pneumonia type: due to unspecified organism Laterality: left Lung location: lower lobe of lung Qualified Code(s): J18.9 - Pneumonia, unspecified organism Is this a current diagnosis for this admission?: Yes Plan: Likely community-acquired, due to gram-positive including strep pneumonia. History of IV drug abuse and cocaine snorting. Negative for COVID-19. Continue empiric IV antibiotics. As needed duo nebs and supplemental oxygen. Pulmonary toileting. (6) Polysubstance abuse Is this a current diagnosis for this admission?: Yes Plan: History of multidrug abuse. UA positive for amphetamines, marijuana and opioids. Denies any history of endocarditis. Monitor for withdrawal, outpatient PCP and substance abuse follow-up. - Time Time Spent with patient: 35 or more minutes Smoking Cessation Education: 3 to 10 minutes Medications reviewed and adjusted accordingly: Yes Anticipated Discharge Disposition: Home, Self Care Anticipated Discharge Timeframe: within 72 hours
[2020-05-24] MEDS: GABAPENTIN 300 MG CAPSULE PO SCH ×2 (14:47→21:52)
--- NOTE | 2020-05-24 14:55 | RADIOLOGY REPORT (SQ) ---
EXAM DESCRIPTION: CT HEAD WITHOUT IMAGES COMPLETED DATE/TIME: 05/24/2020 2:24 pm REASON FOR STUDY: Headache Hx IVDA COMPARISON: CT of the head from 03/26/2020. TECHNIQUE: Axial images acquired through the brain without intravenous contrast. Images reviewed wi th bone, brain and subdural windows. Additional sagittal and coronal reconstructions were generated. Images stored on PACS. All CT scanners at this facility use dose modulation, iterative reconstruction, and/or weight based d osing when appropriate to reduce radiation dose to as low as reasonably achievable (ALARA). [facility]: Dose Right [facility]: CareDose [facility]: Dose Right [facility]: Teradose 4D [facility]: [employer] RADIATION DOSE: CT Rad equipment meets quality standard of care and radiation dose reduction techniq ues were employed. CTDIvol: 48.8 mGy. DLP: 885 mGy-cm. LIMITATIONS: None. FINDINGS: There is no acute intracranial hemorrhage, vascular territorial infarct, extra-axial fluid collection, mass effect or midline shift. The jones-white matter differentiation is preserved. The caliber of the ventricles is concordant with the degree of sulcation. There is no effacement of the cerebral sulci or basal subarachnoid cisterns. The orbits and globes are intact. The mucosal lining of the maxillary sinuses is thickened. The mas toid air cells are clear. There is no fracture of the calvarium. IMPRESSION: 1. No acute intracranial abnormality. 2. Thickening of the mucosal lining of the maxillary sinuses - correlation with clinical findings for signs and symptoms of an acute sinusitis is recommended. EVIDENCE OF ACUTE STROKE: NO. COMMENT: Quality ID # [id number]: Final reports with documentation of one or more dose reduction techniques (e.g., Automated exposure control, adjustment of the mA and/or kV according to patient size, use of iterative reconstruction technique) TECHNICAL DOCUMENTATION: JOB ID: [id number] 2010 [employer]- All Rights Reserved Reading location - IP/workstation name: [email or web address]
--- NOTE | 2020-05-24 17:48 | RADIOLOGY REPORT (SQ) ---
EXAM DESCRIPTION: VENOUS UNILATERAL UPPER IMAGES COMPLETED DATE/TIME: 05/24/2020 4:06 pm REASON FOR STUDY: LUE pain hx IVDA COMPARISON: None. TECHNIQUE: Dynamic and static jones scale and color images acquired of the left arm venous system. Se lected spectral images acquired with additional compression and augmentation maneuvers. The contralat eral subclavian vein and internal jugular vein were also imaged. Images stored on PACS. LIMITATIONS: None. FINDINGS: INTERNAL JUGULAR VEIN: Normal phasicity, compression, augmentation. No visualized echogeni c material on jones scale. No defects on color images. Comparison opposite side normal. SUBCLAVIAN VEIN: Normal compression, augmentation. No visualized echogenic material on jones scale. No defects on color images. AXILLARY VEIN: Normal compression, augmentation. No visualized echogenic material on jones scale. No d efects on color images. BRACHIAL VEIN: At the mid branchial vein, there is a small section of echogenic noncompressible mater ial which demonstrated some venous flow with color and spectral Doppler imaging, consistent with a no nocclusive thrombus. BASILIC VEIN: Normal compression, augmentation. No visualized echogenic material on jones scale. No de fects on color images. CEPHALIC VEIN: Normal compression, augmentation. No visualized echogenic material on jones scale. No d efects on color images. OTHER: No other significant finding. CONTRALATERAL SUBCLAVIAN VEIN AND INTERNAL JUGULAR VEIN: Normal phasicity, compression and augmentation. No visualized echogenic material on jones scale. No de fects on color images. IMPRESSION: 1. Nonocclusive acute DVT at a short section of right mid branchial vein. TECHNICAL DOCUMENTATION: JOB ID: [id number] 2010 [employer]- All Rights Reserved Reading location - IP/workstation name: [email or web address]
[2020-05-24] MEDS ORDERED: MAG HYDROX/AL HYDROX/SIMETH SUSP 30 ML UDCUP PO PRN (19:02)
[2020-05-24] MEDS: ATORVASTATIN CALCIUM 40 MG TABLET PO SCH (21:52)
[2020-05-24] MEDS ORDERED: IBUPROFEN 400 MG TABLET PO ONE (22:30)
[2020-05-24] MEDS: MELATONIN 5 MG TABLET PO PRN (22:30)
[2020-05-25] MEDS: POTASSI CL 20 MEQ/D5-1/2NS 1L 1,000 ML IV PRN ×3 (01:15→21:22)
[2020-05-25] MEDS: HEPARIN SOD (PORCINE) 5,000 UNIT/ML 1 ML VIAL SUBCUT SCH (05:21)
[2020-05-25] MEDS: OXYCODONE-ACETAMINOPHEN 5-325 MG TABLET PO PRN ×4 (05:22→20:10)
[2020-05-25] MEDS: GABAPENTIN 300 MG CAPSULE PO SCH ×3 (05:22→21:21)
[2020-05-25] MEDS: PROMETHAZINE HCL INJ 25 MG/1 ML VIAL IV PRN ×3 (05:59→22:28)
[2020-05-25] MEDS: AZITHROMYCIN 500 MG in DEXTROSE 5%-WATER 250 ML IV SCH (10:13)
[2020-05-25] MEDS: FOLIC ACID 1 MG TABLET PO SCH (10:26)
[2020-05-25] MEDS: THIAMINE HCL 100 MG TABLET PO SCH (10:26)
[2020-05-25] MEDS: MULTIVITS W-MIN/IRON SOLN 60 ML PO SCH (10:26)
[2020-05-25] MEDS: PHOSPHORUS #1 250 MG TABLET PO SCH ×4 (10:26→21:21)
[2020-05-25] MEDS: METHOCARBAMOL 750 MG TABLET PO SCH ×4 (10:26→22:28)
[2020-05-25] MEDS: ASPIRIN 81 MG TABLET, CHEWABLE PO SCH (10:26)
[2020-05-25] MEDS: CEFTRIAXONE 2 GM/D5W RTU 2 GM/50 ML RTUPB IV SCH (10:27)
[2020-05-25] MEDS: ACETAMINOPHEN 325 MG TABLET PO PRN (12:24)
[2020-05-25] MEDS ORDERED: RIVAROXABAN 15 MG TABLET PO SCH (14:00)
--- NOTE | 2020-05-25 14:25 | PDOC PROGRESS REPORT ---
Subjective Date:: 05/25/20 Subjective:: Imani Bull is 50-year-old female with past medical history of hepatitis C, IV drug abuse, right pneumothorax, who recently moved from [place] to [facility] to be with her boyfriend who presented to ED yesterday complaining of back pain, subsequently was found to have pneumonia and hypotension, patient had to be started on empiric IV antibiotics and pressors and was admitted under ICU care. Patient vitals have been stable since that and care transitions under hospitalist. Patient is stating prior to ED visit about a week ago she started snorting cocaine, couple of days before admission she started having generalized fatigue and a cough was having shortness of breath, yesterday she started being worsening back pain therefore she called EMS and they brought her to ED. 05/24/2020. Patient complaining of headache and left upper extremity pain and swelling of her left fingers, patient states that she cannot move her upper extremity but at the same time she is touching her head and show me her swollen fingers without any problem, on palpation of the entire left upper extremity no tenderness appreciated and patient states a deep pain, otherwise patient denies any fever, chest pain, shortness of breath, nausea, vomiting. 05/25/2020. Patient very anxious, complaining of right-sided pleuritic chest pain, left upper extremity pain, back pain and spasm, diarrhea, dysuria, shortness of breath. Patient is positive for left upper extremity nonocclusive acute DVT. Reason For Visit: PNA, SEPSIS Physical Exam Vital Signs: Temp Pulse Resp BP Pulse Ox 98.2 F 71 20 122/83 99 05/25/20 11:40 05/25/20 11:40 05/25/20 11:40 05/25/20 11:40 05/25/20 11:40 Intake & Output 05/24/20 05/25/20 05/26/20 06:59 06:59 06:59 Intake Total 5945 3560 1100 Output Total 400 1450 Balance 5545 2110 1100 Weight 71.7 kg 70.5 kg General appearance: PRESENT: mild distress, well-developed, well-nourished, other - Anxious Head exam: PRESENT: atraumatic, normocephalic Neck exam: ABSENT: carotid bruit, JVD, lymphadenopathy, thyromegaly Respiratory exam: PRESENT: clear to auscultation coral, other - Right mid axillary chest area tender to palpation.. ABSENT: rales, rhonchi, wheezes Cardiovascular exam: PRESENT: RRR. ABSENT: diastolic murmur, rubs, systolic murmur GI/Abdominal exam: PRESENT: normal bowel sounds, soft. ABSENT: distended, guarding, mass, organolmegaly, rebound, tenderness Neurological exam: PRESENT: alert, awake, oriented to person, oriented to place, oriented to time, oriented to situation, CN II-XII grossly intact. ABSENT: mot or sensory deficit Psychiatric exam: PRESENT: anxious Results Laboratory Results: 05/24/20 05:20 05/24/20 05:20 05/23/20 00:11 Blood Blood Culture (PCR) - Final 05/22/20 05/23/20 05/23/20 23:25 05:16 05:16 Creatine Kinase 45 Troponin I < 0.012 < 0.012 NT-Pro-B Natriuret Pep 05/23/20 05/23/20 05/23/20 05:26 11:09 16:43 Creatine Kinase Troponin I < 0.012 0.014 NT-Pro-B Natriuret Pep 1420 H 05/24/20 05:20 Creatine Kinase Troponin I < 0.012 NT-Pro-B Natriuret Pep Impressions: Chest X-Ray 05/23/20 03:48 IMPRESSION: 1. Chronic biapical pleural parenchymal scarring. 2. Increasing opacification in the left inferior hemithorax and possibly right inferior hemithorax concerning for pneumonia. 3. The tip of the right IJ central venous catheter overlies the region of the superior vena cava. Head CT 05/24/20 00:00 IMPRESSION: 1. No acute intracranial abnormality. 2. Thickening of the mucosal lining of the maxillary sinuses - correlation with clinical findings for signs and symptoms of an acute sinusitis is recommended. EVIDENCE OF ACUTE STROKE: NO. Venous Doppler Study 05/24/20 13:19 IMPRESSION: 1. Nonocclusive acute DVT at a short section of right mid branchial vein. Assessment and Plan - Diagnosis (1) UTI (urinary tract infection) Qualifiers: Urinary tract infection type: acute cystitis Is this a current diagnosis for this admission?: Yes Plan: Likely due to gram-negative rods including E. coli. Currently on empiric IV antibiotics for septic shock. Continue current treatment. Follow-up urine culture. (2) Septic shock Is this a current diagnosis for this admission?: Yes Plan: Resolved. All vitals WNL. Presented with hypotension and needed to be placed on pressors. Multifactorial, likely a combination of septic shock and hypovolemic shock. Patient endorsed history of very low p.o. for intake several days prior to admission. On admission she had leukopenia, bandemia, elevated lactic acid, elevated liver chemistries, chest x-ray positive for pneumonia and UA positive for leukocyte esterase. Currently normotensive. Alert and oriented. Day 3 IV antibiotics. Day 3 IV ceftriaxone. Day 3 IV azithromycin. Received 1 dose of vancomycin on admission. Urine and blood culture no growth since admission. 2D echo negative for any vegetation except for tricuspid valve thickening. Continue empiric IV antibiotics, will consider DALILA if no improvement. Blood culture 1/4 bottles positive for gram-positive rods pending sensitivity. (3) Chronic back pain Qualifiers: Back pain location: low back pain Is this a current diagnosis for this admission?: Yes Plan: Chronic back pain. Due to degenerative disc disease. MRI lumbar spine 04/29/2020 L4-L5 disc herniation resulting in moderate to severe left neural foraminal narrowing. Complains of chronic back pain. Denies any saddle paresthesia, urinary retention or bowel incontinence. Supportive measures, physical therapy, outpatient PT and pain management follow- up. (4) Left upper arm pain Is this a current diagnosis for this admission?: Yes Plan: Left upper extremity nonocclusive acute DVT based on venous Doppler on 05/24/2020. Was complaining of left upper extremity diffuse pain with finger swelling. Physical examination no rash, no focal tenderness, no joint effusion, no sign of infection. Given history of IV drug abuse will do left upper extremity ultrasound to rule out any acute DVT. Denies any history of previous thromboembolism. Started on Xarelto 05/25/2020. (5) Pneumonia Qualifiers: Pneumonia type: due to unspecified organism Laterality: left Lung location: lower lobe of lung Qualified Code(s): J18.9 - Pneumonia, unspecified organism Is this a current diagnosis for this admission?: Yes Plan: Likely community-acquired, due to gram-positive including strep pneumonia. History of IV drug abuse and cocaine snorting. Negative for COVID-19. Continue empiric IV antibiotics. As needed duo nebs and supplemental oxygen. Pulmonary toileting. (6) Polysubstance abuse Is this a current diagnosis for this admission?: Yes Plan: Patient very anxious having diarrhea and musculoskeletal pain,patient could be experiencing opioid withdrawal. History of multidrug abuse. UA positive for amphetamines, marijuana and opioids. Denies any history of endocarditis. Monitor for withdrawal, outpatient PCP and substance abuse follow-up. (7) Hepatitis C Qualifiers: Viral hepatitis chronicity: chronic Is this a current diagnosis for this admission?: Yes Plan: History of Chronic Hepatitis C. Out hepatology follow up. avoid hepatotoix meds. - Time Time Spent with patient: 35 or more minutes Anticipated Discharge Disposition: Home with Home Health Anticipated Discharge Timeframe: within 72 hours
[2020-05-25 16:25] LABS: APPEARANCE,URINE CLEAR; BILIRUBIN,URINE NEGATIVE (NEGATIVE); COLOR,URINE STRAW; GLUCOSE, URINE NEGATIVE (NEGATIVE); KETONES,URINE NEGATIVE (NEGATIVE); LEUKOCYTE ESTERASE,URINE TRACE (NEGATIVE); NITRITE,URINE NEGATIVE (NEGATIVE); PROTEIN,URINE NEGATIVE (NEGATIVE); URINE SPECIFIC GRAVITY 1.009; UROBILINOGEN,URINE NEGATIVE mg/dL (<2.0)
--- NOTE | 2020-05-25 17:19 | RADIOLOGY REPORT (SQ) ---
EXAM DESCRIPTION: CTA CHEST IMAGES COMPLETED DATE/TIME: 05/25/2020 4:06 pm REASON FOR STUDY: pleuric pain COMPARISON: Chest x-ray dated 05/23/2020 and 02/25/2020. TECHNIQUE: CT scan of the chest performed using helical scanning technique with dynamic intravenous contrast injection. Images reviewed with lung, soft tissue and bone windows. Reconstructed coronal and sagittal MPR images reviewed. Additional 3 dimensional post-processing performed to develop Maximal Intensity Projection images ([place] P). All images stored on PACS. All CT scanners at this facility use dose modulation, iterative reconstruction, and/or weight based d osing when appropriate to reduce radiation dose to as low as reasonably achievable (ALARA). [facility]: Dose Right [facility]: CareDose [facility]: Dose Right [facility]: Teradose 4D [facility]: Clarity CONTRAST TYPE AND DOSE: contrast/concentration: Isovue 350.00 mmol/ml; Total Contrast Delivered: 63. 8 ml; Total Saline Delivered: 40.0 ml Contrast bolus adequate for pulmonary arteries and aorta. RENAL FUNCTION: BUN 10 creatinine 0.67. RADIATION DOSE: CT Rad equipment meets quality standard of care and radiation dose reduction techniq ues were employed. CTDIvol: 6.6 - 14.3 mGy. DLP: 535 mGy-cm. . LIMITATIONS: None. FINDINGS: LUNGS AND PLEURA: Chronic appearing changes in the lung apices with marked pleural thicken ing, parenchymal scarring, and bronchiectasis. Prominent ground-glass opacity in the right upper lob e and scattered ground-glass opacities in the left upper lobe and right and left lower lobes. Bilate ral pleural effusions, right greater than left. AORTA AND GREAT VESSELS: No aneurysm. No dissection. HEART: No pericardial effusion. No significant coronary artery calcifications. PULMONARY ARTERIES: No emboli visualized in the main pulmonary arteries or the segmental branches. HILAR AND MEDIASTINAL STRUCTURES: No identified masses or abnormal nodes. HARDWARE: Central line. UPPER ABDOMEN: No significant findings. Limited exam. THYROID AND OTHER SOFT TISSUES: No masses. No adenopathy. BONES: No acute or significant finding. 3D MIPS: Confirm above findings. OTHER: No other significant finding. IMPRESSION: 1. NORMAL CTA OF THE CHEST. NO PULMONARY EMBOLI. 2. CHRONIC PLEURAL AND PARENCHYMAL SCARRING IN THE LUNG APICES WITH BRONCHIECTASIS. SUPERIMPOSED [place] UND-GLASS OPACITIES THROUGHOUT BOTH LUNGS, MORE EXTENSIVE IN THE RIGHT UPPER LOBE, CONSISTENT WITH MU LTIFOCAL PNEUMONIA. 3. BILATERAL PLEURAL EFFUSIONS, RIGHT GREATER THAN LEFT. COMMENT: Quality ID # [id number]: Final reports with documentation of one or more dose reduction techniques (e.g., Automated exposure control, adjustment of the mA and/or kV according to patient size, use of iterative reconstruction technique) TECHNICAL DOCUMENTATION: JOB ID: [id number] 2010 [employer]- All Rights Reserved Reading location - IP/workstation name: [email or web address]
[2020-05-25] MEDS: GUAIFENESIN/D-METHORPHAN (200-20 MG) SYRUP 10 ML PO PRN (20:07)
[2020-05-25] MEDS: ENOXAPARIN SODIUM INJ 80 MG/0.8 ML DISP.SYRIN SUBCUT SCH (21:21)
[2020-05-25] MEDS: ATORVASTATIN CALCIUM 40 MG TABLET PO SCH (21:21)
[2020-05-25] MEDS: MELATONIN 5 MG TABLET PO PRN (21:27)
[2020-05-26] MEDS: OXYCODONE-ACETAMINOPHEN 5-325 MG TABLET PO PRN ×4 (04:12→18:31)
[2020-05-26] MEDS: PROMETHAZINE HCL INJ 25 MG/1 ML VIAL IV PRN ×3 (04:13→21:48)
[2020-05-26] MEDS: POTASSI CL 20 MEQ/D5-1/2NS 1L 1,000 ML IV PRN ×2 (04:14→16:54)
[2020-05-26] MEDS: GABAPENTIN 300 MG CAPSULE PO SCH ×3 (06:10→21:44)
[2020-05-26 06:42] LABS: ABSOLUTE EOSINOPHILS # (AUTO) 0.1 10^3/uL (0.0-0.6); ABSOLUTE LYMPHOCYTES (AUTO) 2.5 10^3/uL (0.5-4.7); ABSOLUTE MONOCYTES (AUTO) 0.3 10^3/uL (0.1-1.4); ABSOLUTE NEUT (AUTO) 5.6 10^3/uL (1.7-8.2); BASOPHILS % (AUTO) 0.5 % (0-2); EOSINOPHILS % (AUTO) 1.4 % (0-6); HEMATOCRIT 31.3 % (36.0-47.0); MEAN CORPUSCULAR HEMOGLOBIN 32.7 pg (27.0-33.4); MEAN CORPUSCULAR VOLUME 93 fl (80-97); MONOCYTES % (AUTO) 3.6 % (3-13); RED BLOOD COUNT 3.35 10^6/uL (3.72-5.28); RED CELL DISTRIBUTION WIDTH 14.4 % (11.5-14.0); SEGMENTED NEUTROPHILS % (AUTO) 65.5 % (42-78); TOTAL CELLS COUNTED % (AUTO) 100 %; WHITE BLOOD COUNT 8.5 10^3/uL (4.0-10.5)
[2020-05-26 06:58] LABS: ALBUMIN 2.8 g/dL (3.5-5.0); ALKALINE PHOSPHATASE 107 U/L (38-126); ANION GAP 5 (5-19); ASPARTATE AMINO TRANSFERASE 31 U/L (14-36); BILIRUBIN,DIRECT 0.3 mg/dL (0.0-0.4); BILIRUBIN,TOTAL 0.6 mg/dL (0.2-1.3); BLOOD UREA NITROGEN 3 mg/dL (7-20); CALCIUM 8.2 mg/dL (8.4-10.2); CARBON DIOXIDE 26 mmol/L (22-30); CHLORIDE 113 mmol/L (98-107); GLUCOSE 142 mg/dL (75-110); POTASSIUM 3.7 mmol/L (3.6-5.0); TOTAL PROTEIN 5.2 g/dL (6.3-8.2)
[2020-05-26 07:35] LABS: PLATELET COUNT 90 10^3/uL (150-450)
[2020-05-26] MEDS: ASPIRIN 81 MG TABLET, CHEWABLE PO SCH (10:02)
[2020-05-26] MEDS: METHOCARBAMOL 750 MG TABLET PO SCH ×4 (10:02→21:44)
[2020-05-26] MEDS: FOLIC ACID 1 MG TABLET PO SCH (10:02)
[2020-05-26] MEDS: PHOSPHORUS #1 250 MG TABLET PO SCH ×4 (10:02→21:44)
[2020-05-26] MEDS: THIAMINE HCL 100 MG TABLET PO SCH (10:02)
[2020-05-26] MEDS: CEFTRIAXONE 2 GM/D5W RTU 2 GM/50 ML RTUPB IV SCH (10:03)
[2020-05-26] MEDS: AZITHROMYCIN 500 MG in DEXTROSE 5%-WATER 250 ML IV SCH (10:03)
[2020-05-26] MEDS: MULTIVITS W-MIN/IRON SOLN 60 ML PO SCH (10:04)
[2020-05-26] MEDS: ENOXAPARIN SODIUM INJ 80 MG/0.8 ML DISP.SYRIN SUBCUT SCH ×2 (10:04→21:47)
--- NOTE | 2020-05-26 11:23 | PDOC CONSULTATION ---
Consultation Consult Date: 05/26/20 Attending physician:: BENITO GODFREY Provider Consulted: FRANKO WHITEHEAD Consult reason:: Left upper extremity DVT as well as thrombocytopenia History of Present Illness Admission Date/PCP: 05/23/20 01:56 Patient complains of: Left upper extremity swelling and pain History of Present Illness: DANISHA SCHRADER is a 50 year old female who presented with both complicated UTI, bacteremia, history of drug abuse, IV drug abuse but she tells me last injected 6 to 7 months ago, but was actively using cocaine prior to coming in, was found on toxicology to have cocaine, amphetamines and opiates in the urine. Did have an IV in the left arm for antibiotics while admitted. Was found to have some swelling and pain of the left upper extremity, therefore had upper extremity ultrasound which indicated DVT in the brachial vein. In discussion with the patient she has history of upper extremity DVTs in the past from probable drug abuse, and had been on 6 months of anticoagulation 5 to 6 years ago. In addition, upon admission her platelet count was 119 dropped to 70, today up to 90. Reviewed labs and it looks like there were labs drawn 2 months ago which indicated normal platelet counts. Past Medical History Pulmonary Medical History: Reports: Chronic Obstructive Pulmonary Disease (COPD), Other - Spontaneous pneumothorax Musculoskeltal Medical History: Reports: Other - Per patient she has herniated disc Psychiatric Medical History: Reports: Depression, Substance Abuse, Tobacco Dependency Hematology: Reports: Other - DVT Past Surgical History Past Surgical History: Reports: None Social History Information Source: Patient Lives with: Family Smoking Status: Current Every Day Smoker Cigarettes Packs Per Day: 0.5 Last Time Smoked: 05/22/20 Frequency of Alcohol Use: None Hx Recreational Drug Use: Yes Drugs: Cocaine, Heroin Hx Prescription Drug Abuse: No - Advance Directive Resuscitation Status: Full Code Family History Family History: Reviewed & Not Pertinent Parental Family History Reviewed: Yes Children Family History Reviewed: Yes Sibling(s) Family History Reviewed.: Yes Medication/Allergy Home Medications: Albuterol Sulfate [Albuterol Sulfate Hfa] 1 puff IH QAMP PRN 05/23/20 Allergies/Adverse Reactions: No Known Allergies Allergy (Verified 04/29/20 13:08) Review of Systems Constitutional: ABSENT: chills, fever(s), headache(s), weight gain, weight loss Eyes: ABSENT: visual disturbances Ears: ABSENT: hearing changes Cardiovascular: ABSENT: chest pain, dyspnea on exertion, edema, orthropnea, palpitations Respiratory: ABSENT: cough, hemoptysis Gastrointestinal: ABSENT: abdominal pain, constipation, diarrhea, hematemesis, hematochezia, nausea, vomiting Genitourinary: ABSENT: dysuria, hematuria Musculoskeletal: ABSENT: joint swelling Integumentary: ABSENT: rash, wounds Neurological: ABSENT: abnormal gait, abnormal speech, confusion, dizziness, focal weakness, syncope Psychiatric: ABSENT: anxiety, depression, homidical ideation, suicidal ideation Endocrine: ABSENT: cold intolerance, heat intolerance, polydipsia, polyuria Hematologic/Lymphatic: ABSENT: easy bleeding, easy bruising Physical Exam Vital Signs: Temp Pulse Resp BP Pulse Ox 97.5 F 68 18 133/73 H 98 05/26/20 08:07 05/26/20 08:07 05/26/20 08:07 05/26/20 08:07 05/26/20 08:07 Intake & Output 05/25/20 05/26/20 05/27/20 06:59 06:59 06:59 Intake Total 3560 3518 Output Total 1450 2845 Balance 2110 673 Weight 70.5 kg 70.8 kg General appearance: PRESENT: no acute distress, well-developed, well-nourished Head exam: PRESENT: atraumatic, normocephalic Eye exam: PRESENT: conjunctiva pink, EOMI, PERRLA. ABSENT: scleral icterus Ear exam: PRESENT: normal external ear exam Mouth exam: PRESENT: moist, tongue midline Neck exam: ABSENT: carotid bruit, JVD, lymphadenopathy, thyromegaly Respiratory exam: PRESENT: clear to auscultation coral. ABSENT: rales, rhonchi, wheezes Cardiovascular exam: PRESENT: RRR. ABSENT: diastolic murmur, rubs, systolic murmur Pulses: PRESENT: normal dorsalis pedis pul Vascular exam: PRESENT: normal capillary refill GI/Abdominal exam: PRESENT: normal bowel sounds, soft. ABSENT: distended, guarding, mass, organolmegaly, rebound, tenderness Rectal exam: PRESENT: deferred Extremities exam: PRESENT: full ROM. ABSENT: calf tenderness, clubbing, pedal edema Neurological exam: PRESENT: alert, awake, oriented to person, oriented to place, oriented to time, oriented to situation, CN II-XII grossly intact. ABSENT: motor sensory deficit Psychiatric exam: PRESENT: appropriate affect, normal mood. ABSENT: homicidal ideation, suicidal ideation Skin exam: PRESENT: dry, intact, warm. ABSENT: cyanosis, rash Results Laboratory Results: 05/26/20 06:15 05/26/20 06:15 05/25/20 05/26/20 05/26/20 15:56 06:15 06:15 WBC 8.5 RBC 3.35 L Hgb 11.0 L Hct 31.3 L MCV 93 MCH 32.7 MCHC 35.0 RDW 14.4 H Plt Count 90 L Seg Neutrophils % 65.5 Sodium 143.7 Potassium 3.7 Chloride 113 H Carbon Dioxide 26 Anion Gap 5 BUN 3 L Creatinine 0.52 Est GFR ( Amer) > 60 Glucose 142 H Calcium 8.2 L Magnesium 1.6 Total Bilirubin 0.6 AST 31 Alkaline Phosphatase 107 Total Protein 5.2 L Albumin 2.8 L Urine Color STRAW Urine Appearance CLEAR Urine pH 8.0 Ur Specific [place] 1.009 Urine Protein NEGATIVE Urine Glucose (UA) NEGATIVE Urine Ketones NEGATIVE Urine Blood MODERATE H Urine Nitrite NEGATIVE Ur Leukocyte Esterase TRACE H Urine WBC (Auto) 7 Urine RBC (Auto) 2 05/23/20 00:11 Blood Blood Culture (PCR) - Final 05/25/20 10:30 Blood Blood Culture (PCR) - Final Staphylococcus Species 05/24/20 14:46 Clean Catch Midstream Urine Culture - Final NO GROWTH 2 DAYS 05/22/20 05/23/20 05/23/20 23:25 05:16 05:16 Creatine Kinase 45 Troponin I < 0.012 < 0.012 NT-Pro-B Natriuret Pep 05/23/20 05/23/20 05/23/20 05:26 11:09 16:43 Creatine Kinase Troponin I < 0.012 0.014 NT-Pro-B Natriuret Pep 1420 H 05/24/20 05:20 Creatine Kinase Troponin I < 0.012 NT-Pro-B Natriuret Pep Impressions: Chest X-Ray 05/23/20 03:48 IMPRESSION: 1. Chronic biapical pleural parenchymal scarring. 2. Increasing opacification in the left inferior hemithorax and possibly right inferior hemithorax concerning for pneumonia. 3. The tip of the right IJ central venous catheter overlies the region of the superior vena cava. Head CT 05/24/20 00:00 IMPRESSION: 1. No acute intracranial abnormality. 2. Thickening of the mucosal lining of the maxillary sinuses - correlation with clinical findings for signs and symptoms of an acute sinusitis is recommended. EVIDENCE OF ACUTE STROKE: NO. Venous Doppler Study 05/24/20 13:19 IMPRESSION: 1. Nonocclusive acute DVT at a short section of right mid branchial vein. Chest/Abdomen CTA 05/25/20 00:00 IMPRESSION: 1. NORMAL CTA OF THE CHEST. NO PULMONARY EMBOLI. 2. CHRONIC PLEURAL AND PARENCHYMAL SCARRING IN THE LUNG APICES WITH BRONCHIECTASIS. SUPERIMPOSED GROUND-GLASS OPACITIES THROUGHOUT BOTH LUNGS, MORE EXTENSIVE IN THE RIGHT UPPER LOBE, CONSISTENT WITH MULTIFOCAL PNEUMONIA. 3. BILATERAL PLEURAL EFFUSIONS, RIGHT GREATER THAN LEFT. Assessment & Plan - Diagnosis (1) Left upper extremity deep vein thrombosis Qualifiers: Affected thrombotic vein of extremity: brachial Chronicity: acute Qualified Code(s): I82.622 - Acute embolism and thrombosis of deep veins of left upper extremity Is this a current diagnosis for this admission?: Yes Plan: Left upper extremity DVT, probable IV associated, provoked, but given the fact that this is her second DVT officially the recommendation would be lifelong an ticoagulation. Of course, with a history of IV drug abuse and other drug abuse, chronic anticoagulation is certainly problematic. Also, although she does have [facility] [facility] insurance listed, she did not fare premium this month so unsure if that still going to be active. Agree with Lovenox for now, would like platelet count to improve to greater than 100. Xarelto or Eliquis would be ea sier. Do not think she needs aspirin on top of that. Continue Lovenox for another 24 hours and hope that platelet count gets above 100 and could then transition to Xarelto or Eliquis. (2) Thrombocytopenia Is this a current diagnosis for this admission?: Yes Plan: Probably related to DIC, INR was elevated upon admission, patient was infected so DIC would be reasonable. Unlikely related to anything else. Will improve as infection improves. Should normalize in the next few days. - Time Time Spent: Greater than 70 Minutes - Inpatient Certification Based on my medical assessment, after consideration of the patient's comorbidities, presenting symptoms, or acuity I expect that the services needed warrant INPATIENT care.: Yes I certify that my determination is in accordance with my understanding of Medicare's requirements for reasonable and necessary INPATIENT services [42 CFR 412.3e].: Yes Medical Necessity: Risk of Complication if Not Cared For in Hospital
--- NOTE | 2020-05-26 13:04 | PDOC PROGRESS REPORT ---
Subjective Date:: 05/26/20 Subjective:: Imani Bull is 50-year-old female with past medical history of hepatitis C, IV drug abuse, right pneumothorax, who recently moved from [place] to [facility] to be with her boyfriend who presented to ED yesterday complaining of back pain, subsequently was found to have pneumonia and hypotension, patient had to be started on empiric IV antibiotics and pressors and was admitted under ICU care. Patient vitals have been stable since that and care transitions under hospitalist. Patient is stating prior to ED visit about a week ago she started snorting cocaine, couple of days before admission she started having generalized fatigue and a cough was having shortness of breath, yesterday she started being worsening back pain therefore she called EMS and they brought her to ED. 05/24/2020. Patient complaining of headache and left upper extremity pain and swelling of her left fingers, patient states that she cannot move her upper extremity but at the same time she is touching her head and show me her swollen fingers without any problem, on palpation of the entire left upper extremity no tenderness appreciated and patient states a deep pain, otherwise patient denies any fever, chest pain, shortness of breath, nausea, vomiting. 05/25/2020. Patient very anxious, complaining of right-sided pleuritic chest pain, left upper extremity pain, back pain and spasm, diarrhea, dysuria, shortness of breath. Patient is positive for left upper extremity nonocclusive acute DVT. 05/26/2020. No acute events overnight, patient reporting significant improvement of her symptoms, shortness of breath improving, complaining of pleuritic chest pain with breathing, left upper extremity pain is improving, p.o. tolerant, having normal bowel bladder movements, denies any fever, chills, nausea, vomiting. Reason For Visit: PNA, SEPSIS Physical Exam Vital Signs: Temp Pulse Resp BP Pulse Ox 97.5 F 68 18 133/73 H 98 05/26/20 08:07 05/26/20 08:07 05/26/20 08:07 05/26/20 08:07 05/26/20 08:07 Intake & Output 05/25/20 05/26/20 05/27/20 06:59 06:59 06:59 Intake Total 3560 3518 300 Output Total 1450 2845 Balance 2110 673 300 Weight 70.5 kg 70.8 kg General appearance: PRESENT: no acute distress, well-developed, well-nourished Head exam: PRESENT: atraumatic, normocephalic Teeth exam: PRESENT: dental caries, poor dentation Neck exam: ABSENT: carotid bruit, JVD, lymphadenopathy, thyromegaly Respiratory exam: PRESENT: clear to auscultation coral, other - Tender to palpation over posterior right mid back. ABSENT: rales, rhonchi, wheezes Cardiovascular exam: PRESENT: RRR. ABSENT: diastolic murmur, rubs, systolic murmur GI/Abdominal exam: PRESENT: normal bowel sounds, soft. ABSENT: distended, guarding, mass, organolmegaly, rebound, tenderness Neurological exam: PRESENT: alert, awake, oriented to person, oriented to place, CN II-XII grossly intact. ABSENT: motor sensory deficit Results Laboratory Results: 05/26/20 06:15 05/26/20 06:15 05/25/20 05/26/20 05/26/20 15:56 06:15 06:15 WBC 8.5 RBC 3.35 L Hgb 11.0 L Hct 31.3 L MCV 93 MCH 32.7 MCHC 35.0 RDW 14.4 H Plt Count 90 L Seg Neutrophils % 65.5 Sodium 143.7 Potassium 3.7 Chloride 113 H Carbon Dioxide 26 Anion Gap 5 BUN 3 L Creatinine 0.52 Est GFR ( Amer) > 60 Glucose 142 H Calcium 8.2 L Magnesium 1.6 Total Bilirubin 0.6 AST 31 Alkaline Phosphatase 107 Total Protein 5.2 L Albumin 2.8 L Urine Color STRAW Urine Appearance CLEAR Urine pH 8.0 Ur Specific [place] 1.009 Urine Protein NEGATIVE Urine Glucose (UA) NEGATIVE Urine Ketones NEGATIVE Urine Blood MODERATE H Urine Nitrite NEGATIVE Ur Leukocyte Esterase TRACE H Urine WBC (Auto) 7 Urine RBC (Auto) 2 05/23/20 00:11 Blood Blood Culture (PCR) - Final 05/23/20 00:11 Blood Blood Culture - Final Corynebacterium Species 05/25/20 10:30 Blood Blood Culture (PCR) - Final Staphylococcus Species 05/24/20 14:46 Clean Catch Midstream Urine Culture - Final NO GROWTH 2 DAYS 05/22/20 05/23/20 05/23/20 23:25 05:16 05:16 Creatine Kinase 45 Troponin I < 0.012 < 0.012 NT-Pro-B Natriuret Pep 05/23/20 05/23/20 05/23/20 05:26 11:09 16:43 Creatine Kinase Troponin I < 0.012 0.014 NT-Pro-B Natriuret Pep 1420 H 05/24/20 05:20 Creatine Kinase Troponin I < 0.012 NT-Pro-B Natriuret Pep Impressions: Chest X-Ray 05/23/20 03:48 IMPRESSION: 1. Chronic biapical pleural parenchymal scarring. 2. Increasing opacification in the left inferior hemithorax and possibly right inferior hemithorax concerning for pneumonia. 3. The tip of the right IJ central venous catheter overlies the region of the superior vena cava. Head CT 05/24/20 00:00 IMPRESSION: 1. No acute intracranial abnormality. 2. Thickening of the mucosal lining of the maxillary sinuses - correlation with clinical findings for signs and symptoms of an acute sinusitis is recommended. EVIDENCE OF ACUTE STROKE: NO. Venous Doppler Study 05/24/20 13:19 IMPRESSION: 1. Nonocclusive acute DVT at a short section of right mid branchial vein. Chest/Abdomen CTA 05/25/20 00:00 IMPRESSION: 1. NORMAL CTA OF THE CHEST. NO PULMONARY EMBOLI. 2. CHRONIC PLEURAL AND PARENCHYMAL SCARRING IN THE LUNG APICES WITH BRONCHIE CTASIS. SUPERIMPOSED GROUND-GLASS OPACITIES THROUGHOUT BOTH LUNGS, MORE EXTENSIVE IN THE RIGHT UPPER LOBE, CONSISTENT WITH MULTIFOCAL PNEUMONIA. 3. BILATERAL PLEURAL EFFUSIONS, RIGHT GREATER THAN LEFT. Assessment and Plan - Diagnosis (1) Pneumonia Qualifiers: Pneumonia type: due to unspecified organism Laterality: left Lung location: lower lobe of lung Qualified Code(s): J18.9 - Pneumonia, unspecified organism Is this a current diagnosis for this admission?: Yes Plan: Likely community-acquired, due to gram-positive including strep pneumonia aspiration pneumonia is also possibility due to history of IV drug abuse and cocaine snorting. Negative for COVID-19 on admission. 05/24/2020. CTA negative for PE. Chronic pleural and parenchymal scarring in the apices with bronchiectasis, superimposed groundglass opacities throughout both lungs more extensive in the right upper lobe consistent with multifocal pneumonia. Bilateral pleural effusions. Of note: Patient has history of bilateral pneumothoraces. Day 4 IV antibiotics. Day 4 IV ceftriaxone. Day 4 IV azithromycin. Blood culture from admission growing Corynebacterium species. Repeat blood culture 05/25/2020 1/2 bottles positive for gram-positive cocci's pending sensitivity. Continue empiric IV antibiotics. As needed duo nebs and supplemental oxygen. Pulmonary toileting. (2) Gram-positive bacteremia Is this a current diagnosis for this admission?: Yes Plan: Presented with hypotension and needed to be placed on pressors. On admission she had leukopenia, bandemia, elevated lactic acid, elevated liver chemistries, chest x-ray positive for pneumonia and UA positive for leukocyte esterase. Likely community-acquired, due to gram-positive including strep pneumonia aspiration pneumonia is also possibility due to history of IV drug abuse and cocaine snorting. Negative for COVID-19 on admission. 05/24/2020. CTA negative for PE. Chronic pleural and parenchymal scarring in the apices with bronchiectasis, superimposed groundglass opacities throughout both lungs more extensive in the right upper lobe consistent with multifocal pneumonia. Bilateral pleural effusions. Blood culture from admission growing Corynebacterium species. Repeat blood culture 05/25/2020 1/2 bottles positive for gram-positive cocci's pending sensitivity. Day 4 IV antibiotics. Day 4 IV ceftriaxone. Day 1 IV vancomycin. Received 4 days of IV azithromycin. Received 1 dose of vancomycin on admission. 2D echo negative for any vegetation except for tricuspid valve thickening. Continue empiric IV antibiotics. Follow-up blood culture consider DALILA if indicated. (3) UTI (urinary tract infection) Qualifiers: Urinary tract infection type: acute cystitis Is this a current diagnosis for this admission?: Yes Plan: Likely due to gram-negative rods including E. coli. Currently on empiric IV antibiotics for septic shock. Continue current treatment. Follow-up urine culture. (4) Septic shock Is this a current diagnosis for this admission?: Yes Plan: Resolved. As per #1 (5) Chronic back pain Qualifiers: Back pain location: low back pain Is this a current diagnosis for this admission?: Yes Plan: Chronic back pain. Due to degenerative disc disease. MRI lumbar spine 04/29/2020 L4-L5 disc herniation resulting in moderate to severe left neural foraminal narrowing. Complains of chronic back pain. Denies any saddle paresthesia, urinary retention or bowel incontinence. Supportive measures, physical therapy, outpatient PT and pain management follow- up. (6) Left upper arm pain Is this a current diagnosis for this admission?: Yes Plan: Left upper extremity nonocclusive acute DVT based on venous Doppler on 05/24/2020. Was complaining of left upper extremity diffuse pain with finger swelling. Physical examination no rash, no focal tenderness, no joint effusion, no sign of infection. Given history of IV drug abuse will do left upper extremity ultrasound to rule out any acute DVT. Denies any history of previous thromboembolism. Patient currently thrombocytopenic. As per hematology recommendation continue Lovenox. Can be DC'd on NOACs upon discharge if thrombocytopenia keeps improving. (7) Polysubstance abuse Is this a current diagnosis for this admission?: Yes Plan: Patient very anxious having diarrhea and musculoskeletal pain,patient could be experiencing opioid withdrawal. History of multidrug abuse. UA positive for amphetamines, marijuana and opioids. Denies any history of endocarditis. Monitor for withdrawal, outpatient PCP and substance abuse follow-up. (8) Hepatitis C Qualifiers: Viral hepatitis chronicity: chronic Is this a current diagnosis for this admission?: Yes Plan: History of Chronic Hepatitis C. Out hepatology follow up. avoid hepatotoix meds. - Time Time Spent with patient: 35 or more minutes Anticipated Discharge Disposition: Home, Self Care Anticipated Discharge Timeframe: within 72 hours
[2020-05-26] MEDS ORDERED: VANCOMYCIN HCL 0 MG in DEXTROSE 5%-WATER 250 ML IV NR (13:15)
[2020-05-26] MEDS: VANCOMYCIN HCL 1,000 MG in DEXTROSE 5%-WATER 250 ML IV SCH (17:02)
[2020-05-26] MEDS: TRAZODONE HCL 50 MG TABLET PO SCH (21:44)
[2020-05-26] MEDS: TEMAZEPAM 15 MG CAPSULE PO SCH (21:44)
[2020-05-26] MEDS: ATORVASTATIN CALCIUM 40 MG TABLET PO SCH (21:44)
[2020-05-27] MEDS: VANCOMYCIN HCL 1,000 MG in DEXTROSE 5%-WATER 250 ML IV SCH ×3 (02:41→17:34)
[2020-05-27] MEDS: OXYCODONE-ACETAMINOPHEN 5-325 MG TABLET PO PRN ×4 (02:56→21:17)
[2020-05-27] MEDS: GABAPENTIN 300 MG CAPSULE PO SCH ×3 (05:08→21:16)
[2020-05-27] MEDS: POTASSI CL 20 MEQ/D5-1/2NS 1L 1,000 ML IV PRN (05:09)
[2020-05-27 05:45] LABS: HEMATOCRIT 31.7 % (36.0-47.0); HEMOGLOBIN 10.8 g/dL (12.0-15.5); MEAN CORPUSCULAR HEMOGLOBIN 32.3 pg (27.0-33.4); MEAN CORPUSCULAR HGB CONC 34.2 g/dL (32.0-36.0); MEAN CORPUSCULAR VOLUME 94 fl (80-97); PLATELET COUNT 115 10^3/uL (150-450); RED BLOOD COUNT 3.36 10^6/uL (3.72-5.28); RED CELL DISTRIBUTION WIDTH 14.4 % (11.5-14.0); WHITE BLOOD COUNT 6.7 10^3/uL (4.0-10.5)
[2020-05-27 06:52] LABS: APPEARANCE,URINE CLEAR; BILIRUBIN,URINE NEGATIVE (NEGATIVE); COLOR,URINE STRAW; GLUCOSE, URINE NEGATIVE (NEGATIVE); KETONES,URINE NEGATIVE (NEGATIVE); LEUKOCYTE ESTERASE,URINE LARGE (NEGATIVE); NITRITE,URINE NEGATIVE (NEGATIVE); PROTEIN,URINE NEGATIVE (NEGATIVE); URINE SPECIFIC GRAVITY 1.005; UROBILINOGEN,URINE NEGATIVE mg/dL (<2.0)
--- NOTE | 2020-05-27 08:07 | PDOC PROGRESS REPORT ---
Subjective Date:: 05/27/20 Subjective:: No acute events overnight. Platelet count has improved. No bleeding that I can see. Reason For Visit: PNA, SEPSIS Physical Exam Vital Signs: Temp Pulse Resp BP Pulse Ox 98.2 F 69 16 120/67 96 05/27/20 03:23 05/27/20 03:23 05/27/20 03:23 05/27/20 03:23 05/27/20 03:23 Intake & Output 05/26/20 05/27/20 05/28/20 06:59 06:59 06:59 Intake Total 3518 3450 250 Output Total 2845 5800 Balance 673 -2350 250 Weight 70.8 kg 66.5 kg General appearance: PRESENT: no acute distress, well-developed, well-nourished Head exam: PRESENT: atraumatic, normocephalic Eye exam: PRESENT: conjunctiva pink, EOMI, PERRLA. ABSENT: scleral icterus Ear exam: PRESENT: normal external ear exam Mouth exam: PRESENT: moist, tongue midline Neck exam: ABSENT: carotid bruit, JVD, lymphadenopathy, thyromegaly Respiratory exam: PRESENT: clear to auscultation coral. ABSENT: rales, rhonchi, wheezes Cardiovascular exam: PRESENT: RRR. ABSENT: diastolic murmur, rubs, systolic murmur Pulses: PRESENT: normal dorsalis pedis pul Vascular exam: PRESENT: normal capillary refill GI/Abdominal exam: PRESENT: normal bowel sounds, soft. ABSENT: distended, guarding, mass, organolmegaly, rebound, tenderness Rectal exam: PRESENT: deferred Extremities exam: PRESENT: full ROM. ABSENT: calf tenderness, clubbing, pedal edema Neurological exam: PRESENT: alert, awake, oriented to person, oriented to place, oriented to time, oriented to situation, CN II-XII grossly intact. ABSENT: motor sensory deficit Psychiatric exam: PRESENT: appropriate affect, normal mood. ABSENT: homicidal ideation, suicidal ideation Skin exam: PRESENT: dry, intact, warm. ABSENT: cyanosis, rash Results Laboratory Results: 05/27/20 05:00 05/26/20 06:15 05/27/20 05/27/20 05:00 06:00 WBC 6.7 RBC 3.36 L Hgb 10.8 L Hct 31.7 L MCV 94 MCH 32.3 MCHC 34.2 RDW 14.4 H Plt Count 115 L Urine Color STRAW Urine Appearance CLEAR Urine pH 6.0 Ur Specific [place] 1.005 Urine Protein NEGATIVE Urine Glucose (UA) NEGATIVE Urine Ketones NEGATIVE Urine Blood NEGATIVE Urine Nitrite NEGATIVE Ur Leukocyte Esterase LARGE H Urine WBC (Auto) 17 Urine RBC (Auto) 10 05/23/20 00:11 Blood Blood Culture (PCR) - Final 05/23/20 00:11 Blood Blood Culture - Final Corynebacterium Species 05/25/20 10:30 Blood Blood Culture (PCR) - Final Staphylococcus Species 05/24/20 14:46 Clean Catch Midstream Urine Culture - Final NO GROWTH 2 DAYS 05/22/20 05/23/20 05/23/20 23:25 05:16 05:16 Creatine Kinase 45 Troponin I < 0.012 < 0.012 NT-Pro-B Natriuret Pep 05/23/20 05/23/20 05/23/20 05:26 11:09 16:43 Creatine Kinase Troponin I < 0.012 0.014 NT-Pro-B Natriuret Pep 1420 H 05/24/20 05:20 Creatine Kinase Troponin I < 0.012 NT-Pro-B Natriuret Pep Impressions: Chest X-Ray 05/23/20 03:48 IMPRESSION: 1. Chronic biapical pleural parenchymal scarring. 2. Increasing opacification in the left inferior hemithorax and possibly right inferior hemithorax concerning for pneumonia. 3. The tip of the right IJ central venous catheter overlies the region of the superior vena cava. Head CT 05/24/20 00:00 IMPRESSION: 1. No acute intracranial abnormality. 2. Thickening of the mucosal lining of the maxillary sinuses - correlation with clinical findings for signs and symptoms of an acute sinusitis is recommended. EVIDENCE OF ACUTE STROKE: NO. Venous Doppler Study 05/24/20 13:19 IMPRESSION: 1. Nonocclusive acute DVT at a short section of right mid branchial vein. Chest/Abdomen CTA 05/25/20 00:00 IMPRESSION: 1. NORMAL CTA OF THE CHEST. NO PULMONARY EMBOLI. 2. CHRONIC PLEURAL AND PARENCHYMAL SCARRING IN THE LUNG APICES WITH BRONCHIECTASIS. SUPERIMPOSED GROUND-GLASS OPACITIES THROUGHOUT BOTH LUNGS, MORE EXTENSIVE IN THE RIGHT UPPER LOBE, CONSISTENT WITH MULTIFOCAL PNEUMONIA. 3. BILATERAL PLEURAL EFFUSIONS, RIGHT GREATER THAN LEFT. Assessment & Plan - Diagnosis (1) Left upper extremity deep vein thrombosis Qualifiers: Affected thrombotic vein of extremity: brachial Chronicity: acute Qualified Code(s): I82.622 - Acute embolism and thrombosis of deep veins of left upper extremity Is this a current diagnosis for this admission?: Yes Plan: Platelet count has now improved to greater than 100 and should ultimately normalize. Okay to switch to DOAC when medicine team feels that patient is ready medically for discharge. Also, insurance/payment issues need to be worked out. DC planning needs to be on board for that. Otherwise, patient will need lifelong anticoagulation, and [facility], does not really need hematology follow-up for this, as patient is uninsured and do not want to burden her with more bills. (2) Thrombocytopenia Is this a current diagnosis for this admission?: Yes Plan: Platelet count improving, related to DIC, should normalize over the next 5 to 7 days. - Time Time Spent with patient: 35 or more minutes Anticipated discharge: Home Anticipated DC Timeframe: within 48 hours - Inpatient Certification Medical Necessity: Risk of Complication if Not Cared For in Hospital
[2020-05-27] MEDS: CEFTRIAXONE 2 GM/D5W RTU 2 GM/50 ML RTUPB IV SCH (09:44)
[2020-05-27] MEDS: METHOCARBAMOL 750 MG TABLET PO SCH ×4 (09:45→21:17)
[2020-05-27] MEDS: ENOXAPARIN SODIUM INJ 80 MG/0.8 ML DISP.SYRIN SUBCUT SCH ×2 (09:45→21:18)
[2020-05-27] MEDS: FOLIC ACID 1 MG TABLET PO SCH (09:45)
[2020-05-27] MEDS: ASPIRIN 81 MG TABLET, CHEWABLE PO SCH (09:45)
[2020-05-27] MEDS: PHOSPHORUS #1 250 MG TABLET PO SCH ×4 (09:45→21:16)
[2020-05-27] MEDS: THIAMINE HCL 100 MG TABLET PO SCH (09:51)
[2020-05-27] MEDS: MULTIVITS W-MIN/IRON SOLN 60 ML PO SCH (10:15)
[2020-05-27] MEDS ORDERED: ALBUTEROL SULFATE 0.083% NEB 2.5 MG/3 ML AMPUL NEB PRN (14:39)
--- NOTE | 2020-05-27 15:25 | PDOC PROGRESS REPORT ---
Subjective Date:: 05/27/20 Subjective:: She complains of pain in her mid and upper back. Also has some shortness of mckay ath. Reason For Visit: PNA, SEPSIS Physical Exam Vital Signs: Temp Pulse Resp BP Pulse Ox 98.0 F 69 22 H 146/93 H 98 05/27/20 11:17 05/27/20 11:17 05/27/20 11:17 05/27/20 11:17 05/27/20 11:17 Intake & Output 05/26/20 05/27/20 05/28/20 06:59 06:59 06:59 Intake Total 3518 3450 606 Output Total 2845 5800 600 Balance 673 -2350 6 Weight 70.8 kg 66.5 kg General appearance: PRESENT: no acute distress, cooperative Neck exam: ABSENT: JVD Respiratory exam: PRESENT: rhonchi, symmetrical, unlabored, wheezes. ABSENT: accessory muscle use, tachypnea Cardiovascular exam: PRESENT: RRR, +S1, +S2. ABSENT: tachycardia GI/Abdominal exam: PRESENT: soft. ABSENT: rebound, rigid, tenderness Extremities exam: PRESENT: other - Mild tenderness in lue Neurological exam: PRESENT: alert, awake, oriented to person, oriented to place, oriented to time, oriented to situation Results Laboratory Results: 05/27/20 05:00 05/26/20 06:15 05/27/20 05/27/20 05:00 06:00 WBC 6.7 RBC 3.36 L Hgb 10.8 L Hct 31.7 L MCV 94 MCH 32.3 MCHC 34.2 RDW 14.4 H Plt Count 115 L Urine Color STRAW Urine Appearance CLEAR Urine pH 6.0 Ur Specific [place] 1.005 Urine Protein NEGATIVE Urine Glucose (UA) NEGATIVE Urine Ketones NEGATIVE Urine Blood NEGATIVE Urine Nitrite NEGATIVE Ur Leukocyte Esterase LARGE H Urine WBC (Auto) 17 Urine RBC (Auto) 10 05/25/20 10:30 Blood Blood Culture (PCR) - Final Staphylococcus Species 05/23/20 00:11 Blood Blood Culture (PCR) - Final 05/23/20 00:11 Blood Blood Culture - Final Corynebacterium Species 05/22/20 05/23/20 05/23/20 23:25 05:16 05:16 Creatine Kinase 45 Troponin I < 0.012 < 0.012 NT-Pro-B Natriuret Pep 05/23/20 05/23/20 05/23/20 05:26 11:09 16:43 Creatine Kinase Troponin I < 0.012 0.014 NT-Pro-B Natriuret Pep 1420 H 05/24/20 05:20 Creatine Kinase Troponin I < 0.012 NT-Pro-B Natriuret Pep Impressions: Chest X-Ray 05/23/20 03:48 IMPRESSION: 1. Chronic biapical pleural parenchymal scarring. 2. Increasing opacification in the left inferior hemithorax and possibly right inferior hemithorax concerning for pneumonia. 3. The tip of the right IJ central venous catheter overlies the region of the superior vena cava. Head CT 05/24/20 00:00 IMPRESSION: 1. No acute intracranial abnormality. 2. Thickening of the mucosal lining of the maxillary sinuses - correlation with clinical findings for signs and symptoms of an acute sinusitis is recommended. EVIDENCE OF ACUTE STROKE: NO. Venous Doppler Study 05/24/20 13:19 IMPRESSION: 1. Nonocclusive acute DVT at a short section of right mid branchial vein. Chest/Abdomen CTA 05/25/20 00:00 IMPRESSION: 1. NORMAL CTA OF THE CHEST. NO PULMONARY EMBOLI. 2. CHRONIC PLEURAL AND PARENCHYMAL SCARRING IN THE LUNG APICES WITH B RONCHIECTASIS. SUPERIMPOSED GROUND-GLASS OPACITIES THROUGHOUT BOTH LUNGS, MORE EXTENSIVE IN THE RIGHT UPPER LOBE, CONSISTENT WITH MULTIFOCAL PNEUMONIA. 3. BILATERAL PLEURAL EFFUSIONS, RIGHT GREATER THAN LEFT. Assessment and Plan - Diagnosis (1) Pneumonia Qualifiers: Pneumonia type: due to unspecified organism Laterality: left Lung location: lower lobe of lung Qualified Code(s): J18.9 - Pneumonia, unspecified organism Is this a current diagnosis for this admission?: Yes (3) Chronic back pain Qualifiers: Back pain location: low back pain Is this a current diagnosis for this admission?: Yes (4) Left upper extremity deep vein thrombosis Qualifiers: Affected thrombotic vein of extremity: brachial Chronicity: acute Qualified Code(s): I82.622 - Acute embolism and thrombosis of deep veins of left upper extremity Is this a current diagnosis for this admission?: Yes (5) Polysubstance abuse Is this a current diagnosis for this admission?: Yes (6) Septic shock Is this a current diagnosis for this admission?: Yes (7) UTI (urinary tract infection) Qualifiers: Urinary tract infection type: acute cystitis Is this a current diagnosis for this admission?: Yes (8) Hepatitis C Qualifiers: Viral hepatitis chronicity: chronic Is this a current diagnosis for this admission?: Yes - Plan Summary Summary: She has some wheezing and rhonchi today. We will give some duo nebs. We will continue the antibiotics as scheduled currently. She has had some positive blood cultures during this hospitalization but strongly suspicious of cont amination. Her most recent was a coagulase-negative methicillin-resistant staph noted positive in 1 blood culture bottle only. This was discordant with the initial positive blood culture on admission which grew Corynebacterium. Her TTE during this hospitalization showed no evidence of vegetation but did show some tricuspid valve thickening. She does have history of IV drug use and last drugs IV 6 months ago. I will consult infectious diseases. I will follow-up most recent blood cultures. She is receiving therapeutic Lovenox for treatment of her left upper extremity DVT. - Time Time Spent with patient: 15-24 minutes Anticipated Discharge Disposition: Home, Self Care Anticipated Discharge Timeframe: within 48 hours
--- NOTE | 2020-05-27 16:36 | Progress Note ---
Provider Note Provider Note: New ID teleconsultation. Patient not examined. Chart reviewed. 50-year-old female with a history of injection drug use, HCV who came to the emergency room 05/22 for lower back pain but did not have any point tenderness and had a recent MRI at the end of April that was notable for degenerative disc disease. She was noted to initially be hypotensive and with cough and rhonchi requiring 2 L nasal cannula. She had a CT chest which demonstrates chronic bilateral apical scarring right greater than left and some superimposed GGO concerning for CAP on a background of what appears to be COPD. Has been on ceftriaxone and azithromycin for 5 days. Blood cultures drawn on admission 05/23 with 1 set demonstrating corynebacterium species. Repeat blood cultures drawn 05/25 with 1 set demonstrating coagulase-negative staph. Repeat blood cultures drawn again 05/26 are no growth to date. She was started on vancomycin 05/26. She had a 2D echo which demonstrated some questionable tricuspid valve thickening and could not exclude endocarditis. WBC on admission low at 2.3 now normal, platelet count also low at 80 but seems to be improving now at 115. Creatinine is normal, but ALT is elevated at 151 now down to 71 as well as AST up to 136 now normal. Alk phos was normal. U tox positive for amphetamines, cocaine, and marijuana. She is noted to have hepatitis C antibody positivity. Assessment/Recommendations: 1. CAP in a patient with underlying lung disease-it appears as though her back pain is secondary to this although her lower back pain appears to be chronic with a reassuring MRI in April. Treatment can be completed with 8 days of therapy with transitioning to moxifloxacin on discharge assuming she is improved. 2. Corynebacterium and coagulase-negative staph in separate sets of blood cultures in isolation--consistent with contamination and not concerning for endocarditis. TTE findings are nonspecific and without other evidence to suggest endocarditis would not parag this. 3. Pyuria-no signs of UTI given negative cultures and lack of symptomatology. 4. HCV -unclear if treatment johnnie. Needs outpatient follow-up. Please page or call with questions or concerns Kate Durand MD [phone] Pager [phone]
[2020-05-27 18:34] LABS: VANCOMYCIN,TROUGH 10.1 ug/mL (5.0-20.0)
[2020-05-27] MEDS: GUAIFENESIN/D-METHORPHAN (200-20 MG) SYRUP 10 ML PO PRN (21:16)
[2020-05-27] MEDS: TRAZODONE HCL 50 MG TABLET PO SCH (21:16)
[2020-05-27] MEDS: ACETAMINOPHEN 325 MG TABLET PO PRN (21:16)
[2020-05-27] MEDS: TEMAZEPAM 15 MG CAPSULE PO SCH (21:17)
[2020-05-27] MEDS: ATORVASTATIN CALCIUM 40 MG TABLET PO SCH (21:17)
[2020-05-27] MEDS: MELATONIN 5 MG TABLET PO PRN (21:17)
[2020-05-27] MEDS: PROMETHAZINE HCL INJ 25 MG/1 ML VIAL IV PRN (21:20)
[2020-05-28] MEDS: VANCOMYCIN HCL 1,000 MG in DEXTROSE 5%-WATER 250 ML IV SCH ×2 (01:41→09:18)
[2020-05-28] MEDS: OXYCODONE-ACETAMINOPHEN 5-325 MG TABLET PO PRN ×2 (05:52→11:49)
[2020-05-28] MEDS: GUAIFENESIN/D-METHORPHAN (200-20 MG) SYRUP 10 ML PO PRN (05:52)
[2020-05-28] MEDS: GABAPENTIN 300 MG CAPSULE PO SCH (06:16)
[2020-05-28] MEDS: PHOSPHORUS #1 250 MG TABLET PO SCH ×2 (08:49→11:50)
[2020-05-28] MEDS: ASPIRIN 81 MG TABLET, CHEWABLE PO SCH (09:13)
[2020-05-28] MEDS: THIAMINE HCL 100 MG TABLET PO SCH (09:14)
[2020-05-28] MEDS: FOLIC ACID 1 MG TABLET PO SCH (09:14)
[2020-05-28] MEDS: METHOCARBAMOL 750 MG TABLET PO SCH (09:15)
[2020-05-28] MEDS: MULTIVITS W-MIN/IRON SOLN 60 ML PO SCH (09:16)
[2020-05-28] MEDS: CEFTRIAXONE 2 GM/D5W RTU 2 GM/50 ML RTUPB IV SCH (09:18)
--- NOTE | 2020-05-28 09:19 | Progress Note ---
Provider Note Provider Note: [facility] ID Brief Note It is noted that patients repeat blood cultures are again demonstrating CoNS. It notes these are from a line draw. If pt has a PICC or central line would remove as both of the CoNS were noted from a line draw. No need for systemic vancomycin if periperhal bcx are NGTD. Endocarditis still seems unlikely given lack of CoNS on admission blood cultures and alt explanations for current presentation. If back pain appears new or worse than chronic pain can consider a repeat MRI. Kate Durand MD [phone] pager
[2020-05-28] MEDS ORDERED: APIXABAN 5 MG TABLET PO SCH (10:00)
[2020-05-28] MEDS: PROMETHAZINE HCL INJ 25 MG/1 ML VIAL IV PRN (10:31)
--- NOTE | 2020-05-28 13:09 | PDOC DISCHARGE SUMMARY ---
Impression - Admit/DC Date/PCP Admission Date/Primary Care Provider: 05/23/20 01:56 Discharge Date: 05/28/20 - Discharge Diagnosis (1) Pneumonia Is this a current diagnosis for this admission?: Yes (2) Lumbar disc herniation Is this a current diagnosis for this admission?: Yes (3) Chronic back pain Is this a current diagnosis for this admission?: Yes (4) Positive blood culture Is this a current diagnosis for this admission?: Yes (5) Left upper extremity deep vein thrombosis Is this a current diagnosis for this admission?: Yes (6) Polysubstance abuse Is this a current diagnosis for this admission?: Yes (7) Septic shock Is this a current diagnosis for this admission?: Yes (8) Neuroforaminal stenosis of lumbar spine Is this a current diagnosis for this admission?: Yes (9) UTI (urinary tract infection) Is this a current diagnosis for this admission?: Yes (10) Hepatitis C Is this a current diagnosis for this admission?: Yes - Additional Information Resuscitation Status: Full Code Discharge Diet: As Tolerated Discharge Activity: Activity As Tolerated Referrals: [facility] [Provider Group] [facility] [Provider Group] Prescriptions: Apixaban [Eliquis 5 mg Tablet] See Protocol PO BID #70 tablet Cyclobenzaprine HCl [Flexeril 10 mg Tablet] 10 mg PO TIDP PRN #15 tab PRN Reason: Moxifloxacin HCl 400 mg PO DAILY 5 Days #5 tablet Albuterol Sulfate [Ventolin Hfa 8 gm Mdi (1 Mdi/ER Disp)] 2 puff IH Q6HP PRN #1 inhaler PRN Reason: Home Medications: Albuterol Sulfate [Albuterol Sulfate Hfa] 1 puff IH QAMP PRN 05/23/20 Acetaminophen [Tylenol 325 mg Tablet] 650 mg PO Q4HP PRN tablet 05/28/20 Albuterol Sulfate [Ventolin Hfa 8 gm Mdi (1 Mdi/ER Disp)] 2 puff IH Q6HP PRN #1 inhaler 05/28/20 Apixaban [Eliquis 5 mg Tablet] See Protocol PO BID #70 tablet 05/28/20 Cyclobenzaprine HCl [Flexeril 10 mg Tablet] 10 mg PO TIDP PRN #15 tab 05/28/20 Moxifloxacin HCl 400 mg PO DAILY 5 Days #5 tablet 05/28/20 History of Present Illiness History of Present Illness: According to admitting provider: 50-year-old female who presented to the ER tonight with complaints of back pain. She denies any past medical history other than herniated disc. She denies being on any home medication and has no primary care physician. Patient denies any recreational drug use however she was positive on urine drug screen for amphetamines marijuana and cocaine. Patient was evaluated by the ER provider and chest x-ray revealed pneumonia left lower lobe. The patient became hypotensive in the ER and the ER provider started her on Levophed. She was giving 3 L of normal saline bolus with no response to her blood pressure. The ER provider also gave her 25 mics of fentanyl due to her complaints of back pain. Critical care was consulted for admission and management of this patient. Hospital Course Hospital Course: Patient presented to the hospital with evaluation of back pain. She also had cough and shortness of breath at the time. Chest imaging revealed evidence of pneumonia. She was taken for a CT scan of her chest which also revealed multifocal pneumonia as well as some pleural effusion. Patient was initially admitted to the ICU briefly due to concerns for septic shock. Seemed initially required pressors. Later pressors were discontinued and patient was sent to the floor. Patient was on antibiotics IV. Also received bronchodilator treatment for notable wheezing. Patient has back pain was thought to be secondary to MRI findings the previous months which suggested L4/L5 disc herniation with moderate to severe neuroforaminal narrowing. Patient was given some pain medications while in hospital. Also given muscle relaxants and encouraged to continue to undergo outpatient physical therapy. Patient did have some positive blood cultures while in the hospital but thought to be contaminants from her line draws. Her peripheral draws have remained negative. Echocardiogram was done given patient's history of IV drug use which showed no evidence of vegetation. He did however show thickened tricuspid valve and some evidence of right volume overload. Patient being given Lasix to help with this as well as a pleural effusion. Infectious disease was consulted who recommended no need for DALILA and that no need for work-up for endocarditis. Patient has central line will be removed today as recommended. ID has recommended moxifloxacin upon discharge for patient's treatment of her pneumonia. She was also found to have a DVT in her left upper extremity and seen by oncologist who recommends discharge on DOAC. Patient will be discharged on Eliquis. Received Lovenox while in the hospital. SW consulted for patient to help her with Medicaid application as well as coupons for her Eliquis. She will be set up with [facility]. Patient's hypoxia has resolved and she is on room air saturating in the mid 90s. Recommended to follow-up outpatient regarding her hepatitis C. Physical Exam Vital Signs: Temp Pulse Resp BP Pulse Ox 98.3 F 68 16 114/55 L 94 05/28/20 11:22 05/28/20 11:22 05/28/20 11:22 05/28/20 11:22 05/28/20 11:22 Intake & Output 05/27/20 05/28/20 05/29/20 06:59 06:59 06:59 Intake Total 3450 2579 1000 Output Total 5800 3700 Balance -2350 -1121 1000 Weight 66.5 kg 66.1 kg General appearance: PRESENT: no acute distress, cooperative Neck exam: ABSENT: JVD Respiratory exam: PRESENT: rhonchi, symmetrical, unlabored. ABSENT: accessory muscle use, tachypnea Cardiovascular exam: PRESENT: RRR, +S1, +S2. ABSENT: tachycardia GI/Abdominal exam: PRESENT: soft. ABSENT: rebound, rigid, tenderness Neurological exam: PRESENT: alert, awake, oriented to person, oriented to place, oriented to time Psychiatric exam: ABSENT: agitated, anxious Focused psych exam: ABSENT: pressured speech Skin exam: ABSENT: jaundice Results Laboratory Results: WBC 6.7 10^3/uL (4.0-10.5) 05/27/20 05:00 RBC 3.36 10^6/uL (3.72-5.28) L 05/27/20 05:00 Hgb 10.8 g/dL (12.0-15.5) L 05/27/20 05:00 Hct 31.7 % (36.0-47.0) L 05/27/20 05:00 MCV 94 fl (80-97) 05/27/20 05:00 MCH 32.3 pg (27.0-33.4) 05/27/20 05:00 MCHC 34.2 g/dL (32.0-36.0) 05/27/20 05:00 RDW 14.4 % (11.5-14.0) H 05/27/20 05:00 Plt Count 115 10^3/uL (150-450) L 05/27/20 05:00 Lymph % (Auto) 29.0 % (13-45) 05/26/20 06:15 [place] % (Auto) 3.6 % (3-13) 05/26/20 06:15 Eos % (Auto) 1.4 % (0-6) 05/26/20 06:15 Baso % (Auto) 0.5 % (0-2) 05/26/20 06:15 Absolute Neuts (auto) 5.6 10^3/uL (1.7-8.2) 05/26/20 06:15 Absolute Lymphs (auto) 2.5 10^3/uL (0.5-4.7) 05/26/20 06:15 Absolute Monos (auto) 0.3 10^3/uL (0.1-1.4) 05/26/20 06:15 Absolute Eos (auto) 0.1 10^3/uL (0.0-0.6) 05/26/20 06:15 Absolute Basos (auto) 0.0 10^3/uL (0.0-0.2) 05/26/20 06:15 Total Counted 100 05/22/20 23:25 Seg Neutrophils % 65.5 % (42-78) 05/26/20 06:15 Seg Neuts % (Manual) 54 % (42-78) 05/22/20 23:25 Band Neutrophils % 6 % (3-5) H 05/22/20 23:25 Lymphocytes % (Manual) 26 % (13-45) 05/22/20 23:25 Atypical Lymphs % 1 % (0) 05/22/20 23:25 Monocytes % (Manual) 12 % (3-13) 05/22/20 23:25 Eosinophils % (Manual) 1 % (0-6) 05/22/20 23:25 Basophils % (Manual) 0 % (0-2) 05/22/20 23:25 Abs Neuts (Manual) 1.4 10^3/uL (1.7-8.2) L 05/22/20 23:25 Abs Lymphs (Manual) 0.6 10^3/uL (0.5-4.7) 05/22/20 23:25 Abs Monocytes (Manual) 0.3 10^3/uL (0.1-1.4) 05/22/20 23:25 Absolute Eos (Manual) 0.0 10^3/uL (0.0-0.6) 05/22/20 23:25 Abs Basophils (Manual) 0.0 10^3/uL (0.0-0.2) 05/22/20 23:25 Toxic Granulation SLIGHT 05/22/20 23:25 Toxic Vacuolation PRESENT 05/22/20 23:25 Platelet Comment DECREASED 05/22/20 23:25 Tear Drop Cells SLIGHT 05/22/20 23:25 [place] Cells SLIGHT 05/22/20 23:25 PT 15.7 SEC (11.4-15.4) H 05/23/20 05:24 INR 1.23 05/23/20 05:24 Carbonic Acid 1.18 mmol/L (1.05-1.35) 05/23/20 06:18 HCO3/H2CO3 Ratio 17:1 05/23/20 06:18 ABG pH 7.33 (7.35-7.45) L 05/23/20 06:18 ABG pCO2 39.3 mmHg (35-45) 05/23/20 06:18 ABG pO2 92.4 mmHg (80-100) 05/23/20 06:18 ABG HCO3 20.2 mmol/L (20-24) 05/23/20 06:18 ABG Total CO2 21.4 mmol/L (21-25) 05/23/20 06:18 ABG O2 Saturation 96.6 % (94-98) 05/23/20 06:18 ABG Base Excess -5.3 mmol/L 05/23/20 06:18 VBG pH 7.37 (7.30-7.42) 05/23/20 00:11 VBG pCO2 43.9 mmHg (35-63) 05/23/20 00:11 VBG HCO3 24.8 mmol/L (20-32) 05/23/20 00:11 VBG Base Excess -0.6 mmol/L 05/23/20 00:11 FiO2 2L 05/23/20 06:18 Sodium 143.7 mmol/L (137-145) 05/26/20 06:15 Potassium 3.7 mmol/L (3.6-5.0) 05/26/20 06:15 Chloride 113 mmol/L (98-107) H 05/26/20 06:15 Carbon Dioxide 26 mmol/L (22-30) 05/26/20 06:15 Anion Gap 5 (5-19) 05/26/20 06:15 BUN 3 mg/dL (7-20) L 05/26/20 06:15 Creatinine 0.71 mg/dL (0.52-1.25) 05/27/20 17:27 Est GFR ( Amer) > 60 (>60) 05/27/20 17:27 Est GFR (MDRD) Non-Af > 60 (>60) 05/27/20 17:27 Glucose 142 mg/dL (75-110) H 05/26/20 06:15 Lactic Acid 2.1 mmol/L (0.7-2.1) 05/23/20 06:28 Calcium 8.2 mg/dL (8.4-10.2) L 05/26/20 06:15 Phosphorus 1.6 mg/dL (2.5-4.5) L 05/23/20 05:16 Magnesium 1.6 mg/dL (1.6-2.3) 05/26/20 06:15 Total Bilirubin 0.6 mg/dL (0.2-1.3) 05/26/20 06:15 Direct Bilirubin 0.3 mg/dL (0.0-0.4) 05/26/20 06:15 Neonat Total Bilirubin Not Reportable 05/26/20 06:15 Neonat Direct Bilirubin Not Reportable 05/26/20 06:15 Neonat Indirect Bili Not Reportable 05/26/20 06:15 AST 31 U/L (14-36) 05/26/20 06:15 ALT 71 U/L (<35) H 05/26/20 06:15 Alkaline Phosphatase 107 U/L (38-126) 05/26/20 06:15 Ammonia < 8.7 umol/L (9-33) L 05/23/20 05:24 Creatine Kinase 45 U/L (30-135) 05/23/20 05:16 Troponin I < 0.012 ng/mL 05/24/20 05:20 NT-Pro-B Natriuret Pep 1420 pg/mL (<125) H 05/23/20 05:26 Total Protein 5.2 g/dL (6.3-8.2) L 05/26/20 06:15 Albumin 2.8 g/dL (3.5-5.0) L 05/26/20 06:15 Prealbumin 8.8 mg/dL (17.6-36.0) L 05/23/20 16:43 TSH 4.53 uIU/mL (0.47-4.68) 05/23/20 05:16 Free T4 0.90 ng/dL (0.78-2.19) 05/23/20 05:16 Serum HCG, Qual NEGATIVE (NEGATIVE) 05/22/20 23:25 Random Cortisol 38.00 ug/dL (None Established) 05/23/20 05:16 Urine Color STRAW 05/27/20 06:00 Urine Appearance CLEAR 05/27/20 06:00 Urine pH 6.0 (5.0-9.0) 05/27/20 06:00 Ur Specific [place] 1.005 05/27/20 06:00 Urine Protein NEGATIVE mg/dL (NEGATIVE) 05/27/20 06:00 Urine Glucose (UA) NEGATIVE mg/dL (NEGATIVE) 05/27/20 06:00 Urine Ketones NEGATIVE mg/dL (NEGATIVE) 05/27/20 06:00 Urine Blood NEGATIVE (NEGATIVE) 05/27/20 06:00 Urine Nitrite NEGATIVE (NEGATIVE) 05/27/20 06:00 Urine Bilirubin NEGATIVE (NEGATIVE) 05/27/20 06:00 Urine Urobilinogen NEGATIVE mg/dL (<2.0) 05/27/20 06:00 Ur Leukocyte Esterase LARGE (NEGATIVE) H 05/27/20 06:00 Urine WBC (Auto) 17 /HPF 05/27/20 06:00 Urine RBC (Auto) 10 /HPF 05/27/20 06:00 Urine Bacteria (Auto) TRACE /HPF 05/25/20 15:56 Squamous Epi Cells Auto 1 /HPF 05/27/20 06:00 Urine Mucus (Auto) RARE /LPF 05/27/20 06:00 Urine Ascorbic Acid NEGATIVE (NEGATIVE) 05/27/20 06:00 Time Trough Drawn 1727 05/27/20 17:27 Vancomycin Trough 10.1 ug/mL (5.0-20.0) 05/27/20 17:27 Urine Opiates Screen NEGATIVE 05/22/20 23:45 Urine Methadone Screen NEGATIVE 05/22/20 23:45 Ur Barbiturates Screen NEGATIVE 05/22/20 23:45 Ur Phencyclidine Scrn NEGATIVE 05/22/20 23:45 Ur Amphetamines Screen UNCONFIRMED POSITIVE 05/22/20 23:45 U Benzodiazepines Scrn NEGATIVE 05/22/20 23:45 Urine Cocaine Screen UNCONFIRMED POSITIVE 05/22/20 23:45 U Marijuana (THC) Screen UNCONFIRMED POSITIVE 05/22/20 23:45 Serum Alcohol < 10 mg/dL (NONE DETECTED) 05/22/20 23:25 COVID-19 Source Cancelled 05/23/20 02:03 COVID-19 (MARKUS) Cancelled 05/23/20 02:03 Influenza A (RT-PCR) NEGATIVE (NEGATIVE) 05/23/20 01:39 Influenza B (RT-PCR) NEGATIVE (NEGATIVE) 05/23/20 01:39 RSV (RT-PCR) NEGATIVE (NEGATIVE) 05/23/20 01:39 SARS-CoV-2 Rap RNA(RT-PCR) NEGATIVE (NEGATIVE) 05/23/20 01:39 05/22/20 05/23/20 05/23/20 23:25 05:16 05:26 Troponin I < 0.012 < 0.012 NT-Pro-B Natriuret Pep 1420 H 05/23/20 05/23/20 05/24/20 11:09 16:43 05:20 Troponin I < 0.012 0.014 < 0.012 NT-Pro-B Natriuret Pep Impressions: Chest X-Ray 05/22/20 23:37 IMPRESSION: Possible developing left basilar pneumonia. Chest X-Ray 05/23/20 03:48 IMPRESSION: 1. Chronic biapical pleural parenchymal scarring. 2. Increasing opacification in the left inferior hemithorax and possibly right inferior hemithorax concerning for pneumonia. 3. The tip of the right IJ central venous catheter overlies the region of the superior vena cava. Head CT 05/24/20 00:00 IMPRESSION: 1. No acute intracranial abnormality. 2. Thickening of the mucosal lining of the maxillary sinuses - correlation with clinical findings for signs and symptoms of an acute sinusitis is recommended. EVIDENCE OF ACUTE STROKE: NO. Venous Doppler Study 05/24/20 13:19 IMPRESSION: 1. Nonocclusive acute DVT at a short section of right mid branchial vein. Chest/Abdomen CTA 05/25/20 00:00 IMPRESSION: 1. NORMAL CTA OF THE CHEST. NO PULMONARY EMBOLI. 2. CHRONIC PLEURAL AND PARENCHYMAL SCARRING IN THE LUNG APICES WITH BRONCHIECTASIS. SUPERIMPOSED GROUND-GLASS OPACITIES THROUGHOUT BOTH LUNGS, MORE EXTENSIVE IN THE RIGHT UPPER LOBE, CONSISTENT WITH MULTIFOCAL PNEUMONIA. 3. BILATERAL PLEURAL EFFUSIONS, RIGHT GREATER THAN LEFT. Plan Time Spent: Greater than 30 Minutes Stroke Is this a Stroke Patient?: No Acute Heart Failure Is this a Heart Failure Patient?: No
[2020-05-28] MEDS ORDERED: ALBUTEROL SULFATE HFA (90 MCG/PUFF) 8 GM MDI IH PRN (13:42)
[2020-05-28 14:18] VITALS: BP 130/74
== END 2020-05-28 16:36 | disposition home or self-care (01) | DRG 871 ==
LOC: ER 23:06 → EH 05-23 01:56 → 5 05-23 17:17
PROVIDERS: ADMIT Internal Medicine; ATTEND Internal Medicine
PROC: 3E02340 Introduction of Influenza Vaccine into Muscle, Percutaneous Approach (ICD-10-PCS; principal; 2020-05-24)
PROC: B24BZZ4 Ultrasonography of Heart with Aorta, Transesophageal (ICD-10-PCS; 2020-05-24)
DX: A41.9 Sepsis, unspecified organism (principal); J18.9 Pneumonia, unspecified organism; R65.21 Severe sepsis with septic shock; I82.622 Acute embolism and thrombosis of deep veins of left upper extremity; J44.0 Chronic obstructive pulmonary disease with (acute) lower respiratory infection; N30.00 Acute cystitis without hematuria; Z20.822 Contact with and (suspected) exposure to COVID-19; M51.26 Other intervertebral disc displacement, lumbar region; G89.29 Other chronic pain; F19.10 Other psychoactive substance abuse, uncomplicated; M48.061 Spinal stenosis, lumbar region without neurogenic claudication; I95.9 Hypotension, unspecified; F14.10 Cocaine abuse, uncomplicated; B96.20 Unspecified Escherichia coli [E. coli] as the cause of diseases classified elsewhere; F12.10 Cannabis abuse, uncomplicated; F15.10 Other stimulant abuse, uncomplicated; F32.9 Major depressive disorder, single episode, unspecified; F17.210 Nicotine dependence, cigarettes, uncomplicated; B18.2 Chronic viral hepatitis C; Z23 Encounter for immunization; Z79.899 Other long term (current) drug therapy; Z79.01 Long term (current) use of anticoagulants
CPT/HCPCS: 36415; 36600; 70450; 71045; 71275; 80053; 80202; 80307; 81001; 82140; 82533; 82550; 82565; 82803; 83605; 83735; 83880; 84100; 84134; 84439; 84443; 84484; 84703; 85025; 85027; 85610; 87040; 87077; 87086; 87150; 87186; 90471; 90686; 93005; 93010; 93306; 93971; 96361; 96374; 96375; 99285; 99291; J0610; 0241U; C9803; G0008; J0456; J0696; J1642; J1644; J1650; J1885; J2405; J2550; J3010; J3370; J3475; J3480; J3490; J7030; J7060; J7120; P9047; S0028